=== PATIENT | female | born 1960 | race Caucasian/White ===

== ENCOUNTER 2021-02-26 12:38 | Inpatient (IN) ==
[2021-02-26] MEDS ORDERED: FUROSEMIDE 40 MG/4 ML VIAL IV STA (13:09)
--- NOTE | 2021-02-26 13:21 | Emergency Department Note ---
Impression & Plan CHF (congestive heart failure), Pedal edema, Fluid overload, Atrial fibrillation ED Provider Note NAME: NASH CARNEY AGE: 61 SEX: F : 1960 ARRIVES VIA: Ambulance INFORMANT: [Patient] ED PROVIDER(S): [Black Dumont MD] CHIEF COMPLAINT: Swelling HISTORY OF PRESENT ILLNESS: The patient is a 61-year-old female who presents to the ER from the cardiology office for fluid overload. She has gained 30 pounds in a very short timeframe. She requires admission for IV diuresis. The patient denies vomiting or fever. She has been intermittently short of breath. She has not had cough or vomiting or diarrhea. The patient is on diuretics and is taking the medication as prescribed. The patient was felt too fluid overloaded to be taken care of as an outpatient. The cardiology group did attempt to perform a direct admission to the hospital but they were referred to the ED as the hospital bed status was tenuous. Of note, the patient states that her left knee was twisted in transport, she has some mild pain. She is asking for an x-ray. REVIEW OF SYSTEMS: See HPI for pertinent positives and negatives. A total of ten systems were reviewed and were otherwise negative. PMHx/PSHx: See Below SOCIAL HISTORY: See Below. PHYSICAL EXAM: GENERAL: Patient is in no acute distress. HEENT: No acute trauma, normocephalic atraumatic, mucous membranes moist, no nasal congestion, no scleral icterus. NECK: No stridor, no adenopathy, no meningismus, trachea is midline. LUNGS: Crackles at both bases, no wheezing, no respiratory distress. HEART: Mildly tachycardic, irregular rhythm, no murmurs. ABDOMEN: Soft, nontender, bowel sounds positive, no hernias, no peritonitis. EXTREMITIES: No cyanosis, significant bilateral pedal edema, full range of m otion of all the joints without pain or difficulty, no signs for acute trauma. NEUROLOGIC: Oriented x 3, no acute motor or sensory deficits, no focal weakness. SKIN: No rash, no jaundice, no diaphoresis. DIFFERENTIAL DIAGNOSIS: Reactive airway disease, pneumonia, pneumothorax, COPD, CHF, infection, cardiac ischemia, pulmonary embolism, bronchitis, musculoskeletal, gastrointestinal, as well as other pathologies. EMERGENCY DEPARTMENT COURSE/PROCEDURES: ECG: Indication was shortness of breath. The ECG shows atrial fibrillation with a rate of 117. There is some T wave inversion in the lateral leads. There is a potential old inferior infarct. The QTc is 499. No PVCs. No ST elevation. Continuous Cardiac Monitoring: An order was placed for continuous cardiac monitoring. The monitor shows a rate of 103 with atrial fibrillation. MEDICAL DECISION MAKING: There is no leukocytosis. The patient does have a mild anemia. The platelet count was somewhat low at 117. No coagulopathy. No significant electrolyte abnormality or kidney failure. No concerning liver enzyme elevation. BNP was elevated consistent with fluid overload. Chest film shows some cardiomegaly and possibly some mild CHF. Covid testing returned negative. Left knee film showed old hardware, no fracture. The patient presents with a weight gain and fluid overload. She was sent from the cardiology office for admission given the amount of excess fluid. The patient was given IV Lasix, 80 mg. She is currently resting comfortably. I did speak with the on-call hospitalist. I discussed findings with the meenu ent. Case management has been involved. Patient requires an inpatient stay for her diuresis. Past Med/Surg History Medical History Charcot's joint of left foot Chronic diastolic (congestive) heart failure Diabetes mellitus, type II Diabetic retinopathy Fibromyalgia HTN (hypertension) Paroxysmal atrial fibrillation Surgical History History of foot surgery Hx of cholecystectomy Family History (Updated 02/26/21 @ 16:04 by Marilyn Peters PA-C) Other Arthritis Social History Smoking Status: Never smoker Hx Alcohol Use: No Hx Substance Use: No Current Living Situation: Alone Feels Safe at Home: Yes Gender Identity: Female Allergies Allergies Allergy/AdvReac Type Severity Reaction Status Date / Time aluminum Allergy Unknown Verified 02/26/21 15:53 diphenhydramine Allergy Unknown Verified 02/26/21 15:53 [From Benadryl] frovatriptan Allergy Unknown Verified 02/26/21 15:53 garlic Allergy Unknown Verified 02/26/21 15:53 glipizide Allergy Unknown Verified 02/26/21 15:53 latex Allergy Unknown Verified 02/26/21 15:55 nylon Allergy Unknown Verified 02/26/21 16:04 pioglitazone [From Actos] Allergy Unknown Verified 02/26/21 15:45 turkey Allergy Unknown Verified 02/26/21 15:53 walnut Allergy Unknown Verified 02/26/21 15:53 acetaminophen [From Vicodin] AdvReac Unknown Verified 02/26/21 16:04 benzoic acid AdvReac Unknown Verified 02/26/21 15:55 doxylamine AdvReac Unknown Verified 02/26/21 15:53 hydrocodone [From Vicodin] AdvReac Unknown Verified 02/26/21 16:04 morphine AdvReac Unknown Verified 02/26/21 15:55 Sulfa (Sulfonamide AdvReac Unknown Verified 02/26/21 16:04 Antibiotics) sumatriptan [From Imitrex] AdvReac Unknown Verified 02/26/21 15:53 tramadol AdvReac Unknown Verified 02/26/21 16:04 asorbic acid AdvReac Unknown Uncoded 02/26/21 15:53 NYLON AdvReac Unknown Uncoded 02/26/21 16:04 Home Meds Home Medications Medication Instructions Recorded Confirmed Lactobacillus acidophilus 0 mmu cells PO DAILY 02/26/21 02/26/21 [Acidophilus] amiodarone 200 mg PO DAILY 02/26/21 02/26/21 amlodipine 10 mg PO DAILY 02/26/21 02/26/21 aspirin [Aspir-Low] 81 mg PO DAILY 02/26/21 02/26/21 [id number]-etommuk-[id number] 1 cap PO Q4H PRN 02/26/21 02/26/21 calcium carbonate-vitamin D3 1 tab PO DAILY 02/26/21 02/26/21 [Calcium 600 + D(3)] cholecalciferol (vitamin D3) 25 mcg PO DAILY 02/26/21 02/26/21 [Vitamin D3] docusate sodium 100 mg PO BID 02/26/21 02/26/21 ferrous sulfate [FeroSul] 325 mg PO BID 02/26/21 02/26/21 fexofenadine [Elisha] 180 mg PO DAILY 02/26/21 02/26/21 folic acid 1 mg PO DAILY 02/26/21 02/26/21 gabapentin 200 mg PO BID 02/26/21 02/26/21 insulin glargine [Basaglar KwikPen 15 unit SUBCUT HS 02/26/21 02/26/21 U-100 Insulin] levothyroxine [Tirosint] 25 mcg PO DAILY 02/26/21 02/26/21 metoprolol succinate 50 mg PO DAILY 02/26/21 02/26/21 omeprazole 40 mg PO DAILY 02/26/21 02/26/21 potassium chloride 20 meq PO BID 02/26/21 02/26/21 torsemide [Demadex] 20 mg PO BID 02/26/21 02/26/21 Results & Data (ED) Vital Signs Vital Signs - 24 hr 02/26/21 12:49 02/26/21 12:55 02/26/21 13:43 Temperature 36.5 C Temperature Source Oral Pulse Rate 117 H 103 H Pulse Rate [Apical] 103 H Pulse Rate from SpO2 Sensor 121 H 118 H Respiratory Rate 18 20 21 Respiratory Effort / Characteristics Non-Labored Spontaneous Respiratory Depth Normal Respiratory Pattern Regular Blood Pressure 121/79 121/79 Blood Pressure [Left Arm] 121/79 Blood Pressure Mean 93 93 Blood Pressure Mean [Left Arm] 93 Pulse Oximetry 97 92 94 Oxygen Delivery Method Nasal Cannula Room Air Nasal Cannula Oxygen Flow Rate 2 2 Sepsis Recent Fever Within 48 Hours No Sepsis New/Unexplained Change in Mental Status No Sepsis Action Taken by Nursing No Action Required 02/26/21 14:00 02/26/21 14:30 02/26/21 14:49 Temperature Temperature Source Pulse Rate 110 H 104 H 109 H Pulse Rate [Apical] Pulse Rate from SpO2 Sensor Respiratory Rate 19 24 20 Respiratory Effort / Characteristics Respiratory Depth Respiratory Pattern Blood Pressure Blood Pressure [Left Arm] Blood Pressure Mean Blood Pressure Mean [Left Arm] Pulse Oximetry 97 97 Oxygen Delivery Method Nasal Cannula Nasal Cannula Oxygen Flow Rate 2 2 Sepsis Recent Fever Within 48 Hours Sepsis New/Unexplained Change in Mental Status Sepsis Action Taken by Nursing 02/26/21 14:51 02/26/21 15:00 02/26/21 15:30 Temperature Temperature Source Pulse Rate 121 H 102 H 100 H Pulse Rate [Apical] Pulse Rate from SpO2 Sensor 106 H 108 H 108 H Respiratory Rate 13 18 16 Respiratory Effort / Characteristics Respiratory Depth Respiratory Pattern Blood Pressure 136/92 111/77 114/91 Blood Pressure [Left Arm] Blood Pressure Mean 106 88 98 Blood Pressure Mean [Left Arm] Pulse Oximetry 97 97 95 Oxygen Delivery Method Nasal Cannula Nasal Cannula Nasal Cannula Oxygen Flow Rate 2 2 2 Sepsis Recent Fever Within 48 Hours Sepsis New/Unexplained Change in Mental Status Sepsis Action Taken by Nursing 02/26/21 16:00 02/26/21 16:30 Temperature Temperature Source Pulse Rate 109 H 120 H Pulse Rate [Apical] Pulse Rate from SpO2 Sensor 111 H 123 H Respiratory Rate 19 16 Respiratory Effort / Characteristics Respiratory Depth Respiratory Pattern Blood Pressure 130/94 109/87 Blood Pressure [Left Arm] Blood Pressure Mean 106 94 Blood Pressure Mean [Left Arm] Pulse Oximetry 96 97 Oxygen Delivery Method Nasal Cannula Nasal Cannula Oxygen Flow Rate 2 2 Sepsis Recent Fever Within 48 Hours Sepsis New/Unexplained Change in Mental Status Sepsis Action Taken by Prison Medications Current Medication List: was personally reviewed by me Laboratory Data Attestation: I reviewed the patient's lab results. Result diagrams: 02/26/21 14:34 02/26/21 14:34 Lab Results 02/26/21 02/26/21 02/26/21 Range/Units 13:49 13:49 14:34 WBC 4.19 L (4.8-10.8) K/uL RBC 3.70 L (4.2-5.4) M/uL Hgb 10.8 L (12.0-16.0) g/dL Hct 33.4 L (37-47) % MCV 90.3 (80-100) fL MCH 29.2 (25-34) pg MCHC 32.3 (32-36) g/dL RDW Std Deviation 48.6 H (36.4-46.3) fL RDW Coeff of Milo 14.7 H (11.5-14.5) % Plt Count 117 L (130-400) K/uL MPV 8.8 (7.4-10.4) fL Immature Gran % (Auto) 0.2 % Neut % (Auto) 65.2 % Lymph % (Auto) 23.9 % [place] % (Auto) 8.1 % Eos % (Auto) 2.1 % Baso % (Auto) 0.5 % Neut # (Auto) 2.73 (1.4-6.5) K/uL Lymph # (Auto) 1.00 L (1.2-3.4) K/uL [place] # (Auto) 0.34 (0.11-0.59) K/uL Eos # (Auto) 0.09 (0-0.5) K/uL Baso # (Auto) 0.02 (0-0.2) K/uL Immature Gran # (Auto) 0.01 (0.00-0.02) K/uL PT (9.0-12.0) Seconds INR (0.9-1.1) APTT (21.0-31.0) Seconds PTT Ratio Sodium (136-145) mmol/L Potassium (3.5-5.1) mmol/L Chloride (98-107) mmol/L Carbon Dioxide (21-32) mmol/L Anion Gap (3-11) BUN (7-18) mg/dl Creatinine (0.6-1.2) mg/dl Est Cr Clr Drug Dosing ml/min Est GFR ( Amer) ml/min Est GFR (Non-Af Amer) ml/min BUN/Creatinine Ratio (10-20) Glucose (70-99) mg/dl Calcium (8.5-10.1) mg/dl Magnesium (1.8-2.4) mg/dl Total Bilirubin (0.2-1) mg/dl AST (15-37) U/L ALT (12-78) U/L Alkaline Phosphatase (45-117) U/L Troponin I (0-0.045) ng/ml NT-Pro-B Natriuret Pep (0-900) pg/ml Total Protein (6.4-8.2) gm/dl Albumin (3.4-5.0) gm/dl Globulin (2.5-4.0) gm/dl Albumin/Globulin Ratio (0.9-2) COVID-19 Eval [facility] SARS-CoV-2, RNA, NAAT NEGATIVE (NEGATIVE) 02/26/21 02/26/21 Range/Units 14:34 14:34 WBC (4.8-10.8) K/uL RBC (4.2-5.4) M/uL Hgb (12.0-16.0) g/dL Hct (37-47) % MCV (80-100) fL MCH (25-34) pg MCHC (32-36) g/dL RDW Std Deviation (36.4-46.3) fL RDW Coeff of Milo (11.5-14.5) % Plt Count (130-400) K/uL MPV (7.4-10.4) fL Immature Gran % (Auto) % Neut % (Auto) % Lymph % (Auto) % [place] % (Auto) % Eos % (Auto) % Baso % (Auto) % Neut # (Auto) (1.4-6.5) K/uL Lymph # (Auto) (1.2-3.4) K/uL [place] # (Auto) (0.11-0.59) K/uL Eos # (Auto) (0-0.5) K/uL Baso # (Auto) (0-0.2) K/uL Immature Gran # (Auto) (0.00-0.02) K/uL PT 10.8 (9.0-12.0) Seconds INR 1.1 (0.9-1.1) APTT 25.9 (21.0-31.0) Seconds PTT Ratio 1.0 Sodium 145 (136-145) mmol/L Potassium 4.1 (3.5-5.1) mmol/L Chloride 112 H (98-107) mmol/L Carbon Dioxide 27 (21-32) mmol/L Anion Gap 6.0 (3-11) BUN 38 H (7-18) mg/dl Creatinine 1.33 H (0.6-1.2) mg/dl Est Cr Clr Drug Dosing 59.9 ml/min Est GFR ( Amer) 50.2 ml/min Est GFR (Non-Af Amer) 43.3 ml/min BUN/Creatinine Ratio 28.3 H (10-20) Glucose 166 H (70-99) mg/dl Calcium 9.1 (8.5-10.1) mg/dl Magnesium 2.2 (1.8-2.4) mg/dl Total Bilirubin 0.6 (0.2-1) mg/dl AST 20 (15-37) U/L ALT 35 (12-78) U/L Alkaline Phosphatase 244 H (45-117) U/L Troponin I < 0.015 (0-0.045) ng/ml NT-Pro-B Natriuret Pep 2471 H (0-900) pg/ml Total Protein 6.2 L (6.4-8.2) gm/dl Albumin 3.1 L (3.4-5.0) gm/dl Globulin 3.1 (2.5-4.0) gm/dl Albumin/Globulin Ratio 1.0 (0.9-2) COVID-19 Eval Order SARS-CoV-2, RNA, NAAT (NEGATIVE) Administered Medications Discontinued Medications Furosemide (Furosemide 40 Mg/4 Ml Vial) 80 mg IV NOW STA Stop: 02/26/21 13:10 Last Admin: 02/26/21 14:46 Dose: 80 mg Documented by: [id number] Imaging Data Radiologist's Impression: Chest X-Ray 02/26/21 13:09 XR chest 1V portable CLINICAL HISTORY: Shortness of breath COMPARISON STUDY: No previous studies for comparison. FINDINGS: The heart is enlarged. There is mild elevation of interstitium likely secondary to mild pulmonary vascular congestion. Chronic interstitial lung disease and interstitial inflammatory processes could appear similar. There is no lobar consolidation. There are no pleural effusions.[ IMPRESSION: Cardiomegaly and mild elevation of interstitium. Clinical correlation with regards to mild pulmonary vascular congestion recommended. ACT 112: Negative or not required by law. Electronically signed by: Fredrick Denise M.D. 02/26/2021 1:47 PM Knee X-Ray 02/26/21 13:09 XR knee LT 1 or 2V routine CLINICAL HISTORY: Left knee pain status post trauma COMPARISON: None. DISCUSSION: The bones are osteopenic. Degenerative changes are present most pronounced within the lateral joint compartment. There are postsurgical changes involving the distal femur. IMPRESSION: 1. Postsurgical changes involve the distal femur 2. Osteopenia 3. Degenerative change 4. No acute fractures identified ACT 112: Negative or not required by law. Electronically signed by: Fredrick Denise M.D. 02/26/2021 1:48 PM Discharge Plan Visit Data Chief Complaint: Swelling/Edema to Extremity Stated Complaint: increased edema referred by ED Provider: Black Dumont Discharge Problem: CHF (congestive heart failure), Pedal edema, Fluid overload, Atrial fibrillation Patient Disposition: Admitted As Inpatient Condition: Fair Forms Stand Alone Forms: My [facility] Prescriptions Prescriptions: No Action torsemide [Demadex] 20 mg Tablet 20 mg PO BID RF: 0 metoprolol succinate 50 mg Tablet Extended Release 24 Hr 50 mg PO DAILY RF: 0 fexofenadine [Elisha] 180 mg Tablet 180 mg PO DAILY RF: 0 omeprazole 40 mg Capsule,Delayed Release(Dr/Ec) 40 mg PO DAILY RF: 0 aspirin [Aspir-Low] 81 mg Tablet,Delayed Release (Dr/Ec) 81 mg PO DAILY RF: 0 potassium chloride 20 mEq Tablet,Er Particles/Crystals 20 meq PO BID RF: 0 amlodipine 10 mg Tablet 10 mg PO DAILY RF: 0 ferrous sulfate [FeroSul] 325 mg (65 mg iron) tablet 325 mg PO BID RF: 0 eqiqqnfiji-stkvawf-ftnzarkk 50-325-40 mg Capsule 1 cap PO Q4H PRN (Reason: Migraine Headache) RF: 0 folic acid 1 mg Tablet 1 mg PO DAILY RF: 0 docusate sodium 100 mg Tablet 100 mg PO BID RF: 0 amiodarone 100 mg Tablet 200 mg PO DAILY RF: 0 gabapentin 100 mg Tablet 200 mg PO BID RF: 0 cholecalciferol (vitamin D3) [Vitamin D3] 25 mcg (1,000 unit) Tablet 25 mcg PO DAILY RF: 0 calcium carbonate-vitamin D3 [Calcium 600 + D(3)] 600 mg(1,500mg) -400 unit Tablet 1 tab PO DAILY RF: 0 Basaglar KwikPen U-100 Insulin 100 unit/mL (3 mL) Insulin Pen 15 unit SUBCUT HS RF: 0 levothyroxine [Tirosint] 25 mcg Capsule 25 mcg PO DAILY RF: 0 Acidophilus Tablet 0 mmu cells PO DAILY RF: 0 Referrals Referrals: Marcial Blanc MD [Primary Care Provider] - Discharge Problem: CHF (congestive heart failure) Qualifiers: Heart failure type: unspecified Heart failure chronicity: acute on chronic Qualified Code(s): I50.9 - Heart failure, unspecified Fluid overload Qualifiers: Hypervolemia type: unspecified Qualified Code(s): E87.70 - Fluid overload, unspecified Atrial fibrillation Qualifiers: Atrial fibrillation type: longstanding persistent Qualified Code(s): I48.11 - Longstanding persistent atrial fibrillation
--- NOTE | 2021-02-26 13:48 | XRay Report ---
XR chest 1V portable CLINICAL HISTORY: Shortness of breath COMPARISON STUDY: No previous studies for comparison. FINDINGS: The heart is enlarged. There is mild elevation of interstitium likely secondary to mild pul monary vascular congestion. Chronic interstitial lung disease and interstitial inflammatory processes could appear similar. There is no lobar consolidation. There are no pleural effusions.[ IMPRESSION: Cardiomegaly and mild elevation of interstitium. Clinical correlation with regards to mil d pulmonary vascular congestion recommended. ACT 112: Negative or not required by law. Electronically signed by: Fredrick Denise M.D. 02/26/2021 1:47 PM
--- NOTE | 2021-02-26 13:50 | XRay Report ---
XR knee LT 1 or 2V routine CLINICAL HISTORY: Left knee pain status post trauma COMPARISON: None. DISCUSSION: The bones are osteopenic. Degenerative changes are present most pronounced within the lat eral joint compartment. There are postsurgical changes involving the distal femur. IMPRESSION: 1. Postsurgical changes involve the distal femur 2. Osteopenia 3. Degenerative change 4. No acute fractures identified ACT 112: Negative or not required by law. Electronically signed by: Fredrick Denise M.D. 02/26/2021 1:48 PM
[2021-02-26 14:50] LABS: Basophils # (auto) 0.02 K/uL (0-0.2); Basophils % (auto) 0.5 %; Eosinophils # (auto) 0.09 K/uL (0-0.5); Eosinophils % (auto) 2.1 %; Hematocrit (blood only) 33.4 % (37-47); Hemoglobin 10.8 g/dL (12.0-16.0); Immature Granulocytes # (auto) 0.01 K/uL (0.00-0.02); Immature Granulocytes % (auto) 0.2 %; Lymphocytes % (auto) 23.9 %; Mean Corpuscular Hemoglobin 29.2 pg (25-34); Mean Corpuscular Hgb Conc 32.3 g/dL (32-36); Mean Corpuscular Volume 90.3 fL (80-100); Mean Platelet Volume 8.8 fL (7.4-10.4); Monocytes # (auto) 0.34 K/uL (0.11-0.59); Monocytes % (auto) 8.1 %; Neutrophils # (auto) 2.73 K/uL (1.4-6.5); Neutrophils % (auto) 65.2 %; Platelet Count 117 K/uL (130-400); RDW Coefficient of Variation 14.7 % (11.5-14.5); RDW Standard Deviation 48.6 fL (36.4-46.3); White Blood Count 4.19 K/uL (4.8-10.8)
[2021-02-26 15:00] LABS: INR 1.1 (0.9-1.1); Partial Thromboplastin Time 25.9 Seconds (21.0-31.0); Prothrombin Time 10.8 Seconds (9.0-12.0)
[2021-02-26 15:06] LABS: Alanine Aminotransferase 35 U/L (12-78); Albumin Level 3.1 gm/dl (3.4-5.0); Aspartate Aminotransferase 20 U/L (15-37); BUN Creatinine Ratio 28.3 (10-20); Blood Urea Nitrogen 38 mg/dl (7-18); Calcium 9.1 mg/dl (8.5-10.1); Carbon Dioxide 27 mmol/L (21-32); Chloride 112 mmol/L (98-107); Creatinine Clr Calc Pharmacy 59.9 ml/min; Est GFR (African American) 50.2 ml/min; Est GFR (Non-African American) 43.3 ml/min; Glucose 166 mg/dl (70-99); Magnesium 2.2 mg/dl (1.8-2.4); Potassium 4.1 mmol/L (3.5-5.1); Sodium 145 mmol/L (136-145)
[2021-02-26 15:11] LABS: Alkaline Phosphatase 244 U/L (45-117); Bilirubin,Total 0.6 mg/dl (0.2-1); Globulin 3.1 gm/dl (2.5-4.0); NT Pro B Type Natriuretic Pept 2471 pg/ml (0-900); Total Protein 6.2 gm/dl (6.4-8.2); Troponin I < 0.015 ng/ml (0-0.045)
--- NOTE | 2021-02-26 15:48 | History & Physical Report ---
Date of Service February 26, 2021 Assessment & Plan (1) Acute decompensated heart failure: This is a 61yo F with a PMH of chronic diastolic HF, DM II, paroxysmal A Fib, diabetic retinopathy, HTN and other medical problems listed below who was sent over by Dr. Peña in cardiology office for decompensated heart failure. History of chronic diastolic heart failure with recent admissions for acute decompensation Most recently admitted at [facility] in early January for this Has gained 30 pounds since discharge from hospital, per chart review History of medication non-compliance Most recent TTE from OSH 06/2020 Echo - EF 40-45%, +RWMA Given 80 mg IV Lasix in ED Will continue diuresis with 60 mg IV Lasix twice daily Wick catheter in place, strict I&Os, daily weights Routine cardiology consult (2) Dysuria: UA with reflex culture pending (3) Ambulatory dysfunction: In setting of volume overload, Cindy Ross foot Recently discharged home from SNF with home health but does not feel she has en ough support for ADLs, ambulating to bathroom while on diuretics Fall precautions, PT/OT evaluation, case mgmt consult (4) Paroxysmal atrial fibrillation: Continue amiodarone Not anticoagulated due to ophthalmological issue which requires frequent injections Monitor on telemetry (5) HTN (hypertension): Normotensive Continue Toprol Per Dr. Peña, consider decreasing amlodipine dose while in hospital as it could be contributing to peripheral edema (6) Diabetes mellitus, type II: Hgb a1c in January 2021 Hold home agents Basal/bolus insulin while in-patient per protocol BSG AC HS (7) Fibromyalgia: Continue gabapentin DVT Ppx: SCDs only - Plan to reassess/ discuss with her in AM. Specified against blood thinners of any kind due to ophthalmological issue Code status: Conditional code - YES to CPR, defibrillation. NO to intubation or mech vent PCP: Dr. Blanc Dispo: Admitted to med tele. Discharge planning ordered Patient seen in collaboration with Dr. Doll. Please see addendum. History of Present Illness Chief Complaint: volume overload, leg weakness Primary Care Provider: Marcial Blanc MD This is a 61yo F with a PMH of chronic diastolic HF, DM II, paroxysmal A Fib, diabetic retinopathy, HTN and other medical problems listed below who was sent over by Dr. Peña in cardiology office for volume overload. Previously a patient in [facility] but relocated from [place] to [place] and is establishing with Jen. Endorses increased fluid in her legs and inability to lift them or walk as she usually does over the past week. Endorses shortness of breath, orthopnea and PND. Sleeps sitting up. Intermittent chest pains that resolves spontaneously. No chest pain currently. Endorses burning with urination over the past few days. Following with urology. Recently discharged from [facility] in [place] in early January due to acute exacerbation of diastolic heart failure and was discharged to [facility] from there. Returned home on February 20. Has a home health care services manager to help with ADLs. Per chart review, patient is not anticoagulated due to ophthalmological issue which requires frequent injections. Has gained approximately 30 lbs since discharge from [facility] in January. Denies fever, chills, lightheadedness, headache, nausea, vomiting, abdominal pain, diarrhea or constipation. Allergies Allergy/AdvReac Type Severity Reaction Status Date / Time aluminum Allergy Unknown Verified 02/26/21 15:53 diphenhydramine Allergy Unknown Verified 02/26/21 15:53 [From Benadryl] frovatriptan Allergy Unknown Verified 02/26/21 15:53 garlic Allergy Unknown Verified 02/26/21 15:53 glipizide Allergy Unknown Verified 02/26/21 15:53 latex Allergy Unknown Verified 02/26/21 15:55 nylon Allergy Unknown Verified 02/26/21 16:04 pioglitazone [From Actos] Allergy Unknown Verified 02/26/21 15:45 turkey Allergy Unknown Verified 02/26/21 15:53 walnut Allergy Unknown Verified 02/26/21 15:53 acetaminophen [From Vicodin] AdvReac Unknown Verified 02/26/21 16:04 benzoic acid AdvReac Unknown Verified 02/26/21 15:55 doxylamine AdvReac Unknown Verified 02/26/21 15:53 hydrocodone [From Vicodin] AdvReac Unknown Verified 02/26/21 16:04 morphine AdvReac Unknown Verified 02/26/21 15:55 Sulfa (Sulfonamide AdvReac Unknown Verified 02/26/21 16:04 Antibiotics) sumatriptan [From Imitrex] AdvReac Unknown Verified 02/26/21 15:53 tramadol AdvReac Unknown Verified 02/26/21 16:04 asorbic acid AdvReac Unknown Uncoded 02/26/21 15:53 NYLON AdvReac Unknown Uncoded 02/26/21 16:04 Home Medications Medication Instructions Recorded Confirmed Type Lactobacillus acidophilus 0 mmu cells PO DAILY 02/26/21 02/26/21 History [Acidophilus] amiodarone 200 mg PO DAILY 02/26/21 02/26/21 History amlodipine 10 mg PO DAILY 02/26/21 02/26/21 History aspirin [Aspir-Low] 81 mg PO DAILY 02/26/21 02/26/21 History [id number] 1 cap PO Q4H PRN 02/26/21 02/26/21 History calcium carbonate-vitamin D3 1 tab PO DAILY 02/26/21 02/26/21 History [Calcium 600 + D(3)] cholecalciferol (vitamin D3) 25 mcg PO DAILY 02/26/21 02/26/21 History [Vitamin D3] docusate sodium 100 mg PO BID 02/26/21 02/26/21 History ferrous sulfate [FeroSul] 325 mg PO BID 02/26/21 02/26/21 History fexofenadine [Elisha] 180 mg PO DAILY 02/26/21 02/26/21 History folic acid 1 mg PO DAILY 02/26/21 02/26/21 History gabapentin 200 mg PO BID 02/26/21 02/26/21 History insulin glargine [Basaglar KwikPen 15 unit SUBCUT HS 02/26/21 02/26/21 History U-100 Insulin] levothyroxine [Tirosint] 25 mcg PO DAILY 02/26/21 02/26/21 History metoprolol succinate 50 mg PO DAILY 02/26/21 02/26/21 History omeprazole 40 mg PO DAILY 02/26/21 02/26/21 History potassium chloride 20 meq PO BID 02/26/21 02/26/21 History torsemide [Demadex] 20 mg PO BID 02/26/21 02/26/21 History Past Med/Surg History Medical History Charcot's joint of left foot Chronic diastolic (congestive) heart failure Diabetes mellitus, type II Diabetic retinopathy Fibromyalgia HTN (hypertension) Paroxysmal atrial fibrillation Surgical History History of foot surgery Hx of cholecystectomy Family History (Updated 02/26/21 @ 16:04 by Marilyn Peters PA-C) Other Arthritis Social History Smoking Status: Never smoker Hx Alcohol Use: No Hx Substance Use: No Current Living Situation: Alone Feels Safe at Home: Yes Gender Identity: Female Review of Systems Review of Systems: At least ten systems reviewed and negative except as noted in the HPI. Physical Exam Physical Exam: Please see Dr. Doll's addendum for physical exam. Results & Data Results & Data ([facility]) Vital Signs (Past 12 Hours) Vital Signs Temp Pulse Pulse Resp BP BP Pulse Ox 02/26/21 15:30 100 H 16 114/91 95 02/26/21 15:00 102 H 18 111/77 97 02/26/21 14:51 121 H 13 136/92 97 02/26/21 14:49 109 H 20 97 02/26/21 14:30 104 H 24 97 02/26/21 14:00 110 H 19 02/26/21 13:43 21 94 02/26/21 12:55 36.5 C 103 H 103 H 20 121/79 121/79 92 02/26/21 12:49 117 H 18 121/79 97 Laboratory Results Short CBC 02/26/21 02/26/21 Range/Units 14:34 14:34 WBC 4.19 L (4.8-10.8) K/uL Hgb 10.8 L (12.0-16.0) g/dL Hct 33.4 L (37-47) % Plt Count 117 L (130-400) K/uL Creatinine 1.33 H (0.6-1.2) mg/dl BMP 02/26/21 14:34 Sodium 145 Potassium 4.1 Chloride 112 H Carbon Dioxide 27 BUN 38 H Creatinine 1.33 H Glucose 166 H Calcium 9.1 Cardiac Enzymes 02/26/21 Range/Units 14:34 Troponin I < 0.015 (0-0.045) ng/ml Liver Function 02/26/21 Range/Units 14:34 Total Bilirubin 0.6 (0.2-1) mg/dl AST 20 (15-37) U/L ALT 35 (12-78) U/L Alkaline Phosphatase 244 H (45-117) U/L Albumin 3.1 L (3.4-5.0) gm/dl Diagnostic Findings Chest X-Ray 02/26/21 13:09 XR chest 1V portable CLINICAL HISTORY: Shortness of breath COMPARISON STUDY: No previous studies for comparison. FINDINGS: The heart is enlarged. There is mild elevation of interstitium likely secondary to mild pulmonary vascular congestion. Chronic interstitial lung disease and interstitial inflammatory processes could appear similar. There is no lobar consolidation. There are no pleural effusions.[ IMPRESSION: Cardiomegaly and mild elevation of interstitium. Clinical correlation with regards to mild pulmonary vascular congestion recommended. ACT 112: Negative or not required by law. Electronically signed by: Fredrick Denise M.D. 02/26/2021 1:47 PM Knee X-Ray 02/26/21 13:09 XR knee LT 1 or 2V routine CLINICAL HISTORY: Left knee pain status post trauma COMPARISON: None. DISCUSSION: The bones are osteopenic. Degenerative changes are present most pronounced within the lateral joint compartment. There are postsurgical changes involving the distal femur. IMPRESSION: 1. Postsurgical changes involve the distal femur 2. Osteopenia 3. Degenerative change 4. No acute fractures identified ACT 112: Negative or not required by law. Electronically signed by: Fredrick Denise M.D. 02/26/2021 1:48 PM Supervising Physician Co-Signing Physician Notes History and physical exam performed by me as detailed by Marilyn Peters PA-C History notable for worsening bilateral lower extremity swelling, occasional shortness of breath, dry cough for the past week. Also reports chronic orthopnea. Ambulatory dysfunction using a walker at home and aids. Physical exam General: Obese woman, no obvious distress Eyes: PERRL, conjunctivae normal, not pale, anicteric sclerae, EOM intact bilaterally ENMT: External ear and nose normal, oropharynx normal Neck: Normal visual inspection, no tracheal deviation, no swelling noted Respiratory: Normal respiratory effort, no respiratory distress, lungs clear to auscultation, no crackles and no wheezes Cardiovascular: Tachycardic, pulse is regular, S1 S2, 2+bilateral lower extremity edema. Gastrointestinal (Abdomen): Abdomen is not distended, soft, non-tender to palpation, no guarding, no palpable hepatosplenomegaly, normal bowel sounds Musculoskeletal: Bilateral lower extremity edema Genitourinary: No CVA tenderness Neurologic: Alert and oriented x 3, No focal weakness, sensation grossly intact Psychiatric: Alert and oriented x 3, euthymic affect, no depressed affect Lab work notable for WBC of 4.19, hemoglobin of 10.8, platelet of 117, creatinine of 1.33, alkaline phosphatase of 244, BNP of 2471 Chest x-ray shows cardiomegaly with features of mild pulmonary vascular congestion Decompensated Congestive heart failure IV Lasix 60 mg twice daily Daily weights Monitor I's and O's Cardiology consult Get 2D echo Continue amiodarone Continue aspirin and metoprolol succinate for now Continue levothyroxine Monitor electrolytes and renal function with diuretics Manage blood glucose with insulin Lantus and sliding scale per protocol Other plans as detailed by Marilyn Peters PA-C
--- NOTE | 2021-02-26 16:40 | Communication Note ---
Date of Service: February 26, 2021 History and physical exam performed by me as detailed by Marilyn Peters PA-C History notable for worsening bilateral lower extremity swelling, occasional shortness of breath, dry cough for the past week. Also reports chronic orthopnea. Ambulatory dysfunction using a walker at home and aids. Physical exam General: Obese woman, no obvious distress Eyes: PERRL, conjunctivae normal, not pale, anicteric sclerae, EOM intact bilaterally ENMT: External ear and nose normal, oropharynx normal Neck: Normal visual inspection, no tracheal deviation, no swelling noted Respiratory: Normal respiratory effort, no respiratory distress, lungs clear to auscultation, no crackles and no wheezes Cardiovascular: Tachycardic, pulse is regular, S1 S2, 2+bilateral lower extremity edema. Gastrointestinal (Abdomen): Abdomen is not distended, soft, non-tender to palpation, no guarding, no palpable hepatosplenomegaly, normal bowel sounds Musculoskeletal: Bilateral lower extremity edema Genitourinary: No CVA tenderness Neurologic: Alert and oriented x 3, No focal weakness, sensation grossly intact Psychiatric: Alert and oriented x 3, euthymic affect, no depressed affect Lab work notable for WBC of 4.19, hemoglobin of 10.8, platelet of 117, creatinine of 1.33, alkaline phosphatase of 244, BNP of 2471 Chest x-ray shows cardiomegaly with features of mild pulmonary vascular congestion Congestive heart failure IV Lasix 60 mg twice daily Daily weights Monitor I's and O's Cardiology consult Get 2D echo Continue amiodarone Continue aspirin and metoprolol succinate for now Continue levothyroxine Monitor electrolytes and renal function with diuretics Manage blood glucose with insulin Lantus and sliding scale per protocol Other plans as detailed by Marilyn Peters PA-C
[2021-02-26] MEDS ORDERED: BUTALBITAL/ASPIRIN/CAFFEINE 1 TAB TAB PO PRN (17:02)
[2021-02-26 18:37] LABS: Appearance Urine Clear (Clear); Bacteria Urine Automated 1+ (Negative); Bilirubin Urine Negative (Negative); Blood Urine Negative (Negative); Color Urine Yellow; Glucose Urine UA Negative (Negative); Ketones Urine Negative (Negative); Leukocyte Esterase Urine Trace (Negative); Nitrite Urine Negative (Negative); Protein Urine Negative (Negative); RBC Urine Automated 0-4 /hpf (0-4); Specific Gravity Urine 1.011 (1.000-1.030); Urobilinogen Urine Negative (Negative)
[2021-02-26] MEDS ORDERED: GLUCOSE 40% GEL 15 GM TUBE PO PRN (19:12)
[2021-02-26] MEDS ORDERED: GLUCAGON FOR INJ 1 MG VIAL SQ PRN (19:12)
[2021-02-26] MEDS ORDERED: DEXTROSE 50% 50 ML SYRINGE IV PRN (19:12)
[2021-02-26] MEDS ORDERED: ONDANSETRON INJ 2 MG/ML 2 ML VIAL IV PRN (19:12)
[2021-02-26] MEDS ORDERED: GLUCOSE 10 TABS/TUBE PO PRN (19:12)
[2021-02-26] MEDS ORDERED: POLYETHYLENE (MIRALAX) 17 GM PACK PO PRN (19:12)
[2021-02-26] MEDS: DOCUSATE SODIUM 100 MG CAP PO SCH (21:00)
[2021-02-26] MEDS ORDERED: FUROSEMIDE 40 MG/4 ML VIAL IV SCH (21:00)
[2021-02-26] MEDS: GABAPENTIN 100 MG CAP PO SCH (21:00)
[2021-02-26] MEDS ORDERED: INSULIN GLARGINE SOLOSTAR 100 UNITS/ML 3 ML PEN SC SCH (21:00)
[2021-02-26] MEDS: FERROUS SULFATE 325 MG TAB PO SCH (21:00)
[2021-02-26] MEDS: FUROSEMIDE 60 MG in SYRINGE 0 ML IV SCH (21:01)
[2021-02-26] MEDS: DICLOFENAC SOD 1% GEL 100 GM TUBE EXT PRN (21:01)
[2021-02-26] MEDS: POTASSIUM CHLORIDE CRTAB 20 MEQ TABCR PO SCH (21:01)
[2021-02-26] MEDS: INSULIN ASPART 100 UNITS/ML 3 ML PEN SC SCH (21:02)
[2021-02-27] MEDS: DICLOFENAC SOD 1% GEL 100 GM TUBE EXT PRN (03:00)
[2021-02-27] MEDS: LEVOTHYROXINE SODIUM 25 MCG TABLET PO SCH (06:04)
[2021-02-27] MEDS: FEXOFENADINE HCL 180 MG TAB PO SCH (08:30)
[2021-02-27] MEDS: CHOLECALCIFEROL 1,000 UNITS 25 MCG TAB PO SCH (08:30)
[2021-02-27] MEDS: ADVANCED PROBIOTIC 1250 MG CAPSULE PO SCH (08:31)
[2021-02-27] MEDS: AMIODARONE 200 MG TAB PO SCH (08:31)
[2021-02-27] MEDS: METOPROLOL SUCC 50MG EXT REL TAB PO SCH (08:31)
[2021-02-27] MEDS: CALCIUM 600MG + VIT D 400 IU TAB PO SCH (08:31)
[2021-02-27] MEDS: ASPIRIN 81 MG ECTAB PO SCH (08:31)
[2021-02-27] MEDS: DOCUSATE SODIUM 100 MG CAP PO SCH ×2 (08:32→21:05)
[2021-02-27] MEDS: FERROUS SULFATE 325 MG TAB PO SCH ×2 (08:32→21:04)
[2021-02-27] MEDS: GABAPENTIN 100 MG CAP PO SCH ×2 (08:33→21:06)
[2021-02-27] MEDS: POTASSIUM CHLORIDE CRTAB 20 MEQ TABCR PO SCH ×2 (08:33→21:06)
[2021-02-27] MEDS: PANTOprazole 40 MG TAB PO SCH (08:33)
[2021-02-27] MEDS: FOLIC ACID 1 MG TAB PO SCH (08:34)
[2021-02-27] MEDS: INSULIN ASPART 100 UNITS/ML 3 ML PEN SC SCH ×4 (08:37→21:14)
[2021-02-27] MEDS: FUROSEMIDE 60 MG in SYRINGE 0 ML IV SCH ×2 (08:39→21:03)
--- NOTE | 2021-02-27 08:45 | Cardiology Consultation ---
Date of Consultation February 27, 2021 Assessment & Plan (1) Acute decompensated heart failure: Patient remains hypervolemic on exam, but improved since admission. Kidney function remains stable. Potassium WNL. Likely due to dietary indiscretions/noncompliance with medications. 1. Continue IV Lasix 60 mg twice daily 2. Plans to transition to appropriate dose of torsemide over the weekend. 3. Continue to monitor BMP and replace electrolytes as appropriate. (2) Paroxysmal atrial fibrillation: History of PAF, not currently anticoagulated due to history of ophthalmological issue which requires frequent injections. Maintains on Amio 200 mg daily and metoprolol succinate 50 mg daily. On ASA 81 mg daily. Patient initially presented in afib, but converted to SR on own yesterday at 2141. Asymptomatic with afib. 1. Continue to monitor on telemetry (3) HTN (hypertension): Well controlled. Ongoing issues with fluid retention and lower extremity edema. 1. would recommend DC of Norvasc and add Lisinopril Supervising Physician Co-Signing Physician Notes I have seen and evaluated the patient. I reviewed the medical record and discussed the case with Kena Torres. The patient is volume overloaded and will need several days of IV diuretics. She has a history of sleep apnea but has never been able to utilize CPAP at night. The last time she tried was approximately 15 years ago. I ordered a nocturnal pulse oximeter. She may benefit from a follow-up sleep medicine evaluation. History of Present Illness Reason for Consultation: Decompensated heart failure Requesting Physician: [facility] hospitalist Group Attending Physician: Rosemary Doll MD History of Present Illness 61 year old female presenting to ED after being seeing Dr. Peña in the office for decompensated heart failure. Patient presented hypervolemic on exam with progressive edema, weight gain, and orthopnea/PND. Was recently admitted to [facility] for decompensated HF in early January. +30 lb weight gain since hospital discharge. Given 80 mg IV lasix in ED- continued diuresis with 60 IV twice daily. Normally maintains of Torsemide 20mg twice daily at home, however, she states that she "fills up with fluid" on this dose and needs to be on 80 twice daily. Unknown reason why dosage was decreased (notes that it happened in the intermediate). Patient initially presented in Afib, but converted overnight. Patient was asymptomatic. Tele reviewed: Currently SR in the 60s. Converted from AFIB at 2141 yesterday. Currently maintains on Amio 200 mg daily and metoprolol. Not anticoagulated due to history of hemorrhagic diabetic neuropathy. in the past. Only on aspirin 81 mg daily. Today the patient appears comfortable laying supine in bed. Prior to admission she was having significant orthopnea. Shortness of breath improved. Notes that since receiving IV lasix her urine output has greatly increased and her legs feel less swollen. States she has arthritis in both knees which severely limits her activity level and she has been in bed since admission. Utilizing a purewick. Also notes that she has a UTI and is being treated with Antibiotics. No chest pain, palpitations, dizziness, syncope or near syncope. No orthopnea. No fever, chills, cough, hematochezia, melena, or hemoptysis. Denies any dietary indiscretions or missed torsemide pills. Kidney function stable, potassium WNL. PMH: Chronic diastolic failure with most recent TTE from OSH on 06/2020, EF 40-45%, normal LV function 06/2020 per cath Paroxysmal Afib, on chronic Amiodarone, reported contraindication to chronic anticoagulation secondary to hemorrhagic diabetic retinopathy uncontrolled HTN Nonobstructive CAD Diabetes Morbid obesity H/o Med noncompliance Cardiac catheterization report summary [facility] June 24, 2020: 1. Normal left ventricular contractile function 2. Unobstructed left main coronary artery 3. Unobstructed but luminally irregular left anterior descending coronary artery 4. 70% stenosis proximal circumflex with a good distal vessel FFR 0.98; IFR 1.0 5. Unobstructed right coronary artery 6. Normal left jugular end-diastolic pressure 7. Successful hemostasis TR band left wrist 8. At the terminal portion of the case following adenosine infusion for FFR patient developed relatively rate controlled atrial fibrillation which did not respond to beta-melita therapy. Discussion with EP service: Likely cardioversion spontaneous but notified primary service and if persistent consider LENKA guided cardioversion Copied from [facility] record: Echo 05/2014 - EF 50-55%, mod DD, PA normal 12/2016 Echo - EF 50% 01/2017 LexiMPI - normal 11/2017 DSE - EF 55%, no ischemia 02/2018 LexiMPI - normal 05/2020 LexiMPI -normal 06/2020 Echo - EF 40-45%, +RWMA 06/2020 Cath - LV normal, LVEDP normal, no significant CAD Allergies Allergy/AdvReac Type Severity Reaction Status Date / Time aluminum Allergy Unknown Verified 02/26/21 15:53 diphenhydramine Allergy Unknown Verified 02/26/21 15:53 [From Benadryl] frovatriptan Allergy Unknown Verified 02/26/21 15:53 garlic Allergy Unknown Verified 02/26/21 15:53 glipizide Allergy Unknown Verified 02/26/21 15:53 latex Allergy Unknown Verified 02/26/21 15:55 nylon Allergy Unknown Verified 02/26/21 16:04 pioglitazone [From Actos] Allergy Unknown Verified 02/26/21 15:45 turkey Allergy Unknown Verified 02/26/21 15:53 walnut Allergy Unknown Verified 02/26/21 15:53 ascorbic acid AdvReac Unknown Unknown Verified 02/27/21 09:58 acetaminophen [From Vicodin] AdvReac Unknown Verified 02/26/21 16:04 aspartame AdvReac Unknown Verified 02/27/21 14:27 benzoic acid AdvReac Unknown Verified 02/26/21 15:55 doxylamine AdvReac Unknown Verified 02/26/21 15:53 hydrocodone [From Vicodin] AdvReac Unknown Verified 02/26/21 16:04 morphine AdvReac Unknown Verified 02/26/21 15:55 Sulfa (Sulfonamide AdvReac Unknown Verified 02/26/21 16:04 Antibiotics) sumatriptan [From Imitrex] AdvReac Unknown Verified 02/26/21 15:53 tramadol AdvReac Unknown Verified 02/26/21 16:04 Home Medications Medication Instructions Recorded Confirmed Type Lactobacillus acidophilus 0 mmu cells PO DAILY 02/26/21 02/26/21 History [Acidophilus] amiodarone 200 mg PO DAILY 02/26/21 02/26/21 History amlodipine 10 mg PO DAILY 02/26/21 02/26/21 History aspirin [Aspir-Low] 81 mg PO DAILY 02/26/21 02/26/21 History [id number] 1 cap PO Q4H PRN 02/26/21 02/26/21 History calcium carbonate-vitamin D3 1 tab PO DAILY 02/26/21 02/26/21 History [Calcium 600 + D(3)] cholecalciferol (vitamin D3) 25 mcg PO DAILY 02/26/21 02/26/21 History [Vitamin D3] diclofenac sodium 4 g TOPICAL QID PRN 02/26/21 02/26/21 History docusate sodium 100 mg PO BID 02/26/21 02/26/21 History ferrous sulfate [FeroSul] 325 mg PO BID 02/26/21 02/26/21 History fexofenadine [Elisha] 180 mg PO DAILY 02/26/21 02/26/21 History folic acid 1 mg PO DAILY 02/26/21 02/26/21 History gabapentin 200 mg PO BID 02/26/21 02/26/21 History insulin glargine [Basaglar KwikPen 15 unit SUBCUT HS 02/26/21 02/26/21 History U-100 Insulin] levothyroxine [Tirosint] 25 mcg PO DAILY 02/26/21 02/26/21 History metoprolol succinate 50 mg PO DAILY 02/26/21 02/26/21 History omeprazole 40 mg PO DAILY 02/26/21 02/26/21 History potassium chloride 20 meq PO BID 02/26/21 02/26/21 History torsemide [Demadex] 20 mg PO BID 02/26/21 02/26/21 History Patient History Medical History Charcot's joint of left foot Chronic diastolic (congestive) heart failure Diabetes mellitus, type II Diabetic retinopathy Fibromyalgia HTN (hypertension) Paroxysmal atrial fibrillation Surgical History History of foot surgery Hx of cholecystectomy Family History Other Arthritis Social History Smoking Status: Never smoker Hx Alcohol Use: No Hx Substance Use: No Preferred Language: Occitan Communication Ability: Effective [employer] Supervisor Required: No Beliefs That Will Affect Care: None Current Living Situation: Alone Other Information That Helps Us Care for You: No Feels Safe at Home: Yes Safety Concerns: Feels Safe At This Time Gender Identity: Female Assistive Devices: Wheelchair Assistive Devices Comment: glasses, scooter present Review of Systems Review of Systems: All systems reviewed & are unremarkable except as noted in HPI & below Physical Exam Physical Exam: General: No acute distress. A+Ox3. HEENT: Normocephalic. Atraumatic. PERRL. EOMI. Conjunctiva and sclera clear. NECK: No carotid bruits. No JVD. Carotid upstrokes are brisk. Heart: RRR. S1 and S2 noted without murmur, rubs, gallops. PMI non displaced. Lungs: Clear to auscultation. No wheezes, rhonchi, rales. Abdomen: Normal bowel sounds. Soft, Obese. Nontender. No masses or organomegaly. No abdominal bruits. Extremities: +2 BL lower extremity pitting edema up to thighs. No clubbing or cyanosis. Pulses: radial=2/4, posterior tibial=2/4, dorsalis pedis = 2/4. NEURO: No focal deficits. PSYCH: Normal. Results & Data ([facility]) Vital Signs (Past 12 Hours) Vital Signs Temp Pulse Pulse Pulse Resp BP Pulse Ox 02/27/21 07:54 36.4 C L 66 15 149/81 H 96 02/27/21 07:38 68 02/27/21 03:51 36.8 C 66 20 132/79 96 02/27/21 00:00 60 02/26/21 23:20 36.6 C 64 20 132/75 98 (1) HTN (hypertension) Hypertension type: essential hypertension Qualified Code(s): I10 - Essential (primary) hypertension
[2021-02-27] MEDS ORDERED: amLODIPine BESYLATE 5 MG TAB PO SCH (09:00)
[2021-02-27 09:59] LABS: Hematocrit (blood only) 34.4 % (37-47); Hemoglobin 10.9 g/dL (12.0-16.0); Mean Corpuscular Hgb Conc 31.7 g/dL (32-36); Mean Corpuscular Volume 91.5 fL (80-100); Mean Platelet Volume 8.7 fL (7.4-10.4); Platelet Count 131 K/uL (130-400); RDW Coefficient of Variation 14.9 % (11.5-14.5); RDW Standard Deviation 48.7 fL (36.4-46.3); Red Blood Count 3.76 M/uL (4.2-5.4); White Blood Count 4.36 K/uL (4.8-10.8)
[2021-02-27] MEDS: cefTRIAXone SODIUM 2,000 MG in DEXTROSE 5% 50 ML IV SCH (10:24)
[2021-02-27 10:32] LABS: BUN Creatinine Ratio 25.8 (10-20); Calcium 8.4 mg/dl (8.5-10.1); Creatinine Clr Calc Pharmacy 55.6 ml/min; Est GFR (African American) 48.5 ml/min; Est GFR (Non-African American) 41.8 ml/min
--- NOTE | 2021-02-27 10:39 | Hospitalist Progress Note ---
Date of Service February 27, 2021 Assessment & Plan (1) Acute decompensated heart failure: 61yo F with a PMH of chronic diastolic HF, DM II, paroxysmal A Fib, diabetic retinopathy, HTN and other medical problems listed below who was sent over by Dr. Peña in cardiology office for decompensated heart failure. History of chronic diastolic heart failure with recent admissions for acute decompensation Most recently admitted at [facility] in early January for this Has gained 30 pounds since discharge from hospital, per chart review ?History of medication non-compliance Most recent TTE from OSH 06/2020 Echo - EF 40-45%, +RWMA Currently on Lasix 60 mg IV twice daily Monitor electrolytes with diuresis Monitor intake and output Daily weights We will appreciate cardiology evaluation and recommendations (2) Dysuria: Urinary tract infection Urine culture growing GNR Started on ceftriaxone (3) Ambulatory dysfunction: In setting of volume overload, Charjohanna L foot Recently discharged home from SNF with home health but does not feel she has enough support for ADLs, ambulating to bathroom while on diuretics Fall precautions, PT/OT evaluation Case mgmt consult (4) Paroxysmal atrial fibrillation: Continue amiodarone Not anticoagulated due to ophthalmological issue which requires frequent injections Monitor on telemetry (5) HTN (hypertension): Normotensive Continue Toprol May need reduction in amlodipine dose (6) Diabetes mellitus, type II: Hold home agents Basal/bolus insulin while in-patient per protocol BSG AC HS Optimize glycemic control Carb controlled diet (7) Fibromyalgia: Continue gabapentin DVT Ppx: SCDs only - Plan to reassess/ discuss with her in AM. Specified against blood thinners of any kind due to ophthalmological issue Code status: Conditional code - YES to CPR, defibrillation. NO to intubation or mech vent PCP: Dr. Blanc Dispo: Admitted to [facility]. Discharge planning ordered Patient seen in collaboration with Dr. Doll. Please see addendum. Admission and Anticipated Discharge Date Admission Date: February 26, 2021 Subjective 61yo F with a PMH of chronic diastolic HF, DM II, paroxysmal A Fib, diabetic retinopathy, HTN and other medical problems listed below who was sent over by Dr. Peña in cardiology office for volume overload Being managed for acute on chronic diastolic heart failure Patient seen and examined Has bilateral leg swelling, exertional dyspnea and orthopnea. Reports dysuria Reports chronic bilateral knee pain Review of Systems Constitutional: no fever and no chills Eyes: no problem reported Ear, Nose, Mouth, Throat: no problem reported Respiratory: + cough and + dyspnea on exertion Cardiovascular: + dyspnea on exertion, + orthopnea and + edema; no chest pain Gastrointestinal: no abdominal pain, no nausea and no vomiting Genitourinary: + dysuria; no urinary frequency Musculoskeletal: + joint pain Neurologic: no dizziness and no headache(s) Psychiatric: no depression and no anxiety Physical Exam Constitutional: + obese; no acute distress Eyes: PERRL, conjunctivae normal, anicteric sclerae ENMT: external ear and nose normal, oropharynx normal Respiratory: normal respiratory effort; no respiratory distress minimal basilar crackles Cardiovascular: Rate/Rhythm: regular rate and regular rhythm S1-S2,2+ bilateral pitting lower ext edema Gastrointestinal (Abdomen): normal bowel sounds, soft, nontender, no hepatosplenomegaly Musculoskeletal: Edema Neurologic: PERRL, EOMI, accommodation nl, no face palsy, no dysarthria Psychiatric: A+Ox3, euthymic affect Results & Data Results & Data ([facility]) Vital Signs (Past 12 Hours) Vital Signs Temp Pulse Pulse Pulse Resp BP Pulse Ox 02/27/21 07:54 36.4 C L 66 15 149/81 H 96 02/27/21 07:38 68 02/27/21 03:51 36.8 C 66 20 132/79 96 02/27/21 00:00 60 02/26/21 23:20 36.6 C 64 20 132/75 98 Laboratory Results Abnormal lab results 02/26/21 02/26/21 02/26/21 Range/Units 14:34 14:34 18:00 WBC 4.19 L (4.8-10.8) K/uL RBC 3.70 L (4.2-5.4) M/uL Hgb 10.8 L (12.0-16.0) g/dL Hct 33.4 L (37-47) % MCHC (32-36) g/dL RDW Std Deviation 48.6 H (36.4-46.3) fL RDW Coeff of Milo 14.7 H (11.5-14.5) % Plt Count 117 L (130-400) K/uL Lymph # (Auto) 1.00 L (1.2-3.4) K/uL Sodium (136-145) mmol/L Chloride 112 H (98-107) mmol/L BUN 38 H (7-18) mg/dl Creatinine 1.33 H (0.6-1.2) mg/dl BUN/Creatinine Ratio 28.3 H (10-20) Glucose 166 H (70-99) mg/dl POC Glucose (70-99) mg/dl Calcium (8.5-10.1) mg/dl Alkaline Phosphatase 244 H (45-117) U/L NT-Pro-B Natriuret Pep 2471 H (0-900) pg/ml Total Protein 6.2 L (6.4-8.2) gm/dl Albumin 3.1 L (3.4-5.0) gm/dl Ur Leukocyte Esterase Trace H (Negative) U Epithel Cells (Auto) 5-10 H (0-5) /lpf Urine Bacteria (Auto) 1+ H (Negative) 02/26/21 02/27/21 02/27/21 Range/Units 19:45 09:24 09:24 WBC 4.36 L (4.8-10.8) K/uL RBC 3.76 L (4.2-5.4) M/uL Hgb 10.9 L (12.0-16.0) g/dL Hct 34.4 L (37-47) % MCHC 31.7 L (32-36) g/dL RDW Std Deviation 48.7 H (36.4-46.3) fL RDW Coeff of Milo 14.9 H (11.5-14.5) % Plt Count (130-400) K/uL Lymph # (Auto) (1.2-3.4) K/uL Sodium 147 H (136-145) mmol/L Chloride 113 H (98-107) mmol/L BUN 35 H (7-18) mg/dl Creatinine 1.37 H (0.6-1.2) mg/dl BUN/Creatinine Ratio 25.8 H (10-20) Glucose 147 H (70-99) mg/dl POC Glucose 268 H (70-99) mg/dl Calcium 8.4 L (8.5-10.1) mg/dl Alkaline Phosphatase (45-117) U/L NT-Pro-B Natriuret Pep (0-900) pg/ml Total Protein (6.4-8.2) gm/dl Albumin (3.4-5.0) gm/dl Ur Leukocyte Esterase (Negative) U Epithel Cells (Auto) (0-5) /lpf Urine Bacteria (Auto) (Negative) 02/27/21 Range/Units 11:20 WBC (4.8-10.8) K/uL RBC (4.2-5.4) M/uL Hgb (12.0-16.0) g/dL Hct (37-47) % MCHC (32-36) g/dL RDW Std Deviation (36.4-46.3) fL RDW Coeff of Milo (11.5-14.5) % Plt Count (130-400) K/uL Lymph # (Auto) (1.2-3.4) K/uL Sodium (136-145) mmol/L Chloride (98-107) mmol/L BUN (7-18) mg/dl Creatinine (0.6-1.2) mg/dl BUN/Creatinine Ratio (10-20) Glucose (70-99) mg/dl POC Glucose 189 H (70-99) mg/dl Calcium (8.5-10.1) mg/dl Alkaline Phosphatase (45-117) U/L NT-Pro-B Natriuret Pep (0-900) pg/ml Total Protein (6.4-8.2) gm/dl Albumin (3.4-5.0) gm/dl Ur Leukocyte Esterase (Negative) U Epithel Cells (Auto) (0-5) /lpf Urine Bacteria (Auto) (Negative) (1) HTN (hypertension) Hypertension type: essential hypertension Qualified Code(s): I10 - Essential (primary) hypertension
[2021-02-27] MEDS: CARBOHYDRATES FOR HYPOGLYCEMIA PO PRN ×2 (16:14→16:30)
[2021-02-27] MEDS: INSULIN GLARGINE SOLOSTAR 100 UNITS/ML 3 ML PEN SC SCH (21:15)
[2021-02-28] MEDS: DICLOFENAC SOD 1% GEL 100 GM TUBE EXT PRN ×2 (02:54→03:20)
[2021-02-28] MEDS: LEVOTHYROXINE SODIUM 25 MCG TABLET PO SCH (06:10)
[2021-02-28 06:27] LABS: Hematocrit (blood only) 32.3 % (37-47); Hemoglobin 10.5 g/dL (12.0-16.0); Mean Corpuscular Hemoglobin 29.7 pg (25-34); Mean Corpuscular Hgb Conc 32.5 g/dL (32-36); Mean Corpuscular Volume 91.5 fL (80-100); Mean Platelet Volume 8.6 fL (7.4-10.4); Platelet Count 123 K/uL (130-400); RDW Coefficient of Variation 14.6 % (11.5-14.5); RDW Standard Deviation 48.4 fL (36.4-46.3); Red Blood Count 3.53 M/uL (4.2-5.4); White Blood Count 3.98 K/uL (4.8-10.8)
[2021-02-28 06:53] LABS: BUN Creatinine Ratio 24.2 (10-20); Calcium 8.3 mg/dl (8.5-10.1); Creatinine Clr Calc Pharmacy 54.4 ml/min; Est GFR (African American) 47.2 ml/min; Est GFR (Non-African American) 40.7 ml/min; Magnesium 2.1 mg/dl (1.8-2.4); Phosphorus 4.3 mg/dl (2.5-4.9)
--- NOTE | 2021-02-28 07:25 | Electrocardiogram Report ---
Test Reason : Blood Pressure : / mmHG Vent. Rate : 117 BPM Atrial Rate : 136 BPM P-R Int : 000 ms QRS Dur : 094 ms QT Int : 358 ms P-R-T Axes : 000 -30 136 degrees QTc Int : 499 ms Atrial fibrillation with rapid ventricular response Left axis deviation Prolonged QT Abnormal ECG No previous ECGs available Confirmed by Daryl Bernard ([id number]) on 02/28/2021 7:25:12 AM Referred By: Bruno Peña Confirmed By:Daryl Bernard
--- NOTE | 2021-02-28 08:09 | Electrocardiogram Report ---
Test Reason : Blood Pressure : / mmHG Vent. Rate : 066 BPM Atrial Rate : 066 BPM P-R Int : 180 ms QRS Dur : 096 ms QT Int : 460 ms P-R-T Axes : 044 -28 118 degrees QTc Int : 482 ms Normal sinus rhythm Possible Anterior infarct , age undetermined T wave abnormality, consider lateral ischemia Prolonged QT Abnormal ECG When compared with ECG of 26-FEB-2021 12:44, Sinus rhythm has replaced Atrial fibrillation Vent. rate has decreased BY 51 BPM Confirmed by Daryl Bernard ([id number]) on 02/28/2021 8:09:27 AM Referred By: Bruno Peña Confirmed By:Daryl Bernard
[2021-02-28] MEDS: METOPROLOL SUCC 50MG EXT REL TAB PO SCH (08:47)
[2021-02-28] MEDS: PANTOprazole 40 MG TAB PO SCH (08:49)
[2021-02-28] MEDS: POTASSIUM CHLORIDE CRTAB 20 MEQ TABCR PO SCH ×2 (08:50→20:43)
[2021-02-28] MEDS: DOCUSATE SODIUM 100 MG CAP PO SCH ×2 (08:50→20:44)
[2021-02-28] MEDS: FERROUS SULFATE 325 MG TAB PO SCH ×2 (08:51→20:42)
[2021-02-28] MEDS: GABAPENTIN 100 MG CAP PO SCH ×2 (08:52→20:44)
[2021-02-28] MEDS: AMIODARONE 200 MG TAB PO SCH (08:56)
[2021-02-28] MEDS: CALCIUM 600MG + VIT D 400 IU TAB PO SCH (08:57)
[2021-02-28] MEDS: FEXOFENADINE HCL 180 MG TAB PO SCH (08:58)
[2021-02-28] MEDS: ASPIRIN 81 MG ECTAB PO SCH (08:58)
[2021-02-28] MEDS: FOLIC ACID 1 MG TAB PO SCH (08:59)
[2021-02-28] MEDS: CHOLECALCIFEROL 1,000 UNITS 25 MCG TAB PO SCH (08:59)
[2021-02-28] MEDS: ADVANCED PROBIOTIC 1250 MG CAPSULE PO SCH (09:09)
--- NOTE | 2021-02-28 09:14 | Hospitalist Progress Note ---
Date of Service February 28, 2021 Assessment & Plan (1) Acute decompensated heart failure: 61yo F with a PMH of chronic diastolic HF, DM II, paroxysmal A Fib, diabetic retinopathy, HTN and other medical problems listed below who was sent over by Dr. Peña in cardiology office for decompensated heart failure. History of chronic diastolic heart failure with recent admissions for acute decompensation Most recently admitted at [facility] in early January for this Has gained 30 pounds since discharge from hospital, per chart review ?History of medication non-compliance Most recent TTE from OSH 06/2020 Echo - EF 40-45%, +RWMA Currently on Lasix 60 mg IV twice daily Monitor electrolytes with diuresis Monitor intake and output. Was -2L in past 24h Daily weights [employer] on board Overnight pulse ox show desaturation Patient reported she has JUANITA and had used CPAP/BIPAP briefly in the past but did not tolerate it She is open to try again Patient will need outpatient sleep study. Will need atleast nasal oxygen HS even on discharge (2) Dysuria: Urinary tract infection Urine culture growing E coli Continue ceftriaxone Review of outpatient records showed patient has history of recurrent UTI. Was seen by urology on 02/25/2021 and plan for further evaluation with cystoscopy. Patient will need to follow-up with urology. May need prophylactic antibiotics eventually (3) Ambulatory dysfunction: In setting of volume overload, Cindy Ross foot Recently discharged home from SNF with home health but does not feel she has enough support for ADLs, ambulating to bathroom while on diuretics Fall precautions PT recommending SNF vs 24h home care Case mgmt on board (4) Paroxysmal atrial fibrillation: Continue amiodarone Not anticoagulated due to ophthalmological issue which requires frequent injections Monitor on telemetry (5) HTN (hypertension): Normotensive Continue Toprol Cardiology recommended discontinuation of amlodipine (6) Diabetes mellitus, type II: Hold home agents Basal/bolus insulin while in-patient per protocol Had hypoglycemic episode yesterday. Insulin protocol adjusted Blood glucose currently controlled Carb controlled diet (7) Fibromyalgia: Continue gabapentin Hypothyroidism Patient reported NH discharged her without giving her thyroid meds. She thinks it makes her warm. Per PCP note, patient is on levothyroxine Thyroid function tests from 02/11/2021 showed TSH of 7.78 [elevated], T3 of 2.3 and T4 of 1.4. Continue levothyroxine for now DVT Ppx: SCDs only. Patient does not want any blood thinners to ophthalmological issue Code status: Conditional code - YES to CPR, defibrillation. NO to intubation or mech vent PCP: Dr. Blanc Dispo: Med telemetry Admission and Anticipated Discharge Date Admission Date: February 26, 2021 Subjective 61yo F with a PMH of chronic diastolic HF, DM II, paroxysmal A Fib, diabetic retinopathy, HTN and other medical problems listed below who was sent over by Dr. Peña in cardiology office for volume overload Being managed for acute on chronic diastolic heart failure and UTI Patient seen and examined. + Exertional dyspnea Reports chronic knee pain. Reports headache and states that she takes 2 tablets of Fiorinal at home as needed for this Still report dysuria Review of Systems Review of Systems: All systems reviewed & are unremarkable except as noted in Subjective Physical Exam Constitutional: + obese; no acute distress Eyes: PERRL, conjunctivae normal, anicteric sclerae ENMT: external ear and nose normal, oropharynx normal Respiratory: normal respiratory effort; no respiratory distress Cardiovascular: Rate/Rhythm: regular rate and regular rhythm s1 s2 Gastrointestinal (Abdomen): normal bowel sounds, soft, nontender, no hepatosplenomegaly Musculoskeletal: Bilateral LE edema Neurologic: PERRL, EOMI, accommodation nl, no face palsy, no dysarthria Psychiatric: A+Ox3, euthymic affect Results & Data Results & Data ([facility]) Vital Signs (Past 12 Hours) Vital Signs Temp Pulse Pulse Pulse Pulse Resp BP 02/28/21 07:52 36.5 C 75 15 132/60 02/28/21 07:30 74 02/28/21 03:35 36.5 C 70 20 160/80 H 02/28/21 02:23 72 02/28/21 02:20 78 02/27/21 23:00 36.8 C 71 20 161/85 H 02/27/21 22:19 02/27/21 21:46 72 Pulse Ox Pulse Ox 02/28/21 07:52 94 02/28/21 07:30 02/28/21 03:35 97 02/28/21 02:23 02/28/21 02:20 99 02/27/21 23:00 97 02/27/21 22:19 47 L 02/27/21 21:46 92 Laboratory Results Abnormal lab results 02/27/21 02/27/21 02/27/21 Range/Units 09:24 09:24 11:20 WBC 4.36 L (4.8-10.8) K/uL RBC 3.76 L (4.2-5.4) M/uL Hgb 10.9 L (12.0-16.0) g/dL Hct 34.4 L (37-47) % MCHC 31.7 L (32-36) g/dL RDW Std Deviation 48.7 H (36.4-46.3) fL RDW Coeff of Milo 14.9 H (11.5-14.5) % Plt Count (130-400) K/uL Sodium 147 H (136-145) mmol/L Chloride 113 H (98-107) mmol/L BUN 35 H (7-18) mg/dl Creatinine 1.37 H (0.6-1.2) mg/dl BUN/Creatinine Ratio 25.8 H (10-20) Glucose 147 H (70-99) mg/dl POC Glucose 189 H (70-99) mg/dl Calcium 8.4 L (8.5-10.1) mg/dl 02/27/21 02/27/21 02/27/21 Range/Units 16:06 16:07 16:28 WBC (4.8-10.8) K/uL RBC (4.2-5.4) M/uL Hgb (12.0-16.0) g/dL Hct (37-47) % MCHC (32-36) g/dL RDW Std Deviation (36.4-46.3) fL RDW Coeff of Milo (11.5-14.5) % Plt Count (130-400) K/uL Sodium (136-145) mmol/L Chloride (98-107) mmol/L BUN (7-18) mg/dl Creatinine (0.6-1.2) mg/dl BUN/Creatinine Ratio (10-20) Glucose (70-99) mg/dl POC Glucose 58 L* 58 L* 68 L* (70-99) mg/dl Calcium (8.5-10.1) mg/dl 02/27/21 02/27/21 02/28/21 Range/Units 19:59 21:12 05:56 WBC 3.98 L (4.8-10.8) K/uL RBC 3.53 L (4.2-5.4) M/uL Hgb 10.5 L (12.0-16.0) g/dL Hct 32.3 L (37-47) % MCHC (32-36) g/dL RDW Std Deviation 48.4 H (36.4-46.3) fL RDW Coeff of Milo 14.6 H (11.5-14.5) % Plt Count 123 L (130-400) K/uL Sodium (136-145) mmol/L Chloride (98-107) mmol/L BUN (7-18) mg/dl Creatinine (0.6-1.2) mg/dl BUN/Creatinine Ratio (10-20) Glucose (70-99) mg/dl POC Glucose 112 H 113 H (70-99) mg/dl Calcium (8.5-10.1) mg/dl 02/28/21 02/28/21 Range/Units 05:56 07:43 WBC (4.8-10.8) K/uL RBC (4.2-5.4) M/uL Hgb (12.0-16.0) g/dL Hct (37-47) % MCHC (32-36) g/dL RDW Std Deviation (36.4-46.3) fL RDW Coeff of Milo (11.5-14.5) % Plt Count (130-400) K/uL Sodium (136-145) mmol/L Chloride 109 H (98-107) mmol/L BUN 34 H (7-18) mg/dl Creatinine 1.40 H (0.6-1.2) mg/dl BUN/Creatinine Ratio 24.2 H (10-20) Glucose 143 H (70-99) mg/dl POC Glucose 131 H (70-99) mg/dl Calcium 8.3 L (8.5-10.1) mg/dl (1) HTN (hypertension) Hypertension type: essential hypertension Qualified Code(s): I10 - Essential (primary) hypertension
[2021-02-28] MEDS: BUTALBITAL/ASPIRIN/CAFFEINE 1 TAB TAB PO PRN (09:16)
[2021-02-28] MEDS: INSULIN ASPART 100 UNITS/ML 3 ML PEN SC SCH ×4 (09:25→20:41)
[2021-02-28] MEDS: cefTRIAXone SODIUM 2,000 MG in DEXTROSE 5% 50 ML IV SCH (09:41)
[2021-02-28] MEDS: FUROSEMIDE 60 MG in SYRINGE 0 ML IV SCH ×2 (12:04→20:42)
--- NOTE | 2021-02-28 13:10 | Cardiology Progress Note ---
Date of Service February 28, 2021 Assessment & Plan (1) Acute decompensated heart failure: Patient remains hypervolemic on exam, but improved since admission. Overwhelmingly right greater than left heart failure. Will need at least nocturnal oxygen supplementation if not CPAP. Patient reluctant to consider CPAP though should be trialed during hospitalization. Continue IV diuretics, add spironolactone. Hold potassium supplement after p.m. dose today and review in a.m. (2) Paroxysmal atrial fibrillation: History of PAF, not currently anticoagulated due to history of ophthalmological issue which requires frequent injections. Maintains on Amio 200 mg daily and metoprolol succinate 50 mg daily. On ASA 81 mg daily. Patient initially presented in afib, but converted to SR on own yesterday at 1. Asymptomatic with afib. 1. Continue to monitor on telemetry (3) HTN (hypertension): Well controlled. Ongoing issues with fluid retention and lower extremity edema would not reinstitute amlodipine Add ARB once diuresis manifested and renal stability observed Admission and Anticipated Discharge Date Admission Date: February 26, 2021 Subjective Patient was seen and examined, chart, medications, telemetry reviewed. Patient denies any acute complaints. Has manifested diuresis overnight of greater than 2 L. Leg edema improved slightly but still with significant volume overload. No arrhythmias. No syncope or near syncope. No fevers or chills. Nocturnal oximetry reviewed demonstrating significant hypoxia at night Review of Systems Review of Systems: All systems reviewed & are unremarkable except as noted in HPI & below Physical Exam Constitutional: WD/WN, vitals as above + morbidly obese; no acute distress Eyes: PERRL, conjunctivae normal, anicteric sclerae ENMT: external ear and nose normal, oropharynx normal Neck: trachea midline, no thyromegaly Respiratory: Auscultation: + diminished lung sounds Cardiovascular: Rate/Rhythm: regular rate and regular rhythm Heart Sounds: normal S1 and normal S2; no gallop and no murmur Palpation: normal PMI Vessels: normal carotid upstroke and radial pulses present; no JVD and no carotid bruit Extremities: no edema Gastrointestinal (Abdomen): normal bowel sounds, soft, nontender, no hepatosplenomegaly Musculoskeletal: no cyanosis or clubbing, extremities motor strength 5/5 Skin: no rashes, warm and dry Neurologic: PERRL, EOMI, accommodation nl, no face palsy, no dysarthria Psychiatric: A+Ox3, euthymic affect Results & Data ([facility]) Vital Signs (Past 12 Hours) Vital Signs Temp Pulse Pulse Pulse Pulse Resp BP 02/28/21 11:27 36.8 C 70 20 148/85 H 02/28/21 07:52 36.5 C 75 15 132/60 02/28/21 07:30 74 02/28/21 03:35 36.5 C 70 20 160/80 H 02/28/21 02:23 72 02/28/21 02:20 78 Pulse Ox Pulse Ox 02/28/21 11:27 93 02/28/21 07:52 94 02/28/21 07:30 02/28/21 03:35 97 02/28/21 02:23 02/28/21 02:20 99 Laboratory Results Laboratory Results - last 24 hr 02/27/21 02/27/21 02/27/21 16:06 16:07 16:28 WBC RBC Hgb Hct MCV MCH MCHC RDW Std Deviation RDW Coeff of Milo Plt Count MPV Sodium Potassium Chloride Carbon Dioxide Anion Gap BUN Creatinine Est Cr Clr Drug Dosing Est GFR ( Amer) Est GFR (Non-Af Amer) BUN/Creatinine Ratio Glucose POC Glucose 58 L* 58 L* 68 L* Calcium Phosphorus Magnesium 02/27/21 02/27/21 02/27/21 16:45 19:59 21:12 WBC RBC Hgb Hct MCV MCH MCHC RDW Std Deviation RDW Coeff of Milo Plt Count MPV Sodium Potassium Chloride Carbon Dioxide Anion Gap BUN Creatinine Est Cr Clr Drug Dosing Est GFR ( Amer) Est GFR (Non-Af Amer) BUN/Creatinine Ratio Glucose POC Glucose 93 112 H 113 H Calcium Phosphorus Magnesium 02/28/21 02/28/21 02/28/21 05:56 05:56 07:43 WBC 3.98 L RBC 3.53 L Hgb 10.5 L Hct 32.3 L MCV 91.5 MCH 29.7 MCHC 32.5 RDW Std Deviation 48.4 H RDW Coeff of Milo 14.6 H Plt Count 123 L MPV 8.6 Sodium 145 Potassium 4.0 Chloride 109 H Carbon Dioxide 31 Anion Gap 5.0 BUN 34 H Creatinine 1.40 H Est Cr Clr Drug Dosing 54.4 Est GFR ( Amer) 47.2 Est GFR (Non-Af Amer) 40.7 BUN/Creatinine Ratio 24.2 H Glucose 143 H POC Glucose 131 H Calcium 8.3 L Phosphorus 4.3 Magnesium 2.1 02/28/21 11:49 WBC RBC Hgb Hct MCV MCH MCHC RDW Std Deviation RDW Coeff of Milo Plt Count MPV Sodium Potassium Chloride Carbon Dioxide Anion Gap BUN Creatinine Est Cr Clr Drug Dosing Est GFR ( Amer) Est GFR (Non-Af Amer) BUN/Creatinine Ratio Glucose POC Glucose 76 Calcium Phosphorus Magnesium (1) HTN (hypertension) Hypertension type: essential hypertension Qualified Code(s): I10 - Essential (primary) hypertension
[2021-02-28] MEDS: SPIRONOLACTONE 25 MG TAB PO SCH (15:06)
[2021-02-28] MEDS: INSULIN GLARGINE SOLOSTAR 100 UNITS/ML 3 ML PEN SC SCH (20:41)
[2021-03-01] MEDS: LEVOTHYROXINE SODIUM 25 MCG TABLET PO SCH (05:58)
[2021-03-01 07:05] LABS: Hematocrit (blood only) 31.4 % (37-47); Hemoglobin 10.1 g/dL (12.0-16.0); Mean Corpuscular Hemoglobin 29.3 pg (25-34); Mean Corpuscular Hgb Conc 32.2 g/dL (32-36); Mean Platelet Volume 8.4 fL (7.4-10.4); Platelet Count 111 K/uL (130-400); RDW Coefficient of Variation 14.5 % (11.5-14.5); RDW Standard Deviation 47.7 fL (36.4-46.3); Red Blood Count 3.45 M/uL (4.2-5.4); White Blood Count 4.45 K/uL (4.8-10.8)
[2021-03-01 07:24] LABS: BUN Creatinine Ratio 32.2 (10-20); Calcium 8.4 mg/dl (8.5-10.1); Creatinine Clr Calc Pharmacy 62.4 ml/min; Est GFR (African American) 55.8 ml/min; Est GFR (Non-African American) 48.1 ml/min; Magnesium 2.1 mg/dl (1.8-2.4); Potassium 4.2 mmol/L (3.5-5.1)
[2021-03-01 07:27] LABS: Phosphorus 3.5 mg/dl (2.5-4.9)
[2021-03-01] MEDS: FOLIC ACID 1 MG TAB PO SCH (08:15)
[2021-03-01] MEDS: PANTOprazole 40 MG TAB PO SCH (08:15)
[2021-03-01] MEDS: FUROSEMIDE 60 MG in SYRINGE 0 ML IV SCH ×2 (08:15→20:58)
[2021-03-01] MEDS: GABAPENTIN 100 MG CAP PO SCH ×2 (08:15→20:59)
[2021-03-01] MEDS: CALCIUM 600MG + VIT D 400 IU TAB PO SCH (08:16)
[2021-03-01] MEDS: CHOLECALCIFEROL 1,000 UNITS 25 MCG TAB PO SCH (08:16)
[2021-03-01] MEDS: METOPROLOL SUCC 50MG EXT REL TAB PO SCH (08:16)
[2021-03-01] MEDS: DOCUSATE SODIUM 100 MG CAP PO SCH ×2 (08:16→20:58)
[2021-03-01] MEDS: SPIRONOLACTONE 25 MG TAB PO SCH (08:16)
[2021-03-01] MEDS: FERROUS SULFATE 325 MG TAB PO SCH ×2 (08:17→20:59)
[2021-03-01] MEDS: ADVANCED PROBIOTIC 1250 MG CAPSULE PO SCH (08:17)
[2021-03-01] MEDS: ASPIRIN 81 MG ECTAB PO SCH (08:17)
[2021-03-01] MEDS: FEXOFENADINE HCL 180 MG TAB PO SCH (08:17)
[2021-03-01] MEDS: AMIODARONE 200 MG TAB PO SCH (08:17)
[2021-03-01] MEDS: INSULIN ASPART 100 UNITS/ML 3 ML PEN SC SCH ×4 (08:18→21:00)
--- NOTE | 2021-03-01 09:50 | Hospitalist Progress Note ---
Date of Service March 01, 2021 Assessment & Plan (1) Acute decompensated heart failure: 61yo F with a PMH of chronic diastolic HF, DM II, paroxysmal A Fib, diabetic retinopathy, HTN and other medical problems listed below who was sent over by Dr. Peña in cardiology office for decompensated heart failure. History of chronic diastolic heart failure with recent admissions for acute decompensation Most recently admitted at [facility] in early January for this Has gained 30 pounds since discharge from hospital, per chart review ?History of medication non-compliance Most recent TTE from OSH 06/2020 Echo - EF 40-45%, +RWMA Currently on Lasix 60 mg IV twice daily Spironolactone was added yesterday and potassium held Monitor electrolytes with diuresis Monitor intake and output. Was -1.48L in past 24h Daily weights [employer] on board Overnight pulse ox show desaturation Patient reported she has JUANITA and had used CPAP/BIPAP briefly in the past but did not tolerate it Patient will need outpatient sleep study out patient. Will need atleast nasal oxygen HS even on discharge (2) Dysuria: Urinary tract infection Urine culture growing E coli Continue ceftriaxone Review of outpatient records showed patient has history of recurrent UTI. Was seen by urology on 02/25/2021 and plan for further evaluation with cystoscopy. Patient will need to follow-up with urology. May need prophylactic antibiotics eventually (3) Ambulatory dysfunction: In setting of volume overload, Cindy Ross foot Recently discharged home from SNF with home health but does not feel she has enough support for ADLs, ambulating to bathroom while on diuretics Fall precautions PT recommending SNF vs 24h home care Case mgmt on board (4) Paroxysmal atrial fibrillation: Continue amiodarone Not anticoagulated due to ophthalmological issue which requires frequent injections Monitor on telemetry (5) HTN (hypertension): Normotensive Continue Toprol Amlodipine discontinued per cardiology (6) Diabetes mellitus, type II: Hold home agents Basal/bolus insulin while in-patient per protocol Blood glucose currently controlled Carb controlled diet (7) Fibromyalgia: Continue gabapentin Hypothyroidism Patient reported NH discharged her without giving her thyroid meds. She thinks it makes her warm. Per PCP note, patient is on levothyroxine Thyroid function tests from 02/11/2021 showed TSH of 7.78 [elevated], T3 of 2.3 and T4 of 1.4. Continue levothyroxine for now DVT Ppx: SCDs only. Patient does not want any blood thinners to ophthalmological issue Code status: Conditional code - YES to CPR, defibrillation. NO to intubation or mech vent PCP: Dr. Blanc Dispo: Med telemetry Admission and Anticipated Discharge Date Admission Date: February 26, 2021 Subjective 61yo F with a PMH of chronic diastolic HF, DM II, paroxysmal A Fib, diabetic retinopathy, HTN and other medical problems listed below who was sent over by Dr. Peña in cardiology office for volume overload Being managed for acute on chronic diastolic heart failure and UTI Patient seen and examined. No new complaints today. Reports improvement in dysuria and swelling especially around the knee Reports that she did try to use CPAP overnight Review of Systems Review of Systems: All systems reviewed & are unremarkable except as noted in Subjective Physical Exam Constitutional: + obese; no acute distress Eyes: PERRL, conjunctivae normal, anicteric sclerae ENMT: external ear and nose normal, oropharynx normal Respiratory: normal respiratory effort; no respiratory distress Diminished breath sounds, minimal basilar crackles Cardiovascular: Rate/Rhythm: regular rate and regular rhythm S1-S2 Bilateral pedal edema Gastrointestinal (Abdomen): normal bowel sounds, soft, nontender, no hepatosplenomegaly Musculoskeletal: Edema Neurologic: PERRL, EOMI, accommodation nl, no face palsy, no dysarthria Psychiatric: A+Ox3, euthymic affect Results & Data Results & Data ([facility]) Vital Signs (Past 12 Hours) Vital Signs Temp Pulse Pulse Resp BP BP Pulse Ox 03/01/21 07:08 36.7 C 75 18 160/96 H 99 03/01/21 03:20 36.7 C 76 20 160/87 H 97 03/01/21 02:02 72 02/28/21 22:35 71 18 90 Laboratory Results Abnormal lab results 02/28/21 02/28/21 03/01/21 Range/Units 16:28 20:38 05:08 WBC (4.8-10.8) K/uL RBC (4.2-5.4) M/uL Hgb (12.0-16.0) g/dL Hct (37-47) % RDW Std Deviation (36.4-46.3) fL Plt Count (130-400) K/uL BUN (7-18) mg/dl Creatinine (0.6-1.2) mg/dl BUN/Creatinine Ratio (10-20) Glucose (70-99) mg/dl POC Glucose 134 H 101 H 166 H (70-99) mg/dl Calcium (8.5-10.1) mg/dl 03/01/21 03/01/21 03/01/21 Range/Units 06:52 06:52 07:38 WBC 4.45 L (4.8-10.8) K/uL RBC 3.45 L (4.2-5.4) M/uL Hgb 10.1 L (12.0-16.0) g/dL Hct 31.4 L (37-47) % RDW Std Deviation 47.7 H (36.4-46.3) fL Plt Count 111 L (130-400) K/uL BUN 39 H (7-18) mg/dl Creatinine 1.22 H (0.6-1.2) mg/dl BUN/Creatinine Ratio 32.2 H (10-20) Glucose 160 H (70-99) mg/dl POC Glucose 154 H (70-99) mg/dl Calcium 8.4 L (8.5-10.1) mg/dl (1) HTN (hypertension) Hypertension type: essential hypertension Qualified Code(s): I10 - Essential (primary) hypertension
[2021-03-01] MEDS: cefTRIAXone SODIUM 2,000 MG in DEXTROSE 5% 50 ML IV SCH (10:51)
[2021-03-01] MEDS ORDERED: FUROSEMIDE 40 MG in SYRINGE 0 ML IV ONE (12:00)
--- NOTE | 2021-03-01 12:49 | Cardiology Progress Note ---
Date of Service March 01, 2021 Assessment & Plan (1) Acute decompensated heart failure: Patient with chronic diastolic heart failure, right greater than left now improving with ongoing diuresis. Urged continued trial with CPAP Would continue IV diuretics (2) Paroxysmal atrial fibrillation: History of PAF, not currently anticoagulated due to history of ophthalmological issue which requires frequent injections. Maintains on Amio 200 mg daily and metoprolol succinate 50 mg daily. On ASA 81 mg daily. Patient initially presented in afib, but converted to SR on own yesterday at 2141. Asymptomatic with afib. 1. Continue to monitor on telemetry (3) HTN (hypertension): Well controlled. Ongoing issues with fluid retention and lower extremity edema would not reinstitute amlodipine Add ARB once diuresis manifested and renal stability observed Admission and Anticipated Discharge Date Admission Date: February 26, 2021 Subjective Patient was seen and examined, chart, medications, telemetry reviewed. Patient denies any acute complaints. Continues to manifest diuresis. With good tolerance, renally. Did trial CPAP last evening with partial use. No fevers chills unexplained infections. Very limited activity. Lower extremity edema improving Physical Exam Constitutional: WD/WN, vitals as above + morbidly obese; no acute distress Eyes: PERRL, conjunctivae normal, anicteric sclerae ENMT: external ear and nose normal, oropharynx normal Neck: trachea midline, no thyromegaly Respiratory: Auscultation: + diminished lung sounds Cardiovascular: Rate/Rhythm: regular rate and regular rhythm Heart Sounds: normal S1 and normal S2; no gallop and no murmur Palpation: normal PMI Vessels: normal carotid upstroke and radial pulses present; no JVD and no carotid bruit Extremities: + edema (3+) Gastrointestinal (Abdomen): normal bowel sounds, soft, nontender, no hepatosplenomegaly Musculoskeletal: no cyanosis or clubbing, extremities motor strength 5/5 Skin: no rashes, warm and dry Neurologic: PERRL, EOMI, accommodation nl, no face palsy, no dysarthria Psychiatric: A+Ox3, euthymic affect Results & Data ([facility]) Vital Signs (Past 12 Hours) Vital Signs Temp Pulse Pulse Resp BP BP Pulse Ox 03/01/21 11:37 36.7 C 70 19 115/74 91 03/01/21 11:15 75 03/01/21 07:08 36.7 C 75 18 160/96 H 99 03/01/21 03:20 36.7 C 76 20 160/87 H 97 03/01/21 02:02 72 Laboratory Results Laboratory Results - last 24 hr 02/28/21 02/28/21 03/01/21 16:28 20:38 05:08 WBC RBC Hgb Hct MCV MCH MCHC RDW Std Deviation RDW Coeff of Milo Plt Count MPV Sodium Potassium Chloride Carbon Dioxide Anion Gap BUN Creatinine Est Cr Clr Drug Dosing Est GFR ( Amer) Est GFR (Non-Af Amer) BUN/Creatinine Ratio Glucose POC Glucose 134 H 101 H 166 H Calcium Phosphorus Magnesium 03/01/21 03/01/21 03/01/21 06:52 06:52 07:38 WBC 4.45 L RBC 3.45 L Hgb 10.1 L Hct 31.4 L MCV 91.0 MCH 29.3 MCHC 32.2 RDW Std Deviation 47.7 H RDW Coeff of Milo 14.5 Plt Count 111 L MPV 8.4 Sodium 143 Potassium 4.2 Chloride 106 Carbon Dioxide 30 Anion Gap 6.0 BUN 39 H Creatinine 1.22 H Est Cr Clr Drug Dosing 62.4 Est GFR ( Amer) 55.8 Est GFR (Non-Af Amer) 48.1 BUN/Creatinine Ratio 32.2 H Glucose 160 H POC Glucose 154 H Calcium 8.4 L Phosphorus 3.5 Magnesium 2.1 03/01/21 11:56 WBC RBC Hgb Hct MCV MCH MCHC RDW Std Deviation RDW Coeff of Milo Plt Count MPV Sodium Potassium Chloride Carbon Dioxide Anion Gap BUN Creatinine Est Cr Clr Drug Dosing Est GFR ( Amer) Est GFR (Non-Af Amer) BUN/Creatinine Ratio Glucose POC Glucose 149 H Calcium Phosphorus Magnesium (1) HTN (hypertension) Hypertension type: essential hypertension Qualified Code(s): I10 - Essential (primary) hypertension
[2021-03-01] MEDS: INSULIN GLARGINE SOLOSTAR 100 UNITS/ML 3 ML PEN SC SCH (21:00)
[2021-03-02] MEDS: LEVOTHYROXINE SODIUM 25 MCG TABLET PO SCH (06:28)
[2021-03-02 07:01] LABS: BUN Creatinine Ratio 29.6 (10-20); Calcium 8.4 mg/dl (8.5-10.1); Creatinine Clr Calc Pharmacy 61.9 ml/min; Est GFR (African American) 55.2 ml/min; Est GFR (Non-African American) 47.6 ml/min; Magnesium 2.1 mg/dl (1.8-2.4); Potassium 3.8 mmol/L (3.5-5.1)
[2021-03-02 07:02] LABS: Phosphorus 3.9 mg/dl (2.5-4.9)
[2021-03-02] MEDS: FOLIC ACID 1 MG TAB PO SCH (07:43)
[2021-03-02] MEDS: FUROSEMIDE 60 MG in SYRINGE 0 ML IV SCH ×2 (07:43→20:01)
[2021-03-02] MEDS: METOPROLOL SUCC 50MG EXT REL TAB PO SCH (07:43)
[2021-03-02] MEDS: SPIRONOLACTONE 25 MG TAB PO SCH (07:43)
[2021-03-02] MEDS: PANTOprazole 40 MG TAB PO SCH (07:43)
[2021-03-02] MEDS: FERROUS SULFATE 325 MG TAB PO SCH ×2 (07:44→19:59)
[2021-03-02] MEDS: DOCUSATE SODIUM 100 MG CAP PO SCH ×2 (07:44→19:58)
[2021-03-02] MEDS: GABAPENTIN 100 MG CAP PO SCH ×2 (07:44→20:00)
[2021-03-02] MEDS: AMIODARONE 200 MG TAB PO SCH (07:44)
[2021-03-02] MEDS: FEXOFENADINE HCL 180 MG TAB PO SCH (07:44)
[2021-03-02] MEDS: ASPIRIN 81 MG ECTAB PO SCH (07:44)
[2021-03-02] MEDS: CALCIUM 600MG + VIT D 400 IU TAB PO SCH (07:44)
[2021-03-02] MEDS: ADVANCED PROBIOTIC 1250 MG CAPSULE PO SCH (07:44)
[2021-03-02] MEDS: CHOLECALCIFEROL 1,000 UNITS 25 MCG TAB PO SCH (07:44)
[2021-03-02] MEDS: INSULIN ASPART 100 UNITS/ML 3 ML PEN SC SCH ×4 (08:43→19:59)
--- NOTE | 2021-03-02 09:02 | Cardiology Progress Note ---
Date of Service March 02, 2021 Assessment & Plan (1) Acute decompensated heart failure: Patient with chronic diastolic heart failure, right greater than left, improving with ongoing IV diuresis. Monitor I+O's Daily weight ordered Continue furosemide 60 mg IV BID today Continue spironolactone (2) Paroxysmal atrial fibrillation: History of PAF, not currently anticoagulated due to history of ophthalmological issue which requires frequent injections. Maintains on Amio 200 mg daily and metoprolol succinate 50 mg daily. On ASA 81 mg daily. Patient initially presented in afib, but converted to SR spontaneously after admission No recurrent afib on telemetry overnight. continue current meds (3) HTN (hypertension): Borderline elevated. Amlodipine discontinued due to ongoing fluid issues. losartan 25 mg daily added Monitor renal function/electrolytes (4) Nocturnal hypoxia: Patient with significant hypoxia. She is refusing CPAP therapy now and at home. Previously tried several masks. Wishes to continue with supplemental O2 via nasal canula. Case discussed with Dr. Sheppard. Will follow. Admission and Anticipated Discharge Date Admission Date: February 26, 2021 Supervising Physician Co-Signing Physician Notes Supervising Physician Attestation: I have personally performed a history and physical examination on the patient. I agree with the physician academic support assistant's findings and plan as documented with the following additions. Subjective: No complaints. Diuresing well. Leg edema trending toward improvement. Exam: 1+ bilateral LE edema Data: EKG 02/27/21: SR at 66 bpm no significant repolarization changes. Assessment and Plan: Acute on chronic diastolic heart failure, right greater than left -continue furosemide. DVT prophylaxis: She is not on anticoagulation for her history of paroxysmal atrial fibrillation due to apparent past ophthalmologic issues require injection therapy. She is however considered to be at high risk for DVT and PE. Would consider starting Lovenox or subcu heparin for DVT prophylaxis. Richy Sheppard, DO Subjective Patient resting in bed comfortably. Believes her SOB and edema are improving, but not yet at baseline. Denies chest pain. No dizziness. No fever, cough, or chills. She reportedly tried CPAP last night and took it off. She reports she has tried CPAP in past with multiple masks without success. Wishes to be placed on supplemental O2 without CPAP to sleep. She reports she will not use CPAP at home, only O2 Review of Systems Review of Systems: All systems reviewed & are unremarkable except as noted in HPI & below Physical Exam Constitutional: WD/WN, vitals as above + morbidly obese; no acute distress Eyes: PERRL, conjunctivae normal, anicteric sclerae ENMT: external ear and nose normal, oropharynx normal Neck: trachea midline, no thyromegaly Respiratory: Auscultation: + diminished lung sounds; no crackles Cardiovascular: Rate/Rhythm: regular rate and regular rhythm Heart Sounds: normal S1 and normal S2; no gallop and no murmur Palpation: normal PMI Vessels: normal carotid upstroke and radial pulses present; no JVD and no carotid bruit Extremities: + edema (2+) Gastrointestinal (Abdomen): normal bowel sounds, soft, nontender, no hepatosplenomegaly Musculoskeletal: no cyanosis or clubbing, extremities motor strength 5/5 Skin: no rashes, warm and dry Neurologic: PERRL, EOMI, accommodation nl, no face palsy, no dysarthria Psychiatric: A+Ox3, euthymic affect Results & Data ([facility]) Vital Signs (Past 12 Hours) Vital Signs Temp Pulse Pulse Resp BP Pulse Ox 03/02/21 07:30 36.9 C 74 16 148/84 H 92 03/02/21 03:20 37.0 C 78 18 166/99 H 99 03/01/21 23:48 74 03/01/21 23:00 36.5 C 74 18 168/95 H 100 03/01/21 22:29 73 19 98 Laboratory Results 03/02/21 03/02/21 03/01/21 Range/Units 07:15 05:54 20:15 Sodium 144 (136-145) mmol/L Potassium 3.8 (3.5-5.1) mmol/L Chloride 105 (98-107) mmol/L Carbon Dioxide 35 H (21-32) mmol/L Anion Gap 4.0 (3-11) BUN 36 H (7-18) mg/dl Creatinine 1.23 H (0.6-1.2) mg/dl Est Cr Clr Drug Dosing 61.9 ml/min Est GFR ( Amer) 55.2 ml/min Est GFR (Non-Af Amer) 47.6 ml/min BUN/Creatinine Ratio 29.6 H (10-20) Glucose 173 H (70-99) mg/dl POC Glucose 180 H 91 (70-99) mg/dl Calcium 8.4 L (8.5-10.1) mg/dl Phosphorus 3.9 (2.5-4.9) mg/dl Magnesium 2.1 (1.8-2.4) mg/dl 03/01/21 03/01/21 Range/Units 16:56 11:56 Sodium (136-145) mmol/L Potassium (3.5-5.1) mmol/L Chloride (98-107) mmol/L Carbon Dioxide (21-32) mmol/L Anion Gap (3-11) BUN (7-18) mg/dl Creatinine (0.6-1.2) mg/dl Est Cr Clr Drug Dosing ml/min Est GFR ( Amer) ml/min Est GFR (Non-Af Amer) ml/min BUN/Creatinine Ratio (10-20) Glucose (70-99) mg/dl POC Glucose 162 H 149 H (70-99) mg/dl Calcium (8.5-10.1) mg/dl Phosphorus (2.5-4.9) mg/dl Magnesium (1.8-2.4) mg/dl Diagnostic Findings telem reviewed: NSR in the 60-70's, occ PVC's. No recurrent atrial fibrillation. Medications Administered Current Inpatient Medications Amiodarone HCl (Amiodarone 200 Mg Tab) 200 mg PO DAILY MILAGROS Stop: 03/29/21 08:59 Last Admin: 03/02/21 07:44 Dose: 200 mg Documented by: Aspirin (Aspirin 81 Mg Ectab) 81 mg PO DAILY MILAGROS Stop: 03/29/21 08:59 Last Admin: 03/02/21 07:44 Dose: 81 mg Documented by: Butalbital/Aspirin/Caffeine (Butalbital/Aspirin/Caffeine 1 Tab Tab) 2 tab PO Q4H PRN PRN Reason: Migraine Headache Stop: 03/28/21 17:01 Last Admin: 02/28/21 09:16 Dose: 2 tab Documented by: Dextrose (Dextrose 50% 50 Ml Syringe) 25 - 50 ml IV UD PRN; Protocol PRN Reason: Hypoglycemia Protocol Stop: 03/28/21 19:11 Diclofenac Sodium (Diclofenac Sod 1% Gel 100 Gm Tube) 4 gm EXT QID PRN PRN Reason: Pain Stop: 03/28/21 19:11 Last Admin: 02/28/21 03:20 Dose: 4 gm Documented by: Docusate Sodium (Docusate Sodium 100 Mg Cap) 100 mg PO BID MILAGROS Stop: 03/28/21 20:59 Last Admin: 03/02/21 07:44 Dose: 100 mg Documented by: Ferrous Sulfate (Ferrous Sulfate 325 Mg Tab) 325 mg PO BID MILAGROS Stop: 03/28/21 20:59 Last Admin: 03/02/21 07:44 Dose: 325 mg Documented by: Fexofenadine HCl (Fexofenadine Hcl 180 Mg Tab) 180 mg PO DAILY MILAGROS Stop: 03/29/21 08:59 Last Admin: 03/02/21 07:44 Dose: 180 mg Documented by: Folic Acid (Folic Acid 1 Mg Tab) 1 mg PO DAILY MILAGROS Stop: 03/29/21 08:59 Last Admin: 03/02/21 07:43 Dose: 1 mg Documented by: Gabapentin (Gabapentin 100 Mg Cap) 200 mg PO BID MILAGROS Stop: 03/28/21 20:59 Last Admin: 03/02/21 07:44 Dose: 200 mg Documented by: Glucagon (Glucagon For Inj 1 Mg Vial) 1 mg SQ UD PRN; Protocol PRN Reason: Hypoglycemia Protocol Stop: 03/28/21 19:11 Glucose (Glucose 10 Tabs/Tube) 4 - 8 tabs PO UD PRN; Protocol PRN Reason: Hypoglycemia Protocol Stop: 03/28/21 19:11 Glucose (Glucose 40% Gel 15 Gm Tube) 15 - 30 gm PO UD PRN; Protocol PRN Reason: Hypoglycemia Protocol Stop: 03/28/21 19:11 Furosemide 60 mg/ Syringe 6 mls @ 4 mls/min IV BID MILAGROS Stop: 03/28/21 20:59 Last Admin: 03/02/21 07:43 Dose: 4 mls/min Documented by: Ceftriaxone Sodium 2,000 mg/ (Dextrose) 70 mls @ 120 mls/hr IV Q24H [facility]; Protocol Stop: 03/04/21 09:59 Last Infusion: 03/01/21 11:50 Dose: Infused Documented by: Insulin Aspart (Insulin Aspart 100 Units/Ml 3 Ml Pen) 0 units SC ACHS [facility] Stop: 03/28/21 20:59 Last Admin: 03/02/21 08:43 Dose: 9 units Documented by: Insulin Glargine (Insulin Glargine Solostar 100 Units/Ml 3 Ml Pen) 0 units SC HS [facility]; Protocol Stop: 03/28/21 20:59 Last Admin: 03/01/21 21:00 Dose: Not Given Documented by: Lactobacillus Acidoph/Casei/Rhamnos (Advanced Probiotic 1250 Mg Capsule) 2 cap PO DAILY [facility] Stop: 03/29/21 08:59 Last Admin: 03/02/21 07:44 Dose: 2 cap Documented by: Levothyroxine Sodium (Levothyroxine Sodium 25 Mcg Tablet) 25 mcg PO DAILYBB [facility] Stop: 03/29/21 06:29 Last Admin: 03/02/21 06:28 Dose: 25 mcg Documented by: Losartan Potassium (Losartan Potassium 25 Mg Tab) 25 mg PO QAM [facility] Stop: 04/01/21 08:59 Metoprolol Succinate (Metoprolol Succ 50mg Ext Rel Tab) 50 mg PO DAILY [facility] Stop: 03/29/21 08:59 Last Admin: 03/02/21 07:43 Dose: 50 mg Documented by: Miscellaneous (Carbohydrates For Hypoglycemia ) 15 - 30 gm PO UD PRN PRN Reason: Hypoglycemia Protocol Stop: 03/28/21 19:11 Last Admin: 02/27/21 16:30 Dose: 30 gm Documented by: Multivitamins/Minerals (Calcium 600mg + Vit D 400 Iu Tab) 1 tab PO DAILY [facility] Stop: 03/29/21 08:59 Last Admin: 03/02/21 07:44 Dose: 1 tab Documented by: Ondansetron HCl (Ondansetron Inj 2 Mg/Ml 2 Ml Vial) 4 mg IV Q6H PRN PRN Reason: Nausea Stop: 03/28/21 19:11 Pantoprazole Sodium (Pantoprazole 40 Mg Tab) 40 mg PO DAILY [facility]; Protocol Stop: 03/29/21 08:59 Last Admin: 03/02/21 07:43 Dose: 40 mg Documented by: Polyethylene Glycol (Polyethylene (Miralax) 17 Gm Pack) 17 gm PO DAILY PRN PRN Reason: Constipation Stop: 03/28/21 19:11 Potassium Chloride (Potassium Chloride Crtab 20 Meq Tabcr) 20 meq PO BID [facility] Stop: 03/28/21 20:59 Last Admin: 02/28/21 20:43 Dose: 20 meq Documented by: Spironolactone (Spironolactone 25 Mg Tab) 25 mg PO QAM [facility] Stop: 03/30/21 13:29 Last Admin: 03/02/21 07:43 Dose: 25 mg Documented by: Vitamin D (Cholecalciferol 1,000 Units 25 Mcg Tab) 1,000 units PO DAILY [facility] Stop: 03/29/21 08:59 Last Admin: 03/02/21 07:44 Dose: 1,000 units Documented by: (1) HTN (hypertension) Hypertension type: essential hypertension Qualified Code(s): I10 - Essential (primary) hypertension
--- NOTE | 2021-03-02 10:05 | Hospitalist Progress Note ---
Date of Service March 02, 2021 Assessment & Plan (1) Acute decompensated heart failure: 61yo F with a PMH of chronic diastolic HF, DM II, paroxysmal A Fib, diabetic retinopathy, HTN and other medical problems listed below who was sent over by Dr. Peña in cardiology office for decompensated heart failure. History of chronic diastolic heart failure with recent admissions for acute decompensation Most recently admitted at [facility] in early January for this Has gained 30 pounds since discharge from hospital, per chart review ?History of medication non-compliance Most recent TTE from OSH 06/2020 Echo - EF 40-45%, +RWMA Currently on Lasix 60 mg IV twice daily Gave an extra 40mg of lasix yesterday Continue Spironolactone. Home potassium held Monitor electrolytes with diuresis Monitor intake and output. Was -1.78L in past 24h Get weights. RN informed Tool Specialist on board Overnight pulse ox show desaturation Patient reported she has JUANITA and had used CPAP/BIPAP briefly in the past but did not tolerate it Patient will need outpatient sleep study out patient. Will need atleast nasal oxygen HS even on discharge (2) Dysuria: Urinary tract infection Urine culture growing E coli Continue ceftriaxone Review of outpatient records showed patient has history of recurrent UTI. Was seen by urology on 02/25/2021 and plan for further evaluation with cystoscopy. Patient will need to follow-up with urology. May need prophylactic antibiotics eventually (3) Ambulatory dysfunction: In setting of volume overload, Charcot L foot Recently discharged home from SNF with home health but does not feel she has enough support for ADLs, ambulating to bathroom while on diuretics Fall precautions PT recommending SNF vs 24h home care Patient will prefer to go home with services. CM aware (4) Paroxysmal atrial fibrillation: Continue amiodarone Not anticoagulated due to ophthalmological issue which requires frequent injections Monitor on telemetry (5) HTN (hypertension): Losartan added for better BP control Continue Toprol Amlodipine discontinued per cardiology (6) Diabetes mellitus, type II: Hold home agents Basal/bolus insulin while in-patient per protocol Blood glucose currently controlled Carb controlled diet (7) Fibromyalgia: Continue gabapentin Hypothyroidism Patient reported NH discharged her without giving her thyroid meds. She thinks it makes her warm. Per PCP note, patient is on levothyroxine Thyroid function tests from 02/11/2021 showed TSH of 7.78 [elevated], T3 of 2.3 and T4 of 1.4. Continue levothyroxine for now DVT Ppx: SCDs only. Patient does not want any blood thinners to ophthalmological issue Code status: Conditional code - YES to CPR, defibrillation. NO to intubation or mech vent PCP: Dr. Blanc Dispo: Med telemetry Admission and Anticipated Discharge Date Admission Date: February 26, 2021 Subjective 61yo F with a PMH of chronic diastolic HF, DM II, paroxysmal A Fib, diabetic retinopathy, HTN and other medical problems listed below who was sent over by Dr. Peña in cardiology office for volume overload Being managed for acute on chronic diastolic heart failure and UTI Patient seen and examined. Reports dysuria has resolved. Reported some crampy abdominal pains earlier this morning. No nausea, vomiting, diarrhea constipation No chest pain or other acute symptoms Review of Systems Review of Systems: All systems reviewed & are unremarkable except as noted in Subjective Physical Exam Constitutional: + obese; no acute distress Eyes: PERRL, conjunctivae normal, anicteric sclerae ENMT: external ear and nose normal, oropharynx normal Respiratory: normal respiratory effort; no respiratory distress Diminished breath sounds. Minimal basilar fine crackles Cardiovascular: Rate/Rhythm: regular rate and regular rhythm S1-S2 Gastrointestinal (Abdomen): normal bowel sounds, soft, nontender, no hepatosplenomegaly Musculoskeletal: +edema Neurologic: PERRL, EOMI, accommodation nl, no face palsy, no dysarthria Psychiatric: A+Ox3, euthymic affect Results & Data Results & Data ([facility]) Vital Signs (Past 12 Hours) Vital Signs Temp Pulse Pulse Resp BP Pulse Ox 03/02/21 07:30 36.9 C 74 16 148/84 H 92 03/02/21 03:20 37.0 C 78 18 166/99 H 99 03/01/21 23:48 74 03/01/21 23:00 36.5 C 74 18 168/95 H 100 03/01/21 22:29 73 19 98 Laboratory Results Abnormal lab results 03/01/21 03/01/21 03/02/21 Range/Units 11:56 16:56 05:54 Carbon Dioxide 35 H (21-32) mmol/L BUN 36 H (7-18) mg/dl Creatinine 1.23 H (0.6-1.2) mg/dl BUN/Creatinine Ratio 29.6 H (10-20) Glucose 173 H (70-99) mg/dl POC Glucose 149 H 162 H (70-99) mg/dl Calcium 8.4 L (8.5-10.1) mg/dl 03/02/ Range/Units 07:15 Carbon Dioxide (21-32) mmol/L BUN (7-18) mg/dl Creatinine (0.6-1.2) mg/dl BUN/Creatinine Ratio (10-20) Glucose (70-99) mg/dl POC Glucose 180 H (70-99) mg/dl Calcium (8.5-10.1) mg/dl (1) HTN (hypertension) Hypertension type: essential hypertension Qualified Code(s): I10 - Essential (primary) hypertension
[2021-03-02] MEDS: cefTRIAXone SODIUM 2,000 MG in DEXTROSE 5% 50 ML IV SCH (10:14)
[2021-03-02] MEDS: LOSARTAN POTASSIUM 25 MG TAB PO SCH (10:15)
[2021-03-02] MEDS: BUTALBITAL/ASPIRIN/CAFFEINE 1 TAB TAB PO PRN (12:04)
[2021-03-02] MEDS: INSULIN GLARGINE SOLOSTAR 100 UNITS/ML 3 ML PEN SC SCH (20:01)
[2021-03-03] MEDS ORDERED: Nursing to Pharmacy Communication SCH (03:15)
[2021-03-03] MEDS ORDERED: MICONAZOLE NITRATE POWDER 43 GM EXT PRN (03:16)
[2021-03-03] MEDS: BUTALBITAL/ASPIRIN/CAFFEINE 1 TAB TAB PO PRN (03:26)
[2021-03-03] MEDS: LEVOTHYROXINE SODIUM 25 MCG TABLET PO SCH (04:56)
[2021-03-03 07:34] LABS: BUN Creatinine Ratio 28.9 (10-20); Calcium 8.6 mg/dl (8.5-10.1); Creatinine Clr Calc Pharmacy 51.2 ml/min; Est GFR (African American) 44.1 ml/min; Est GFR (Non-African American) 38.1 ml/min; Potassium 3.7 mmol/L (3.5-5.1)
[2021-03-03 07:35] LABS: Phosphorus 3.7 mg/dl (2.5-4.9)
[2021-03-03] MEDS: SPIRONOLACTONE 25 MG TAB PO SCH (08:27)
[2021-03-03] MEDS: CALCIUM 600MG + VIT D 400 IU TAB PO SCH (08:27)
[2021-03-03] MEDS: METOPROLOL SUCC 50MG EXT REL TAB PO SCH (08:27)
[2021-03-03] MEDS: PANTOprazole 40 MG TAB PO SCH (08:28)
[2021-03-03] MEDS: DOCUSATE SODIUM 100 MG CAP PO SCH ×2 (08:28→20:31)
[2021-03-03] MEDS: FEXOFENADINE HCL 180 MG TAB PO SCH (08:28)
[2021-03-03] MEDS: LOSARTAN POTASSIUM 25 MG TAB PO SCH (08:28)
[2021-03-03] MEDS: ASPIRIN 81 MG ECTAB PO SCH (08:28)
[2021-03-03] MEDS: FERROUS SULFATE 325 MG TAB PO SCH ×2 (08:28→20:32)
[2021-03-03] MEDS: FOLIC ACID 1 MG TAB PO SCH (08:28)
[2021-03-03] MEDS: GABAPENTIN 100 MG CAP PO SCH ×2 (08:28→20:31)
[2021-03-03] MEDS: AMIODARONE 200 MG TAB PO SCH (08:28)
[2021-03-03] MEDS: FUROSEMIDE 60 MG in SYRINGE 0 ML IV SCH ×2 (08:28→20:35)
[2021-03-03] MEDS: CHOLECALCIFEROL 1,000 UNITS 25 MCG TAB PO SCH (08:28)
[2021-03-03] MEDS: ADVANCED PROBIOTIC 1250 MG CAPSULE PO SCH (08:28)
[2021-03-03] MEDS: INSULIN ASPART 100 UNITS/ML 3 ML PEN SC SCH ×4 (08:30→20:31)
--- NOTE | 2021-03-03 09:28 | Hospitalist Progress Note ---
Date of Service March 03, 2021 Assessment & Plan (1) Acute decompensated heart failure: 61yo F with a PMH of chronic diastolic HF, DM II, paroxysmal A Fib, diabetic retinopathy, HTN and other medical problems listed below who was sent over by Dr. Peña in cardiology office for decompensated heart failure. History of chronic diastolic heart failure with recent admissions for acute decompensation Most recently admitted at [facility] in early January for this Has gained 30 pounds since discharge from hospital, per chart review ?History of medication non-compliance Most recent TTE from OSH 06/2020 Echo - EF 40-45%, +RWMA Currently on Lasix 60 mg IV twice daily Continue Spironolactone. Home potassium held Monitor electrolytes with diuresis Petroleum Geologist on board Overnight pulse ox show desaturation Patient reported she has JUANITA and had used CPAP/BIPAP briefly in the past but did not tolerate it Patient will need outpatient sleep study out patient. Will need atleast nasal oxygen HS even on discharge (2) Dysuria: Urinary tract infection Urine culture grew E coli On ceftriaxone to complete therapy Review of outpatient records showed patient has history of recurrent UTI. Was seen by urology on 02/25/2021 and plan for further evaluation with cystoscopy. Patient will need to follow-up with urology. May need prophylactic antibiotics eventually (3) Ambulatory dysfunction: In setting of volume overload, Cindy cochran Recently discharged home from SNF with home health but does not feel she has enough support for ADLs, ambulating to bathroom while on diuretics Fall precautions PT recommending SNF vs 24h home care Patient will prefer to go home with services. CM aware (4) Paroxysmal atrial fibrillation: Continue amiodarone Not anticoagulated due to ophthalmological issue which requires frequent injections Monitor on telemetry (5) HTN (hypertension): Losartan added for better BP control Continue Toprol Amlodipine discontinued per cardiology (6) Diabetes mellitus, type II: Hold home agents Basal/bolus insulin while in-patient per protocol Blood glucose currently controlled Carb controlled diet (7) CKD (chronic kidney disease) stage 3, GFR 30-59 ml/min: Cr is 1.43 today Has CKD 3 per EPIC records (Cr has been at 1.4 per outpatient results from last month) Monitor with diuretics Avoid nephrotoxins (8) Fibromyalgia: Continue gabapentin Hypothyroidism Patient reported NH discharged her without giving her thyroid meds. She thinks it makes her warm. Per PCP note, patient is on levothyroxine Thyroid function tests from 02/11/2021 showed TSH of 7.78 [elevated], T3 of 2.3 and T4 of 1.4. Continue levothyroxine for now DVT Ppx: SCDs only. Patient does not want any blood thinners to ophthal mological issue Code status: Conditional code - YES to CPR, defibrillation. NO to intubation or mech vent PCP: Dr. Blanc Dispo: Med telemetry Admission and Anticipated Discharge Date Admission Date: February 26, 2021 Subjective 61yo F with a PMH of chronic diastolic HF, DM II, paroxysmal A Fib, diabetic retinopathy, HTN and other medical problems listed below who was sent over by Dr. Peña in cardiology office for volume overload Being managed for acute on chronic diastolic heart failure and UTI Patient seen and examined. No more dysuria Denied shortness of breath but has not really been active since admission Reports cough No other acute symptoms Chronic knee pain Review of Systems Review of Systems: All systems reviewed & are unremarkable except as noted in Subjective Physical Exam Constitutional: + obese; no acute distress Eyes: PERRL, conjunctivae normal, anicteric sclerae ENMT: external ear and nose normal, oropharynx normal Respiratory: normal respiratory effort; no respiratory distress Diminished breath sounds Cardiovascular: Rate/Rhythm: regular rate and regular rhythm S1 S2 +pedal edema (improved compared to admission) Gastrointestinal (Abdomen): normal bowel sounds, soft, nontender, no hepatos plenomegaly Musculoskeletal: +LE edema Neurologic: PERRL, EOMI, accommodation nl, no face palsy, no dysarthria Psychiatric: A+Ox3, euthymic affect Results & Data Results & Data ([facility]) Vital Signs (Past 12 Hours) Vital Signs Temp Pulse Pulse Pulse Resp BP BP 03/03/21 07:46 36.5 C 78 18 161/91 H 03/03/21 07:00 77 03/03/21 05:06 77 164/87 H 03/03/21 04:53 175/99 H 03/03/21 03:00 36.4 C L 76 18 182/98 H 03/02/21 23:55 36.3 C L 73 16 135/67 03/02/21 23:52 70 Pulse Ox 03/03/21 07:46 90 03/03/21 07:00 03/03/21 05:06 03/03/21 04:53 03/03/21 03:00 100 03/02/21 23:55 90 03/02/21 23:52 Laboratory Results Abnormal lab results 03/02/21 03/02/21 03/02/21 Range/Units 12:01 16:26 19:46 Carbon Dioxide (21-32) mmol/L BUN (7-18) mg/dl Creatinine (0.6-1.2) mg/dl BUN/Creatinine Ratio (10-20) Glucose (70-99) mg/dl POC Glucose 163 H 217 H 153 H (70-99) mg/dl 03/03/21 03/03/21 Range/Units 06:07 07:36 Carbon Dioxide 33 H (21-32) mmol/L BUN 43 H (7-18) mg/dl Creatinine 1.48 H (0.6-1.2) mg/dl BUN/Creatinine Ratio 28.9 H (10-20) Glucose 172 H (70-99) mg/dl POC Glucose 186 H (70-99) mg/dl (1) HTN (hypertension) Hypertension type: essential hypertension Qualified Code(s): I10 - Essential (primary) hypertension
[2021-03-03] MEDS: cefTRIAXone SODIUM 2,000 MG in DEXTROSE 5% 50 ML IV SCH (10:48)
--- NOTE | 2021-03-03 19:11 | Cardiology Progress Note ---
Date of Service March 03, 2021 Assessment & Plan (1) Acute decompensated heart failure: Patient with chronic diastolic heart failure, right greater than left, improving with ongoing IV diuresis. Monitor I+O's Daily weight ordered Continue furosemide 60 mg IV BID today Continue spironolactone (2) Paroxysmal atrial fibrillation: History of PAF, not currently anticoagulated due to history of ophthalmological issue which requires frequent injections. Maintains on Amio 200 mg daily and metoprolol succinate 50 mg daily. On ASA 81 mg daily. Patient initially presented in afib, but converted to SR spontaneously after admission No recurrent afib on telemetry overnight. continue current meds (3) HTN (hypertension): Amlodipine discontinued due to ongoing fluid issues. losartan 25 mg and spironolactone daily added Monitor renal function/electrolytes (4) Nocturnal hypoxia: Patient with significant hypoxia. She is refusing CPAP therapy now and at home. Previously tried several masks. Wishes to continue with supplemental O2 via nasal canula. Admission and Anticipated Discharge Date Admission Date: February 26, 2021 Subjective Patient seen in follow-up of her complaint of lower extremity edema, pedal edema, dyspnea with exertion. She notes interval improvement in her swelling, but still has significant pedal edema. She had been walking several laps in the hallway on the unit today per her description. Sinus rhythm noted. Physical Exam Physical Exam: Temp Pulse Resp BP Pulse Ox 36.6 C 72 18 109/68 90 03/03/21 18:35 03/03/21 18:35 03/03/21 18:35 03/03/21 18:35 03/03/21 18:35 Constitutional: Chronically ill appearance, no acute distress Cardiovascular: Mildly decreased breath sounds the bases, 1+ lower extremity, 1+ bilateral pedal edema Gastrointestinal (Abdomen): normal bowel sounds, soft, nontender, no hepatosplenomegaly Neurologic: PERRL, EOMI, accommodation nl, no face palsy, no dysarthria Results & Data ([facility]) Vital Signs (Past 12 Hours) Vital Signs Temp Pulse Pulse Resp BP Pulse Ox 03/03/21 18:35 36.6 C 72 18 109/68 90 03/03/21 15:48 76 03/03/21 15:13 36.5 C 69 18 127/76 95 03/03/21 11:23 36.5 C 74 18 157/91 H 91 03/03/21 07:46 36.5 C 78 18 161/91 H 90 Laboratory Results Comprehensive Metabolic Panel 03/03/21 Range/Units 06:07 Sodium 145 (136-145) mmol/L Potassium 3.7 (3.5-5.1) mmol/L Chloride 105 (98-107) mmol/L Carbon Dioxide 33 H (21-32) mmol/L BUN 43 H (7-18) mg/dl Creatinine 1.48 H (0.6-1.2) mg/dl Glucose 172 H (70-99) mg/dl Calcium 8.6 (8.5-10.1) mg/dl Intake and Output 03/03/21 03/03/21 03/03/21 06:59 14:59 22:59 Intake Total 280 / 1410 410 / 410 Output Total 1600 / 2453 650 / 650 Balance -1320 / -1043 -240 / -240 Intake: IV 70 / 70 cefTRIAXone SODIUM 2,000 mg In 70 / 70 Dextrose 5% 50 ml @ 120 mls/hr IV Q24H [facility] Rx#:[id number] Oral 280 / 1340 340 / 340 Output: Urine 650 / 650 Urine Amount (Catheter) 1600 / 2150 External 1600 / 2150 Other: Weight 118.6 kg Weight Measurement Method Built in [facility] (1) HTN (hypertension) Hypertension type: essential hypertension Qualified Code(s): I10 - Essential (primary) hypertension
[2021-03-03] MEDS: INSULIN GLARGINE SOLOSTAR 100 UNITS/ML 3 ML PEN SC SCH (20:30)
[2021-03-04] MEDS: LEVOTHYROXINE SODIUM 25 MCG TABLET PO SCH (05:46)
[2021-03-04] MEDS: FERROUS SULFATE 325 MG TAB PO SCH ×2 (07:38→21:50)
[2021-03-04] MEDS: SPIRONOLACTONE 25 MG TAB PO SCH (07:38)
[2021-03-04] MEDS: ASPIRIN 81 MG ECTAB PO SCH (07:39)
[2021-03-04] MEDS: LOSARTAN POTASSIUM 25 MG TAB PO SCH (07:39)
[2021-03-04] MEDS: AMIODARONE 200 MG TAB PO SCH (07:39)
[2021-03-04] MEDS: CALCIUM 600MG + VIT D 400 IU TAB PO SCH (07:39)
[2021-03-04] MEDS: PANTOprazole 40 MG TAB PO SCH (07:39)
[2021-03-04] MEDS: FEXOFENADINE HCL 180 MG TAB PO SCH (07:39)
[2021-03-04] MEDS: ADVANCED PROBIOTIC 1250 MG CAPSULE PO SCH (07:39)
[2021-03-04] MEDS: METOPROLOL SUCC 50MG EXT REL TAB PO SCH (07:40)
[2021-03-04] MEDS: FUROSEMIDE 60 MG in SYRINGE 0 ML IV SCH ×2 (07:40→21:50)
[2021-03-04] MEDS: DOCUSATE SODIUM 100 MG CAP PO SCH ×2 (07:40→21:50)
[2021-03-04] MEDS: GABAPENTIN 100 MG CAP PO SCH ×2 (07:40→21:49)
[2021-03-04] MEDS: CHOLECALCIFEROL 1,000 UNITS 25 MCG TAB PO SCH (07:40)
[2021-03-04 07:47] LABS: BUN Creatinine Ratio 36.2 (10-20); Creatinine Clr Calc Pharmacy 57.4 ml/min; Est GFR (African American) 51.2 ml/min; Est GFR (Non-African American) 44.1 ml/min; Potassium 3.9 mmol/L (3.5-5.1)
[2021-03-04 07:48] LABS: Phosphorus 3.8 mg/dl (2.5-4.9)
[2021-03-04] MEDS: FOLIC ACID 1 MG TAB PO SCH (07:50)
[2021-03-04] MEDS: INSULIN ASPART 100 UNITS/ML 3 ML PEN SC SCH ×4 (08:27→20:21)
--- NOTE | 2021-03-04 10:59 | Cardiology Progress Note ---
Date of Service March 04, 2021 Assessment & Plan (1) Acute decompensated heart failure: Continue IV furosemide and Aldactone. Monitor daily weight, fluid balance, GFR, and electrolytes. Labile hypertension noted. Recommend titration of losartan to 50 mg daily. Hold potassium supplementation. Consider transition of Toprol-XL to carvedilol pending clinical response. (2) Paroxysmal atrial fibrillation: Maintained in sinus rhythm with amiodarone. Reported contraindication to anticoagulation secondary to retinal hemorrhage, diabetic retinopathy (3) CKD (chronic kidney disease) stage 3, GFR 30-59 ml/min: Stable renal function throughout hospitalization. Admission and Anticipated Discharge Date Admission Date: February 26, 2021 Subjective Patient seen and examined the bedside. Weight is down 12 pounds since admission. Labile hypertension noted throughout hospitalization. Able to walk in the gleason yesterday. Edema improved. No orthopnea or PND. Resting comfortably currently. No chest pain or unusual shortness of breath. Telemetry reveals sinus rhythm. Review of Systems Review of Systems: All systems reviewed & are unremarkable except as noted in Subjective Physical Exam Constitutional: well developed, well nourished and + morbidly obese; no acute distress Respiratory: Auscultation: + rales (Scant, bases bilateral); no crackles, no rhonchi and no wheezes Cardiovascular: Rate/Rhythm: regular rate and regular rhythm Heart Sounds: normal S1 and normal S2; no murmur Vessels: no JVD Extremities: + edema (1+ bilateral pretibial edema) Gastrointestinal (Abdomen): Inspection/Auscultation: abdomen normal to inspection and normal bowel sounds; abdomen not distended Percussion/Palpation: + abdomen rigid and abdomen soft; abdomen nontender and no guarding Neurologic: CN's II-XI intact bilaterally and moves all extremities Motor/Sensory: no tremor Psychiatric: A+Ox3, euthymic affect Results & Data ([facility]) Vital Signs (Past 12 Hours) Vital Signs Temp Pulse Pulse Resp BP BP Pulse Ox 03/04/21 10:09 79 03/04/21 08:31 165/95 H 03/04/21 08:20 182/100 H 03/04/21 07:12 36.5 C 81 18 90 03/04/21 04:42 72 03/04/21 03:00 36.9 C 77 20 156/89 H 97 03/03/21 23:36 36.7 C 72 20 152/89 H 97
--- NOTE | 2021-03-04 16:17 | Hospitalist Progress Note ---
Date of Service March 04, 2021 Assessment & Plan (1) Acute diastolic heart failure: Symptoms have overall improved with ongoing intravenous diuresis. Cardiology is following and tailoring therapies. Continue monitoring strict I's and O's, daily weights (down 12 kg since admission),Continue Aldactone, increase losartan to 50 mg daily, hold potassium supplementation, considering transition of Toprol-XL to carvedilol pending clinical response. (2) E. coli UTI: Received a 5-day course of ceftriaxone with complete resolution of symptoms aside from some per consistent suprapubic discomfort. Continue to monitor. (3) Abdominal pain: Nonspecific abdominal pain, 04/28, acute today. Possibly gas or constipation? Noncontrast CT abd/pelv did not reveal any clear etiology of her pain. Pain meds PRN, cont to monitor (4) Paroxysmal atrial fibrillation: Maintaining sinus rhythm with amiodarone. Diabetic retinopathy requires frequent injections and there is a relative contraindication anticoagulation secondary to retinal hemorrhage. (5) HTN (hypertension): Losartan added for better BP control, increased from 25 mg daily to 50 mg daily starting tomorrow. Continue Toprol Amlodipine discontinued per cardiology (6) Diabetes mellitus, type II: Hold home agents Basal/bolus insulin while in-patient per protocol Blood glucose currently controlled Carb controlled diet (7) CKD (chronic kidney disease) stage 3, GFR 30-59 ml/min: at her baseline. (8) Fibromyalgia: Continue gabapentin (9) Ambulatory dysfunction: In setting of volume overload, Charcot L foot Recently discharged home from SNF with home health but does not feel she has enough support for ADLs, ambulating to bathroom while on diuretics Fall precautions PT recommending SNF vs 24h home care Patient will prefer to go home with services. CM aware (10) Hypothyroidism: Recent noncompliance with levothyroxine. She currently is taking 25 mcg every morning as prescribed on her outpatient regimen. (11) DVT prophylaxis: SCDs, declines chemoprophylaxis conditional code Dispo-prefers to go home when medically stable for discharge. Milady Blackwell DO [facility] Hospitalist Admission and Anticipated Discharge Date Admission Date: February 26, 2021 Subjective 61 yo F who was admitted for acute on chronic diastolic heart failure. She continues on Lasix 60mg IV BID and feels that her breathing and swelling have improved. She reports having ambulated down the hallway with a walker today. She was treated for a UTI this admission with resolution of symptoms except for persistent suprapubic discomfort. She also reports a strong pain in her RUQ/right lateral abdominal wall area, stating "it feels like something is missing." The pain began around 3pm when sitting in the chair, and t is constant with some radiation into the lower back area. Review of Systems Review of Systems: All systems reviewed & are unremarkable except as noted in Subjective Physical Exam Physical Exam: CONSTITUTIONAL: obese, vitals as above, NAD EYES: normal conjunctivae, no scleral icterus ENT: external ear and nose normal, MMM RESPIRATORY: clear to auscultation bilaterally, no crackles, rales or wheezes, normal respiratory effort CARDIOVASCULAR: regular rate and rhythm, S1 and 2 heard without murmurs, gallops or rubs, no JVD, no peripheral edema GASTROINTESTINAL: soft, TTP in RUQ/right lateral skin fold and around to right mid/lower back area, nondistended. Abdomen is protuberant and there are multiple skin folds with patient sitting up but hunched over, all limiting exam. MUSCULOSKELETAL: generalized weakness, head is normocephalic and atraumatic SKIN: warm and dry NEUROLOGIC: CN 2-12 grossly intact, normal cognition, normal speech PSYCHIATRIC: alert cooperative and oriented to person, place and time. Results & Data Results & Data ([facility]) Vital Signs (Past 12 Hours) Vital Signs Temp Pulse Pulse Resp BP BP Pulse Ox 03/04/21 15:05 36.7 C 67 18 113/70 95 03/04/21 11:00 36.5 C 73 18 153/87 H 95 03/04/21 10:09 79 03/04/21 08:31 165/95 H 03/04/21 08:20 182/100 H 03/04/21 07:12 36.5 C 81 18 90 03/04/21 04:42 72 Laboratory Results [facility] 03/04/21 07:02 Sodium 143 Potassium 3.9 Chloride 106 Carbon Dioxide 31 BUN 47 H Creatinine 1.31 H Glucose 187 H Calcium 9.0 Medications Administered Current Inpatient Medications Amiodarone HCl (Amiodarone 200 Mg Tab) 200 mg PO DAILY [facility] Stop: 03/29/21 08:59 Last Admin: 03/04/21 07:39 Dose: 200 mg Documented by: Aspirin (Aspirin 81 Mg Ectab) 81 mg PO DAILY [facility] Stop: 03/29/21 08:59 Last Admin: 03/04/21 07:39 Dose: 81 mg Documented by: Butalbital/Aspirin/Caffeine (Butalbital/Aspirin/Caffeine 1 Tab Tab) 2 tab PO Q4H PRN PRN Reason: Migraine Headache Stop: 03/28/21 17:01 Last Admin: 03/03/21 03:26 Dose: 2 tab Documented by: Dextrose (Dextrose 50% 50 Ml Syringe) 25 - 50 ml IV UD PRN; Protocol PRN Reason: Hypoglycemia Protocol Stop: 03/28/21 19:11 Diclofenac Sodium (Diclofenac Sod 1% Gel 100 Gm Tube) 4 gm EXT QID PRN PRN Reason: Pain Stop: 03/28/21 19:11 Last Admin: 02/28/21 03:20 Dose: 4 gm Documented by: Docusate Sodium (Docusate Sodium 100 Mg Cap) 100 mg PO BID [facility] Stop: 03/28/21 20:59 Last Admin: 03/04/21 07:40 Dose: 100 mg Documented by: Ferrous Sulfate (Ferrous Sulfate 325 Mg Tab) 325 mg PO BID [facility] Stop: 03/28/21 20:59 Last Admin: 03/04/21 07:38 Dose: 325 mg Documented by: Fexofenadine HCl (Fexofenadine Hcl 180 Mg Tab) 180 mg PO DAILY [facility] Stop: 03/29/21 08:59 Last Admin: 03/04/21 07:39 Dose: 180 mg Documented by: Folic Acid (Folic Acid 1 Mg Tab) 1 mg PO DAILY [facility] Stop: 03/29/21 08:59 Last Admin: 03/04/21 07:50 Dose: 1 mg Documented by: Gabapentin (Gabapentin 100 Mg Cap) 200 mg PO BID [facility] Stop: 03/28/21 20:59 Last Admin: 03/04/21 07:40 Dose: 200 mg Documented by: Glucagon (Glucagon For Inj 1 Mg Vial) 1 mg SQ UD PRN; Protocol PRN Reason: Hypoglycemia Protocol Stop: 03/28/21 19:11 Glucose (Glucose 10 Tabs/Tube) 4 - 8 tabs PO UD PRN; Protocol PRN Reason: Hypoglycemia Protocol Stop: 03/28/21 19:11 Glucose (Glucose 40% Gel 15 Gm Tube) 15 - 30 gm PO UD PRN; Protocol PRN Reason: Hypoglycemia Protocol Stop: 03/28/21 19:11 Furosemide 60 mg/ Syringe 6 mls @ 4 mls/min IV BID [facility] Stop: 03/28/21 20:59 Last Admin: 03/04/21 07:40 Dose: 4 mls/min Documented by: Insulin Aspart (Insulin Aspart 100 Units/Ml 3 Ml Pen) 0 units SC ACHS [facility] Stop: 03/28/21 20:59 Last Admin: 03/04/21 12:20 Dose: 10 units Documented by: Insulin Glargine (Insulin Glargine Solostar 100 Units/Ml 3 Ml Pen) 0 units SC HS [facility]; Protocol Stop: 03/28/21 20:59 Last Admin: 03/03/21 20:30 Dose: Not Given Documented by: Lactobacillus Acidoph/Casei/Rhamnos (Advanced Probiotic 1250 Mg Capsule) 2 cap PO DAILY [facility] Stop: 03/29/21 08:59 Last Admin: 03/04/21 07:39 Dose: 2 cap Documented by: Levothyroxine Sodium (Levothyroxine Sodium 25 Mcg Tablet) 25 mcg PO DAILYBB [facility] Stop: 03/29/21 06:29 Last Admin: 03/04/21 05:46 Dose: 25 mcg Documented by: Losartan Potassium (Losartan Potassium 50 Mg Tab) 50 mg PO QAM [facility] Stop: 04/04/21 08:59 Metoprolol Succinate (Metoprolol Succ 50mg Ext Rel Tab) 50 mg PO DAILY [facility] Stop: 03/29/21 08:59 Last Admin: 03/04/21 07:40 Dose: 50 mg Documented by: Miconazole Nitrate (Miconazole Nitrate Powder 43 Gm) 1 appln EXT BID PRN PRN Reason: DIRECTED Stop: 04/02/21 03:15 Last Admin: 03/03/21 04:56 Dose: 1 appln Documented by: Miscellaneous (Carbohydrates For Hypoglycemia ) 15 - 30 gm PO UD PRN PRN Reason: Hypoglycemia Protocol Stop: 03/28/21 19:11 Last Admin: 02/27/21 16:30 Dose: 30 gm Documented by: Multivitamins/Minerals (Calcium 600mg + Vit D 400 Iu Tab) 1 tab PO DAILY [facility] Stop: 03/29/21 08:59 Last Admin: 03/04/21 07:39 Dose: 1 tab Documented by: Ondansetron HCl (Ondansetron Inj 2 Mg/Ml 2 Ml Vial) 4 mg IV Q6H PRN PRN Reason: Nausea Stop: 03/28/21 19:11 Pantoprazole Sodium (Pantoprazole 40 Mg Tab) 40 mg PO DAILY [facility]; Protocol Stop: 03/29/21 08:59 Last Admin: 03/04/21 07:39 Dose: 40 mg Documented by: Polyethylene Glycol (Polyethylene (Miralax) 17 Gm Pack) 17 gm PO DAILY PRN PRN Reason: Constipation Stop: 03/28/21 19:11 Potassium Chloride (Potassium Chloride Crtab 20 Meq Tabcr) 20 meq PO BID [facility] Stop: 03/28/21 20:59 Last Admin: 02/28/21 20:43 Dose: 20 meq Documented by: Spironolactone (Spironolactone 25 Mg Tab) 25 mg PO QAM [facility] Stop: 03/30/21 13:29 Last Admin: 03/04/21 07:38 Dose: 25 mg Documented by: Vitamin D (Cholecalciferol 1,000 Units 25 Mcg Tab) 1,000 units PO DAILY [facility] Stop: 03/29/21 08:59 Last Admin: 03/04/21 07:40 Dose: 1,000 units Documented by: (1) HTN (hypertension) Hypertension type: essential hypertension Qualified Code(s): I10 - Essential (primary) hypertension
--- NOTE | 2021-03-04 19:28 | CT Scan Report ---
CT SCAN OF THE ABDOMEN AND PELVIS WITHOUT IV CONTRAST CLINICAL HISTORY: Acute right-sided abdominal pain. COMPARISON STUDY: No priors. TECHNIQUE: CT scan of the abdomen and pelvis is performed from the lung bases to the proximal femora. Images are reviewed in the axial, sagittal, and coronal planes. IV contrast was not administered for this examination. A dose lowering technique was utilized adhering to the principles of ALARA. The ex amination is degraded by large body habitus, and by streak artifact from the body wall abutting the C T gantry. CT DOSE: 1692.61 mGy.cm FINDINGS: Lung bases: The heart is normal in size and without pericardial effusion. There are coronary artery c alcifications. A small hiatal hernia is noted. There is elevation of the left hemidiaphragm and bibas ilar atelectasis. No airspace consolidation or pleural effusion is identified. Liver: The unenhanced liver is normal in size, contour, and attenuation. There is no intrahepatic kylee iary ductal dilatation. Gallbladder: Surgically absent noting clips in the gallbladder fossa. Spleen: Normal in size and attenuation. Pancreas: The unenhanced pancreas is atrophic and grossly unremarkable. Adrenal glands: Unremarkable. Kidneys: The unenhanced kidneys demonstrate mild cortical atrophy and are without hydronephrosis. The re are no renal calculi identified. There is no evidence of contour deforming renal mass lesion. Abdominal vasculature: The abdominal aorta is normal in course and caliber noting moderate to advance d atherosclerotic calcification. Bowel: There is mild colonic fecal retention. No bowel obstruction is seen. The appendix is well-vis ualized and normal. Peritoneum: There is no intraperitoneal free air or abdominal ascites. Lymphadenopathy: None. Pelvic viscera: There is circumferential bladder wall thickening. The uterus and adnexa are normal as imaged. Skeletal structures: The skeletal structures are osteopenic. Mild to moderate lumbosacral spondylosis is observed. No lytic or blastic lesions are seen. There is a subacute appearing/healing left latera l 10th rib fracture seen on image #[id number]. IMPRESSION: 1. The bladder wall appears circumferentially thickened. Correlate with clinical findings and urinaly sis for evidence of cystitis. 2. There is a subacute appearing/healing left lateral 10th rib fracture. Correlate for point tenderne ss. 3. Additional findings as above. ACT 112: Negative or not required by law. Electronically signed by: Black Nash M.D. 03/04/2021 7:26 PM
[2021-03-04] MEDS: INSULIN GLARGINE SOLOSTAR 100 UNITS/ML 3 ML PEN SC SCH (21:46)
[2021-03-05] MEDS: LEVOTHYROXINE SODIUM 25 MCG TABLET PO SCH (05:46)
[2021-03-05 07:06] LABS: BUN Creatinine Ratio 39.7 (10-20); Calcium 9.1 mg/dl (8.5-10.1); Creatinine Clr Calc Pharmacy 52.2 ml/min; Est GFR (African American) 45.6 ml/min; Est GFR (Non-African American) 39.4 ml/min; Magnesium 2.1 mg/dl (1.8-2.4)
[2021-03-05] MEDS: FERROUS SULFATE 325 MG TAB PO SCH ×2 (08:51→21:42)
[2021-03-05] MEDS: ASPIRIN 81 MG ECTAB PO SCH (08:51)
[2021-03-05] MEDS: CHOLECALCIFEROL 1,000 UNITS 25 MCG TAB PO SCH (08:51)
[2021-03-05] MEDS: CALCIUM 600MG + VIT D 400 IU TAB PO SCH (08:51)
[2021-03-05] MEDS: FEXOFENADINE HCL 180 MG TAB PO SCH (08:51)
[2021-03-05] MEDS: FOLIC ACID 1 MG TAB PO SCH (08:51)
[2021-03-05] MEDS: AMIODARONE 200 MG TAB PO SCH (08:51)
[2021-03-05] MEDS: GABAPENTIN 100 MG CAP PO SCH ×2 (08:51→21:42)
[2021-03-05] MEDS: DOCUSATE SODIUM 100 MG CAP PO SCH ×2 (08:51→21:42)
[2021-03-05] MEDS: FUROSEMIDE 60 MG in SYRINGE 0 ML IV SCH (08:52)
[2021-03-05] MEDS: METOPROLOL SUCC 50MG EXT REL TAB PO SCH (08:52)
[2021-03-05] MEDS: SPIRONOLACTONE 25 MG TAB PO SCH (08:52)
[2021-03-05] MEDS: ADVANCED PROBIOTIC 1250 MG CAPSULE PO SCH (08:52)
[2021-03-05] MEDS: LOSARTAN POTASSIUM 50 MG TAB PO SCH (08:52)
[2021-03-05] MEDS: PANTOprazole 40 MG TAB PO SCH (08:52)
[2021-03-05] MEDS: DICLOFENAC SOD 1% GEL 100 GM TUBE EXT PRN (08:55)
[2021-03-05] MEDS: INSULIN ASPART 100 UNITS/ML 3 ML PEN SC SCH ×4 (08:55→21:41)
[2021-03-05] MEDS: BUTALBITAL/ASPIRIN/CAFFEINE 1 TAB TAB PO PRN (09:34)
[2021-03-05] MEDS ORDERED: PHENAZOPYRIDINE HCL 200 MG TAB PO STA (09:59)
--- NOTE | 2021-03-05 10:45 | Cardiology Progress Note ---
Date of Service March 05, 2021 Assessment & Plan (1) Acute decompensated heart failure: Discontinue IV furosemide. Transition to torsemide 40 mg twice daily (outpatient dose 20 mg twice daily). Monitor daily weight, fluid balance, GFR, and electrolytes. Labile hypertension noted. Losartan titrated to 50 mg daily 03/04/2021.potassium supplementation discontinued. Continue Toprol-XL. Consider transition to carvedilol pending clinical course. (2) Paroxysmal atrial fibrillation: Maintained in sinus rhythm with amiodarone. Reported contraindication to anticoagulation secondary to retinal hemorrhage, diabetic retinopathy (3) CKD (chronic kidney disease) stage 3, GFR 30-59 ml/min: Stable renal function. (4) Cystitis: Urine culture demonstrating E. coli on admission. CT with evidence of possible cystitis. Repeat urinalysis with culture and sensitivity ordered. Antibiotic therapy as per internal medicine. Admission and Anticipated Discharge Date Admission Date: February 26, 2021 Subjective Patient seen and examined at the bedside. Fluid balance -370 cc. Renal function remained stable. Complains of right-sided low back pain and dysuria. CT of the abdomen pelvis performed yesterday suggesting possible cystitis. There is also evidence of a left-sided healing rib fracture. Patient denies orthopnea or PND. Edema significantly improved since admission. Weight is down more than 20 pounds. Review of Systems Review of Systems: All systems reviewed & are unremarkable except as noted in Subjective Physical Exam Constitutional: well developed, well nourished and + morbidly obese; no acute distress Respiratory: Auscultation: + rales (Scant, bases bilateral); no crackles, no rhonchi and no wheezes Cardiovascular: Rate/Rhythm: regular rate and regular rhythm Heart Sounds: normal S1 and normal S2; no murmur Vessels: no JVD Extremities: + edema (1+ bilateral pretibial edema) Gastrointestinal (Abdomen): Inspection/Auscultation: abdomen normal to inspect ion and normal bowel sounds; abdomen not distended Percussion/Palpation: + abdomen rigid and abdomen soft; abdomen nontender and no guarding Neurologic: CN's II-XI intact bilaterally and moves all extremities Motor/Sensory: no tremor Psychiatric: A+Ox3, euthymic affect Results & Data ([facility]) Vital Signs (Past 12 Hours) Vital Signs Temp Pulse Pulse Resp BP Pulse Ox 03/05/21 07:47 79 03/05/21 07:00 36.7 C 77 20 159/79 H 93 03/05/21 04:00 36.6 C 72 20 159/85 H 98 03/04/21 23:00 36.7 C 75 20 108/67 97 03/04/21 22:53 66
[2021-03-05] MEDS ORDERED: BUTALBITAL/ASPIRIN/CAFFEINE 1 TAB TAB PO PRN (14:51)
--- NOTE | 2021-03-05 14:55 | Hospitalist Progress Note ---
Date of Service March 05, 2021 Assessment & Plan (1) Acute diastolic heart failure: Symptoms have overall improved with ongoing intravenous diuresis. Cardiology is following and tailoring therapies. Continue monitoring strict I's and O's, daily weights (down 12 kg since admission),Continue Aldactone, losartan to 50 mg daily, hold potassium supplementation, beta melita (2) E. coli UTI: Received a 5-day course of ceftriaxone with complete resolution of symptoms aside from some per consistent suprapubic discomfort. Some improvement with the pyridium. Repeat UA with +LE and nitrites but no bacteria. Appears to be an infection that has passed, cont to monitor symptoms. Pyridium PRN (3) Abdominal pain: Nonspecific abdominal pain, 8/10, acute today. Possibly gas or constipation? Poss MSK pain? Noncontrast CT abd/pelv did not reveal any clear etiology of her pain. Pain meds PRN, cont to monitor. GI consulted in am. (4) Paroxysmal atrial fibrillation: Maintaining sinus rhythm with amiodarone. Diabetic retinopathy requires frequent injections and there is a relative contraindication anticoagulation secondary to retinal hemorrhage. (5) HTN (hypertension): Losartan added for better BP control, increased from 25 mg daily to 50 mg daily starting tomorrow. Continue Toprol Amlodipine discontinued per cardiology (6) Diabetes mellitus, type II: Hold home agents Basal/bolus insulin while in-patient per protocol Blood glucose currently controlled Carb controlled diet (7) CKD (chronic kidney disease) stage 3, GFR 30-59 ml/min: at her baseline. (8) Fibromyalgia: Continue gabapentin (9) Ambulatory dysfunction: In setting of volume overload, Charjohanna L foot Recently discharged home from SNF with home health but does not feel she has enough support for ADLs, ambulating to bathroom while on diuretics Fall precautions PT recommending SNF vs 24h home care Patient will prefer to go home with services. CM aware (10) Hypothyroidism: Recent noncompliance with levothyroxine. She currently is taking 25 mcg every morning as prescribed on her outpatient regimen. (11) DVT prophylaxis: SCDs, declines chemoprophylaxis conditional code Dispo-prefers to go home when medically stable for discharge. Milady Blackwell DO [facility] Hospitalist Admission and Anticipated Discharge Date Admission Date: February 26, 2021 Subjective 61 yo F admitted with fluid overload. Persistent abdominal pain. Seen by surgery who was not concerned. Patient still ok to eat, no other GI symptoms, no fevers, chills, or other issues at this time. Review of Systems Review of Systems: All systems reviewed & are unremarkable except as noted in Subjective Physical Exam Physical Exam: CONSTITUTIONAL: obese, vitals as above, NAD EYES: normal conjunctivae, no scleral icterus ENT: external ear and nose normal, MMM RESPIRATORY: clear to auscultation bilaterally, no crackles, rales or wheezes, normal respiratory effort CARDIOVASCULAR: regular rate and rhythm, S1 and 2 heard without murmurs, gallops or rubs, no JVD, no peripheral edema GASTROINTESTINAL: soft, TTP in RUQ/right lateral skin fold and around to right mid/lower back area, nondistended. Abdomen is protuberant and there are multiple skin folds with patient sitting up but hunched over, all limiting exam. MUSCULOSKELETAL: generalized weakness, head is normocephalic and atraumatic SKIN: warm and dry NEUROLOGIC: CN 2-12 grossly intact, normal cognition, normal speech PSYCHIATRIC: alert cooperative and oriented to person, place and time. Results & Data Results & Data ([facility]) Vital Signs (Past 12 Hours) Vital Signs Temp Pulse Pulse Resp BP BP Pulse Ox 03/05/21 11:41 36.3 C L 70 18 146/86 H 93 03/05/21 07:47 79 03/05/21 07:00 36.7 C 77 20 159/79 H 93 03/05/21 04:00 36.6 C 72 20 159/85 H 98 Laboratory Results BMP 03/05/21 06:00 Sodium 143 Potassium 4.0 Chloride 106 Carbon Dioxide 30 BUN 57 H Creatinine 1.44 H Glucose 185 H Calcium 9.[address] SCAN OF THE ABDOMEN AND PELVIS WITHOUT IV CONTRAST CLINICAL HISTORY: Acute right-sided abdominal pain. COMPARISON STUDY: No priors. TECHNIQUE: CT scan of the abdomen and pelvis is performed from the lung bases to the proximal femora. Images are reviewed in the axial, sagittal, and coronal planes. IV contrast was not administered for this examination. A dose lowering technique was utilized adhering to the principles of ALARA. The examination is degraded by large body habitus, and by streak artifact from the body wall abutting the CT gantry. CT DOSE: 1692.61 mGy.cm FINDINGS: Lung bases: The heart is normal in size and without pericardial effusion. There are coronary artery calcifications. A small hiatal hernia is noted. There is elevation of the left hemidiaphragm and bibasilar atelectasis. No airspace consolidation or pleural effusion is identified. Liver: The unenhanced liver is normal in size, contour, and attenuation. There is no intrahepatic biliary ductal dilatation. Gallbladder: Surgically absent noting clips in the gallbladder fossa. Spleen: Normal in size and attenuation. Pancreas: The unenhanced pancreas is atrophic and grossly unremarkable. Adrenal glands: Unremarkable. Kidneys: The unenhanced kidneys demonstrate mild cortical atrophy and are without hydronephrosis. There are no renal calculi identified. There is no evidence of contour deforming renal mass lesion. Abdominal vasculature: The abdominal aorta is normal in course and caliber noting moderate to advanced atherosclerotic calcification. Bowel: There is mild colonic fecal retention. No bowel obstruction is seen. The appendix is well-visualized and normal. Peritoneum: There is no intraperitoneal free air or abdominal ascites. Lymphadenopathy: None. Pelvic viscera: There is circumferential bladder wall thickening. The uterus and adnexa are normal as imaged. Skeletal structures: The skeletal structures are osteopenic. Mild to moderate lumbosacral spondylosis is observed. No lytic or blastic lesions are seen. There is a subacute appearing/healing left lateral 10th rib fracture seen on image #[id number]. IMPRESSION: 1. The bladder wall appears circumferentially thickened. Correlate with clinical findings and urinalysis for evidence of cystitis. 2. There is a subacute appearing/healing left lateral 10th rib fracture. Correlate for point tenderness. 3. Additional findings as above. Medications Administered Current Inpatient Medications Amiodarone HCl (Amiodarone 200 Mg Tab) 200 mg PO DAILY [facility] Stop: 03/29/21 08:59 Last Admin: 03/05/21 08:51 Dose: 200 mg Documented by: Aspirin (Aspirin 81 Mg Ectab) 81 mg PO DAILY [facility] Stop: 03/29/21 08:59 Last Admin: 03/05/21 08:51 Dose: 81 mg Documented by: Butalbital/Aspirin/Caffeine (Butalbital/Aspirin/Caffeine 1 Tab Tab) 2 tab PO Q4H PRN PRN Reason: Migraine Headache/pain Stop: 03/28/21 17:01 Dextrose (Dextrose 50% 50 Ml Syringe) 25 - 50 ml IV UD PRN; Protocol PRN Reason: Hypoglycemia Protocol Stop: 03/28/21 19:11 Diclofenac Sodium (Diclofenac Sod 1% Gel 100 Gm Tube) 4 gm EXT QID PRN PRN Reason: Pain Stop: 03/28/21 19:11 Last Admin: 03/05/21 08:55 Dose: 4 gm Documented by: Docusate Sodium (Docusate Sodium 100 Mg Cap) 100 mg PO BID [facility] Stop: 03/28/21 20:59 Last Admin: 03/05/21 08:51 Dose: 100 mg Documented by: Ferrous Sulfate (Ferrous Sulfate 325 Mg Tab) 325 mg PO BID [facility] Stop: 03/28/21 20:59 Last Admin: 03/05/21 08:51 Dose: 325 mg Documented by: Fexofenadine HCl (Fexofenadine Hcl 180 Mg Tab) 180 mg PO DAILY [facility] Stop: 03/29/21 08:59 Last Admin: 03/05/21 08:51 Dose: 180 mg Documented by: Folic Acid (Folic Acid 1 Mg Tab) 1 mg PO DAILY [facility] Stop: 03/29/21 08:59 Last Admin: 03/05/21 08:51 Dose: 1 mg Documented by: Gabapentin (Gabapentin 100 Mg Cap) 200 mg PO BID [facility] Stop: 03/28/21 20:59 Last Admin: 03/05/21 08:51 Dose: 200 mg Documented by: Glucagon (Glucagon For Inj 1 Mg Vial) 1 mg SQ UD PRN; Protocol PRN Reason: Hypoglycemia Protocol Stop: 03/28/21 19:11 Glucose (Glucose 10 Tabs/Tube) 4 - 8 tabs PO UD PRN; Protocol PRN Reason: Hypoglycemia Protocol Stop: 03/28/21 19:11 Glucose (Glucose 40% Gel 15 Gm Tube) 15 - 30 gm PO UD PRN; Protocol PRN Reason: Hypoglycemia Protocol Stop: 03/28/21 19:11 Insulin Aspart (Insulin Aspart 100 Units/Ml 3 Ml Pen) 0 units SC ACHS [facility] Stop: 03/28/21 20:59 Last Admin: 03/05/21 12:06 Dose: 16 units Documented by: Insulin Glargine (Insulin Glargine Solostar 100 Units/Ml 3 Ml Pen) 20 units SC BID [facility] Stop: 04/04/21 20:59 Lactobacillus Acidoph/Casei/Rhamnos (Advanced Probiotic 1250 Mg Capsule) 2 cap PO DAILY [facility] Stop: 03/29/21 08:59 Last Admin: 03/05/21 08:52 Dose: 2 cap Documented by: Levothyroxine Sodium (Levothyroxine Sodium 25 Mcg Tablet) 25 mcg PO DAILYBB [facility] Stop: 03/29/21 06:29 Last Admin: 03/05/21 05:46 Dose: 25 mcg Documented by: Losartan Potassium (Losartan Potassium 50 Mg Tab) 50 mg PO QAM [facility] Stop: 04/04/21 08:59 Last Admin: 03/05/21 08:52 Dose: 50 mg Documented by: Metoprolol Succinate (Metoprolol Succ 50mg Ext Rel Tab) 50 mg PO DAILY [facility] Stop: 03/29/21 08:59 Last Admin: 03/05/21 08:52 Dose: 50 mg Documented by: Miconazole Nitrate (Miconazole Nitrate Powder 43 Gm) 1 appln EXT BID PRN PRN Reason: DIRECTED Stop: 04/02/21 03:15 Last Admin: 03/03/21 04:56 Dose: 1 appln Documented by: Miscellaneous (Carbohydrates For Hypoglycemia ) 15 - 30 gm PO UD PRN PRN Reason: Hypoglycemia Protocol Stop: 03/28/21 19:11 Last Admin: 02/27/21 16:30 Dose: 30 gm Documented by: Multivitamins/Minerals (Calcium 600mg + Vit D 400 Iu Tab) 1 tab PO DAILY [facility] Stop: 03/29/21 08:59 Last Admin: 03/05/21 08:51 Dose: 1 tab Documented by: Ondansetron HCl (Ondansetron Inj 2 Mg/Ml 2 Ml Vial) 4 mg IV Q6H PRN PRN Reason: Nausea Stop: 03/28/21 19:11 Pantoprazole Sodium (Pantoprazole 40 Mg Tab) 40 mg PO DAILY [facility]; Protocol Stop: 03/29/21 08:59 Last Admin: 03/05/21 08:52 Dose: 40 mg Documented by: Phenazopyridine HCl (Phenazopyridine Hcl 200 Mg Tab) 200 mg PO TID [facility] Stop: 04/04/21 20:59 Polyethylene Glycol (Polyethylene (Miralax) 17 Gm Pack) 17 gm PO DAILY PRN PRN Reason: Constipation Stop: 03/28/21 19:11 Potassium Chloride (Potassium Chloride Crtab 20 Meq Tabcr) 20 meq PO BID [facility] Stop: 03/28/21 20:59 Last Admin: 02/28/21 20:43 Dose: 20 meq Documented by: Spironolactone (Spironolactone 25 Mg Tab) 25 mg PO QAM [facility] Stop: 03/30/21 13:29 Last Admin: 03/05/21 08:52 Dose: 25 mg Documented by: Torsemide (Torsemide 20 Mg Tab) 40 mg PO BID17 [facility] Stop: 04/04/21 16:59 Vitamin D (Cholecalciferol 1,000 Units 25 Mcg Tab) 1,000 units PO DAILY [facility] Stop: 03/29/21 08:59 Last Admin: 03/05/21 08:51 Dose: 1,000 units Documented by: (1) HTN (hypertension) Hypertension type: essential hypertension Qualified Code(s): I10 - Essential (primary) hypertension
[2021-03-05 15:56] LABS: Albumin Level 3.1 gm/dl (3.4-5.0); Bilirubin Direct 0.2 mg/dl (0-0.2); Bilirubin,Total 0.4 mg/dl (0.2-1); Total Protein 6.7 gm/dl (6.4-8.2)
[2021-03-05 16:41] LABS: Appearance Urine Clear (Clear); Bacteria Urine Automated Negative (Negative); Bilirubin Urine Negative (Negative); Blood Urine Trace (Negative); Color Urine Orange; Glucose Urine UA Negative (Negative); Ketones Urine Negative (Negative); Leukocyte Esterase Urine Trace (Negative); Nitrite Urine Positive (Negative); Protein Urine Negative (Negative); RBC Urine Automated 0-4 /hpf (0-4); Specific Gravity Urine 1.015 (1.000-1.030); Urobilinogen Urine Negative (Negative)
[2021-03-05] MEDS: TORSEMIDE 20 MG TAB PO SCH (17:43)
--- NOTE | 2021-03-05 18:30 | Surgery Consultation ---
Date of Consultation March 05, 2021 Assessment & Plan (1) Abdominal pain: pt is a 61 year-old female who is consult right upper abdominal pain, IMP: right upper abdominal pain, Plan, possible relate right 10th rib fracture, no acute abdomen, no surgery indication, control pain, sign off today, please call with questions, Thanks, Present on Admission?: No Supervising Physician Co-Signing Physician Notes Supervising Physician Attestation: I have personally performed a history and physical examination on the patient. I agree with the physician senior agricultural assistant's findings and plan as documented with the following additions. Subjective: No complaints. Diuresing well. Leg edema trending toward improvement. Exam: 1+ bilateral LE edema Data: EKG 02/27/21: SR at 66 bpm no significant repolarization changes. Assessment and Plan: Acute on chronic diastolic heart failure, right greater than left -continue furosemide. DVT prophylaxis: She is not on anticoagulation for her history of paroxysmal atrial fibrillation due to apparent past ophthalmologic issues require injection therapy. She is however considered to be at high risk for DVT and PE. Would consider starting Lovenox or subcu heparin for DVT prophylaxis. Richy Sheppard DO History of Present Illness Attending Physician: Milady Blackwell DO History of Present Illness Chief Complaint: volume overload, leg weakness Primary Care Provider: Marcial Blanc MD This is a 61yo F with a PMH of chronic diastolic HF, DM II, paroxysmal A Fib, diabetic retinopathy, HTN and other medical problems listed below who was sent over by Dr. Peña in cardiology office for volume overload. Previously a patient in [facility] but relocated from [place] to [place] and is establishing with [employer]. Endorses increased fluid in her legs and inability to lift them or walk as she usually does over the past week. Endorses shortness of breath, orthopnea and PND. Sleeps sitting up. Intermittent chest pains that resolves spontaneously. No chest pain currently. Endorses burning with urination over the past few days. Following with urology. Recently discharged from [facility] in [place] in early January due to acute exacerbation of diastolic heart failure and was discharged to [facility] custodial from there. Returned home on February 20. Has a home health patient care technician instructor to help with ADLs. Per chart review, patient is not anticoagulated due to ophthalmological issue which requires frequent injections. Has gained approximately 30 lbs since discharge from [facility] in January. Denies fever, chills, lightheadedness, headache, nausea, vomiting, abdominal pain, diarrhea or constipation. I ( Nhan Rocha MD ) got a call for consult RUQ pain, I reviewed pt's H/P, labs CT scan with pt, the pain is located right back near chest wall, it start yesterday, pt denies nausea, no fever, no diarrhea, no trauma, pt had cholecystectomy, Allergies Allergy/AdvReac Type Severity Reaction Status Date / Time aluminum Allergy Unknown Verified 02/26/21 15:53 diphenhydramine Allergy Unknown Verified 02/26/21 15:53 [From Benadryl] frovatriptan Allergy Unknown Verified 02/26/21 15:53 garlic Allergy Unknown Verified 02/26/21 15:53 glipizide Allergy Unknown Verified 02/26/21 15:53 latex Allergy Unknown Verified 02/26/21 15:55 nylon Allergy Unknown Verified 02/26/21 16:04 pioglitazone [From Actos] Allergy Unknown Verified 02/26/21 15:45 turkey Allergy Unknown Verified 02/26/21 15:53 walnut Allergy Unknown Verified 02/26/21 15:53 acetaminophen [From Vicodin] AdvReac Unknown Verified 02/26/21 16:04 benzoic acid AdvReac Unknown Verified 02/26/21 15:55 doxylamine AdvReac Unknown Verified 02/26/21 15:53 hydrocodone [From Vicodin] AdvReac Unknown Verified 02/26/21 16:04 morphine AdvReac Unknown Verified 02/26/21 15:55 Sulfa (Sulfonamide AdvReac Unknown Verified 02/26/21 16:04 Antibiotics) sumatriptan [From Imitrex] AdvReac Unknown Verified 02/26/21 15:53 tramadol AdvReac Unknown Verified 02/26/21 16:04 asorbic acid AdvReac Unknown Uncoded 02/26/21 15:53 NYLON AdvReac Unknown Uncoded 02/26/21 16:04 Home Medications Medication Instructions Recorded Confirmed Type Lactobacillus acidophilus 0 mmu cells PO DAILY 02/26/21 02/26/21 History [Acidophilus] amiodarone 200 mg PO DAILY 02/26/21 02/26/21 History amlodipine 10 mg PO DAILY 02/26/21 02/26/21 History aspirin [Aspir-Low] 81 mg PO DAILY 02/26/21 02/26/21 History [id number]-[id number]-skmzdqcs 1 cap PO Q4H PRN 02/26/21 02/26/21 History calcium carbonate-vitamin D3 1 tab PO DAILY 02/26/21 02/26/21 History [Calcium 600 + D(3)] cholecalciferol (vitamin D3) 25 mcg PO DAILY 02/26/21 02/26/21 History [Vitamin D3] docusate sodium 100 mg PO BID 02/26/21 02/26/21 History ferrous sulfate [FeroSul] 325 mg PO BID 02/26/21 02/26/21 History fexofenadine [Elisha] 180 mg PO DAILY 02/26/21 02/26/21 History folic acid 1 mg PO DAILY 02/26/21 02/26/21 History gabapentin 200 mg PO BID 02/26/21 02/26/21 History insulin glargine [Basaglar KwikPen 15 unit SUBCUT HS 02/26/21 02/26/21 History U-100 Insulin] levothyroxine [Tirosint] 25 mcg PO DAILY 02/26/21 02/26/21 History metoprolol succinate 50 mg PO DAILY 02/26/21 02/26/21 History omeprazole 40 mg PO DAILY 02/26/21 02/26/21 History potassium chloride 20 meq PO BID 02/26/21 02/26/21 History torsemide [Demadex] 20 mg PO BID 02/26/21 02/26/21 History Past Med/Surg History Medical History Charcot's joint of left foot Chronic diastolic (congestive) heart failure Diabetes mellitus, type II Diabetic retinopathy Fibromyalgia HTN (hypertension) Paroxysmal atrial fibrillation Surgical History History of foot surgery Hx of cholecystectomy Family History (Updated 02/26/21 @ 16:04 by Marilyn Peters PA-C) Other Arthritis Social History Smoking Status: Never smoker Hx Alcohol Use: No Hx Substance Use: No Current Living Situation: Alone Feels Safe at Home: Yes Gender Identity: Female Review of Systems Review of Systems: At least ten systems reviewed and negative except as noted in the HPI. Physical Exam Physical Exam: Please see Dr. Doll's addendum for physical exam. Results & Data Results & Data ([facility]) Vital Signs (Past 12 Hours) Vital Signs Temp Pulse Pulse Resp BP BP Pulse Ox 02/26/21 15:30 100 H 16 114/91 95 02/26/21 15:00 102 H 18 111/77 97 02/26/21 14:51 121 H 13 136/92 97 02/26/21 14:49 109 H 20 97 02/26/21 14:30 104 H 24 97 02/26/21 14:00 110 H 19 02/26/21 13:43 21 94 02/26/21 12:55 36.5 C 103 H 103 H 20 121/79 121/79 92 02/26/21 12:49 117 H 18 121/79 97 Laboratory Results Short CBC 02/26/21 02/26/21 Range/Units 14:34 14:34 WBC 4.19 L (4.8-10.8) K/uL Hgb 10.8 L (12.0-16.0) g/dL Hct 33.4 L (37-47) % Plt Count 117 L (130-400) K/uL Creatinine 1.33 H (0.6-1.2) mg/dl BMP 02/26/21 14:34 Sodium 145 Potassium 4.1 Chloride 112 H Carbon Dioxide 27 BUN 38 H Creatinine 1.33 H Glucose 166 H Calcium 9.1 Cardiac Enzymes 02/26/21 Range/Units 14:34 Troponin I < 0.015 (0-0.045) ng/ml Liver Function 02/26/21 Range/Units 14:34 Total Bilirubin 0.6 (0.2-1) mg/dl AST 20 (15-37) U/L ALT 35 (12-78) U/L Alkaline Phosphatase 244 H (45-117) U/L Albumin 3.1 L (3.4-5.0) gm/dl Diagnostic Findings Chest X-Ray 02/26/21 13:09 XR chest 1V portable CLINICAL HISTORY: Shortness of breath COMPARISON STUDY: No previous studies for comparison. FINDINGS: The heart is enlarged. There is mild elevation of interstitium likely secondary to mild pulmonary vascular congestion. Chronic interstitial lung disease and interstitial inflammatory processes could appear similar. There is no lobar consolidation. There are no pleural effusions.[ IMPRESSION: Cardiomegaly and mild elevation of interstitium. Clinical correlation with regards to mild pulmonary vascular congestion recommended. ACT 112: Negative or not required by law. Electronically signed by: Fredrick Denise M.D. 02/26/2021 1:47 PM Knee X-Ray 02/26/21 13:09 XR knee LT 1 or 2V routine CLINICAL HISTORY: Left knee pain status post trauma COMPARISON: None. DISCUSSION: The bones are osteopenic. Degenerative changes are present most pronounced within the lateral joint compartment. There are postsurgical changes involving the distal femur. IMPRESSION: 1. Postsurgical changes involve the distal femur 2. Osteopenia 3. Degenerative change 4. No acute fractures identified ACT 112: Negative or not required by law. Electronically signed by: Fredrick Denise M.D. 02/26/2021 1:48 PM Allergies Allergy/AdvReac Type Severity Reaction Status Date / Time aluminum Allergy Unknown Verified 02/26/21 15:53 diphenhydramine Allergy Unknown Verified 02/26/21 15:53 [From Benadryl] frovatriptan Allergy Unknown Verified 02/26/21 15:53 garlic Allergy Unknown Verified 02/26/21 15:53 glipizide Allergy Unknown Verified 02/26/21 15:53 latex Allergy Unknown Verified 02/26/21 15:55 nylon Allergy Unknown Verified 02/26/21 16:04 pioglitazone [From Actos] Allergy Unknown Verified 02/26/21 15:45 turkey Allergy Unknown Verified 02/26/21 15:53 walnut Allergy Unknown Verified 02/26/21 15:53 ascorbic acid AdvReac Unknown Unknown Verified 02/27/21 09:58 acetaminophen [From Vicodin] AdvReac Unknown Verified 02/26/21 16:04 aspartame AdvReac Unknown Verified 02/27/21 14:27 benzoic acid AdvReac Unknown Verified 02/26/21 15:55 doxylamine AdvReac Unknown Verified 02/26/21 15:53 hydrocodone [From Vicodin] AdvReac Unknown Verified 02/26/21 16:04 morphine AdvReac Unknown Verified 02/26/21 15:55 Sulfa (Sulfonamide AdvReac Unknown Verified 02/26/21 16:04 Antibiotics) sumatriptan [From Imitrex] AdvReac Unknown Verified 02/26/21 15:53 tramadol AdvReac Unknown Verified 02/26/21 16:04 Home Medications Medication Instructions Recorded Confirmed Type Lactobacillus acidophilus 0 mmu cells PO DAILY 02/26/21 02/26/21 History [Acidophilus] amiodarone 200 mg PO DAILY 02/26/21 02/26/21 History amlodipine 10 mg PO DAILY 02/26/21 02/26/21 History aspirin [Aspir-Low] 81 mg PO DAILY 02/26/21 02/26/21 History ynsorsdxum-yfoaxox-clmlasfl 1 cap PO Q4H PRN 02/26/21 02/26/21 History calcium carbonate-vitamin D3 1 tab PO DAILY 02/26/21 02/26/21 History [Calcium 600 + D(3)] cholecalciferol (vitamin D3) 25 mcg PO DAILY 02/26/21 02/26/21 History [Vitamin D3] diclofenac sodium 4 g TOPICAL QID PRN 02/26/21 02/26/21 History docusate sodium 100 mg PO BID 02/26/21 02/26/21 History ferrous sulfate [FeroSul] 325 mg PO BID 02/26/21 02/26/21 History fexofenadine [Elisha] 180 mg PO DAILY 02/26/21 02/26/21 History folic acid 1 mg PO DAILY 02/26/21 02/26/21 History gabapentin 200 mg PO BID 02/26/21 02/26/21 History insulin glargine [Basaglar KwikPen 15 unit SUBCUT HS 02/26/21 02/26/21 History U-100 Insulin] levothyroxine [Tirosint] 25 mcg PO DAILY 02/26/21 02/26/21 History metoprolol succinate 50 mg PO DAILY 02/26/21 02/26/21 History omeprazole 40 mg PO DAILY 02/26/21 02/26/21 History potassium chloride 20 meq PO BID 02/26/21 02/26/21 History torsemide [Demadex] 20 mg PO BID 02/26/21 02/26/21 History Patient History Medical History Charcot's joint of left foot Chronic diastolic (congestive) heart failure Diabetes mellitus, type II Diabetic retinopathy Fibromyalgia HTN (hypertension) Paroxysmal atrial fibrillation Surgical History History of foot surgery Hx of cholecystectomy Family History Other Arthritis Social History Smoking Status: Never smoker Hx Alcohol Use: No Hx Substance Use: No Preferred Language: Malian Communication Ability: Effective Industrial Rehabilitation Consultant Required: No Beliefs That Will Affect Care: None Current Living Situation: Alone Other Information That Helps Us Care for You: No Feels Safe at Home: Yes Safety Concerns: Feels Safe At This Time Gender Identity: Female Assistive Devices: Walker Assistive Devices Comment: glasses, scooter present Physical Exam Constitutional: WD/WN, vitals as above well developed and well nourished Eyes: PERRL, conjunctivae normal, anicteric sclerae ENMT: external ear and nose normal, oropharynx normal Neck: trachea midline, no thyromegaly Respiratory: normal respiratory effort, lungs clear to auscultation normal respiratory effort right lateral abdominal wall tenderness, no rebound pain, no distend, BS + Cardiovascular: RRR, no murmur, no edema Gastrointestinal (Abdomen): normal bowel sounds, soft, nontender, no hepatosplenomegaly Percussion/Palpation: abdomen soft Musculoskeletal: no cyanosis or clubbing, extremities motor strength 5/5 Skin: no rashes, warm and dry Neurologic: awake Psychiatric: Orientation: alert and oriented x 3 Results & Data ([facility]) Vital Signs (Past 12 Hours) Vital Signs Temp Pulse Pulse Resp BP BP Pulse Ox 03/05/21 15:27 36.5 C 56 L 20 118/79 97 03/05/21 11:41 36.3 C L 70 18 146/86 H 93 03/05/21 07:47 79 03/05/21 07:00 36.7 C 77 20 159/[address] SCAN OF THE ABDOMEN AND PELVIS WITHOUT IV CONTRAST CLINICAL HISTORY: Acute right-sided abdominal pain. COMPARISON STUDY: No priors. TECHNIQUE: CT scan of the abdomen and pelvis is performed from the lung bases to the proximal femora. Images are reviewed in the axial, sagittal, and coronal planes. IV contrast was not administered for this examination. A dose lowering technique was utilized adhering to the principles of ALARA. The examination is degraded by large body habitus, and by streak artifact from the body wall abutting the CT gantry. CT DOSE: 1692.61 mGy.cm FINDINGS: Lung bases: The heart is normal in size and without pericardial effusion. There are coronary artery calcifications. A small hiatal hernia is noted. There is elevation of the left hemidiaphragm and bibasilar atelectasis. No airspace consolidation or pleural effusion is identified. Liver: The unenhanced liver is normal in size, contour, and attenuation. There is no intrahepatic biliary ductal dilatation. Gallbladder: Surgically absent noting clips in the gallbladder fossa. Spleen: Normal in size and attenuation. Pancreas: The unenhanced pancreas is atrophic and grossly unremarkable. Adrenal glands: Unremarkable. Kidneys: The unenhanced kidneys demonstrate mild cortical atrophy and are witho ut hydronephrosis. There are no renal calculi identified. There is no evidence of contour deforming renal mass lesion. Abdominal vasculature: The abdominal aorta is normal in course and caliber notin g moderate to advanced atherosclerotic calcification. Bowel: There is mild colonic fecal retention. No bowel obstruction is seen. The appendix is well-visualized and normal. Peritoneum: There is no intraperitoneal free air or abdominal ascites. Lymphadenopathy: None. Pelvic viscera: There is circumferential bladder wall thickening. The uterus and adnexa are normal as imaged. Skeletal structures: The skeletal structures are osteopenic. Mild to moderate lumbosacral spondylosis is observed. No lytic or blastic lesions are seen. There is a subacute appearing/healing left lateral 10th rib fracture seen on image #77. IMPRESSION: 1. The bladder wall appears circumferentially thickened. Correlate with clinical findings and urinalysis for evidence of cystitis. 2. There is a subacute appearing/healing left lateral 10th rib fracture. Correlate for point tenderness. 3. Additional findings as above. Laboratory Results Abnormal lab results 03/04/21 03/05/21 03/05/21 Range/Units 20:12 06:00 07:37 BUN 57 H (7-18) mg/dl Creatinine 1.44 H (0.6-1.2) mg/dl BUN/Creatinine Ratio 39.7 H (10-20) Glucose 185 H (70-99) mg/dl POC Glucose 102 H 207 H (70-99) mg/dl Alkaline Phosphatase (45-117) U/L Albumin (3.4-5.0) gm/dl Urine Blood (Negative) Urine Nitrite (Negative) Ur Leukocyte Esterase (Negative) U Hyaline Cast (Auto) (0-5) /lpf U Epithel Cells (Auto) (0-5) /lpf 03/05/21 03/05/21 03/05/21 Range/Units 11:17 11:18 15:16 BUN (7-18) mg/dl Creatinine (0.6-1.2) mg/dl BUN/Creatinine Ratio (10-20) Glucose (70-99) mg/dl POC Glucose 346 H* 357 H* (70-99) mg/dl Alkaline Phosphatase 259 H (45-117) U/L Albumin 3.1 L (3.4-5.0) gm/dl Urine Blood (Negative) Urine Nitrite (Negative) Ur Leukocyte Esterase (Negative) U Hyaline Cast (Auto) (0-5) /lpf U Epithel Cells (Auto) (0-5) /lpf 03/05/21 03/05/21 Range/Units 16:21 Unknown BUN (7-18) mg/dl Creatinine (0.6-1.2) mg/dl BUN/Creatinine Ratio (10-20) Glucose (70-99) mg/dl POC Glucose 118 H (70-99) mg/dl Alkaline Phosphatase (45-117) U/L Albumin (3.4-5.0) gm/dl Urine Blood Trace H (Negative) Urine Nitrite Positive A (Negative) Ur Leukocyte Esterase Trace H (Negative) U Hyaline Cast (Auto) 10-30 H (0-5) /lpf U Epithel Cells (Auto) 10-20 H (0-5) /lpf
[2021-03-05] MEDS: INSULIN GLARGINE SOLOSTAR 100 UNITS/ML 3 ML PEN SC SCH (21:41)
[2021-03-05] MEDS: PHENAZOPYRIDINE HCL 200 MG TAB PO SCH (21:42)
[2021-03-06] MEDS: LEVOTHYROXINE SODIUM 25 MCG TABLET PO SCH (05:46)
[2021-03-06] MEDS: ADVANCED PROBIOTIC 1250 MG CAPSULE PO SCH (08:26)
[2021-03-06] MEDS: DOCUSATE SODIUM 100 MG CAP PO SCH (08:26)
[2021-03-06] MEDS: CALCIUM 600MG + VIT D 400 IU TAB PO SCH (08:26)
[2021-03-06] MEDS: METOPROLOL SUCC 50MG EXT REL TAB PO SCH (08:26)
[2021-03-06] MEDS: AMIODARONE 200 MG TAB PO SCH (08:26)
[2021-03-06] MEDS: FEXOFENADINE HCL 180 MG TAB PO SCH (08:26)
[2021-03-06] MEDS: CHOLECALCIFEROL 1,000 UNITS 25 MCG TAB PO SCH (08:26)
[2021-03-06] MEDS: PHENAZOPYRIDINE HCL 200 MG TAB PO SCH ×2 (08:26→14:49)
[2021-03-06] MEDS: FERROUS SULFATE 325 MG TAB PO SCH (08:26)
[2021-03-06] MEDS: ASPIRIN 81 MG ECTAB PO SCH (08:26)
[2021-03-06] MEDS: GABAPENTIN 100 MG CAP PO SCH (08:26)
[2021-03-06] MEDS: LOSARTAN POTASSIUM 50 MG TAB PO SCH (08:26)
[2021-03-06] MEDS: FOLIC ACID 1 MG TAB PO SCH (08:26)
[2021-03-06] MEDS: PANTOprazole 40 MG TAB PO SCH (08:27)
[2021-03-06] MEDS: INSULIN ASPART 100 UNITS/ML 3 ML PEN SC SCH ×3 (08:27→17:19)
[2021-03-06] MEDS: SPIRONOLACTONE 25 MG TAB PO SCH (08:27)
[2021-03-06] MEDS: TORSEMIDE 20 MG TAB PO SCH ×2 (08:27→17:20)
[2021-03-06] MEDS: INSULIN GLARGINE SOLOSTAR 100 UNITS/ML 3 ML PEN SC SCH (08:27)
[2021-03-06 09:47] LABS: BUN Creatinine Ratio 43.6 (10-20); Calcium 8.7 mg/dl (8.5-10.1); Creatinine Clr Calc Pharmacy 50.4 ml/min; Est GFR (African American) 43.8 ml/min; Est GFR (Non-African American) 37.8 ml/min; Potassium 4.1 mmol/L (3.5-5.1)
--- NOTE | 2021-03-06 10:37 | Cardiology Progress Note ---
Date of Service March 06, 2021 Assessment & Plan (1) Acute decompensated heart failure: Continue torsemide 40 mg twice daily (previous outpatient dose 20 mg twice daily). Discussed importance of monitoring daily weight in the outpatient setting. Sodium restriction advised. Instructed to take 80 mg of torsemide in the a.m. and 40 in the if weight increases more than 2 pounds in a 48-hour period, or 5 pounds in 1 week. Cardiology follow-up in 1 week (2) Paroxysmal atrial fibrillation: Maintained in sinus rhythm with amiodarone. Reported contraindication to anticoagulation secondary to retinal hemorrhage, diabetic retinopathy (3) CKD (chronic kidney disease) stage 3, GFR 30-59 ml/min: Stable renal function. (4) Cystitis: Urine culture demonstrating E. coli on admission. CT with evidence of possible cystitis. Repeat urinalysis with +Nitrites and LE. Antibiotic therapy as per internal medicine. Admission and Anticipated Discharge Date Admission Date: February 26, 2021 Subjective Patient seen and examined the bedside. Denies chest pain or unusual shortness of breath. Edema improved since admission. Renal function remains relatively stable. IV diuretics discontinued 03/05/2021. Continue to note mild right-sided flank discomfort. Dysuria has improved. Review of Systems Review of Systems: All systems reviewed & are unremarkable except as noted in Subjective Physical Exam Constitutional: well developed, well nourished and + morbidly obese; no acute distress Respiratory: Auscultation: + rales (Scant, bases bilateral); no crackles, no rhonchi and no wheezes Cardiovascular: Rate/Rhythm: regular rate and regular rhythm Heart Sounds: normal S1 and normal S2; no murmur Vessels: no JVD Extremities: + edema (1+ bilateral pedal edema) Gastrointestinal (Abdomen): Inspection/Auscultation: abdomen normal to inspection and normal bowel sounds; abdomen not distended Percussion/Palpation: + abdomen rigid and abdomen soft; abdomen nontender and no guarding Neurologic: CN's II-XI intact bilaterally and moves all extremities Motor/Sensory: no tremor Psychiatric: A+Ox3, euthymic affect Results & Data ([facility]) Vital Signs (Past 12 Hours) Vital Signs Temp Pulse Pulse Resp BP BP Pulse Ox 03/06/21 07:57 36.6 C 79 20 126/74 91 03/06/21 07:09 75 03/06/21 03:22 36.6 C 75 18 140/77 93 03/05/21 23:17 73 03/05/21 22:38 36.6 C 73 18 115/69 98
--- NOTE | 2021-03-06 11:13 | Gastrointestinal Consultation ---
Date of Consultation March 06, 2021 Assessment & Plan (1) Right sided abdominal pain: Pain is reproducible with sitting in bedside chair and elevating head of bed. It is improved with lying flat and when applying pressure/massage to the area. Pain is not worsened with eating or improved with bowel movements. LFTs and CT abd/pelvis indicated an unremarkable post-cholecystectomy anatomy. At present, symptoms seem musculoskeletal. If there is a clinical change with the development of transaminitis, worsening reflux, n/v/d, or other GI symptoms can consider re-evaluation and intervention. Given radiation from the back, consider further skeletal imaging as this could be referred pain from her back as well. As for her GERD, she should continue her home dose of Omeprazole 40 mg daily as this has left her symptom-free from that standpoint. Supervising Physician Co-Signing Physician Notes Agree with TWIN Grady as above Abd: Soft, Tender Right flank, ND, +BS Patient being discharged Recommend followup in our office for persistent symptoms Continue current therapy History of Present Illness Reason for Consultation: RU abdominal pain Attending Physician: Milady Blackwell DO History of Present Illness Patient is a 61 yo female with multiple medical comorbidities currently hospitalized with acute exacerbation of CHF. GI and surgery have been asked to evaluate patient due to reports of right sided abdominal pain. The patient notes that the pain has been present throughout her hospital stay. She describes it as an aching pain that is triggered by sitting up in her bedside chair or sitting up in bed. Pain begins in the area of the right ribcage. Pain is resolved when lying flat. She notes pain is also improved with massaging the area. Pain is not triggered by eating and is not improved with a bowel movement. She notes that the pain radiates to her mid back. CT scan is unremarkable from a GI standpoint. She is s/p cholecystectomy with normal ductal imaging on CT. LFTs are unremarkable. She has a history of GERD but denies any active symptoms on her home dose of Omeprazole 40 mg daily. She has a broken rib on the opposite side as her pain. CT scan shows osteopenic skeletal structures. There is mild to moderate lumbosacral spondylosis observed. Allergies Allergy/AdvReac Type Severity Reaction Status Date / Time aluminum Allergy Unknown Verified 02/26/21 15:53 diphenhydramine Allergy Unknown Verified 02/26/21 15:53 [From Benadryl] frovatriptan Allergy Unknown Verified 02/26/21 15:53 garlic Allergy Unknown Verified 02/26/21 15:53 glipizide Allergy Unknown Verified 02/26/21 15:53 latex Allergy Unknown Verified 02/26/21 15:55 nylon Allergy Unknown Verified 02/26/21 16:04 pioglitazone [From Actos] Allergy Unknown Verified 02/26/21 15:45 turkey Allergy Unknown Verified 02/26/21 15:53 walnut Allergy Unknown Verified 02/26/21 15:53 ascorbic acid AdvReac Unknown Unknown Verified 02/27/21 09:58 acetaminophen [From Vicodin] AdvReac Unknown Verified 02/26/21 16:04 aspartame AdvReac Unknown Verified 02/27/21 14:27 benzoic acid AdvReac Unknown Verified 02/26/21 15:55 doxylamine AdvReac Unknown Verified 02/26/21 15:53 hydrocodone [From Vicodin] AdvReac Unknown Verified 02/26/21 16:04 morphine AdvReac Unknown Verified 02/26/21 15:55 Sulfa (Sulfonamide AdvReac Unknown Verified 02/26/21 16:04 Antibiotics) sumatriptan [From Imitrex] AdvReac Unknown Verified 02/26/21 15:53 tramadol AdvReac Unknown Verified 02/26/21 16:04 Home Medications Medication Instructions Recorded Confirmed Type Lactobacillus acidophilus 0 mmu cells PO DAILY 02/26/21 02/26/21 History [Acidophilus] amiodarone 200 mg PO DAILY 02/26/21 02/26/21 History amlodipine 10 mg PO DAILY 02/26/21 02/26/21 History aspirin [Aspir-Low] 81 mg PO DAILY 02/26/21 02/26/21 History newboehyfg-ahpjfun-satlnqgv 1 cap PO Q4H PRN 02/26/21 02/26/21 History calcium carbonate-vitamin D3 1 tab PO DAILY 02/26/21 02/26/21 History [Calcium 600 + D(3)] cholecalciferol (vitamin D3) 25 mcg PO DAILY 02/26/21 02/26/21 History [Vitamin D3] diclofenac sodium 4 g TOPICAL QID PRN 02/26/21 02/26/21 History docusate sodium 100 mg PO BID 02/26/21 02/26/21 History ferrous sulfate [FeroSul] 325 mg PO BID 02/26/21 02/26/21 History fexofenadine [Elisha] 180 mg PO DAILY 02/26/21 02/26/21 History folic acid 1 mg PO DAILY 02/26/21 02/26/21 History gabapentin 200 mg PO BID 02/26/21 02/26/21 History insulin glargine [Basaglar KwikPen 15 unit SUBCUT HS 02/26/21 02/26/21 History U-100 Insulin] levothyroxine [Tirosint] 25 mcg PO DAILY 02/26/21 02/26/21 History metoprolol succinate 50 mg PO DAILY 02/26/21 02/26/21 History omeprazole 40 mg PO DAILY 02/26/21 02/26/21 History potassium chloride 20 meq PO BID 02/26/21 02/26/21 History torsemide [Demadex] 20 mg PO BID 02/26/21 02/26/21 History Patient History Medical History Charcot's joint of left foot Chronic diastolic (congestive) heart failure Diabetes mellitus, type II Diabetic retinopathy Fibromyalgia HTN (hypertension) Paroxysmal atrial fibrillation Surgical History History of foot surgery Hx of cholecystectomy Family History Other Arthritis Social History Smoking Status: Never smoker Hx Alcohol Use: No Hx Substance Use: No Preferred Language: Com[place]an Communication Ability: Effective Records Management Associate Required: No Beliefs That Will Affect Care: None Current Living Situation: Alone Other Information That Helps Us Care for You: No Feels Safe at Home: Yes Safety Concerns: Feels Safe At This Time Gender Identity: Female Assistive Devices: Brace/Splint/Immobilizer and Walker Assistive Devices Comment: glasses, scooter present Review of Systems Constitutional: no fever and no chills Respiratory: no cough and no dyspnea Cardiovascular: no chest pain Gastrointestinal: + abdominal pain (right sided pain); no heartburn, no nausea, no vomiting, no constipation, no diarrhea/loose stools, no blood in stools and no melena Physical Exam Constitutional: well developed Respiratory: normal respiratory effort Cardiovascular: Rate/Rhythm: regular rate Gastrointestinal (Abdomen): normal bowel sounds, soft, nontender, no hepatosplenomegaly Inspection/Auscultation: abdomen not distended Percussion/Palpation: abdomen soft Improvement of discomfort when palpating area in RUQ Musculoskeletal: Head/Neck/Chest: normocephalic Psychiatric: A+Ox3, euthymic affect Results & Data ([facility]) Vital Signs (Past 12 Hours) Vital Signs Temp Pulse Pulse Resp BP BP Pulse Ox 03/06/21 07:57 36.6 C 79 20 126/74 91 03/06/21 07:09 75 03/06/21 03:22 36.6 C 75 18 140/77 93 03/05/21 23:17 73 PG Care Time/CCT Total # of Minutes Spent Total Time Spent with Patient: Total time spent is greater than 50% in coordination of care (as documented) at patient's floor/unit and/or counseling patient: Coding Level of Care Code 96377 Initial Inpt Care Lvl 3 Diagnoses Right sided abdominal pain R10.9
--- NOTE | 2021-03-06 14:18 | Discharge Summary ---
Date of Service March 06, 2021 Admission HPI Per Admitting Provider This is a 61yo F with a PMH of chronic diastolic HF, DM II, paroxysmal A Fib, diabetic retinopathy, HTN and other medical problems listed below who was sent over by Dr. Peña in cardiology office for volume overload. Previously a patient in [facility] but relocated from [place] to [place] and is establishing with [facility]. Endorses increased fluid in her legs and inability to lift them or walk as she usually does over the past week. Endorses shortness of breath, orthopnea and PND. Sleeps sitting up. Intermittent chest pains that resolves spontaneously. No chest pain currently. Endorses burning with urination over the past few days. Following with urology. Recently discharged from [facility] in [place] in early January due to acute exacerbation of diastolic heart failure and was discharged to [facility] longterm from there. Returned home on February 20. Has a home health primary care coordinator to help with ADLs. Per chart review, patient is not anticoagulated due to ophthalmological issue which requires fr equent injections. Has gained approximately 30 lbs since discharge from [facility] in January. Denies fever, chills, lightheadedness, headache, nausea, vomiting, abdominal pain, diarrhea or constipation. Admission Exam Per Admitting Provider Physical exam General: Obese woman, no obvious distress Eyes: PERRL, conjunctivae normal, not pale, anicteric sclerae, EOM intact bilaterally ENMT: External ear and nose normal, oropharynx normal Neck: Normal visual inspection, no tracheal deviation, no swelling noted Respiratory: Normal respiratory effort, no respiratory distress, lungs clear to auscultation, no crackles and no wheezes Cardiovascular: Tachycardic, pulse is regular, S1 S2, 2+bilateral lower extremity edema. Gastrointestinal (Abdomen): Abdomen is not distended, soft, non-tender to palpation, no guarding, no palpable hepatosplenomegaly, normal bowel sounds Musculoskeletal: Bilateral lower extremity edema Genitourinary: No CVA tenderness Neurologic: Alert and oriented x 3, No focal weakness, sensation grossly intact Psychiatric: Alert and oriented x 3, euthymic affect, no depressed affect Principal Diagnosis Acute diastolic heart failure E coli UTI Abdominal pain Paroxysmal atrial fibrillation Ambulatory Dysfunction Discharge Exam CONSTITUTIONAL: obese, vitals as above, NAD EYES: normal conjunctivae, no scleral icterus ENT: external ear and nose normal, MMM RESPIRATORY: clear to auscultation bilaterally, no crackles, rales or wheezes, normal respiratory effort CARDIOVASCULAR: regular rate and rhythm, S1 and 2 heard without murmurs, gallops or rubs, no JVD, no peripheral edema GASTROINTESTINAL: soft, TTP in RUQ/right lateral skin fold and around to right mid/lower back area-improved, nondistended. Abdomen is protuberant and there are multiple skin folds limiting exam to some extent. MUSCULOSKELETAL: generalized weakness, head is normocephalic and atraumatic SKIN: warm and dry NEUROLOGIC: CN 2-12 grossly intact, normal cognition, normal speech PSYCHIATRIC: alert cooperative and oriented to person, place and time Discharge Data Allergies Allergy/AdvReac Type Severity Reaction Status Date / Time aluminum Allergy Unknown Verified 02/26/21 15:53 diphenhydramine Allergy Unknown Verified 02/26/21 15:53 [From Benadryl] frovatriptan Allergy Unknown Verified 02/26/21 15:53 garlic Allergy Unknown Verified 02/26/21 15:53 glipizide Allergy Unknown Verified 02/26/21 15:53 latex Allergy Unknown Verified 02/26/21 15:55 nylon Allergy Unknown Verified 02/26/21 16:04 pioglitazone [From Actos] Allergy Unknown Verified 02/26/21 15:45 turkey Allergy Unknown Verified 02/26/21 15:53 walnut Allergy Unknown Verified 02/26/21 15:53 ascorbic acid AdvReac Unknown Unknown Verified 02/27/21 09:58 acetaminophen [From Vicodin] AdvReac Unknown Verified 02/26/21 16:04 aspartame AdvReac Unknown Verified 02/27/21 14:27 benzoic acid AdvReac Unknown Verified 02/26/21 15:55 doxylamine AdvReac Unknown Verified 02/26/21 15:53 hydrocodone [From Vicodin] AdvReac Unknown Verified 02/26/21 16:04 morphine AdvReac Unknown Verified 02/26/21 15:55 Sulfa (Sulfonamide AdvReac Unknown Verified 02/26/21 16:04 Antibiotics) sumatriptan [From Imitrex] AdvReac Unknown Verified 02/26/21 15:53 tramadol AdvReac Unknown Verified 02/26/21 16:04 Consultations 02/26/21 15:42 ED Decision to Admit Stat 02/26/21 19:12 Consult Cardiology Routine 03/05/21 14:50 Consult General Surgery Routine 03/05/21 20:53 Consult Gastroenterology Routine Ordered Studies Laboratory Results WBC 4.45 K/uL (4.8-10.8) L 03/01/21 06:52 RBC 3.45 M/uL (4.2-5.4) L 03/01/21 06:52 Hgb 10.1 g/dL (12.0-16.0) L 03/01/21 06:52 Hct 31.4 % (37-47) L 03/01/21 06:52 MCV 91.0 fL (80-100) 03/01/21 06:52 MCH 29.3 pg (25-34) 03/01/21 06:52 MCHC 32.2 g/dL (32-36) 03/01/21 06:52 RDW Std Deviation 47.7 fL (36.4-46.3) H 03/01/21 06:52 RDW Coeff of Milo 14.5 % (11.5-14.5) 03/01/21 06:52 Plt Count 111 K/uL (130-400) L 03/01/21 06:52 MPV 8.4 fL (7.4-10.4) 03/01/21 06:52 Immature Gran % (Auto) 0.2 % 02/26/21 14:34 Neut % (Auto) 65.2 % 02/26/21 14:34 Lymph % (Auto) 23.9 % 02/26/21 14:34 [place] % (Auto) 8.1 % 02/26/21 14:34 Eos % (Auto) 2.1 % 02/26/21 14:34 Baso % (Auto) 0.5 % 02/26/21 14:34 Neut # (Auto) 2.73 K/uL (1.4-6.5) 02/26/21 14:34 Lymph # (Auto) 1.00 K/uL (1.2-3.4) L 02/26/21 14:34 T[place] # (Auto) 0.34 K/uL (0.11-0.59) 02/26/21 14:34 Eos # (Auto) 0.09 K/uL (0-0.5) 02/26/21 14:34 Baso # (Auto) 0.02 K/uL (0-0.2) 02/26/21 14:34 Immature Gran # (Auto) 0.01 K/uL (0.00-0.02) 02/26/21 14:34 PT 10.8 Seconds (9.0-12.0) 02/26/21 14:34 INR 1.1 (0.9-1.1) 02/26/21 14:34 APTT 25.9 Seconds (21.0-31.0) 02/26/21 14:34 PTT Ratio 1.0 02/26/21 14:34 Sodium 143 mmol/L (136-145) 03/06/21 09:06 Potassium 4.1 mmol/L (3.5-5.1) 03/06/21 09:06 Chloride 107 mmol/L (98-107) 03/06/21 09:06 Carbon Dioxide 32 mmol/L (21-32) 03/06/21 09:06 Anion Gap 4.0 (3-11) 03/06/21 09:06 BUN 65 mg/dl (7-18) H 03/06/21 09:06 Creatinine 1.49 mg/dl (0.6-1.2) H 03/06/21 09:06 Est Cr Clr Drug Dosing 50.4 ml/min 03/06/21 09:06 Est GFR ( Amer) 43.8 ml/min 03/06/21 09:06 Est GFR (Non-Af Amer) 37.8 ml/min 03/06/21 09:06 BUN/Creatinine Ratio 43.6 (10-20) H 03/06/21 09:06 Glucose 201 mg/dl (70-99) H 03/06/21 09:06 POC Glucose 105 mg/dl (70-99) H 03/06/21 16:57 Lactate 1.5 mmol/L (0.4-2.0) 03/05/21 15:17 Calcium 8.7 mg/dl (8.5-10.1) 03/06/21 09:06 Phosphorus 3.8 mg/dl (2.5-4.9) 03/04/21 07:02 Magnesium 2.1 mg/dl (1.8-2.4) 03/05/21 06:00 Total Bilirubin 0.4 mg/dl (0.2-1) 03/05/21 15:16 Direct Bilirubin 0.2 mg/dl (0-0.2) 03/05/21 15:16 AST 29 U/L (15-37) 03/05/21 15:16 ALT 34 U/L (12-78) 03/05/21 15:16 Alkaline Phosphatase 259 U/L (45-117) H 03/05/21 15:16 Troponin I < 0.015 ng/ml (0-0.045) 02/26/21 14:34 NT-Pro-B Natriuret Pep 2471 pg/ml (0-900) H 02/26/21 14:34 Total Protein 6.7 gm/dl (6.4-8.2) 03/05/21 15:16 Albumin 3.1 gm/dl (3.4-5.0) L 03/05/21 15:16 Globulin 3.1 gm/dl (2.5-4.0) 02/26/21 14:34 Albumin/Globulin Ratio 1.0 (0.9-2) 02/26/21 14:34 Urine Color [place] 03/05/21 Unknown Urine Appearance Clear (Clear) 03/05/21 Unknown Urine pH 5.0 (4.5-7.5) 03/05/21 Unknown Ur Specific Orion 1.015 (1.000-1.030) 03/05/21 Unknown Urine Protein Negative (Negative) 03/05/21 Unknown Urine Glucose (UA) Negative (Negative) 03/05/21 Unknown Urine Ketones Negative (Negative) 03/05/21 Unknown Urine Blood Trace (Negative) H 03/05/21 Unknown Urine Nitrite Positive (Negative) A 03/05/21 Unknown Urine Bilirubin Negative (Negative) 03/05/21 Unknown Urine Urobilinogen Negative (Negative) 03/05/21 Unknown Ur Leukocyte Esterase Trace (Negative) H 03/05/21 Unknown Urine WBC (Auto) 1-5 /hpf (0-5) 03/05/21 Unknown Urine RBC (Auto) 0-4 /hpf (0-4) 03/05/21 Unknown U Hyaline Cast (Auto) 10-30 /lpf (0-5) H 03/05/21 Unknown U Epithel Cells (Auto) 10-20 /lpf (0-5) H 03/05/21 Unknown Urine Bacteria (Auto) Negative (Negative) 03/05/21 Unknown COVID-19 Eval Order Covid19 IDNow [facility] 02/26/21 13:49 Hepatitis C Ab Screen Neg (Neg) 02/27/21 09:24 SARS-CoV-2, RNA, NAAT NEGATIVE (NEGATIVE) 02/26/21 13:49 Impressions Chest X-Ray 02/26/21 13:09 XR chest 1V portable CLINICAL HISTORY: Shortness of breath COMPARISON STUDY: No previous studies for comparison. FINDINGS: The heart is enlarged. There is mild elevation of interstitium likely secondary to mild pulmonary vascular congestion. Chronic interstitial lung disease and interstitial inflammatory processes could appear similar. There is no lobar consolidation. There are no pleural effusions.[ IMPRESSION: Cardiomegaly and mild elevation of interstitium. Clinical correlation with regards to mild pulmonary vascular congestion recommended. ACT 112: Negative or not required by law. Electronically signed by: Fredrick Denise M.D. 02/26/2021 1:47 PM Knee X-Ray 02/26/21 13:09 XR knee LT 1 or 2V routine CLINICAL HISTORY: Left knee pain status post trauma COMPARISON: None. DISCUSSION: The bones are osteopenic. Degenerative changes are present most pronounced within the lateral joint compartment. There are postsurgical changes involving the distal femur. IMPRESSION: 1. Postsurgical changes involve the distal femur 2. Osteopenia 3. Degenerative change 4. No acute fractures identified ACT 112: Negative or not required by law. Electronically signed by: Fredrick Denise M.D. 02/26/2021 1:48 PM Abdomen/Pelvis CT 03/04/21 18:48 CT SCAN OF THE ABDOMEN AND PELVIS WITHOUT IV CONTRAST CLINICAL HISTORY: Acute right-sided abdominal pain. COMPARISON STUDY: No priors. TECHNIQUE: CT scan of the abdomen and pelvis is performed from the lung bases to the proximal femora. Images are reviewed in the axial, sagittal, and coronal planes. IV contrast was not administered for this examination. A dose lowering technique was utilized adhering to the principles of ALARA. The examination is degraded by large body habitus, and by streak artifact from the body wall abutting the CT gantry. CT DOSE: 1692.61 mGy.cm FINDINGS: Lung bases: The heart is normal in size and without pericardial effusion. There are coronary artery calcifications. A small hiatal hernia is noted. There is elevation of the left hemidiaphragm and bibasilar atelectasis. No airspace consolidation or pleural effusion is identified. Liver: The unenhanced liver is normal in size, contour, and attenuation. There is no intrahepatic biliary ductal dilatation. Gallbladder: Surgically absent noting clips in the gallbladder fossa. Spleen: Normal in size and attenuation. Pancreas: The unenhanced pancreas is atrophic and grossly unremarkable. Adrenal glands: Unremarkable. Kidneys: The unenhanced kidneys demonstrate mild cortical atrophy and are without hydronephrosis. There are no renal calculi identified. There is no evidence of contour deforming renal mass lesion. Abdominal vasculature: The abdominal aorta is normal in course and caliber noting moderate to advanced atherosclerotic calcification. Bowel: There is mild colonic fecal retention. No bowel obstruction is seen. The appendix is well-visualized and normal. Peritoneum: There is no intraperitoneal free air or abdominal ascites. Lymphadenopathy: None. Pelvic viscera: There is circumferential bladder wall thickening. The uterus and adnexa are normal as imaged. Skeletal structures: The skeletal structures are osteopenic. Mild to moderate lumbosacral spondylosis is observed. No lytic or blastic lesions are seen. There is a subacute appearing/healing left lateral 10th rib fracture seen on image #77. IMPRESSION: 1. The bladder wall appears circumferentially thickened. Correlate with clinical findings and urinalysis for evidence of cystitis. 2. There is a subacute appearing/healing left lateral 10th rib fracture. Correlate for point tenderness. 3. Additional findings as above. ACT 112: Negative or not required by law. Electronically signed by: Black Nash M.D. 03/04/2021 7:26 PM Hospital Course (1) Acute diastolic heart failure: Symptoms have overall improved with ongoing intravenous diuresis. [facility] Cardiology followed and tailored therapies during admission. Weight was down 12kg since admission. She was started on aldactone, losartan was started and titrated to 50mg PO daily, potassium supplementation was stopped, Toprol XL was transitioned to carvedilol, and torsemide dose was increased at time of discharge. (2) E. coli UTI: Received a 5-day course of ceftriaxone with complete resolution of symptoms aside from some per consistent suprapubic discomfort. Pyridium helped this and repeat UA was performed revealing no persistent bacteremia. Close follow-up was recommended by her primary care physician. (3) Abdominal pain: Nonspecific abdominal pain, 8/10, acute today. Possibly gas or constipation? Noncontrast CT abd/pelv did not reveal any clear etiology of her pain. Pain meds PRN, cont to monitor (4) Paroxysmal atrial fibrillation: Maintaining sinus rhythm with amiodarone. Diabetic retinopathy requires frequent injections and there is a relative contraindication anticoagulation secondary to retinal hemorrhage. (5) HTN (hypertension): Losartan added for better BP control, increased from 25 mg daily to 50 mg daily Continue Toprol Amlodipine discontinued per cardiology (6) Diabetes mellitus, type II: Hold home agents Basal/bolus insulin while in-patient per protocol Blood glucose currently controlled Carb controlled diet Follow-up with PCP for regular monitoring. (7) CKD (chronic kidney disease) stage 3, GFR 30-59 ml/min: at her baseline. (8) Fibromyalgia: Continue gabapentin (9) Ambulatory dysfunction: In setting of volume overload, Cindy Ross foot Recently discharged home from SNF with home health but does not feel she has enough support for ADLs, ambulating to bathroom while on diuretics Fall precautions PT recommending SNF vs 24h home care Patient will prefer to go home with services. CM aware (10) Hypothyroidism: Recent noncompliance with levothyroxine. She currently is taking 25 mcg every morning as prescribed on her outpatient regimen. (11) DVT prophylaxis: SCDs, declines chemoprophylaxis conditional code Dispo-prefers to go home with home health Milady Blackwell DO [facility] Hospitalist Total Time Total Time Spent Total Time Spent (In Minutes): 60 Total Time Includes: Examination of the Patient, Discharge Planning, Medication Reconciliation and Communication With Other Providers Discharge Plan Discharge Items Patient Disposition: Home - Home Health Services Reason For Visit: ACUTE EXACERBATION OF HEART FAILURE Discharge Diagnosis: Acute diastolic heart failure E coli UTI Abdominal pain Paroxysmal atrial fibrillation HTN Nocturnal Hypoxemia Ambulatory Dysfunction Condition on Discharge: Good Activity: Resume your previous activity Non-emergency contact: Primary Care Provider and Ski Lift Operator Call non-emergency contact if: you have any medication questions and your symptoms worsen Follow-up/Referrals: Marcial Blanc MD [Primary Care Provider] - (Date & Time 03/12/2021 11:00 AM Provider Marcial Blanc MD [facility] ) Diet: Carb Consistent or DM2 and Low Sodium (2gm) Fluids: 1800ml (7 cups) Addtl Attending Provider Instructions: Please take all medications as instructed on discharge list below. Please note multiple medication changes. As a result, you will need non-fasting blood work to check you kidney function and electrolytes. This may be ordered by your primary care physician (PCP) on follow-up. You have a follow-up appointment scheduled with your PCP at the date and time above. This appointment will be important to review your medication changes, check you blood pressure and vital signs, and monitor your kidney function and electrolytes. You may also need refills ordered on new medications at this time. Please follow-up with [facility] Cardiology in one week. As discussed, please take your weight every day. If your weight increase by more than 2 pounds in a 48- hour period or by 5 pounds in one week please add an additional 40mg of torsemide in the morning to your new regimen (40mg twice daily). Continue to use pyridium for any residual bladder discomfort. You were treated for a urinary tract infection with a complete antibiotic course. However, if you have persistent symptoms, a repeat urinalysis and culture may be ordered by your PCP. Your right sided abdominal pain was thought to be secondary to a muscle spasm/strain. As a result, this should continue to improve. Workup in the hospital was negative for another cause. Please discuss how this is going with your PCP in follow-up. If still present, further investigation may be warranted. It was a pleasure taking care of you! Please call if you have any questions or problems. You can reach a [facility] hospitalist on duty at [facility] 24 hours a day by calling [phone]. Take care of yourself. Milady Blackwell, [facility] Center[facility] Addtl Alteration Workroom Supervisor Provider Instructions: Call [phone] and go to the Emergency Room if: * You have tightness or pain in your chest that does not go away with rest or Nitroglycerin * You are very short of breath even with rest Call your doctor if any of the following symptoms or problems start or get worse: * Shortness of breath or difficulty breathing * Wake up at night short of breath * Chest pain * Cough * Swelling of your hands, fee, or legs * More fatigued or tired with your normal activity * Palpitations - sudden fast heart beats WEIGHT * Weigh yourself every morning after using the bathroom. * Use the same scale. * Wear the same amount of clothing. * Write your weight down on your chart. * Call your doctor if you gain more than 2-3 pounds in 1-2 days. MEDICATIONS * Use this discharge instruction sheet for instructions. * Take your medications at the time your doctor ordered. * Do not skip a dose of your medicines. * If you miss a dose of medicine, take as soon as possible, but DO NOT DOUBLE A DOSE. * Read your medicine information when you get home. * Know all of the side effects of your medicine. * Call your doctor's office if you have any side effects. * Be sure all of your doctors know what medicine and herbs you take (including cold, flu, and herbal medicine). * Pain Medicine: If you do not get relief from your pain, please call your doctor for help. Take the following with you to your follow-up doctor appointments: * Weight Chart * Medication List * List of questions Do not drink excessive alcohol, beer or wine. Pending Studies at Discharge: No Stand-Alone Forms: My [facility] Medications and DC Order Prescriptions: New losartan 50 mg Tablet 50 mg PO QAM Qty: 30 RF: 0 spironolactone 25 mg Tablet 25 mg PO QAM Qty: 30 RF: 0 phenazopyridine [Pyridium] 200 mg Tablet 200 mg PO TID PRN (Reason: bladder discomfort/dysuria) Qty: 30 RF: 0 torsemide 20 mg tablet 40 mg PO BID Qty: 60 RF: 0 Continued metoprolol succinate 50 mg Tablet Extended Release 24 Hr 50 mg PO DAILY RF: 0 fexofenadine 180 mg Tablet 180 mg PO DAILY RF: 0 omeprazole 40 mg Capsule,Delayed Release(Dr/Ec) 40 mg PO DAILY RF: 0 aspirin 81 mg Tablet,Delayed Release (Dr/Ec) 81 mg PO DAILY RF: 0 ferrous sulfate [FeroSul] 325 mg (65 mg iron) tablet 325 mg PO BID RF: 0 [id number]-[id number] 50-325-40 mg Capsule 1 cap PO Q4H PRN (Reason: Migraine Headache) RF: 0 folic acid 1 mg Tablet 1 mg PO DAILY RF: 0 docusate sodium 100 mg Tablet 100 mg PO BID RF: 0 amiodarone 100 mg Tablet 200 mg PO DAILY RF: 0 gabapentin 100 mg Tablet 200 mg PO BID RF: 0 cholecalciferol (vitamin D3) [Vitamin D3] 25 mcg (1,000 unit) Tablet 25 mcg PO DAILY RF: 0 calcium carbonate-vitamin D3 [Calcium 600 + D(3)] 600 mg(1,500mg) -400 unit Tablet 1 tab PO DAILY RF: 0 Basaglar KwikPen U-100 Insulin 100 unit/mL (3 mL) Insulin Pen 15 unit SUBCUT HS RF: 0 levothyroxine [Tirosint] 25 mcg Capsule 25 mcg PO DAILY RF: 0 Lactobacillus acidophilus Tablet 0 mmu cells PO DAILY RF: 0 diclofenac sodium 1 % gel 4 g TOPICAL QID PRN (Reason: Pain) RF: 0 Discontinued torsemide [Demadex] 20 mg Tablet 20 mg PO BID RF: 0 potassium chloride 20 mEq Tablet,Er Particles/Crystals 20 meq PO BID RF: 0 amlodipine 10 mg Tablet 10 mg PO DAILY RF: 0 Discharge Orders: Discharge Order (Routine); Ordered 03/06/21 Ordered By: Milady Blackwell Admission Data Admit Date/Time: 02/26/21 16:35 Attending Provider: Milady Blackwell Admit Provider: Rosemary Doll I. Primary Care Provider: Marcial Blanc Other Providers: Rosemary Doll I. ; Huseyin Belle ; Nhan Rocha ; Zane Aparicio Other Interventions: Discharge Summary Assessment (RN) Last Done: 03/06/21 14:33 Home Health Attestation I certify that this patient is under my care and that I, or a physicians chemical laboratory assistant working with me, had a face to-face encounter that meets the home health [id number] encounter requirements with this patient. The encounter with the patient was in whole, or in part, for the following medical condition, which is the primary reason for home health care (list medical condition): CHF I certify that, based on my findings, the following services are medically necessary home health services: My clinical findings support the need for the above services because: OT Assess ADL Status and Restore Function w ADLs PT Eval for Safety, Gait Training, Assistive Devices PT Gait and Balance Training, Strengthening and Safety Skilled Nsg Assessment Further, I certify that my clinical findings support that this patient is homebound (i.e. absences from home require considerable and taxing effort and are for medical reasons or gnosticism services or infrequently or of short duration when for other reasons) because: Assistance of 1 Person for Ambulation/Activities Certification for Home Health Services: Based on the above findings, I certify that this patient is confined to the home and needs intermittent group home care, physical therapy and/or speech therapy or continues to need occupational therapy. The patient is under my care, and I have initiated the establishment of the plan of care. This patient will be followed by a physician who will periodically review the plan of care.
== END 2021-03-06 18:19 | disposition home health service (06) | DRG 291 ==
LOC: ED 12:38 → 2N 16:35 → SUATTDRO 16:35 → 2N 17:48

== ENCOUNTER 2021-04-03 12:37 | Inpatient (IN) ==
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
--- NOTE | 2021-04-03 14:16 | Emergency Department Note ---
ED Visit Note This patient was seen in concert with Dr. Rangel and we discussed and agreed upon the history, physical, assessment and plan. See attending's note for details. Resident Activity Tracking Resident Involvement: Resident Care Provided Care Provided: Adult ED
--- NOTE | 2021-04-03 14:19 | XRay Report ---
XR chest 1V portable CLINICAL HISTORY: CHF exacerbation COMPARISON STUDY: 02/26/2021 FINDINGS: The heart is borderline enlarged. There is no overt failure. There is no focal pulmonary co nsolidation. There are no pleural effusions.[ IMPRESSION: Mild cardiomegaly. No evidence of focal pulmonary consolidation ACT 112: Negative or not required by law. Electronically signed by: Fredrick Denise M.D. 04/03/2021 2:18 PM
[2021-04-03 15:43] LABS: Basophils # (auto) 0.01 K/uL (0-0.2); Basophils % (auto) 0.3 %; Eosinophils # (auto) 0.12 K/uL (0-0.5); Eosinophils % (auto) 3.1 %; Hematocrit (blood only) 34.7 % (37-47); Hemoglobin 11.6 g/dL (12.0-16.0); Immature Granulocytes # (auto) 0.01 K/uL (0.00-0.02); Immature Granulocytes % (auto) 0.3 %; Lymphocytes # (auto) 0.94 K/uL (1.2-3.4); Mean Corpuscular Hemoglobin 29.1 pg (25-34); Mean Corpuscular Hgb Conc 33.4 g/dL (32-36); Mean Corpuscular Volume 87.2 fL (80-100); Mean Platelet Volume 9.2 fL (7.4-10.4); Monocytes # (auto) 0.27 K/uL (0.11-0.59); Monocytes % (auto) 6.9 %; Neutrophils # (auto) 2.56 K/uL (1.4-6.5); Neutrophils % (auto) 65.4 %; Platelet Count 102 K/uL (130-400); RDW Coefficient of Variation 13.7 % (11.5-14.5); RDW Standard Deviation 43.9 fL (36.4-46.3); Red Blood Count 3.98 M/uL (4.2-5.4); White Blood Count 3.91 K/uL (4.8-10.8)
[2021-04-03 16:13] LABS: Alanine Aminotransferase 24 U/L (12-78); Albumin Level 2.9 gm/dl (3.4-5.0); Aspartate Aminotransferase 18 U/L (15-37); BUN Creatinine Ratio 27.4 (10-20); Blood Urea Nitrogen 51 mg/dl (7-18); Calcium 9.3 mg/dl (8.5-10.1); Carbon Dioxide 32 mmol/L (21-32); Chloride 102 mmol/L (98-107); Est GFR (African American) 33.5 ml/min; Est GFR (Non-African American) 28.9 ml/min; Glucose 379 mg/dl (70-99); Magnesium 2.5 mg/dl (1.8-2.4); Potassium 4.2 mmol/L (3.5-5.1); Sodium 139 mmol/L (136-145)
[2021-04-03 16:17] LABS: Albumin Globulin Ratio 0.8 (0.9-2); Alkaline Phosphatase 241 U/L (45-117); Bilirubin,Total 0.4 mg/dl (0.2-1); Globulin 3.8 gm/dl (2.5-4.0); NT Pro B Type Natriuretic Pept 1182 pg/ml (0-900); Total Protein 6.7 gm/dl (6.4-8.2); Troponin I < 0.015 ng/ml (0-0.045)
[2021-04-03 16:23] LABS: Beta-Hydroxybutyrate 0.88 mg/dl (0.2-2.81)
[2021-04-03] MEDS ORDERED: FUROSEMIDE 40 MG/4 ML VIAL IV STA (16:34)
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
[2021-04-03] MEDS ORDERED: hydrALAZINE HCL 20 MG/ML VIAL IV ONE (18:05)
[2021-04-03] MEDS ORDERED: hydrALAZINE HCL 20 MG/ML VIAL ONE (18:32)
[2021-04-03] MEDS: FUROSEMIDE 40 MG/4 ML VIAL IV SCH (20:51)
[2021-04-03] MEDS ORDERED: GLUCAGON FOR INJ 1 MG VIAL SQ PRN (21:17)
[2021-04-03] MEDS ORDERED: GLUCOSE 10 TABS/TUBE PO PRN (21:17)
[2021-04-03] MEDS ORDERED: GLUCOSE 40% GEL 15 GM TUBE PO PRN (21:17)
[2021-04-03] MEDS ORDERED: PHARMACY GLYCEMIC MGMT CONSULT STA (21:54)
--- NOTE | 2021-04-03 21:57 | Communication Note ---
Date of Service: April 03, 2021 Made aware by RN of uncontrolled blood pressure. SBP 1 60-1 90s since noon time. AP Uncontrolled hypertension Initiate hydralazine Will relay to AM provider.
[2021-04-03] MEDS ORDERED: PHARMACY GLYCEMIC MGMT CONSULT PRN (21:59)
[2021-04-03] MEDS ORDERED: GABAPENTIN 300 MG CAP PO ONE (22:00)
[2021-04-03] MEDS ORDERED: INSULIN HUMAN REGULAR PER UNIT 8 UNITS in SYRINGE 7.92 ML IV ONE (22:15)
[2021-04-03] MEDS: hydrALAZINE 10 MG TAB PO SCH (22:18)
[2021-04-03] MEDS: ASPIRIN 81 MG ECTAB PO SCH (22:19)
[2021-04-03] MEDS: LIDOCAINE 5% 1 PATCH TD SCH (22:20)
[2021-04-03] MEDS: FERROUS SULFATE 325 MG TAB PO SCH (22:20)
[2021-04-03] MEDS: INSULIN GLARGINE SOLOSTAR 100 UNITS/ML 3 ML PEN SC SCH (22:22)
[2021-04-03] MEDS: INSULIN ASPART 100 UNITS/ML 3 ML PEN SC SCH (22:23)
[2021-04-03] MEDS: HEPARIN SOD 5,000 UNIT/0.5 ML VIAL SQ SCH ×2 (22:26→22:37)
[2021-04-03] MEDS: DOCUSATE SODIUM 100 MG CAP PO SCH (22:28)
[2021-04-04] MEDS ORDERED: oxyCODONE HCL IR 5 MG TAB (IMMEDIATE RELEASE) PO PRN (01:21)
[2021-04-04] MEDS ORDERED: POLYETHYLENE (MIRALAX) 17 GM PACK PO PRN (01:21)
[2021-04-04] MEDS ORDERED: ACETAMINOPHEN 325 MG TAB PO PRN (01:21)
[2021-04-04] MEDS ORDERED: HYDROmorphone INJ 0.5 MG/0.5 ML SYR IV PRN (01:21)
[2021-04-04] MEDS ORDERED: POLYETHYLENE (MIRALAX) 17 GM PACK ONE (01:39)
[2021-04-04] MEDS: BUTALBITAL/ASPIRIN/CAFFEINE 1 TAB TAB PO PRN (03:38)
[2021-04-04] MEDS: LEVOTHYROXINE SODIUM 25 MCG TABLET PO SCH (05:33)
[2021-04-04] MEDS: HEPARIN SOD 5,000 UNIT/0.5 ML VIAL SQ SCH ×3 (05:33→21:28)
[2021-04-04 07:19] LABS: Hematocrit (blood only) 34.4 % (37-47); Hemoglobin 11.4 g/dL (12.0-16.0); Mean Corpuscular Hgb Conc 33.1 g/dL (32-36); Mean Corpuscular Volume 87.5 fL (80-100); Mean Platelet Volume 8.9 fL (7.4-10.4); Platelet Count 112 K/uL (130-400); RDW Coefficient of Variation 13.7 % (11.5-14.5); RDW Standard Deviation 43.7 fL (36.4-46.3); Red Blood Count 3.93 M/uL (4.2-5.4)
[2021-04-04 07:46] LABS: Estimated Average Glucose 194 mg/dl; Hemoglobin A1C 8.4 % (4.5-5.6)
[2021-04-04 07:59] LABS: BUN Creatinine Ratio 28.7 (10-20); Calcium 9.3 mg/dl (8.5-10.1); Est GFR (African American) 39.6 ml/min; Est GFR (Non-African American) 34.1 ml/min
[2021-04-04] MEDS: DOCUSATE SODIUM 100 MG CAP PO SCH ×2 (08:21→21:19)
[2021-04-04] MEDS: hydrALAZINE 10 MG TAB PO SCH ×3 (08:21→21:18)
[2021-04-04] MEDS: AMIODARONE 200 MG TAB PO SCH (08:22)
[2021-04-04] MEDS: FEXOFENADINE HCL 180 MG TAB PO SCH (08:22)
[2021-04-04] MEDS: CHOLECALCIFEROL 1,000 UNITS 25 MCG TAB PO SCH (08:22)
[2021-04-04] MEDS: GABAPENTIN 100 MG CAP PO SCH (08:23)
[2021-04-04] MEDS: FOLIC ACID 1 MG TAB PO SCH (08:23)
[2021-04-04] MEDS: METOPROLOL SUCC 50MG EXT REL TAB PO SCH (08:23)
[2021-04-04] MEDS: LOSARTAN POTASSIUM 50 MG TAB PO SCH (08:23)
[2021-04-04] MEDS: PANTOprazole 40 MG TAB PO SCH (08:23)
[2021-04-04] MEDS: ADVANCED PROBIOTIC 1250 MG CAPSULE PO SCH (08:23)
[2021-04-04] MEDS: FERROUS SULFATE 325 MG TAB PO SCH ×2 (08:23→21:20)
[2021-04-04] MEDS: INSULIN GLARGINE SOLOSTAR 100 UNITS/ML 3 ML PEN SC SCH ×2 (08:24→21:21)
[2021-04-04] MEDS: INSULIN ASPART 100 UNITS/ML 3 ML PEN SC SCH ×4 (08:26→21:23)
[2021-04-04] MEDS: LIDOCAINE 5% 1 PATCH TD SCH (08:30)
[2021-04-04] MEDS: POLYETHYLENE (MIRALAX) 17 GM PACK PO SCH (08:30)
[2021-04-04] MEDS ORDERED: CYCLOBENZAPRINE HCL 5 MG TAB PO STA (09:26)
--- NOTE | 2021-04-04 10:14 | Electrocardiogram Report ---
Test Reason : Blood Pressure : / mmHG Vent. Rate : 064 BPM Atrial Rate : 064 BPM P-R Int : 182 ms QRS Dur : 106 ms QT Int : 468 ms P-R-T Axes : 129 211 116 degrees QTc Int : 482 ms Suspect arm lead reversal, interpretation assumes no reversal Unusual P axis, possible ectopic atrial rhythm Possible Anterolateral infarct (cited on or before 27-FEB-2021) Abnormal ECG When compared with ECG of 27-FEB-2021 11:22, Ectopic atrial rhythm has replaced Sinus rhythm (limb lead reversal) Anterolateral infarct repeat tracing with correct limb leads Confirmed by Carlos Clancy ([id number]) on 04/04/2021 10:14:35 AM Referred By: REFERRED SELF Confirmed By:Carlos Clancy
--- NOTE | 2021-04-04 10:30 | Electrocardiogram Report ---
Test Reason : Blood Pressure : / mmHG Vent. Rate : 066 BPM Atrial Rate : 066 BPM P-R Int : 186 ms QRS Dur : 104 ms QT Int : 458 ms P-R-T Axes : 048 -27 101 degrees QTc Int : 480 ms Normal sinus rhythm Left ventricular hypertrophy with repolarization abnormality Prolonged QT Abnormal ECG When compared with ECG of 03-APR-2021 14:58, (unconfirmed) No significant change was found Confirmed by Carlos Clancy ([id number]) on 04/04/2021 10:30:32 AM Referred By: REFERRED SELF Confirmed By:Carlos Clancy
[2021-04-04] MEDS: FUROSEMIDE 40 MG/4 ML VIAL IV SCH (10:51)
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
[2021-04-04] MEDS ORDERED: MICONAZOLE NITRATE POWDER 43 GM EXT PRN (14:14)
--- NOTE | 2021-04-04 14:47 | Pharmacy Report ---
Pharmacy Glycemic Short Note 2 - Date of Service April 04, 2021 - Glycemic Short BSG Results (Last 24 hours): 04/03/21 04/03/21 04/03/21 15:29 21:22 21:24 Glucose 379 H* POC Glucose 404 H* 394 H* 04/04/21 04/04/21 04/04/21 01:14 04:42 06:50 Glucose 117 H POC Glucose 215 H 121 H 04/04/21 04/04/21 07:41 11:53 Glucose POC Glucose 123 H 131 H OUTPATIENT ANTIDIABETIC REGIMEN: * Basaglar 15 units SQ HS (noncompliance?) ASSESSMENT: * 61 year old female, admitted with volume overload, type 2 diabetic, A1c 8.4% on only basal insulin at home, questionable compliance. * Basal bolus insulin for inpatient glycemic control and titrate to goal blood sugar. PLAN FOR INPATIENT GLYCEMIC CONTROL: * Basal insulin * Lantus 15 units SQ BID * Bolus insulin * NovoLog per scale ACHS or Q6hrs while NPO * Goal Range: Low 110 mg/dL - High 140 mg/dL * Correction Factor: 20 mg/dL/unit * Nutritional / Prandial insulin per carb ratio of 1 unit per 7 grams CHO consumed PLAN FOR DISCHARGE: * to be determined
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
[2021-04-04] MEDS: FUROSEMIDE 40 MG in SYRINGE 0 ML IV SCH (17:41)
[2021-04-04] MEDS: ASPIRIN 81 MG ECTAB PO SCH (21:19)
[2021-04-04] MEDS: GABAPENTIN 300 MG CAP PO SCH (21:20)
[2021-04-04] MEDS: CYCLOBENZAPRINE HCL 5 MG TAB PO PRN (21:24)
[2021-04-05] MEDS: FUROSEMIDE 40 MG in SYRINGE 0 ML IV SCH (06:02)
[2021-04-05] MEDS: HEPARIN SOD 5,000 UNIT/0.5 ML VIAL SQ SCH ×4 (06:03→20:17)
[2021-04-05] MEDS: LEVOTHYROXINE SODIUM 25 MCG TABLET PO SCH (06:03)
[2021-04-05] MEDS: CYCLOBENZAPRINE HCL 5 MG TAB PO PRN (06:07)
[2021-04-05] MEDS: FERROUS SULFATE 325 MG TAB PO SCH ×2 (09:33→21:14)
[2021-04-05] MEDS: AMIODARONE 200 MG TAB PO SCH (09:33)
[2021-04-05] MEDS: CHOLECALCIFEROL 1,000 UNITS 25 MCG TAB PO SCH (09:33)
[2021-04-05] MEDS: DOCUSATE SODIUM 100 MG CAP PO SCH ×2 (09:33→21:13)
[2021-04-05] MEDS: FOLIC ACID 1 MG TAB PO SCH (09:34)
[2021-04-05] MEDS: FEXOFENADINE HCL 180 MG TAB PO SCH (09:34)
[2021-04-05] MEDS: METOPROLOL SUCC 50MG EXT REL TAB PO SCH (09:34)
[2021-04-05] MEDS: LIDOCAINE 5% 1 PATCH TD SCH ×2 (09:34→12:40)
[2021-04-05] MEDS: hydrALAZINE 10 MG TAB PO SCH ×3 (09:34→21:13)
[2021-04-05] MEDS: GABAPENTIN 100 MG CAP PO SCH (09:34)
[2021-04-05] MEDS: ADVANCED PROBIOTIC 1250 MG CAPSULE PO SCH (09:34)
[2021-04-05] MEDS: PANTOprazole 40 MG TAB PO SCH (09:34)
[2021-04-05] MEDS: POLYETHYLENE (MIRALAX) 17 GM PACK PO SCH (09:34)
[2021-04-05] MEDS: LOSARTAN POTASSIUM 50 MG TAB PO SCH (09:34)
[2021-04-05] MEDS: INSULIN GLARGINE SOLOSTAR 100 UNITS/ML 3 ML PEN SC SCH ×2 (09:53→21:15)
[2021-04-05] MEDS: INSULIN ASPART 100 UNITS/ML 3 ML PEN SC SCH ×4 (09:54→21:16)
[2021-04-05] MEDS: DICLOFENAC SOD 1% GEL 100 GM TUBE EXT SCH ×2 (10:32→21:15)
[2021-04-05 11:23] LABS: BUN Creatinine Ratio 24.6 (10-20); Calcium 9.1 mg/dl (8.5-10.1); Creatinine Clr Calc Pharmacy 39.4 ml/min; Est GFR (African American) 32.4 ml/min; Potassium 3.9 mmol/L (3.5-5.1)
[2021-04-05] MEDS ORDERED: predniSONE 20 MG TAB PO STA (11:25)
[2021-04-05] MEDS: CYCLOBENZAPRINE HCL 10 MG TAB PO PRN (12:41)
[2021-04-05] MEDS: HYDROmorphone INJ 0.5 MG/0.5 ML SYR IV PRN (12:43)
[2021-04-05] MEDS ORDERED: NovoLIN-N (NPH) PER UNIT CHARGE SQ ONE (12:45)
--- NOTE | 2021-04-05 14:08 | Pharmacy Report ---
Pharmacy Glycemic Short Note 2 - Date of Service April 05, 2021 - Glycemic Short BSG Results (Last 24 hours): 04/04/21 04/04/21 04/05/21 17:11 20:02 07:27 Glucose POC Glucose 91 159 H 109 H 04/05/21 04/05/21 09:14 11:40 Glucose 145 H POC Glucose 152 H OUTPATIENT ANTIDIABETIC REGIMEN: * Basaglar 15 units SQ HS (noncompliance?) * A1c 8.4% 04/04/21 ASSESSMENT: 04/05/21 * Blood sugars well controlled, 91-159mg/dl * Patient had 1 dose of PO Prednisone 40mg today, will give NPH to cover * NPH given about 2 hours after prednisone, d/t patient out of room at MRI * No other insulin changes needed at this time 04/04/21 * 61 year old female, admitted with volume overload, type 2 diabetic, A1c 8.4% on only basal insulin at home, questionable compliance. * Basal bolus insulin for inpatient glycemic control and titrate to goal blood sugar. PLAN FOR INPATIENT GLYCEMIC CONTROL: * Basal insulin * Lantus 15 units SQ BID * NPH 20 units SQ x 1 dose to cover prednisone * Bolus insulin * NovoLog per scale ACHS or Q6hrs while NPO * Goal Range: Low 110 mg/dL - High 140 mg/dL * Correction Factor: 20 mg/dL/unit * Nutritional / Prandial insulin per carb ratio of 1 unit per 7 grams CHO consumed PLAN FOR DISCHARGE: * to be determined
--- NOTE | 2021-04-05 14:40 | Magnetic Resonance Report ---
MRI OF THE CERVICAL SPINE WITHOUT CONTRAST CLINICAL HISTORY: neck pain, s/p fall COMPARISON: None. TECHNIQUE: Utilizing a 1.5 Kaylee magnet and dedicated coil, multiplanar, multiecho imaging of the ce rvical spine was performed without IV contrast. FINDINGS: Alignment of the cervical spine is anatomic. Vertebral body heights are maintained. No fracture is id entified by MRI. There is no marrow edema. This exam is moderately optimized by motion artifact. Cerv ical cord signal suboptimally assessed on this examination. Paravertebral soft tissues are unremarkab le. Multinodular thyroid gland is noted. The largest nodule is likely within the isthmus measuring 3. 5 cm. Canal and neural foramen are suboptimally assessed on this examination. C2-C3: Central canal and neural foramen are patent. C3-C4: There is apparent posterior osteophyte complex which effaces the ventral thecal sac. There is suspected mild central canal stenosis. Neural foramen are patent. C4-C5: Central canal and neural foramen are grossly patent. C5-C6: Central canal and neural foramen are patent. C6-C7: Central canal and neural foramen are patent. C7-T1: Central canal and neural foramen are patent. IMPRESSION: 1. Exam moderately compromised by motion artifact. No acute traumatic findings within the cervical sp ine by MRI although sensitivity diminished. 2. Apparent posterior disc osteophyte complex at C3-C4 which is suboptimally assessed on this examina tion. ACT 112: Negative or not required by law. Electronically signed by: Clyde Brito M.D. 04/05/2021 2:38 PM
--- NOTE | 2021-04-05 14:58 | Magnetic Resonance Report ---
MRI OF THE THORACIC SPINE WITHOUT CONTRAST CLINICAL HISTORY: back pain, s/p fall COMPARISON: None. TECHNIQUE: Utilizing a 1.5 Kaylee magnet and dedicated coil, multiplanar, multiecho imaging of the th oracic spine was performed without IV contrast. FINDINGS: Alignment of the thoracic spine is anatomic. Note is made of moderate loss of height of the superior endplate of T6. There is no marrow edema. This represents a chronic fracture. Thoracic cord signal is suboptimally assessed on this examination but appears unremarkable. There is no intracanal icular mass or fluid collection. There is linear T1 and T2 hypointense signal along the superior endp late of T12 with minimal loss of vertebral body height. There is associated marrow edema. This repres ents an acute mild compression fracture. There is subtle marrow edema along the inferior endplate of T11. This is likely degenerative. The central canal and neural foramen within the thoracic spine are patent. Multinodular thyroid gland is incidentally noted. IMPRESSION: 1. Findings consistent with a mild acute T12 compression fracture. No retropulsion. 2. Moderate loss of height of the T6 vertebral body without marrow edema. This favors a chronic fract ure. 3. Exam mildly compromised by motion artifact. ACT 112: Negative or not required by law. Electronically signed by: Clyde Brito M.D. 04/05/2021 2:56 PM
--- NOTE | 2021-04-05 15:44 | Magnetic Resonance Report ---
MRI OF THE LUMBAR SPINE WITHOUT CONTRAST CLINICAL HISTORY: back pain, s/p fall COMPARISON STUDY: No previous studies for comparison. TECHNIQUE: Utilizing a 1.5 Kaylee magnet and dedicated coil, multiplanar, multiecho imaging of the [facility] spine was performed without IV contrast. FINDINGS: For purposes of numbering on this exam, the L4-L5 disc space is assigned to axial image 34 of 36. Num bering from above, there is a mild acute compression fracture of the superior endplate of T12. There is mild loss of vertebral body height without retropulsion. Marrow edema is present. No significant e sergio within the posterior elements is noted. There is also subtle marrow edema along the anterior asp ect of the inferior endplate of T11. There is mild prevertebral edema at the T11-T12 level. There is no intracanalicular mass or fluid collection. Paravertebral soft tissues are unremarkable. Conus term inates at the inferior T12 level. Exam is mildly compromised by motion artifact. L1-2: The central canal neural foramen are patent. L2-3: The central canal is patent. There is mild narrowing of the right neural foramen. There is mild facet arthrosis. L3-4: There is mild facet arthrosis. Central canal is patent. Neural foramen are patent. L4-5: Central canal is patent. There is mild narrowing of both neural foramen. L5-S1: Central canal and neural foramen are patent. IMPRESSION: 1. Mild acute compression fracture of the superior endplate of T12. Mild loss of vertebral body heigh t. No retropulsion. Mild prevertebral edema at T11-T12 level. 2. Mild edema along anterior aspect of the inferior endplate of T11. This is likely degenerative simpson mike an additional mild acute nondisplaced fracture cannot be excluded. ACT 112: Negative or not required by law. Electronically signed by: Clyde Brito M.D. 04/05/2021 3:42 PM
--- NOTE | 2021-04-05 15:56 | XRay Report ---
XR ribs LT min 2V CLINICAL HISTORY: LEFT RIB PAIN, R/O FRACTURE COMPARISON: Chest radiograph April 03, 2021. FINDINGS: Several old lower rib fractures are noted. No acute left rib fractures are identified. Sen sitivity is diminished on this exam but no evidence for left pneumothorax. There are cholecystectomy clips. IMPRESSION: No acute left rib fractures identified. Several old left lower rib fractures. ACT 112: Negative or not required by law. Electronically signed by: Clyde Brito M.D. 04/05/2021 3:55 PM
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
--- NOTE | 2021-04-05 17:15 | Cardiology Progress Note ---
Date of Service April 05, 2021 Assessment & Plan (1) Acute on chronic diastolic heart failure: Plan: Creatinine up to 1.9. Will p.m. dose of furosemide, reassess tomorrow. (2) Thoracic spine fracture: Plan: Continue back brace, cautious analgesics. (3) CKD (chronic kidney disease), stage III: Plan: As noted, holding furosemide Plan: DVT prophylaxis:Stool for subcutaneous heparin ordered, but the patient has declined. She claims problem with retinal hemorrhage in the past. This would typically not become a problem in the setting of DVT prophylaxis, and they do have concerns that she has had significant risk for venous thromboembolic disease, although I am not sure that she has any more risk now than what she would at home. She declined this on her previous admission as well. Admission and Anticipated Discharge Date Admission Date: April 03, 2021 Subjective Patient without cardiac complaint today. Ongoing back pain. Physical Exam Physical Exam: Temp Pulse Resp BP Pulse Ox 36.4 C L 65 20 125/84 97 04/05/21 12:00 04/05/21 12:00 04/05/21 12:00 04/05/21 12:00 04/05/21 12:00 Constitutional: Lethargic Respiratory: normal respiratory effort, lungs clear to auscultation Cardiovascular: Rate/Rhythm: regular rate and regular rhythm Heart Sounds: no murmur Extremities: + edema (Baseline trace edema) Results & Data ([facility]) Vital Signs (Past 12 Hours) Vital Signs Temp Pulse Pulse Resp BP Pulse Ox 04/05/21 12:00 36.4 C L 65 20 125/84 97 04/05/21 08:00 36.8 C 70 66 18 147/82 H 91 (1) CKD (chronic kidney disease), stage III Chronic kidney disease stage 3 subtype: unspecified whether 3a or 3b Qualified Code(s): N18.30 - Chronic kidney disease, stage 3 unspecified
[2021-04-05] MEDS: GABAPENTIN 300 MG CAP PO SCH (21:13)
[2021-04-05] MEDS: ASPIRIN 81 MG ECTAB PO SCH (21:17)
[2021-04-06] MEDS: HEPARIN SOD 5,000 UNIT/0.5 ML VIAL SQ SCH ×2 (05:20→14:32)
[2021-04-06] MEDS: LEVOTHYROXINE SODIUM 25 MCG TABLET PO SCH (06:11)
[2021-04-06] MEDS: PANTOprazole 40 MG TAB PO SCH (06:11)
[2021-04-06] MEDS: BUTALBITAL/ASPIRIN/CAFFEINE 1 TAB TAB PO PRN (06:15)
[2021-04-06] MEDS: LIDOCAINE 5% 1 PATCH TD SCH (08:21)
[2021-04-06] MEDS: CYCLOBENZAPRINE HCL 10 MG TAB PO PRN ×2 (08:21→14:31)
[2021-04-06] MEDS: HYDROmorphone INJ 0.5 MG/0.5 ML SYR IV PRN ×2 (08:21→14:49)
[2021-04-06] MEDS: POLYETHYLENE (MIRALAX) 17 GM PACK PO SCH (08:22)
[2021-04-06] MEDS: hydrALAZINE 10 MG TAB PO SCH ×3 (08:22→20:46)
[2021-04-06] MEDS: LOSARTAN POTASSIUM 50 MG TAB PO SCH (08:23)
[2021-04-06] MEDS: FERROUS SULFATE 325 MG TAB PO SCH ×2 (08:23→20:45)
[2021-04-06] MEDS: CHOLECALCIFEROL 1,000 UNITS 25 MCG TAB PO SCH (08:23)
[2021-04-06] MEDS: FOLIC ACID 1 MG TAB PO SCH (08:23)
[2021-04-06] MEDS: METOPROLOL SUCC 50MG EXT REL TAB PO SCH (08:23)
[2021-04-06] MEDS: DOCUSATE SODIUM 100 MG CAP PO SCH ×2 (08:23→20:44)
[2021-04-06] MEDS: AMIODARONE 200 MG TAB PO SCH (08:24)
[2021-04-06] MEDS: INSULIN GLARGINE SOLOSTAR 100 UNITS/ML 3 ML PEN SC SCH ×2 (08:24→20:47)
[2021-04-06] MEDS: DICLOFENAC SOD 1% GEL 100 GM TUBE EXT SCH ×2 (08:24→20:46)
[2021-04-06] MEDS: FEXOFENADINE HCL 180 MG TAB PO SCH (08:24)
[2021-04-06] MEDS: GABAPENTIN 100 MG CAP PO SCH (08:24)
[2021-04-06] MEDS: ADVANCED PROBIOTIC 1250 MG CAPSULE PO SCH (08:24)
[2021-04-06] MEDS: INSULIN ASPART 100 UNITS/ML 3 ML PEN SC SCH ×4 (08:25→20:48)
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
[2021-04-06 08:48] LABS: BUN Creatinine Ratio 28.6 (10-20); Calcium 9.1 mg/dl (8.5-10.1); Creatinine Clr Calc Pharmacy 45.9 ml/min; Est GFR (African American) 39.9 ml/min; Est GFR (Non-African American) 34.4 ml/min
--- NOTE | 2021-04-06 12:58 | Electrocardiogram Report ---
Test Reason : Blood Pressure : / mmHG Vent. Rate : 065 BPM Atrial Rate : 065 BPM P-R Int : 188 ms QRS Dur : 104 ms QT Int : 458 ms P-R-T Axes : 039 -30 100 degrees QTc Int : 476 ms Normal sinus rhythm Left axis deviation Left ventricular hypertrophy with repolarization abnormality Abnormal ECG When compared with ECG of 03-APR-2021 12:49, Sinus rhythm has replaced Ectopic atrial rhythm Criteria for Anterolateral infarct are no longer Present Confirmed by Justin Harris ([id number]) on 04/06/2021 12:58:19 PM Referred By: REFERRED SELF Confirmed By:Justin Harris
[2021-04-06] MEDS: TORSEMIDE 10 MG TAB PO SCH (14:50)
--- NOTE | 2021-04-06 15:11 | Orthopedic Consultation ---
Date of Consultation April 06, 2021 Assessment & Plan (1) Thoracic spine fracture: At this time believe she does have acute fracture T12. There appears to be an old fracture at T6. With her health history we would like to avoid any surgical intervention. If she fails to progress over the next several days or she may ultimately be a candidate for T12 kyphoplasty provide at least some stabilization of the fracture and hopefully some improvement of her pain. History of Present Illness Reason for Consultation: Back pain Attending Physician: Med Marion MD History of Present Illness That has multiple medical issues and also presents with significant back pain. Updated imaging lumbar spine does demonstrate T12 compression fracture. This is acute.. At this time she does note severe advanced bilateral peripheral neuropathy creating constant numbness but denies any radiculopathy. She states she was able to sit in the chair yesterday for period of time relatively comfortable. She had not been out of bed yet today. She denies any radicular complaints. The symptoms do radiate around her rib cage right greater than left. Allergies Allergy/AdvReac Type Severity Reaction Status Date / Time aluminum Allergy Unknown Verified 04/03/21 17:25 diphenhydramine Allergy Unknown Verified 04/03/21 17:25 [From Benadryl] frovatriptan Allergy Unknown Verified 04/03/21 17:25 glipizide Allergy Unknown Verified 04/03/21 17:25 latex Allergy Unknown Verified 04/03/21 17:25 nylon Allergy Unknown Verified 04/03/21 17:25 pioglitazone [From Actos] Allergy Unknown Verified 04/03/21 17:25 turkey Allergy Unknown Verified 04/03/21 17:25 walnut Allergy Unknown Verified 04/03/21 17:25 ascorbic acid AdvReac Unknown Unknown Verified 04/03/21 17:25 acetaminophen [From Vicodin] AdvReac Unknown Verified 04/03/21 17:25 aspartame AdvReac Unknown Verified 04/03/21 17:25 benzoic acid AdvReac Unknown Verified 04/03/21 17:25 doxylamine AdvReac Unknown Verified 04/03/21 17:25 hydrocodone [From Vicodin] AdvReac Unknown Verified 04/03/21 17:25 kiwi AdvReac Unknown Verified 04/03/21 17:25 morphine AdvReac Unknown Verified 04/03/21 17:25 Sulfa (Sulfonamide AdvReac Unknown Verified 04/03/21 17:25 Antibiotics) sumatriptan [From Imitrex] AdvReac Unknown Verified 04/03/21 17:25 tramadol AdvReac Unknown Verified 04/03/21 17:25 Home Medications Medication Instructions Recorded Confirmed Type Lactobacillus acidophilus 100 mmu cells PO QAM 02/26/21 04/03/21 History amiodarone 100 mg tablet 200 mg PO QAM 02/26/21 04/03/21 History aspirin 81 mg tablet,delayed 81 mg PO HS 02/26/21 04/03/21 History release ogiymnzkyg-euhdmai-yjkphiir 50 1 cap PO Q4H PRN 02/26/21 04/03/21 History mg-325 mg-40 mg capsule calcium carbonate 600 mg (1,500 1 tab PO QDL 02/26/21 04/03/21 History mg)-vitamin D3 400 unit tablet (Calcium 600 + D(3)) cholecalciferol (vitamin D3) 25 25 mcg PO QAM 02/26/21 04/03/21 History mcg (1,000 unit) tablet (Vitamin D3) diclofenac sodium 1 % topical gel 4 g TOPICAL QID PRN 02/26/21 04/03/21 History docusate sodium 100 mg tablet 100 mg PO BID 02/26/21 04/03/21 History ferrous sulfate 325 mg (65 mg 325 mg PO BID 02/26/21 04/03/21 History iron) tablet (FeroSul) fexofenadine 180 mg tablet 180 mg PO QAM 02/26/21 04/03/21 History folic acid 1 mg tablet 1 mg PO QAM 02/26/21 04/03/21 History gabapentin 100 mg tablet 200 mg PO QAM 02/26/21 04/03/21 History insulin glargine 100 unit/mL (3 15 unit SUBCUT HS 02/26/21 04/03/21 History mL) subcutaneous pen (Giovanyaglfrankie Buckley U-100 Insulin) levothyroxine 25 mcg capsule 25 mcg PO QAM 02/26/21 04/03/21 History (Tirosint) metoprolol succinate 50 mg 50 mg PO QAM 02/26/21 04/03/21 History tablet,extended release 24 hr omeprazole 40 mg capsule,delayed 40 mg PO QAM 02/26/21 04/03/21 History release losartan 50 mg tablet 50 mg PO QAM #30 tab 03/06/21 04/03/21 Rx phenazopyridine 200 mg tablet 200 mg PO TID PRN #30 tab 03/06/21 04/03/21 Rx (Pyridium) spironolactone 25 mg tablet 25 mg PO QAM #30 tab 03/06/21 04/03/21 Rx torsemide 20 mg tablet 40 mg PO BID #60 tab 03/14/21 04/03/21 Rx gabapentin 300 mg tablet 300 mg PO PM 04/03/21 04/03/21 History Patient History Medical History Atrial fibrillation Charcot's joint of left foot CHF (congestive heart failure) Chronic diastolic (congestive) heart failure CKD (chronic kidney disease), stage III Diabetes mellitus, type II Diabetic retinopathy Fluid overload Paroxysmal atrial fibrillation Pedal edema Surgical History History of foot surgery Hx of cholecystectomy Family History Other Arthritis Social History Smoking Status: Never smoker Second Hand Exposure: No; Do You Dip or Chew Tobacco: No; Tobacco Cessation Education Requested by Patient: No Hx Alcohol Use: No Hx Substance Use: No Preferred Language: Rwandan Communication Ability: Effective [employer] Required: No Beliefs That Will Affect Care: None Current Living Situation: Alone Other Information That Helps Us Care for You: No Feels Safe at Home: Yes Safety Concerns: Feels Safe At This Time Gender Identity: Female Assistive Devices: Brace/Splint/Immobilizer, Walker and Wheelchair Assistive Devices Comment: Pt. back brace, BL leg braces, and mechanized wheelchair outside pt. room Physical Exam Physical Exam: Patient is alert and oriented she is cooperative the exam. She exhibits reasonable strength testing lower extremities. She does have difficulty mobilizing secondary to body habitus and weight. Results & Data ([facility]) Vital Signs (Past 12 Hours) Vital Signs Temp Pulse Pulse Resp BP Pulse Ox 04/06/21 14:15 88 106/69 04/06/21 11:11 36.8 C 69 18 116/75 94 07/19/21 10:26 73 04/06/21 07:47 36.9 C 72 20 141/82 H 91
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
[2021-04-06] MEDS ORDERED: predniSONE 10 MG TABLET PO ONE (16:35)
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
[2021-04-06] MEDS: ASPIRIN 81 MG ECTAB PO SCH (20:44)
[2021-04-06] MEDS: GABAPENTIN 300 MG CAP PO SCH (20:45)
[2021-04-06] MEDS: MUPIROCIN 2% OINT 22 GM TUBE EXT SCH (20:55)
[2021-04-07] MEDS: CYCLOBENZAPRINE HCL 10 MG TAB PO PRN ×2 (02:44→12:20)
[2021-04-07] MEDS: LEVOTHYROXINE SODIUM 25 MCG TABLET PO SCH (06:03)
[2021-04-07] MEDS: TORSEMIDE 10 MG TAB PO SCH ×2 (06:03→15:19)
[2021-04-07] MEDS: ADVANCED PROBIOTIC 1250 MG CAPSULE PO SCH (06:05)
[2021-04-07 07:03] LABS: BUN Creatinine Ratio 32.7 (10-20); Creatinine Clr Calc Pharmacy 40.7 ml/min; Est GFR (African American) 34.4 ml/min; Est GFR (Non-African American) 29.7 ml/min; Potassium 4.6 mmol/L (3.5-5.1)
[2021-04-07] MEDS: HYDROmorphone INJ 0.5 MG/0.5 ML SYR IV PRN ×3 (09:01→21:37)
[2021-04-07] MEDS: LOSARTAN POTASSIUM 50 MG TAB PO SCH (09:01)
[2021-04-07] MEDS: hydrALAZINE 10 MG TAB PO SCH ×3 (09:02→21:25)
[2021-04-07] MEDS: FERROUS SULFATE 325 MG TAB PO SCH ×2 (09:02→21:21)
[2021-04-07] MEDS: CHOLECALCIFEROL 1,000 UNITS 25 MCG TAB PO SCH (09:02)
[2021-04-07] MEDS: AMIODARONE 200 MG TAB PO SCH (09:02)
[2021-04-07] MEDS: PANTOprazole 40 MG TAB PO SCH (09:02)
[2021-04-07] MEDS: FOLIC ACID 1 MG TAB PO SCH (09:02)
[2021-04-07] MEDS: GABAPENTIN 100 MG CAP PO SCH (09:03)
[2021-04-07] MEDS: METOPROLOL SUCC 50MG EXT REL TAB PO SCH (09:03)
[2021-04-07] MEDS: LIDOCAINE 5% 1 PATCH TD SCH (09:03)
[2021-04-07] MEDS: FEXOFENADINE HCL 180 MG TAB PO SCH (09:03)
[2021-04-07] MEDS: DOCUSATE SODIUM 100 MG CAP PO SCH ×2 (09:03→21:21)
[2021-04-07] MEDS: MUPIROCIN 2% OINT 22 GM TUBE EXT SCH ×2 (09:04→21:23)
[2021-04-07] MEDS: POLYETHYLENE (MIRALAX) 17 GM PACK PO SCH (09:05)
[2021-04-07] MEDS: DICLOFENAC SOD 1% GEL 100 GM TUBE EXT SCH ×2 (09:05→21:20)
[2021-04-07] MEDS: INSULIN GLARGINE SOLOSTAR 100 UNITS/ML 3 ML PEN SC SCH ×2 (09:05→21:16)
[2021-04-07] MEDS: INSULIN ASPART 100 UNITS/ML 3 ML PEN SC SCH ×4 (09:06→21:16)
--- NOTE | 2021-04-07 12:32 | Pharmacy Report ---
Pharmacy Glycemic Short Note 2 - Date of Service April 07, 2021 - Glycemic Short BSG Results (Last 24 hours): 04/06/21 04/06/21 04/07/21 17:04 20:02 05:35 Glucose 136 H POC Glucose 159 H 175 H 04/07/21 04/07/21 08:06 12:07 Glucose POC Glucose 132 H 247 H OUTPATIENT ANTIDIABETIC REGIMEN: * Basaglar 15 units SQ HS (noncompliance?) * A1c 8.4% 04/04/21 ASSESSMENT: 04/07/21 * Patient's BSGs yesterday were [phone] mg/dL. Patient received 68 units of insulin (30 units of basal and 38 units of bolus). Patient received a dose of prednisone 40 mg on 04/05 (covered by 20 units of NPH) and 30 mg on 04/06 (not covered, given at 1740) * Patient's fasting today was 132 mg/dL. Fasting is slightly skewed by prednisone. Continue current Lantus regimen. * Postprandial blood sugars are elevated. Tighten CR as prednisone typically affects postprandial blood sugars. 04/05/21 * Blood sugars well controlled, 91-159mg/dl * Patient had 1 dose of PO Prednisone 40mg today, will give NPH to cover * NPH given about 2 hours after prednisone, d/t patient out of room at MRI * No other insulin changes needed at this time 04/04/21 * 61 year old female, admitted with volume overload, type 2 diabetic, A1c 8.4% on only basal insulin at home, questionable compliance. * Basal bolus insulin for inpatient glycemic control and titrate to goal blood sugar. PLAN FOR INPATIENT GLYCEMIC CONTROL: * Basal insulin * Lantus 15 units SQ BID (10 units if BSG < 140 mg/dL) * Bolus insulin * NovoLog per scale ACHS or Q6hrs while NPO * Goal Range: Low 110 mg/dL - High 140 mg/dL * Correction Factor: 20 mg/dL/unit * Nutritional / Prandial insulin per carb ratio of 1 unit per 5 grams CHO consumed PLAN FOR DISCHARGE: * to be determined
[2021-04-07] MEDS ORDERED: predniSONE 20 MG TAB PO ONE (16:30)
--- NOTE | 2021-04-07 16:36 | XRay Report ---
XR wrist RT min 3V routine CLINICAL HISTORY: Right wrist pain. Possible fracture. COMPARISON: None. DISCUSSION: The bones are osteopenic. There are old posttraumatic deformities of the distal radius an d ulna. No acute fractures are visualized. IMPRESSION: 1. Old posttraumatic changes 2. No acute fractures. ACT 112: Negative or not required by law. Electronically signed by: Fredrick Denise M.D. 04/07/2021 4:35 PM
--- NOTE | 2021-04-07 16:57 | CT Scan Report ---
CT chest diagnostic wo con CLINICAL HISTORY: left sided rib pain, r/o fracture COMPARISON STUDY: No previous studies for comparison. CT DOSE: 646.65 mGy.cm TECHNIQUE: CT of the thorax was performed from the thoracic inlet to the lung bases. Images are revi ewed in the axial, sagittal, and coronal planes. IV contrast was not administered for this examinatio n. A dose lowering technique was utilized adhering to the principles of ALARA. FINDINGS: No abnormal lymphadenopathy seen. Thyroid: Thyroid gland is enlarged with multiple hypoattenuating and partially calcified nodules, lar gest is measuring 3.3 x 2.9 cm in seen within left lobe of thyroid gland. Thoracic aorta: The thoracic aorta is normal in course and caliber, noting standard 3 vessel arch dominik franki. Heart: The heart is normal in size and configuration, without pericardial effusion. Heavy coronary ca lcifications are seen. Possible stent within left anterior descending artery. Lungs and pleural spaces: Tracheobronchial tree is patent. Mild atelectasis is seen at dependent portions of bilateral lower lobes. No large infiltrates or cons olidative lesions are seen. No pleural effusion demonstrated. There are few punctate pulmonary micronodules measuring less than 4 mm in size are seen and marked in PACs on series 4. No large pulmonary nodules are seen. Upper abdomen: No evidence of acute abnormalities. Status post cholecystectomy. Skeletal structures: Mild diffuse osteopenia and degenerative changes of the spine. Large Schmorl nod e at superior aspect of the T6 and anterior wedging of T6 vertebra might represent compression fractu re deformity. Healing fracture deformity of the lateral aspect of the left ninth rib is seen. No other rib fracture s are demonstrated. IMPRESSION: 1. Nondisplaced healing fracture of the left ninth rib. 2. Compression fracture deformity of T6 which was better evaluated on recent MRI of thoracic spine p erformed on April 05, 2021. 3. Enlarged thyroid gland with multiple nodules. Please correlate above-mentioned findings was prior history of thyroid disease. Further evaluation with ultrasound of thyroid gland might be considered. 4. No large infiltrates or consolidative lesions. Minimal atelectasis at dependent portions of bilat eral lower lobes. 5. Few pulmonary micronodules are seen throughout bilateral lungs. Please note that follow-up evalua tion for pulmonary nodules measuring less than 6 mm in size in 12 months in presence of high risk fac tors of pulmonary malignancy is optional per Fleischner Society guidelines. 6. Atherosclerosis. Please refer to below summary of Fleischner criteria recommendations for follow-up of incidental CT n odules (Jasson Akins, Guidelines for management of small pulmonary nodules detected on CT scans: A dena braun from the Fleischner Society, Radiology 237: [phone].) SOLID NODULES Solitary nodule size: <6 mm * low risk patients: no follow-up needed * high risk patients: optional CT at 12 months Solitary nodule size: 6-8 mm * low risk patients: follow-up at 6-12 months, then consider further follow-up at 18-24 months * high risk patients: initial follow-up CT at 6-12 months and then at 18-24 months if no change Solitary nodule size: >8 mm * either low or high risk patients - consider follow-up CT at 3 months, and/or CT-PET, and/or biopsy Multiple nodules size: <6 mm * low risk patients: no routine follow-up * high risk patients: optional CT at 12 months Multiple nodules size: 6-8 mm * low risk patients: follow-up at 3-6 months, then consider further follow-up at 18-24 months * high risk patients: follow-up at 3-6 months, then at 18-24 months if no change Multiple nodules size: >8 mm * low risk patients: follow-up at 3-6 months, then consider further follow-up at 18-24 months * high risk patients: follow-up at 3-6 months, then at 18-24 months if no change Note: newly detected indeterminate nodule in persons 35 years of age or older. * low risk patients: minimal or absent history of smoking and/or other known risk factors * high risk patients: history of smoking or of other known risk factors (e.g. first degree relative with lung cancer, or exposure to asbestos, radon, uranium) * if a nodule up to 8 mm is partly solid or is ground glass further follow-up is required after 24 m onths to exclude possible slow growing adenocarcinoma (JESSI) SUBSOLID NODULES Solitary pure ground-glass nodule * nodule size <6 mm - no CT follow-up required * nodule size >=6 mm - follow-up CT at 6-12 months, then every 2 years until 5 years Solitary part-solid nodule * nodule size <6 mm - no CT follow-up required * nodule size >=6 mm - follow-up CT at 3-6 months. If unchanged, and solid component remains <6 mm, then annual follow-up for 5 years Multiple subsolid nodules * nodule size <6 mm - follow-up CT at 3-6 months, consider further follow-up at 2 and 4 years if sta ble * nodule size >=6 mm - follow-up CT at 3-6 months, subsequent management based on the most suspiciou s nodule(s) ACT 112: Positive. There are findings on this exam that require communication between the performing entity and the patient following Patient Test Result Information Act ([place] Act 112) guidelines. The above report was generated using voice recognition software. It may contain grammatical, syntax o r spelling errors. Electronically signed by: Pepper Curry DO 04/07/2021 4:56 PM
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
--- NOTE | 2021-04-07 17:56 | Cardiology Progress Note ---
Date of Service April 07, 2021 Assessment & Plan (1) Acute on chronic diastolic heart failure: Plan: Creatinine down to 1.61 yesterday, now 1.82, hold torsemide in am, pending repeat. (2) Thoracic spine fracture: Plan: Continue back brace, cautious analgesics. Pain management and spine surgery input noted and appreciated. -noted left night rib fracture. -likely explains pt's discomfort in that area. (3) CKD (chronic kidney disease), stage III: Plan: repeat bmp in am Plan: DVT prophylaxis: Declines pharmacologic DVT prophylaxis. Continue SCDs Admission and Anticipated Discharge Date Admission Date: April 03, 2021 Subjective No cardiac complaints . SR in the 60s noted on telemetry. Physical Exam Physical Exam: Temp Pulse Resp BP Pulse Ox 36.5 C 66 18 144/83 H 96 04/07/21 15:25 04/07/21 15:25 04/07/21 15:25 04/07/21 15:25 04/07/21 15:25 Respiratory: normal respiratory effort, lungs clear to auscultation Cardiovascular: RRR, no murmur, no edema Neurologic: PERRL, EOMI, accommodation nl, no face palsy, no dysarthria Results & Data ([facility]) Vital Signs (Past 12 Hours) Vital Signs Temp Pulse Pulse Resp BP Pulse Ox 04/07/21 15:25 36.5 C 66 18 144/83 H 96 04/07/21 14:54 66 04/07/21 12:22 36.5 C 68 16 139/78 92 04/07/21 08:34 36.6 C 82 18 145/70 H 93 04/07/21 07:10 70 (1) CKD (chronic kidney disease), stage III Chronic kidney disease stage 3 subtype: unspecified whether 3a or 3b Qualified Code(s): N18.30 - Chronic kidney disease, stage 3 unspecified
[2021-04-07] MEDS: ASPIRIN 81 MG ECTAB PO SCH (21:20)
[2021-04-07] MEDS: GABAPENTIN 300 MG CAP PO SCH (21:22)
[2021-04-08] MEDS: CYCLOBENZAPRINE HCL 10 MG TAB PO PRN ×2 (01:44→11:40)
[2021-04-08] MEDS ORDERED: hydrALAZINE HCL 20 MG/ML VIAL IV ONE (03:00)
[2021-04-08] MEDS: PANTOprazole 40 MG TAB PO SCH (06:19)
[2021-04-08] MEDS: LEVOTHYROXINE SODIUM 25 MCG TABLET PO SCH (06:19)
[2021-04-08 07:27] LABS: BUN Creatinine Ratio 39.2 (10-20); Creatinine Clr Calc Pharmacy 48.2 ml/min; Est GFR (African American) 42.1 ml/min; Est GFR (Non-African American) 36.3 ml/min
[2021-04-08] MEDS ORDERED: predniSONE 10 MG TABLET PO ONE (09:00)
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
[2021-04-08] MEDS: HYDROmorphone INJ 0.5 MG/0.5 ML SYR IV PRN ×2 (09:21→14:37)
[2021-04-08] MEDS: FEXOFENADINE HCL 180 MG TAB PO SCH (09:22)
[2021-04-08] MEDS: METOPROLOL SUCC 50MG EXT REL TAB PO SCH (09:22)
[2021-04-08] MEDS: FOLIC ACID 1 MG TAB PO SCH (09:22)
[2021-04-08] MEDS: LOSARTAN POTASSIUM 50 MG TAB PO SCH (09:22)
[2021-04-08] MEDS: AMIODARONE 200 MG TAB PO SCH (09:22)
[2021-04-08] MEDS: ADVANCED PROBIOTIC 1250 MG CAPSULE PO SCH (09:23)
[2021-04-08] MEDS: DOCUSATE SODIUM 100 MG CAP PO SCH ×2 (09:23→22:09)
[2021-04-08] MEDS: FERROUS SULFATE 325 MG TAB PO SCH ×2 (09:23→21:45)
[2021-04-08] MEDS: CHOLECALCIFEROL 1,000 UNITS 25 MCG TAB PO SCH (09:23)
[2021-04-08] MEDS: GABAPENTIN 100 MG CAP PO SCH (09:23)
[2021-04-08] MEDS: hydrALAZINE 10 MG TAB PO SCH ×3 (09:23→21:44)
[2021-04-08] MEDS: INSULIN GLARGINE SOLOSTAR 100 UNITS/ML 3 ML PEN SC ONE ×2 (09:24→09:52)
[2021-04-08] MEDS: INSULIN ASPART 100 UNITS/ML 3 ML PEN SC SCH ×4 (09:24→21:46)
[2021-04-08] MEDS: MUPIROCIN 2% OINT 22 GM TUBE EXT SCH ×2 (09:26→21:43)
[2021-04-08] MEDS: DICLOFENAC SOD 1% GEL 100 GM TUBE EXT SCH ×2 (09:26→21:43)
[2021-04-08] MEDS: LIDOCAINE 5% 1 PATCH TD SCH (09:26)
[2021-04-08] MEDS: POLYETHYLENE (MIRALAX) 17 GM PACK PO SCH (09:36)
[2021-04-08 12:05] LABS: Appearance Urine Clear (Clear); Bilirubin Urine Negative (Negative); Blood Urine Negative (Negative); Color Urine Yellow; Glucose Urine UA Negative (Negative); Ketones Urine Negative (Negative); Leukocyte Esterase Urine Negative (Negative); Nitrite Urine Negative (Negative); Protein Urine Negative (Negative); Specific Gravity Urine 1.011 (1.000-1.030); Urobilinogen Urine Negative (Negative)
[2021-04-08] MEDS ORDERED: PHENAZOPYRIDINE HCL 200 MG TAB PO PRN (12:35)
--- NOTE | 2021-04-08 15:17 | Pharmacy Report ---
Pharmacy Glycemic Short Note 2 - Date of Service April 08, 2021 - Glycemic Short BSG Results (Last 24 hours): 04/07/21 04/07/21 04/08/21 17:14 20:25 05:58 Glucose 127 H POC Glucose 196 H 169 H 04/08/21 04/08/21 07:44 11:36 Glucose POC Glucose 123 H 230 H OUTPATIENT ANTIDIABETIC REGIMEN: * Basaglar 15 units SQ HS (noncompliance?) * A1c 8.4% 04/04/21 ASSESSMENT: 04/08/21 * Patient's BSGs yesterday were [phone] mg/dL. Patient received 63 units of insulin (30 units of basal and 33 units of bolus). Patient received a dose of prednisone 40 mg on 04/05 (covered by 20 units of NPH) and 30 mg on 04/06 (not covered, given at 1740). Patient scheduled to receive prednisone 10 mg x 1 today. * Patient's fasting today was 123 mg/dL. Fasting is slightly skewed by prednisone HOWEVER is trending downwards. Reduce to 25 units of basal today (~20% reduction) * Postprandial blood sugars are elevated. Tighten CR as prednisone typically affects postprandial blood sugars. 04/07/21 * Patient's BSGs yesterday were [phone] mg/dL. Patient received 68 units of insulin (30 units of basal and 38 units of bolus). Patient received a dose of prednisone 40 mg on 04/05 (covered by 20 units of NPH) and 30 mg on 04/06 (not covered, given at 1740) * Patient's fasting today was 132 mg/dL. Fasting is slightly skewed by prednisone. Continue current Lantus regimen. * Postprandial blood sugars are elevated. Tighten CR as prednisone typically affects postprandial blood sugars. 04/05/21 * Blood sugars well controlled, 91-159mg/dl * Patient had 1 dose of PO Prednisone 40mg today, will give NPH to cover * NPH given about 2 hours after prednisone, d/t patient out of room at MRI * No other insulin changes needed at this time 04/04/21 * 61 year old female, admitted with volume overload, type 2 diabetic, A1c 8.4% on only basal insulin at home, questionable compliance. * Basal bolus insulin for inpatient glycemic control and titrate to goal blood sugar. PLAN FOR INPATIENT GLYCEMIC CONTROL: * Basal insulin * Lantus 15 units SQ this morning and 10 units SQ this evening. Reassess in AM. * Bolus insulin * NovoLog per scale ACHS or Q6hrs while NPO * Goal Range: Low 110 mg/dL - High 140 mg/dL * Correction Factor: 20 mg/dL/unit * Nutritional / Prandial insulin per carb ratio of 1 unit per 4 grams CHO consumed PLAN FOR DISCHARGE: * to be determined
--- NOTE | 2021-04-08 15:41 | Cardiology Progress Note ---
Date of Service April 08, 2021 Assessment & Plan (1) Acute on chronic diastolic heart failure: Plan: Creatinine down to 1.6 Resume torsemide 20 mg PO daily in am. [employer] torsemide dose was 40 mg BID. As previously noted, pt declines pharmacological DVT prophylaxis. SCDs previously ordered but is not wearing them. Admission and Anticipated Discharge Date Admission Date: April 03, 2021 Subjective Only complaint is left rib pain. Physical Exam Physical Exam: Temp Pulse Resp BP Pulse Ox 36.5 C 66 18 144/83 H 96 04/07/21 15:25 04/07/21 15:25 04/07/21 15:25 04/07/21 15:25 04/07/21 15:25 Constitutional: WD/WN, vitals as above + morbidly obese Respiratory: normal respiratory effort, lungs clear to auscultation Cardiovascular: RRR, no murmur, no edema Rate/Rhythm: regular rate and regular rhythm Heart Sounds: no murmur Extremities: no edema Gastrointestinal (Abdomen): normal bowel sounds, soft, nontender, no hepatosplenomegaly Neurologic: PERRL, EOMI, accommodation nl, no face palsy, no dysarthria Results & Data ([facility]) Vital Signs (Past 12 Hours) Vital Signs Temp Pulse Pulse Resp BP Pulse Ox Pulse Ox 04/08/21 15:07 36.3 C L 72 16 111/69 92 04/08/21 14:33 94 04/08/21 14:22 89/64 L 04/08/21 11:24 36.4 C L 68 18 164/87 H 93 04/08/21 09:20 72 137/80 04/08/21 07:34 36.4 C L 66 18 156/89 H 98 04/08/21 07:00 63 04/08/21 05:02 147/88 H
[2021-04-08] MEDS ORDERED: INSULIN GLARGINE SOLOSTAR 100 UNITS/ML 3 ML PEN SC ONE (21:00)
[2021-04-08] MEDS: GABAPENTIN 300 MG CAP PO SCH (21:44)
[2021-04-08] MEDS: ASPIRIN 81 MG ECTAB PO SCH (21:45)
[2021-04-09] MEDS: LEVOTHYROXINE SODIUM 25 MCG TABLET PO SCH (05:36)
[2021-04-09 08:07] LABS: BUN Creatinine Ratio 36.9 (10-20); Calcium 8.7 mg/dl (8.5-10.1); Creatinine Clr Calc Pharmacy 40.8 ml/min; Est GFR (African American) 34.2 ml/min; Est GFR (Non-African American) 29.5 ml/min; Magnesium 2.7 mg/dl (1.8-2.4)
[2021-04-09] MEDS: CYCLOBENZAPRINE HCL 10 MG TAB PO PRN (08:29)
[2021-04-09] MEDS: AMIODARONE 200 MG TAB PO SCH (08:30)
[2021-04-09] MEDS: FERROUS SULFATE 325 MG TAB PO SCH ×2 (08:31→21:38)
[2021-04-09] MEDS: DOCUSATE SODIUM 100 MG CAP PO SCH ×2 (08:31→21:37)
[2021-04-09] MEDS: CHOLECALCIFEROL 1,000 UNITS 25 MCG TAB PO SCH (08:31)
[2021-04-09] MEDS: GABAPENTIN 100 MG CAP PO SCH (08:32)
[2021-04-09] MEDS: FOLIC ACID 1 MG TAB PO SCH (08:32)
[2021-04-09] MEDS: FEXOFENADINE HCL 180 MG TAB PO SCH (08:32)
[2021-04-09] MEDS: LOSARTAN POTASSIUM 50 MG TAB PO SCH (08:33)
[2021-04-09] MEDS: ADVANCED PROBIOTIC 1250 MG CAPSULE PO SCH (08:33)
[2021-04-09] MEDS: hydrALAZINE 10 MG TAB PO SCH ×3 (08:33→21:35)
[2021-04-09] MEDS: PANTOprazole 40 MG TAB PO SCH (08:34)
[2021-04-09] MEDS: METOPROLOL SUCC 50MG EXT REL TAB PO SCH (08:34)
[2021-04-09] MEDS: POLYETHYLENE (MIRALAX) 17 GM PACK PO SCH (08:35)
[2021-04-09] MEDS: TORSEMIDE 10 MG TAB PO SCH (08:36)
[2021-04-09] MEDS: DICLOFENAC SOD 1% GEL 100 GM TUBE EXT SCH ×2 (08:37→21:31)
[2021-04-09] MEDS: LIDOCAINE 5% 1 PATCH TD SCH (08:37)
[2021-04-09] MEDS: MUPIROCIN 2% OINT 22 GM TUBE EXT SCH ×2 (08:38→21:33)
[2021-04-09] MEDS: INSULIN ASPART 100 UNITS/ML 3 ML PEN SC SCH ×4 (08:39→21:32)
[2021-04-09] MEDS: INSULIN GLARGINE SOLOSTAR 100 UNITS/ML 3 ML PEN SC SCH ×2 (08:41→21:32)
[2021-04-09] MEDS ORDERED: SODIUM POLYSTYRENE SULFONATE 15G/60ML SUSP PO STA (09:29)
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
[2021-04-09] MEDS: HYDROmorphone INJ 0.5 MG/0.5 ML SYR IV PRN (10:54)
[2021-04-09] MEDS: GABAPENTIN 300 MG CAP PO SCH (21:36)
[2021-04-09] MEDS: ASPIRIN 81 MG ECTAB PO SCH (21:37)
[2021-04-10] MEDS: LEVOTHYROXINE SODIUM 25 MCG TABLET PO SCH (05:50)
[2021-04-10] MEDS: DOCUSATE SODIUM 100 MG CAP PO SCH ×2 (08:51→20:40)
[2021-04-10] MEDS: POLYETHYLENE (MIRALAX) 17 GM PACK PO SCH (08:51)
[2021-04-10] MEDS: AMIODARONE 200 MG TAB PO SCH (08:51)
[2021-04-10] MEDS: DICLOFENAC SOD 1% GEL 100 GM TUBE EXT SCH ×2 (08:51→20:41)
[2021-04-10] MEDS: FEXOFENADINE HCL 180 MG TAB PO SCH (08:51)
[2021-04-10] MEDS: FERROUS SULFATE 325 MG TAB PO SCH ×2 (08:51→20:42)
[2021-04-10] MEDS: FOLIC ACID 1 MG TAB PO SCH (08:51)
[2021-04-10] MEDS: GABAPENTIN 100 MG CAP PO SCH (08:51)
[2021-04-10] MEDS: CHOLECALCIFEROL 1,000 UNITS 25 MCG TAB PO SCH (08:51)
[2021-04-10] MEDS: LIDOCAINE 5% 1 PATCH TD SCH (08:52)
[2021-04-10] MEDS: PANTOprazole 40 MG TAB PO SCH (08:52)
[2021-04-10] MEDS: INSULIN ASPART 100 UNITS/ML 3 ML PEN SC SCH ×4 (08:52→20:36)
[2021-04-10] MEDS: hydrALAZINE 10 MG TAB PO SCH ×3 (08:52→20:38)
[2021-04-10] MEDS: LOSARTAN POTASSIUM 50 MG TAB PO SCH (08:52)
[2021-04-10] MEDS: TORSEMIDE 10 MG TAB PO SCH (08:52)
[2021-04-10] MEDS: MUPIROCIN 2% OINT 22 GM TUBE EXT SCH ×2 (08:52→20:37)
[2021-04-10] MEDS: INSULIN GLARGINE SOLOSTAR 100 UNITS/ML 3 ML PEN SC SCH ×2 (08:52→17:36)
[2021-04-10] MEDS: METOPROLOL SUCC 50MG EXT REL TAB PO SCH (08:52)
[2021-04-10] MEDS: ADVANCED PROBIOTIC 1250 MG CAPSULE PO SCH (08:54)
[2021-04-10 10:20] LABS: BUN Creatinine Ratio 36.7 (10-20); Calcium 8.7 mg/dl (8.5-10.1); Creatinine Clr Calc Pharmacy 35.7 ml/min; Est GFR (African American) 29.1 ml/min; Est GFR (Non-African American) 25.1 ml/min; Magnesium 2.7 mg/dl (1.8-2.4); Phosphorus 4.3 mg/dl (2.5-4.9)
[2021-04-10] MEDS: CYCLOBENZAPRINE HCL 10 MG TAB PO PRN ×2 (12:09→20:46)
--- NOTE | 2021-04-10 15:17 | Pharmacy Report ---
Pharmacy Glycemic Short Note 2 - Date of Service April 10, 2021 - Glycemic Short BSG Results (Last 24 hours): 04/09/21 04/09/21 04/10/21 17:12 20:06 07:54 Glucose POC Glucose 299 H 169 H 112 H 04/10/21 04/10/21 09:01 12:02 Glucose 126 H POC Glucose 122 H OUTPATIENT ANTIDIABETIC REGIMEN: * Basaglar 15 units SQ HS (noncompliance?) * A1c 8.4% 04/04/21 ASSESSMENT: 04/10/21 * Patient's BSGs yesterday were [phone] mg/dL. Patient received 80 units of insulin yesterday (30 units of basal and 50 units of bolus). * Fasting today is 112 mg/dL. * Continue Lantus 15 BID. * Patient's kidney function fluctuates. Currently higher than previously but not significantly. * Continue slightly tightened CR. 04/08/21 * Patient's BSGs yesterday were [phone] mg/dL. Patient received 63 units of insulin (30 units of basal and 33 units of bolus). Patient received a dose of prednisone 40 mg on 04/05 (covered by 20 units of NPH) and 30 mg on 04/06 (not covered, given at 1740). Patient scheduled to receive prednisone 10 mg x 1 today. * Patient's fasting today was 123 mg/dL. Fasting is slightly skewed by prednisone HOWEVER is trending downwards. Reduce to 25 units of basal today (~20% reduction) * Postprandial blood sugars are elevated. Tighten CR as prednisone typically affects postprandial blood sugars. 04/07/21 * Patient's BSGs yesterday were [phone] mg/dL. Patient received 68 units of insulin (30 units of basal and 38 units of bolus). Patient received a dose of prednisone 40 mg on 04/05 (covered by 20 units of NPH) and 30 mg on 04/06 (not covered, given at 1740) * Patient's fasting today was 132 mg/dL. Fasting is slightly skewed by prednisone. Continue current Lantus regimen. * Postprandial blood sugars are elevated. Tighten CR as prednisone typically affects postprandial blood sugars. 04/05/21 * Blood sugars well controlled, 91-159mg/dl * Patient had 1 dose of PO Prednisone 40mg today, will give NPH to cover * NPH given about 2 hours after prednisone, d/t patient out of room at MRI * No other insulin changes needed at this time 04/04/21 * 61 year old female, admitted with volume overload, type 2 diabetic, A1c 8.4% on only basal insulin at home, questionable compliance. * Basal bolus insulin for inpatient glycemic control and titrate to goal blood sugar. PLAN FOR INPATIENT GLYCEMIC CONTROL: * Basal insulin * Lantus 15 units SQ BID * Bolus insulin * NovoLog per scale ACHS or Q6hrs while NPO * Goal Range: Low 110 mg/dL - High 140 mg/dL * Correction Factor: 20 mg/dL/unit * Nutritional / Prandial insulin per carb ratio of 1 unit per 5 grams CHO consumed PLAN FOR DISCHARGE: * Patient's HbA1C is elevated above goal range (goal would be ~8% for patient with her comorbidities). * Consider changing Lantus to 30 units SQ once daily to decrease number of injections per day. * If patient is willing, could consider Novolog 15 units with largest meal of the day.
--- NOTE | 2021-04-10 17:13 | Communication Note ---
Date of Service: April 10, 2021 Creatinine has trended up to 2.09. On limited exam, fluid status is stable. Hold torsemide. Continue PT / OT.
[2021-04-10] MEDS: GABAPENTIN 300 MG CAP PO SCH (20:40)
[2021-04-10] MEDS: ASPIRIN 81 MG ECTAB PO SCH (20:41)
[2021-04-10] MEDS: CARBOHYDRATES FOR HYPOGLYCEMIA PO PRN ×2 (21:24→21:44)
[2021-04-11] MEDS: HYDROmorphone INJ 0.5 MG/0.5 ML SYR IV PRN (03:17)
[2021-04-11] MEDS: LEVOTHYROXINE SODIUM 25 MCG TABLET PO SCH (06:12)
[2021-04-11] MEDS: LIDOCAINE 5% 1 PATCH TD SCH (08:31)
[2021-04-11] MEDS: LOSARTAN POTASSIUM 50 MG TAB PO SCH (08:32)
[2021-04-11] MEDS: PANTOprazole 40 MG TAB PO SCH (08:32)
[2021-04-11] MEDS: MUPIROCIN 2% OINT 22 GM TUBE EXT SCH ×2 (08:32→21:09)
[2021-04-11] MEDS: ADVANCED PROBIOTIC 1250 MG CAPSULE PO SCH (08:32)
[2021-04-11] MEDS: hydrALAZINE 10 MG TAB PO SCH ×3 (08:32→21:11)
[2021-04-11] MEDS: CHOLECALCIFEROL 1,000 UNITS 25 MCG TAB PO SCH (08:32)
[2021-04-11] MEDS: FERROUS SULFATE 325 MG TAB PO SCH ×2 (08:32→21:12)
[2021-04-11] MEDS: GABAPENTIN 100 MG CAP PO SCH (08:32)
[2021-04-11] MEDS: POLYETHYLENE (MIRALAX) 17 GM PACK PO SCH (08:32)
[2021-04-11] MEDS: DOCUSATE SODIUM 100 MG CAP PO SCH ×2 (08:32→21:10)
[2021-04-11] MEDS: AMIODARONE 200 MG TAB PO SCH (08:32)
[2021-04-11] MEDS: METOPROLOL SUCC 50MG EXT REL TAB PO SCH (08:32)
[2021-04-11] MEDS: FOLIC ACID 1 MG TAB PO SCH (08:33)
[2021-04-11] MEDS: DICLOFENAC SOD 1% GEL 100 GM TUBE EXT SCH ×2 (08:33→21:08)
[2021-04-11] MEDS: INSULIN ASPART 100 UNITS/ML 3 ML PEN SC SCH ×4 (08:33→21:09)
[2021-04-11] MEDS: FEXOFENADINE HCL 180 MG TAB PO SCH (08:33)
[2021-04-11] MEDS: CYCLOBENZAPRINE HCL 10 MG TAB PO PRN ×2 (08:41→21:08)
[2021-04-11 08:56] LABS: BUN Creatinine Ratio 39.2 (10-20); Calcium 8.9 mg/dl (8.5-10.1); Creatinine Clr Calc Pharmacy 38.2 ml/min; Est GFR (African American) 31.1 ml/min; Est GFR (Non-African American) 26.8 ml/min; Potassium 4.5 mmol/L (3.5-5.1)
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
[2021-04-11] MEDS: INSULIN GLARGINE SOLOSTAR 100 UNITS/ML 3 ML PEN SC SCH (12:32)
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
[2021-04-11] MEDS: GABAPENTIN 300 MG CAP PO SCH (21:10)
[2021-04-11] MEDS: ASPIRIN 81 MG ECTAB PO SCH (21:12)
[2021-04-12] MEDS: LEVOTHYROXINE SODIUM 25 MCG TABLET PO SCH (04:55)
[2021-04-12] MEDS: LIDOCAINE 5% 1 PATCH TD SCH (08:24)
[2021-04-12] MEDS: POLYETHYLENE (MIRALAX) 17 GM PACK PO SCH (08:24)
[2021-04-12] MEDS: hydrALAZINE 10 MG TAB PO SCH ×3 (08:27→20:29)
[2021-04-12] MEDS: AMIODARONE 200 MG TAB PO SCH (08:27)
[2021-04-12] MEDS: FOLIC ACID 1 MG TAB PO SCH (08:27)
[2021-04-12] MEDS: CHOLECALCIFEROL 1,000 UNITS 25 MCG TAB PO SCH (08:27)
[2021-04-12] MEDS: METOPROLOL SUCC 50MG EXT REL TAB PO SCH (08:27)
[2021-04-12] MEDS: GABAPENTIN 100 MG CAP PO SCH (08:27)
[2021-04-12] MEDS: FEXOFENADINE HCL 180 MG TAB PO SCH (08:27)
[2021-04-12] MEDS: DICLOFENAC SOD 1% GEL 100 GM TUBE EXT SCH ×2 (08:27→20:35)
[2021-04-12] MEDS: ADVANCED PROBIOTIC 1250 MG CAPSULE PO SCH (08:27)
[2021-04-12] MEDS: DOCUSATE SODIUM 100 MG CAP PO SCH ×2 (08:27→20:29)
[2021-04-12] MEDS: FERROUS SULFATE 325 MG TAB PO SCH ×2 (08:27→20:28)
[2021-04-12] MEDS: MUPIROCIN 2% OINT 22 GM TUBE EXT SCH ×2 (08:28→20:35)
[2021-04-12] MEDS: LOSARTAN POTASSIUM 50 MG TAB PO SCH (08:28)
[2021-04-12] MEDS: PANTOprazole 40 MG TAB PO SCH (08:28)
[2021-04-12] MEDS: CYCLOBENZAPRINE HCL 10 MG TAB PO PRN ×2 (08:28→20:42)
[2021-04-12] MEDS: INSULIN GLARGINE SOLOSTAR 100 UNITS/ML 3 ML PEN SC SCH (08:28)
[2021-04-12] MEDS: INSULIN ASPART 100 UNITS/ML 3 ML PEN SC SCH ×4 (08:28→20:33)
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
[2021-04-12 09:16] LABS: BUN Creatinine Ratio 48.5 (10-20); Calcium 9.1 mg/dl (8.5-10.1); Creatinine Clr Calc Pharmacy 40.2 ml/min; Est GFR (African American) 36.8 ml/min; Est GFR (Non-African American) 31.8 ml/min; Magnesium 2.8 mg/dl (1.8-2.4); Phosphorus 3.9 mg/dl (2.5-4.9); Potassium 4.3 mmol/L (3.5-5.1)
--- NOTE | 2021-04-12 11:27 | Nephrology Consultation ---
Date of Consultation April 12, 2021 Assessment & Plan (1) Acute kidney injury superimposed on CKD: Patient with acute kidney injury on CKD likely cardiorenal syndrome. Baseline creatinine of 1.5. Creatinine peaked at 2 but now downtrending to 1.7. She is making urine. Electrolytes are stable. Volume status now controlled with diuresis. -Continue diuresis -urinalysis due to dysuria -Daily BMP while in house. patient can be discharged to follow up with Dr. Farooq in [place] in 2-3 weeks, repeat BMP in a week (2) Acute on chronic diastolic heart failure: Patient admitted with acute on chronic CHF. Recent echo showing EF of 60% with grade 2 diastolic dysfunction. She is improving on diuresis. Agree with current rate of diuretics torsemide 40 mg twice daily. Continue 1.2 L fluid restriction. She will need 2 g salt diet given at home. History of Present Illness Reason for Consultation: Acute kidney injury on CKD Requesting Physician: Enzo Babcock MD Attending Physician: Enzo Babcock MD History of Present Illness This is 61-year-old female with history of diastolic CHF EF of 60%, paroxysmal A. fib, carotid artery disease, hypertension, chronic low oxygen at night who was admitted on 04/03/2021 with shortness of breath. She has been aggressively diuresed. She has CKD stage III with baseline creatinine around 1.5. Nephrology is being consulted for worsening renal function. Creatinine peaked to 2 2 days ago but now downtrending to 1.7 today. Her BUN is 84. She feels better. No shortness of breath. Her main complaint is back pain. Her leg swelling has subsided. She is also complaining of dysuria and frequency. She is currently on torsemide 40 mg twice daily. She also complains of dry mouth Allergies Allergy/AdvReac Type Severity Reaction Status Date / Time aluminum Allergy Unknown Verified 04/03/21 17:25 diphenhydramine Allergy Unknown Verified 04/03/21 17:25 [From Benadryl] frovatriptan Allergy Unknown Verified 04/03/21 17:25 glipizide Allergy Unknown Verified 04/03/21 17:25 latex Allergy Unknown Verified 04/03/21 17:25 nylon Allergy Unknown Verified 04/03/21 17:25 pioglitazone [From Actos] Allergy Unknown Verified 04/03/21 17:25 turkey Allergy Unknown Verified 04/03/21 17:25 walnut Allergy Unknown Verified 04/03/21 17:25 ascorbic acid AdvReac Unknown Unknown Verified 04/03/21 17:25 acetaminophen [From Vicodin] AdvReac Unknown Verified 04/03/21 17:25 aspartame AdvReac Unknown Verified 04/03/21 17:25 benzoic acid AdvReac Unknown Verified 04/03/21 17:25 doxylamine AdvReac Unknown Verified 04/03/21 17:25 hydrocodone [From Vicodin] AdvReac Unknown Verified 04/03/21 17:25 kiwi AdvReac Unknown Verified 04/03/21 17:25 morphine AdvReac Unknown Verified 04/03/21 17:25 Sulfa (Sulfonamide AdvReac Unknown Verified 04/03/21 17:25 Antibiotics) sumatriptan [From Imitrex] AdvReac Unknown Verified 04/03/21 17:25 tramadol AdvReac Unknown Verified 04/03/21 17:25 Home Medications Medication Instructions Recorded Confirmed Type Lactobacillus acidophilus 100 mmu cells PO QAM 02/26/21 04/03/21 History amiodarone 100 mg tablet 200 mg PO QAM 02/26/21 04/03/21 History aspirin 81 mg tablet,delayed 81 mg PO HS 02/26/21 04/03/21 History release [id number] 50 1 cap PO Q4H PRN 02/26/21 04/03/21 History mg-325 mg-40 mg capsule calcium carbonate 600 mg (1,500 1 tab PO QDL 02/26/21 04/03/21 History mg)-vitamin D3 400 unit tablet (Calcium 600 + D(3)) cholecalciferol (vitamin D3) 25 25 mcg PO QAM 02/26/21 04/03/21 History mcg (1,000 unit) tablet (Vitamin D3) diclofenac sodium 1 % topical gel 4 g TOPICAL QID PRN 02/26/21 04/03/21 History docusate sodium 100 mg tablet 100 mg PO BID 02/26/21 04/03/21 History ferrous sulfate 325 mg (65 mg 325 mg PO BID 02/26/21 04/03/21 History iron) tablet (FeroSul) fexofenadine 180 mg tablet 180 mg PO QAM 02/26/21 04/03/21 History folic acid 1 mg tablet 1 mg PO QAM 02/26/21 04/03/21 History gabapentin 100 mg tablet 200 mg PO QAM 02/26/21 04/03/21 History insulin glargine 100 unit/mL (3 15 unit SUBCUT HS 02/26/21 04/03/21 History mL) subcutaneous pen (Basaglar KwikPen U-100 Insulin) levothyroxine 25 mcg capsule 25 mcg PO QAM 02/26/21 04/03/21 History (Tirosint) metoprolol succinate 50 mg 50 mg PO QAM 02/26/21 04/03/21 History tablet,extended release 24 hr omeprazole 40 mg capsule,delayed 40 mg PO QAM 02/26/21 04/03/21 History release losartan 50 mg tablet 50 mg PO QAM #30 tab 03/06/21 04/03/21 Rx phenazopyridine 200 mg tablet 200 mg PO TID PRN #30 tab 03/06/21 04/03/21 Rx (Pyridium) spironolactone 25 mg tablet 25 mg PO QAM #30 tab 03/06/21 04/03/21 Rx torsemide 20 mg tablet 40 mg PO BID #60 tab 03/14/21 04/03/21 Rx gabapentin 300 mg tablet 300 mg PO PM 04/03/21 04/03/21 History Patient History Medical History Atrial fibrillation Charcot's joint of left foot CHF (congestive heart failure) Chronic diastolic (congestive) heart failure CKD (chronic kidney disease), stage III Diabetes mellitus, type II Diabetic retinopathy Fluid overload Paroxysmal atrial fibrillation Pedal edema Surgical History History of foot surgery Hx of cholecystectomy Family History Other Arthritis Social History Smoking Status: Never smoker Second Hand Exposure: No; Do You Dip or Chew Tobacco: No; Tobacco Cessation Education Requested by Patient: No Hx Alcohol Use: No Hx Substance Use: No Preferred Language: Senegalese Communication Ability: Effective Solo Truck Driver 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 back brace, BL leg braces, and mechanized wheelchair outside pt. room Review of Systems Review of Systems: All other systems were reviewed and negative except as noted in HPI Physical Exam Physical Exam: General exam: Appears comfortable, no acute distress HEENT: Pupils are equal and reactive to light Neck: No JVD, neck is supple trachea is midline Respiratory system: Clear breath sounds bilaterally. Gastrointestinal: Abdomen is soft, non distended, non tender, bowel sounds are present CVS: Regular rate and rhythm. No murmurs, rubs or gallops Musculoskeletal: No joint or muscle tenderness Extremities: Non tender, no edema, peripheral pulses are present Neuro: Oriented, no tremors, no focal neurological deficits Skin: No rashes Results & Data ([facility]) Vital Signs (Past 12 Hours) Vital Signs Temp Pulse Pulse Resp BP Pulse Ox 04/12/21 07:53 36.8 C 79 18 147/83 H 95 04/12/21 07:21 75 04/12/21 04:09 36.7 C 75 20 118/74 96 04/12/21 00:45 75 04/11/21 23:33 36.9 C 75 20 116/72 92 Laboratory Results 04/12/21 08:40 04/12/21 08:40 Phosphorus 3.9
--- NOTE | 2021-04-12 15:34 | Pharmacy Report ---
Pharmacy Glycemic Short Note 2 - Date of Service April 12, 2021 - Glycemic Short BSG Results (Last 24 hours): 04/11/21 04/11/21 04/12/21 16:33 21:05 00:45 Glucose POC Glucose 133 H 98 63 L* 04/12/21 04/12/21 04/12/21 00:47 07:42 08:40 Glucose 117 H POC Glucose 71 126 H 04/12/21 11:39 Glucose POC Glucose 178 H OUTPATIENT ANTIDIABETIC REGIMEN: * Basaglar 15 units SQ HS (noncompliance?) * A1c 8.4% 04/04/21 ASSESSMENT: 04/12/21: * Lunch BSG tends to be the highest of the day with values trending downward at dinner and HS. BSG of 63 mg/dL around midnight. * Will leave aggressive carb coverage at breakfast and lunch and further loosen carb coverage at dinner and HS to avoid overnight hypoglycemia. * Fasting BSG is at goal. 04/10/21 * Patient's BSGs yesterday were [phone] mg/dL. Patient received 80 units of insulin yesterday (30 units of basal and 50 units of bolus). * Fasting today is 112 mg/dL. * Continue Lantus 15 BID. * Patient's kidney function fluctuates. Currently higher than previously but not significantly. * Continue slightly tightened CR. 04/08/21 * Patient's BSGs yesterday were [phone] mg/dL. Patient received 63 units of insulin (30 units of basal and 33 units of bolus). Patient received a dose of prednisone 40 mg on 04/05 (covered by 20 units of NPH) and 30 mg on 04/06 (not covered, given at 1740). Patient scheduled to receive prednisone 10 mg x 1 today. * Patient's fasting today was 123 mg/dL. Fasting is slightly skewed by prednisone HOWEVER is trending downwards. Reduce to 25 units of basal today (~20% reduction) * Postprandial blood sugars are elevated. Tighten CR as prednisone typically affects postprandial blood sugars. 04/07/21 * Patient's BSGs yesterday were [phone] mg/dL. Patient received 68 units of insulin (30 units of basal and 38 units of bolus). Patient received a dose of prednisone 40 mg on 7/18 (covered by 20 units of NPH) and 30 mg on 04/06 (not covered, given at 1740) * Patient's fasting today was 132 mg/dL. Fasting is slightly skewed by prednisone. Continue current Lantus regimen. * Postprandial blood sugars are elevated. Tighten CR as prednisone typically affects postprandial blood sugars. PLAN FOR INPATIENT GLYCEMIC CONTROL: * Basal insulin * Continue Lantus 30 units SQ daily * Bolus insulin * NovoLog per scale ACHS or Q6hrs while NPO * Goal Range: Low 110 mg/dL - High 140 mg/dL Breakfast and lunch: * Correction Factor: 20 mg/dL/unit * Nutritional / Prandial insulin per carb ratio of 1 unit per 5 grams CHO consumed Dinner and HS: * Correction Factor: 30 mg/dL/unit * Nutritional / Prandial insulin per carb ratio of 1 unit per 10 grams CHO consumed PLAN FOR DISCHARGE: * Patient's HbA1C is elevated above goal range (goal would be ~8% for patient with her comorbidities). * Consider changing Lantus to 30 units SQ once daily to decrease number of injections per day. * If patient is willing, could consider Novolog 10 units with largest meal of the day.
[2021-04-12] MEDS: ASPIRIN 81 MG ECTAB PO SCH (20:27)
[2021-04-12] MEDS: GABAPENTIN 300 MG CAP PO SCH (20:30)
[2021-04-12] MEDS: HYDROmorphone INJ 0.5 MG/0.5 ML SYR IV PRN (22:39)
[2021-04-13] MEDS: LEVOTHYROXINE SODIUM 25 MCG TABLET PO SCH (06:16)
[2021-04-13 06:42] LABS: BUN Creatinine Ratio 53.8 (10-20); Calcium 8.6 mg/dl (8.5-10.1); Creatinine Clr Calc Pharmacy 46.2 ml/min; Est GFR (African American) 43.4 ml/min; Est GFR (Non-African American) 37.5 ml/min; Potassium 4.2 mmol/L (3.5-5.1)
[2021-04-13 08:16] LABS: Appearance Urine Cloudy (Clear); Bacteria Urine Automated 4+ (Negative); Bilirubin Urine Negative (Negative); Blood Urine 1+ (Negative); Cast Urine Automated 0 /lpf (0-5); Color Urine Yellow; Epithelial Cell Urine Auto 0-5 /lpf (0-5); Glucose Urine UA Negative (Negative); Ketones Urine Negative (Negative); Leukocyte Esterase Urine 3+ (Negative); Nitrite Urine Positive (Negative); Protein Urine Negative (Negative); Specific Gravity Urine 1.011 (1.000-1.030); Urobilinogen Urine Negative (Negative); WBC Urine Automated >30 /hpf (0-5); pH Urine 6.5 (4.5-7.5)
[2021-04-13] MEDS: hydrALAZINE 10 MG TAB PO SCH ×3 (08:22→20:27)
[2021-04-13] MEDS: FERROUS SULFATE 325 MG TAB PO SCH ×2 (08:22→20:26)
[2021-04-13] MEDS: PANTOprazole 40 MG TAB PO SCH (08:22)
[2021-04-13] MEDS: DOCUSATE SODIUM 100 MG CAP PO SCH ×2 (08:22→20:24)
[2021-04-13] MEDS: METOPROLOL SUCC 50MG EXT REL TAB PO SCH (08:23)
[2021-04-13] MEDS: AMIODARONE 200 MG TAB PO SCH (08:23)
[2021-04-13] MEDS: GABAPENTIN 100 MG CAP PO SCH (08:23)
[2021-04-13] MEDS: FEXOFENADINE HCL 180 MG TAB PO SCH (08:23)
[2021-04-13] MEDS: FOLIC ACID 1 MG TAB PO SCH (08:23)
[2021-04-13] MEDS: LOSARTAN POTASSIUM 50 MG TAB PO SCH (08:24)
[2021-04-13] MEDS: ADVANCED PROBIOTIC 1250 MG CAPSULE PO SCH (08:25)
[2021-04-13] MEDS: CHOLECALCIFEROL 1,000 UNITS 25 MCG TAB PO SCH (08:25)
[2021-04-13] MEDS: DICLOFENAC SOD 1% GEL 100 GM TUBE EXT SCH ×2 (08:26→20:29)
[2021-04-13] MEDS: INSULIN GLARGINE SOLOSTAR 100 UNITS/ML 3 ML PEN SC SCH (08:26)
[2021-04-13] MEDS: MUPIROCIN 2% OINT 22 GM TUBE EXT SCH ×2 (08:27→20:29)
[2021-04-13] MEDS: INSULIN ASPART 100 UNITS/ML 3 ML PEN SC SCH ×4 (08:30→20:54)
--- NOTE | 2021-04-13 09:20 | Nephrology Progress Note ---
Date of Service April 13, 2021 Assessment & Plan Admission and Anticipated Discharge Date Admission Date: April 03, 2021 Subjective No new issues. feels better. labs better. General exam: Appears comfortable, no acute distress HEENT: Pupils are equal and reactive to light Neck: No JVD, neck is supple trachea is midline Respiratory system: Clear breath sounds bilaterally. Gastrointestinal: Abdomen is soft, non distended, non tender, bowel sounds are present CVS: Regular rate and rhythm. No murmurs, rubs or gallops Musculoskeletal: No joint or muscle tenderness Extremities: Non tender, no edema, peripheral pulses are present Neuro: Oriented, no tremors, no focal neurological deficits Skin: No rashes Labs --creat 1.5 now. A/p ARF on CKD 3 CHF. --Stable for discharge now from renal standpoint Can be discharged on her home diuretics same dose. f/u Nephrology within 2--3 weeks. Results & Data ([facility]) Vital Signs (Past 12 Hours) Vital Signs Temp Pulse Pulse Resp BP Pulse Ox 04/13/21 07:21 74 04/13/21 07:00 36.8 C 76 20 130/77 92 04/13/21 04:16 75 04/13/21 04:00 36.6 C 75 18 139/72 94 04/13/21 00:00 36.7 C 75 18 130/71 93
[2021-04-13] MEDS: LIDOCAINE 5% 1 PATCH TD SCH (10:41)
[2021-04-13] MEDS: POLYETHYLENE (MIRALAX) 17 GM PACK PO SCH (10:41)
[2021-04-13] MEDS: cefTRIAXone SODIUM 2,000 MG in DEXTROSE 5% 50 ML IV SCH (11:05)
[2021-04-13] MEDS: CYCLOBENZAPRINE HCL 10 MG TAB PO PRN (14:43)
[2021-04-13] MEDS: ASPIRIN 81 MG ECTAB PO SCH (20:24)
[2021-04-13] MEDS: GABAPENTIN 300 MG CAP PO SCH (20:27)
[2021-04-14] MEDS: CYCLOBENZAPRINE HCL 10 MG TAB PO PRN ×3 (00:38→20:51)
[2021-04-14] MEDS: LEVOTHYROXINE SODIUM 25 MCG TABLET PO SCH (06:18)
[2021-04-14 07:48] LABS: Calcium 8.8 mg/dl (8.5-10.1); Creatinine Clr Calc Pharmacy 53.9 ml/min; Est GFR (African American) 51.6 ml/min; Est GFR (Non-African American) 44.6 ml/min; Potassium 4.1 mmol/L (3.5-5.1)
[2021-04-14] MEDS: DICLOFENAC SOD 1% GEL 100 GM TUBE EXT SCH ×2 (08:27→20:44)
[2021-04-14] MEDS: LOSARTAN POTASSIUM 50 MG TAB PO SCH (08:27)
[2021-04-14] MEDS: ADVANCED PROBIOTIC 1250 MG CAPSULE PO SCH (08:28)
[2021-04-14] MEDS: FEXOFENADINE HCL 180 MG TAB PO SCH (08:28)
[2021-04-14] MEDS: AMIODARONE 200 MG TAB PO SCH (08:28)
[2021-04-14] MEDS: FOLIC ACID 1 MG TAB PO SCH (08:29)
[2021-04-14] MEDS: FERROUS SULFATE 325 MG TAB PO SCH ×2 (08:29→20:47)
[2021-04-14] MEDS: METOPROLOL SUCC 50MG EXT REL TAB PO SCH (08:29)
[2021-04-14] MEDS: CHOLECALCIFEROL 1,000 UNITS 25 MCG TAB PO SCH (08:29)
[2021-04-14] MEDS: DOCUSATE SODIUM 100 MG CAP PO SCH ×2 (08:30→20:52)
[2021-04-14] MEDS: hydrALAZINE 10 MG TAB PO SCH ×3 (08:30→20:46)
[2021-04-14] MEDS: PANTOprazole 40 MG TAB PO SCH (08:30)
[2021-04-14] MEDS: GABAPENTIN 100 MG CAP PO SCH (08:30)
[2021-04-14] MEDS: MUPIROCIN 2% OINT 22 GM TUBE EXT SCH ×2 (08:36→20:43)
[2021-04-14] MEDS: POLYETHYLENE (MIRALAX) 17 GM PACK PO SCH (08:36)
[2021-04-14] MEDS: INSULIN ASPART 100 UNITS/ML 3 ML PEN SC SCH ×4 (08:39→20:44)
[2021-04-14] MEDS: INSULIN GLARGINE SOLOSTAR 100 UNITS/ML 3 ML PEN SC SCH (08:40)
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
[2021-04-14] MEDS ORDERED: TORSEMIDE 10 MG TAB PO SCH (09:00)
[2021-04-14] MEDS: LIDOCAINE 5% 1 PATCH TD SCH (09:33)
[2021-04-14] MEDS: cefTRIAXone SODIUM 2,000 MG in DEXTROSE 5% 50 ML IV SCH (10:54)
[2021-04-14] MEDS: TORSEMIDE 10 MG TAB PO SCH (17:44)
[2021-04-14] MEDS: ASPIRIN 81 MG ECTAB PO SCH (20:46)
[2021-04-14] MEDS: GABAPENTIN 300 MG CAP PO SCH (20:47)
[2021-04-15] MEDS: LEVOTHYROXINE SODIUM 25 MCG TABLET PO SCH (05:49)
[2021-04-15 06:59] LABS: BUN Creatinine Ratio 56.5 (10-20); Calcium 8.7 mg/dl (8.5-10.1); Creatinine Clr Calc Pharmacy 52.6 ml/min; Est GFR (African American) 50.2 ml/min; Est GFR (Non-African American) 43.3 ml/min; Magnesium 2.6 mg/dl (1.8-2.4); Potassium 4.2 mmol/L (3.5-5.1)
[2021-04-15] MEDS: FOLIC ACID 1 MG TAB PO SCH (08:25)
[2021-04-15] MEDS: DOCUSATE SODIUM 100 MG CAP PO SCH ×2 (08:25→20:38)
[2021-04-15] MEDS: hydrALAZINE 10 MG TAB PO SCH ×3 (08:26→20:40)
[2021-04-15] MEDS: TORSEMIDE 10 MG TAB PO SCH (08:26)
[2021-04-15] MEDS: FERROUS SULFATE 325 MG TAB PO SCH ×2 (08:26→20:38)
[2021-04-15] MEDS: FEXOFENADINE HCL 180 MG TAB PO SCH (08:27)
[2021-04-15] MEDS: AMIODARONE 200 MG TAB PO SCH (08:27)
[2021-04-15] MEDS: PANTOprazole 40 MG TAB PO SCH (08:27)
[2021-04-15] MEDS: ADVANCED PROBIOTIC 1250 MG CAPSULE PO SCH (08:27)
[2021-04-15] MEDS: CHOLECALCIFEROL 1,000 UNITS 25 MCG TAB PO SCH (08:28)
[2021-04-15] MEDS: METOPROLOL SUCC 50MG EXT REL TAB PO SCH (08:29)
[2021-04-15] MEDS: LIDOCAINE 5% 1 PATCH TD SCH (08:31)
[2021-04-15] MEDS: LOSARTAN POTASSIUM 50 MG TAB PO SCH (08:31)
[2021-04-15] MEDS: DICLOFENAC SOD 1% GEL 100 GM TUBE EXT SCH ×2 (08:31→20:36)
[2021-04-15] MEDS: GABAPENTIN 100 MG CAP PO SCH (08:31)
[2021-04-15] MEDS: MUPIROCIN 2% OINT 22 GM TUBE EXT SCH ×2 (08:32→20:35)
[2021-04-15] MEDS: POLYETHYLENE (MIRALAX) 17 GM PACK PO SCH (08:32)
[2021-04-15] MEDS: INSULIN ASPART 100 UNITS/ML 3 ML PEN SC SCH ×4 (08:34→20:37)
[2021-04-15] MEDS: INSULIN GLARGINE SOLOSTAR 100 UNITS/ML 3 ML PEN SC SCH (08:37)
[2021-04-15] MEDS: CYCLOBENZAPRINE HCL 10 MG TAB PO PRN ×2 (08:39→20:35)
[2021-04-15] MEDS ORDERED: TORSEMIDE 10 MG TAB PO SCH (09:00)
[2021-04-15] MEDS: CEFEPIME 1,000 MG in SYRINGE 0 ML IV SCH (09:38)
--- NOTE | 2021-04-15 15:52 | CT Scan Report ---
CT wrist RT wo con HISTORY: 61 years-old Female Wrist Pain, h/o fall acute right wrist pain status post fall COMPARISON: Right wrist radiographs 04/07/2021 TECHNIQUE: Multiple axial CT images of the right wrist were obtained without the use of IV contrast. Coronal and sagittal reformatted images were obtained from the data set and were submitted for review . A dose lowering technique was used consistent with the principals of ZULEMA. FINDINGS: The mineralized appearance the bones. Healed chronic fracture deformities of the distal radius and ul na are redemonstrated. Demineralized appearance of the bones. No acute fracture, dislocation, osseous erosion or avascular necrosis. Arterial calcifications. No opaque foreign body identified. The tendo ns and ligaments are better evaluated by MRI technique. Mild subcutaneous edema of the volar wrist. IMPRESSION: 1. No acute fracture or dislocation. 2. Healed chronic fracture deformities of the distal forearm. ACT 112: Negative or not required by law. The above report was generated using voice recognition software. It may contain grammatical, syntax o r spelling errors. Electronically signed by: John Cisneros M.D. 04/15/2021 3:51 PM
[2021-04-15] MEDS: DEXTROSE 50% 50 ML SYRINGE IV PRN (16:03)
--- NOTE | 2021-04-15 16:20 | CT Scan Report ---
ABDOMEN AND PELVIS CT WITHOUT CONTRAST CT DOSE: HISTORY: Generalized abdominal pain. TECHNIQUE: Multiaxial CT images of the abdomen and pelvis were performed without contrast. A dose lo wering technique was utilized adhering to the principles of ALARA. COMPARISON STUDY: Abdomen and pelvis CT 03/04/2021. FINDINGS: The lung bases are clear. No pneumoperitoneum. No pneumatosis. 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 Streak artifact from the patient's body abutting the cancer results in s uboptimal evaluation. Prior cholecystectomy. The unenhanced liver, spleen, adrenal glands, and pancre as unremarkable. No renal or ureteral stones. No hydronephrosis. Mild bladder wall thickening. The ut erus and bilateral adnexa are within normal limits. No pelvic free fluid. No retroperitoneal or pelvi c lymphadenopathy. Mild calcified plaque within the normal caliber abdominal aorta. Suboptimal evalua tion for bowel pathology due to the lack of intravenous and oral contrast. However, there is no defin ite bowel wall thickening or obstruction. The appendix is not identified with certainty. However, the re are no inflammatory changes at the cecal base. IMPRESSION: 1. Suboptimal evaluation of the abdomen and pelvis as described above. 2. No definite bowel wall thickening or obstruction. 3. Mild bladder wall thickening. This is improved compared to the prior study and may be chronic. Rec ommend correlation with urinalysis to exclude the possibility of a cystitis. 4. Cholecystectomy. ACT 112: Negative or not required by law. Electronically signed by: Vladislav Monet M.D. 04/15/2021 4:19 PM
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
[2021-04-15] MEDS: ASPIRIN 81 MG ECTAB PO SCH (20:39)
[2021-04-15] MEDS: GABAPENTIN 300 MG CAP PO SCH (20:42)
[2021-04-16] MEDS: LEVOTHYROXINE SODIUM 25 MCG TABLET PO SCH (05:53)
[2021-04-16 08:04] LABS: Hematocrit (blood only) 33.9 % (37-47); Hemoglobin 10.9 g/dL (12.0-16.0); Mean Corpuscular Hemoglobin 29.2 pg (25-34); Mean Corpuscular Hgb Conc 32.2 g/dL (32-36); Mean Corpuscular Volume 90.9 fL (80-100); Mean Platelet Volume 8.5 fL (7.4-10.4); Platelet Count 124 K/uL (130-400); RDW Coefficient of Variation 14.3 % (11.5-14.5); RDW Standard Deviation 46.9 fL (36.4-46.3); Red Blood Count 3.73 M/uL (4.2-5.4); White Blood Count 4.02 K/uL (4.8-10.8)
[2021-04-16 08:36] LABS: BUN Creatinine Ratio 51.1 (10-20); Calcium 8.8 mg/dl (8.5-10.1); Creatinine Clr Calc Pharmacy 52.2 ml/min; Est GFR (African American) 48.9 ml/min; Est GFR (Non-African American) 42.2 ml/min; Potassium 4.3 mmol/L (3.5-5.1)
[2021-04-16] MEDS: INSULIN ASPART 100 UNITS/ML 3 ML PEN SC SCH ×4 (09:17→20:28)
[2021-04-16] MEDS: INSULIN GLARGINE SOLOSTAR 100 UNITS/ML 3 ML PEN SC SCH (09:18)
[2021-04-16] MEDS: METOPROLOL SUCC 50MG EXT REL TAB PO SCH (09:19)
[2021-04-16] MEDS: DICLOFENAC SOD 1% GEL 100 GM TUBE EXT SCH ×2 (09:19→20:26)
[2021-04-16] MEDS: TORSEMIDE 10 MG TAB PO SCH (09:20)
[2021-04-16] MEDS: hydrALAZINE 10 MG TAB PO SCH ×3 (09:20→20:27)
[2021-04-16] MEDS: LOSARTAN POTASSIUM 50 MG TAB PO SCH (09:20)
[2021-04-16] MEDS: CHOLECALCIFEROL 1,000 UNITS 25 MCG TAB PO SCH (09:22)
[2021-04-16] MEDS: DOCUSATE SODIUM 100 MG CAP PO SCH (09:22)
[2021-04-16] MEDS: PANTOprazole 40 MG TAB PO SCH (09:22)
[2021-04-16] MEDS: FOLIC ACID 1 MG TAB PO SCH (09:22)
[2021-04-16] MEDS: GABAPENTIN 100 MG CAP PO SCH (09:23)
[2021-04-16] MEDS: FEXOFENADINE HCL 180 MG TAB PO SCH (09:23)
[2021-04-16] MEDS: FERROUS SULFATE 325 MG TAB PO SCH ×2 (09:23→20:29)
[2021-04-16] MEDS: ADVANCED PROBIOTIC 1250 MG CAPSULE PO SCH (09:24)
[2021-04-16] MEDS: CYCLOBENZAPRINE HCL 10 MG TAB PO PRN (09:32)
[2021-04-16] MEDS: LIDOCAINE 5% 1 PATCH TD SCH (09:35)
[2021-04-16] MEDS: POLYETHYLENE (MIRALAX) 17 GM PACK PO SCH (09:35)
[2021-04-16] MEDS: SPIRONOLACTONE 25 MG TAB PO SCH (11:24)
[2021-04-16] MEDS: AMIODARONE 200 MG TAB PO SCH (11:24)
[2021-04-16] MEDS: CEFEPIME 1,000 MG in SYRINGE 0 ML IV SCH (11:33)
[2021-04-16] MEDS: MUPIROCIN 2% OINT 22 GM TUBE EXT SCH ×2 (11:37→20:27)
--- NOTE | 2021-04-16 14:02 | Pharmacy Report ---
Pharmacy Glycemic Short Note 2 - Date of Service April 16, 2021 - Glycemic Short BSG Results (Last 24 hours): 04/15/21 04/15/21 04/15/21 15:54 15:55 16:28 Glucose POC Glucose 58 L* 44 L* 102 H 04/15/21 04/15/21 04/15/21 17:01 17:51 19:50 Glucose POC Glucose 81 88 127 H 04/16/21 04/16/21 04/16/21 07:33 07:34 11:25 Glucose 101 H POC Glucose 97 163 H OUTPATIENT ANTIDIABETIC REGIMEN: * Basaglar 15 units SQ HS (noncompliance?) * A1c 8.4% 04/04/21 ASSESSMENT: 04/16/21: * Patient unfortunately experienced hypoglycemic episode at dinnertime yesterday (58 mg/dL) * Subsequently refused Lantus this morning, as she thinks this is the reason for her low * Ordered reduced dose of Lantus with lunch once notified of refusal 04/12/21: * Lunch BSG tends to be the highest of the day with values trending downward at dinner and HS. BSG of 63 mg/dL around midnight. * Will leave aggressive carb coverage at breakfast and lunch and further loosen carb coverage at dinner and HS to avoid overnight hypoglycemia. * Fasting BSG is at goal. 04/10/21 * Patient's BSGs yesterday were [phone] mg/dL. Patient received 80 units of insulin yesterday (30 units of basal and 50 units of bolus). * Fasting today is 112 mg/dL. * Continue Lantus 15 BID. * Patient's kidney function fluctuates. Currently higher than previously but not significantly. * Continue slightly tightened CR. 04/08/21 * Patient's BSGs yesterday were [phone] mg/dL. Patient received 63 units of insulin (30 units of basal and 33 units of bolus). Patient received a dose of prednisone 40 mg on 04/05 (covered by 20 units of [facility]) and 30 mg on 04/06 (not covered, given at 1740). Patient scheduled to receive prednisone 10 mg x 1 today. * Patient's fasting today was 123 mg/dL. Fasting is slightly skewed by jackie webb HOWEVER is trending downwards. Reduce to 25 units of basal today (~20% reduction) * Postprandial blood sugars are elevated. Tighten CR as prednisone typically affects postprandial blood sugars. 04/07/21 * Patient's BSGs yesterday were [phone] mg/dL. Patient received 68 units of insulin (30 units of basal and 38 units of bolus). Patient received a dose of prednisone 40 mg on 04/05 (covered by 20 units of [facility]) and 30 mg on 04/06 (not covered, given at 1740) * Patient's fasting today was 132 mg/dL. Fasting is slightly skewed by prednisone. Continue current Lantus regimen. * Postprandial blood sugars are elevated. Tighten CR as prednisone typically affects postprandial blood sugars. PLAN FOR INPATIENT GLYCEMIC CONTROL: * Basal insulin * Continue Lantus 20 units SC x 1 today - due to patient refusal * Reassess in AM * Bolus insulin * NovoLog per scale ACHS or Q6hrs while NPO * Goal Range: Low 110 mg/dL - High 140 mg/dL Breakfast: * Correction Factor: 20 mg/dL/unit * Nutritional / Prandial insulin per carb ratio of 1 unit per 5 grams CHO consumed * Lunch: * Correction factor: 25 mg/dL/unit * Nutritional / Prandial insulin per carb ratio of 1 unit per 8 grams CHO consumed Dinner and HS: * Correction Factor: 35 mg/dL/unit * Nutritional / Prandial insulin per carb ratio of 1 unit per 15 grams CHO consumed PLAN FOR DISCHARGE: * Patient's HbA1C is elevated above goal range (goal would be ~8% for patient with her comorbidities). * Consider changing Lantus to 30 units SQ once daily to decrease number of injections per day * If patient is willing, could consider Novolog 10 units with breakfast
[2021-04-16] MEDS ORDERED: INSULIN GLARGINE SOLOSTAR 100 UNITS/ML 3 ML PEN SC ONE (14:30)
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
[2021-04-16] MEDS: DEXTROSE 50% 50 ML SYRINGE IV PRN (17:44)
[2021-04-16] MEDS: LACTOBACILLUS ACIDOPHILUS 1 GM PACK PO SCH (17:45)
[2021-04-16] MEDS: ASPIRIN 81 MG ECTAB PO SCH (20:27)
[2021-04-16] MEDS: GABAPENTIN 300 MG CAP PO SCH (20:29)
[2021-04-16 22:29] LABS: Cdiff Antigen Positive
[2021-04-16 22:32] LABS: Cdiff Toxin A+B Positive Cdiff Toxin (Negative)
[2021-04-17] MEDS: FIDAXOMICIN 200 MG TAB PO SCH ×3 (00:10→19:35)
[2021-04-17] MEDS: LEVOTHYROXINE SODIUM 25 MCG TABLET PO SCH (05:38)
[2021-04-17 08:58] LABS: BUN Creatinine Ratio 54.9 (10-20); Calcium 8.9 mg/dl (8.5-10.1); Creatinine Clr Calc Pharmacy 53.8 ml/min; Est GFR (African American) 50.7 ml/min; Est GFR (Non-African American) 43.7 ml/min; Potassium 4.4 mmol/L (3.5-5.1)
[2021-04-17] MEDS: INSULIN ASPART 100 UNITS/ML 3 ML PEN SC SCH ×4 (09:49→20:34)
[2021-04-17] MEDS: DICLOFENAC SOD 1% GEL 100 GM TUBE EXT SCH ×2 (09:52→19:28)
[2021-04-17] MEDS: hydrALAZINE 10 MG TAB PO SCH ×3 (09:53→19:32)
[2021-04-17] MEDS: PANTOprazole 40 MG TAB PO SCH (09:53)
[2021-04-17] MEDS: LACTOBACILLUS ACIDOPHILUS 1 GM PACK PO SCH ×3 (09:55→18:31)
[2021-04-17] MEDS: SPIRONOLACTONE 25 MG TAB PO SCH (09:56)
[2021-04-17] MEDS: METOPROLOL SUCC 50MG EXT REL TAB PO SCH (09:56)
[2021-04-17] MEDS: FOLIC ACID 1 MG TAB PO SCH (09:57)
[2021-04-17] MEDS: GABAPENTIN 100 MG CAP PO SCH (09:59)
[2021-04-17] MEDS: CHOLECALCIFEROL 1,000 UNITS 25 MCG TAB PO SCH (09:59)
[2021-04-17] MEDS: LOSARTAN POTASSIUM 50 MG TAB PO SCH (10:00)
[2021-04-17] MEDS: FERROUS SULFATE 325 MG TAB PO SCH ×2 (10:00→19:32)
[2021-04-17] MEDS: AMIODARONE 200 MG TAB PO SCH (10:01)
[2021-04-17] MEDS: FEXOFENADINE HCL 180 MG TAB PO SCH (10:01)
[2021-04-17] MEDS: LIDOCAINE 5% 1 PATCH TD SCH (10:02)
[2021-04-17] MEDS: CEFEPIME 1,000 MG in SYRINGE 0 ML IV SCH (10:05)
[2021-04-17] MEDS: TORSEMIDE 10 MG TAB PO SCH (10:05)
[2021-04-17] MEDS: CYCLOBENZAPRINE HCL 10 MG TAB PO PRN ×2 (10:05→19:35)
[2021-04-17] MEDS: MUPIROCIN 2% OINT 22 GM TUBE EXT SCH ×2 (10:12→19:29)
--- NOTE | 2021-04-17 14:09 | Pharmacy Report ---
Pharmacy Glycemic Short Note 2 - Date of Service April 17, 2021 - Glycemic Short BSG Results (Last 24 hours): 04/16/21 04/16/21 04/16/21 16:32 16:34 16:52 Glucose POC Glucose 65 L* 61 L* 54 L* 04/16/21 04/16/21 04/16/21 17:14 17:35 18:15 Glucose POC Glucose 60 L* 51 L* 200 H 04/16/21 04/17/21 04/17/21 19:57 07:27 07:27 Glucose 88 POC Glucose 200 H 91 04/17/21 04/17/21 10:11 12:17 Glucose POC Glucose 195 H 233 H OUTPATIENT ANTIDIABETIC REGIMEN: * Basaglar 15 units SQ HS (noncompliance?) * A1c 8.4% 04/04/21 ASSESSMENT: 04/17/21: * Despite significant changes yesterday, patient still had hypoglycemic episode at dinnertime * Will further decrease basal today and give at HS as per home regimen * Will loosen lunch Novolog parameters as well * Lunch BSG elevated -likely due to patient refusal of AM Novolog 04/16/21: * Patient unfortunately experienced hypoglycemic episode at dinnertime yesterday (58 mg/dL) * Subsequently refused Lantus this morning, as she thinks this is the reason for her low * Ordered reduced dose of Lantus with lunch once notified of refusal 04/12/21: * Lunch BSG tends to be the highest of the day with values trending downward at dinner and HS. BSG of 63 mg/dL around midnight. * Will leave aggressive carb coverage at breakfast and lunch and further loosen carb coverage at dinner and HS to avoid overnight hypoglycemia. * Fasting BSG is at goal. 04/10/21 * Patient's BSGs yesterday were [phone] mg/dL. Patient received 80 units of insulin yesterday (30 units of basal and 50 units of bolus). * Fasting today is 112 mg/dL. * Continue Lantus 15 BID. * Patient's kidney function fluctuates. Currently higher than previously but not significantly. * Continue slightly tightened CR. 04/08/21 * Patient's BSGs yesterday were [phone] mg/dL. Patient received 63 units of insulin (30 units of basal and 33 units of bolus). Patient received a dose of prednisone 40 mg on 04/05 (covered by 20 units of NPH) and 30 mg on 04/06 (not covered, given at 1740). Patient scheduled to receive prednisone 10 mg x 1 today. * Patient's fasting today was 123 mg/dL. Fasting is slightly skewed by prednisone HOWEVER is trending downwards. Reduce to 25 units of basal today (~20% reduction) * Postprandial blood sugars are elevated. Tighten CR as prednisone typically affects postprandial blood sugars. 04/07/21 * Patient's BSGs yesterday were [phone] mg/dL. Patient received 68 units of insulin (30 units of basal and 38 units of bolus). Patient received a dose of prednisone 40 mg on 04/05 (covered by 20 units of NPH) and 30 mg on 04/06 (not covered, given at 1740) * Patient's fasting today was 132 mg/dL. Fasting is slightly skewed by prednisone. Continue current Lantus regimen. * Postprandial blood sugars are elevated. Tighten CR as prednisone typically affects postprandial blood sugars. PLAN FOR INPATIENT GLYCEMIC CONTROL: * Basal insulin * Continue Lantus 10 units SC HS * Bolus insulin * NovoLog per scale ACHS or Q6hrs while NPO * Goal Range: Low 110 mg/dL - High 140 mg/dL Breakfast: * Correction Factor: 25 mg/dL/unit * Nutritional / Prandial insulin per carb ratio of 1 unit per 8 grams CHO consumed Lunch, dinner, and HS: * Correction Factor: 35 mg/dL/unit * Nutritional / Prandial insulin per carb ratio of 1 unit per 15 grams CHO consumed PLAN FOR DISCHARGE: * Patient's HbA1C is elevated above goal range (goal would be ~8% for patient with her comorbidities). * Consider changing Lantus to 30 units SQ once daily to decrease number of injections per day * If patient is willing, could consider Novolog 10 units with breakfast
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
[2021-04-17] MEDS: GABAPENTIN 300 MG CAP PO SCH (19:30)
[2021-04-17] MEDS: ASPIRIN 81 MG ECTAB PO SCH (19:31)
[2021-04-17] MEDS ORDERED: INSULIN GLARGINE SOLOSTAR 100 UNITS/ML 3 ML PEN SC SCH (21:00)
[2021-04-18 05:48] LABS: Hematocrit (blood only) 33.1 % (37-47); Hemoglobin 10.6 g/dL (12.0-16.0); Mean Corpuscular Volume 90.4 fL (80-100); Mean Platelet Volume 8.5 fL (7.4-10.4); Platelet Count 122 K/uL (130-400); RDW Coefficient of Variation 14.4 % (11.5-14.5); RDW Standard Deviation 47.4 fL (36.4-46.3); Red Blood Count 3.66 M/uL (4.2-5.4); White Blood Count 3.82 K/uL (4.8-10.8)
[2021-04-18 06:12] LABS: BUN Creatinine Ratio 51.5 (10-20); Calcium 8.7 mg/dl (8.5-10.1); Creatinine Clr Calc Pharmacy 45.8 ml/min; Est GFR (African American) 41.7 ml/min; Magnesium 2.2 mg/dl (1.8-2.4); Potassium 4.2 mmol/L (3.5-5.1)
[2021-04-18] MEDS: LEVOTHYROXINE SODIUM 25 MCG TABLET PO SCH (06:28)
[2021-04-18] MEDS ORDERED: hydrALAZINE 10 MG TAB PO PRN (07:54)
[2021-04-18] MEDS: SPIRONOLACTONE 25 MG TAB PO SCH (08:31)
[2021-04-18] MEDS: TORSEMIDE 10 MG TAB PO SCH (08:31)
[2021-04-18] MEDS: METOPROLOL SUCC 50MG EXT REL TAB PO SCH (08:32)
[2021-04-18] MEDS: LOSARTAN POTASSIUM 50 MG TAB PO SCH (08:32)
[2021-04-18] MEDS: PANTOprazole 40 MG TAB PO SCH (08:32)
[2021-04-18] MEDS: FOLIC ACID 1 MG TAB PO SCH (08:34)
[2021-04-18] MEDS: GABAPENTIN 100 MG CAP PO SCH (08:34)
[2021-04-18] MEDS: LIDOCAINE 5% 1 PATCH TD SCH (08:34)
[2021-04-18] MEDS: FEXOFENADINE HCL 180 MG TAB PO SCH (08:35)
[2021-04-18] MEDS: LACTOBACILLUS ACIDOPHILUS 1 GM PACK PO SCH ×3 (08:35→18:12)
[2021-04-18] MEDS: AMIODARONE 200 MG TAB PO SCH (08:35)
[2021-04-18] MEDS: CHOLECALCIFEROL 1,000 UNITS 25 MCG TAB PO SCH (08:35)
[2021-04-18] MEDS: DICLOFENAC SOD 1% GEL 100 GM TUBE EXT SCH ×2 (08:36→21:43)
[2021-04-18] MEDS: CEFEPIME 1,000 MG in SYRINGE 0 ML IV SCH (08:58)
[2021-04-18] MEDS: FIDAXOMICIN 200 MG TAB PO SCH ×2 (09:06→21:41)
[2021-04-18] MEDS: INSULIN ASPART 100 UNITS/ML 3 ML PEN SC SCH ×4 (09:09→21:48)
[2021-04-18] MEDS: FERROUS SULFATE 325 MG TAB PO SCH ×2 (11:08→21:41)
[2021-04-18] MEDS: MUPIROCIN 2% OINT 22 GM TUBE EXT SCH ×2 (11:08→21:42)
--- NOTE | 2021-04-18 14:09 | Pharmacy Report ---
Pharmacy Glycemic Short Note 2 - Date of Service April 18, 2021 - Glycemic Short BSG Results (Last 24 hours): 04/17/21 04/17/21 04/18/21 16:44 20:30 05:25 Glucose 110 H POC Glucose 216 H 160 H 04/18/21 04/18/21 08:01 12:01 Glucose POC Glucose 100 H 133 H OUTPATIENT ANTIDIABETIC REGIMEN: * Basaglar 15 units SQ HS (noncompliance?) * A1c 8.4% 04/04/21 ASSESSMENT: 04/18/21 * Patient's BSGs yesterday were [phone] and fasting today was 100 mg/dL. * Patient received 24 units of insulin (10 units of basal and 14 units of bolus). * Fasting is trending upwards. Believe that 10 units is not enough basal. Increase by 20% to 12 units HS. * Tighten CR as postprandial blood sugars are elevated. 04/17/21: * Despite significant changes yesterday, patient still had hypoglycemic episode at dinnertime * Will further decrease basal today and give at HS as per home regimen * Will loosen lunch Novolog parameters as well * Lunch BSG elevated -likely due to patient refusal of AM Novolog 04/16/21: * Patient unfortunately experienced hypoglycemic episode at dinnertime yesterday (58 mg/dL) * Subsequently refused Lantus this morning, as she thinks this is the reason for her low * Ordered reduced dose of Lantus with lunch once notified of refusal 04/12/21: * Lunch BSG tends to be the highest of the day with values trending downward at dinner and HS. BSG of 63 mg/dL around midnight. * Will leave aggressive carb coverage at breakfast and lunch and further loosen carb coverage at dinner and HS to avoid overnight hypoglycemia. * Fasting BSG is at goal. 04/10/21 * Patient's BSGs yesterday were [phone] mg/dL. Patient received 80 units of insulin yesterday (30 units of basal and 50 units of bolus). * Fasting today is 112 mg/dL. * Continue Lantus 15 BID. * Patient's kidney function fluctuates. Currently higher than previously but not significantly. * Continue slightly tightened CR. 04/08/21 * Patient's BSGs yesterday were [phone] mg/dL. Patient received 63 units of insulin (30 units of basal and 33 units of bolus). Patient received a dose of prednisone 40 mg on 04/05 (covered by 20 units of NPH) and 30 mg on 04/06 (not covered, given at 1740). Patient scheduled to receive prednisone 10 mg x 1 today. * Patient's fasting today was 123 mg/dL. Fasting is slightly skewed by prednisone HOWEVER is trending downwards. Reduce to 25 units of basal today (~20% reduction) * Postprandial blood sugars are elevated. Tighten CR as prednisone typically affects postprandial blood sugars. 04/07/21 * Patient's BSGs yesterday were [phone] mg/dL. Patient received 68 units of insulin (30 units of basal and 38 units of bolus). Patient received a dose of prednisone 40 mg on 04/05 (covered by 20 units of NPH) and 30 mg on 04/06 (not covered, given at 1740) * Patient's fasting today was 132 mg/dL. Fasting is slightly skewed by prednisone. Continue current Lantus regimen. * Postprandial blood sugars are elevated. Tighten CR as prednisone typically affects postprandial blood sugars. PLAN FOR INPATIENT GLYCEMIC CONTROL: * Basal insulin * Lantus 12 units SC HS * Bolus insulin * NovoLog per scale ACHS or Q6hrs while NPO * Goal Range: Low 110 mg/dL - High 140 mg/dL Breakfast: * Correction Factor: 25 mg/dL/unit * Nutritional / Prandial insulin per carb ratio of 1 unit per 8 grams CHO consumed Lunch, dinner, and HS: * Correction Factor: 35 mg/dL/unit * Nutritional / Prandial insulin per carb ratio of 1 unit per 10 grams CHO consumed PLAN FOR DISCHARGE: * Patient's HbA1C is elevated above goal range (goal would be ~8% for patient with her comorbidities). * Consider changing Lantus to 30 units SQ once daily to decrease number of injections per day * If patient is willing, could consider Novolog 10 units with breakfast
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
[2021-04-18] MEDS ORDERED: INSULIN GLARGINE SOLOSTAR 100 UNITS/ML 3 ML PEN SC SCH ×2 (21:00)
[2021-04-18] MEDS: CYCLOBENZAPRINE HCL 10 MG TAB PO PRN (21:41)
[2021-04-18] MEDS: ASPIRIN 81 MG ECTAB PO SCH (21:41)
[2021-04-18] MEDS: GABAPENTIN 300 MG CAP PO SCH (21:42)
[2021-04-19] MEDS: LEVOTHYROXINE SODIUM 25 MCG TABLET PO SCH (06:09)
[2021-04-19 07:35] LABS: BUN Creatinine Ratio 56.7 (10-20); Calcium 9.1 mg/dl (8.5-10.1); Est GFR (African American) 50.7 ml/min; Est GFR (Non-African American) 43.7 ml/min; Magnesium 2.3 mg/dl (1.8-2.4); Potassium 4.2 mmol/L (3.5-5.1)
[2021-04-19] MEDS: TORSEMIDE 10 MG TAB PO SCH (08:27)
[2021-04-19] MEDS: PANTOprazole 40 MG TAB PO SCH (08:27)
[2021-04-19] MEDS: SPIRONOLACTONE 25 MG TAB PO SCH (08:27)
[2021-04-19] MEDS: LIDOCAINE 5% 1 PATCH TD SCH (08:28)
[2021-04-19] MEDS: LOSARTAN POTASSIUM 50 MG TAB PO SCH (08:28)
[2021-04-19] MEDS: METOPROLOL SUCC 50MG EXT REL TAB PO SCH (08:28)
[2021-04-19] MEDS: GABAPENTIN 100 MG CAP PO SCH (08:28)
[2021-04-19] MEDS: FEXOFENADINE HCL 180 MG TAB PO SCH (08:29)
[2021-04-19] MEDS: FERROUS SULFATE 325 MG TAB PO SCH ×2 (08:29→19:52)
[2021-04-19] MEDS: FOLIC ACID 1 MG TAB PO SCH (08:29)
[2021-04-19] MEDS: FIDAXOMICIN 200 MG TAB PO SCH ×2 (08:29→19:51)
[2021-04-19] MEDS: AMIODARONE 200 MG TAB PO SCH (08:30)
[2021-04-19] MEDS: LACTOBACILLUS ACIDOPHILUS 1 GM PACK PO SCH ×3 (08:30→17:30)
[2021-04-19] MEDS: CEFEPIME 1,000 MG in SYRINGE 0 ML IV SCH (08:30)
[2021-04-19] MEDS: CHOLECALCIFEROL 1,000 UNITS 25 MCG TAB PO SCH (08:30)
[2021-04-19] MEDS: INSULIN ASPART 100 UNITS/ML 3 ML PEN SC SCH ×4 (08:33→20:43)
[2021-04-19] MEDS: DICLOFENAC SOD 1% GEL 100 GM TUBE EXT SCH ×2 (10:45→19:52)
[2021-04-19] MEDS: MUPIROCIN 2% OINT 22 GM TUBE EXT SCH ×2 (10:45→19:51)
[2021-04-19] MEDS: CYCLOBENZAPRINE HCL 10 MG TAB PO PRN ×2 (10:46→19:51)
[2021-04-19] MEDS ORDERED: MECLIZINE 12.5 MG TAB PO PRN (12:47)
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
[2021-04-19] MEDS: GABAPENTIN 300 MG CAP PO SCH (19:52)
[2021-04-19] MEDS: ASPIRIN 81 MG ECTAB PO SCH (19:52)
[2021-04-19] MEDS ORDERED: INSULIN GLARGINE SOLOSTAR 100 UNITS/ML 3 ML PEN SC SCH (21:00)
[2021-04-20] MEDS: LEVOTHYROXINE SODIUM 25 MCG TABLET PO SCH (06:18)
[2021-04-20] MEDS: SPIRONOLACTONE 25 MG TAB PO SCH (08:07)
[2021-04-20] MEDS: FIDAXOMICIN 200 MG TAB PO SCH (08:07)
[2021-04-20] MEDS: LACTOBACILLUS ACIDOPHILUS 1 GM PACK PO SCH ×2 (08:07→12:44)
[2021-04-20] MEDS: CHOLECALCIFEROL 1,000 UNITS 25 MCG TAB PO SCH (08:08)
[2021-04-20] MEDS: FEXOFENADINE HCL 180 MG TAB PO SCH (08:08)
[2021-04-20] MEDS: LOSARTAN POTASSIUM 50 MG TAB PO SCH (08:08)
[2021-04-20] MEDS: PANTOprazole 40 MG TAB PO SCH (08:08)
[2021-04-20] MEDS: FOLIC ACID 1 MG TAB PO SCH (08:09)
[2021-04-20] MEDS: METOPROLOL SUCC 50MG EXT REL TAB PO SCH (08:09)
[2021-04-20] MEDS: AMIODARONE 200 MG TAB PO SCH (08:09)
[2021-04-20] MEDS: TORSEMIDE 10 MG TAB PO SCH (08:09)
[2021-04-20] MEDS: GABAPENTIN 100 MG CAP PO SCH (08:09)
[2021-04-20] MEDS: LIDOCAINE 5% 1 PATCH TD SCH (08:10)
[2021-04-20] MEDS: INSULIN ASPART 100 UNITS/ML 3 ML PEN SC SCH ×2 (08:14→12:45)
[2021-04-20] MEDS: MUPIROCIN 2% OINT 22 GM TUBE EXT SCH (08:16)
[2021-04-20] MEDS: DICLOFENAC SOD 1% GEL 100 GM TUBE EXT SCH (08:16)
[2021-04-20] MEDS: CYCLOBENZAPRINE HCL 10 MG TAB PO PRN (08:21)
[2021-04-20 12:00] VITALS: BP 154/93; PULSE 78; TEMP 98.2; O2SAT 92
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
[2021-04-20] MEDS: FERROUS SULFATE 325 MG TAB PO SCH (12:40)
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
[2021-04-21] MEDS ORDERED: LACTOBACILLUS ACIDOPHILUS 1 GM PACK PO SCH (12:00)
== END 2021-04-20 13:15 | disposition home health service (06) | DRG 291 ==
LOC: ED 12:37 → SUATTDRO 17:20 → 2N 17:20

== ENCOUNTER 2021-09-15 14:49 | Inpatient (IN) ==
--- NOTE | 2021-09-15 16:57 | XRay Report ---
SINGLE VIEW CHEST CLINICAL HISTORY: Congestive heart failure. Dyspnea. Atypical chest pain. FINDINGS: An AP, portable, upright chest radiograph is compared to study dated 04/03/2021 and correlat ed with chest CT dated 04/07/2021. The heart is enlarged. The pulmonary vasculature is noncongested. C hronic interstitial thickening is similar to previous. No airspace consolidation or large pleural eff usion is identified. No pneumothorax is seen. The skeletal structures are osteopenic. There is chroni c posttraumatic deformity of the right proximal humerus. Cholecystectomy clips are noted in the right upper quadrant. IMPRESSION: Cardiomegaly with no acute cardiopulmonary abnormality. ACT 112: Negative or not required by law. Electronically signed by: Black Nash M.D. 09/15/2021 4:55 PM
[2021-09-15 17:50] LABS: Basophils # (auto) 0.04 K/uL (0-0.2); Basophils % (auto) 0.5 %; Eosinophils % (auto) 5.2 %; Immature Granulocytes # (auto) 0.03 K/uL (0.00-0.02); Immature Granulocytes % (auto) 0.4 %; Mean Corpuscular Hemoglobin 30.5 pg (25-34); Mean Corpuscular Hgb Conc 33.3 g/dL (32-36); Mean Corpuscular Volume 91.5 fL (80-100); Mean Platelet Volume 8.6 fL (7.4-10.4); Monocytes # (auto) 0.71 K/uL (0.11-0.59); Monocytes % (auto) 9.3 %; Neutrophils # (auto) 4.85 K/uL (1.4-6.5); Neutrophils % (auto) 63.6 %; Platelet Count 151 K/uL (130-400); RDW Coefficient of Variation 14.5 % (11.5-14.5); RDW Standard Deviation 48.8 fL (36.4-46.3); Red Blood Count 4.26 M/uL (4.2-5.4); White Blood Count 7.63 K/uL (4.8-10.8)
[2021-09-15 18:00] LABS: Partial Thromboplastin Time 25.8 Seconds (21.0-31.0); Prothrombin Time 9.9 Seconds (9.0-12.0)
[2021-09-15 18:08] LABS: Alanine Aminotransferase 22 (12-78); Albumin Level 3.2 gm/dl (3.4-5.0); Aspartate Aminotransferase 13 U/L (15-37); BUN Creatinine Ratio 30.7 (10-20); Blood Urea Nitrogen 59 mg/dl (7-18); Calcium 9.7 mg/dl (8.5-10.1); Carbon Dioxide 26 mmol/L (21-32); Chloride 107 mmol/L (98-107); Est GFR (Non-African American) 27.6 ml/min; Glucose 111 mg/dl (70-99); Potassium 3.5 mmol/L (3.5-5.1); Sodium 140 mmol/L (136-145)
[2021-09-15 18:11] LABS: Albumin Globulin Ratio 0.7 (0.9-2); Alkaline Phosphatase 246 U/L (45-117); Bilirubin,Total 0.3 mg/dl (0.2-1); Globulin 4.5 gm/dl (2.5-4.0); Total Protein 7.7 gm/dl (6.4-8.2)
[2021-09-15 19:54] LABS: Appearance Urine Turbid (Clear); Bacteria Urine Automated 4+ (Negative); Bilirubin Urine Negative (Negative); Blood Urine 1+ (Negative); Color Urine Dark Yellow; Epithelial Cell Urine Auto >30 /lpf (0-5); Glucose Urine UA Negative (Negative); Ketones Urine Trace (Negative); Leukocyte Esterase Urine 2+ (Negative); Nitrite Urine Negative (Negative); Protein Urine Trace (Negative); RBC Urine Automated 0-4 /hpf (0-4); Specific Gravity Urine 1.017 (1.000-1.030); Urobilinogen Urine Negative (Negative); WBC Urine Automated >30 /hpf (0-5)
[2021-09-15] MEDS ORDERED: PIPERACILLIN/TAZOBACTAM 4.5 GM/120 ML BAG IV ONE (21:32)
[2021-09-15] MEDS ORDERED: PIPERACILL/TAZOBAC CONSULT ACTIVE PRN (21:32)
--- NOTE | 2021-09-15 21:40 | Emergency Department Note ---
History of Present Illness General Chief complaint: Cardiac Assessment Stated complaint: REF BY - CONGESTIVE HEART FAILURE Time Seen by Provider: 09/15/21 21:28 History of Present Illness Maximum Pain Intensity: 7 This 61-year-old with CHF presents to the ER complaining of ua sx and chf Exacerbation Location: Generalized Quality: Weak Severity: Moderate Duration: Past week Timing: Started a week ago Context: Patient was concerned and sent in by the cushion builder Modifying factors: better with rest; worse with activity Patient states she had a 30 pound weight gain and her cushion builder sent her in for admission tonight. Last urine culture was reviewed. Patient has multiple drug allergies. She is also sent in for admission for UTI. Patient complains of chest pain, dyspnea, generalized illness. She is vaccinated for COVID-19 with booster. She is vaccinated for flu. Home Medications Medication Instructions Recorded Confirmed Type aspirin 81 mg tablet,delayed 81 mg PO HS 02/26/21 09/15/21 History release irpqdyflwk-mcsqqdf-ztzmuxde 50 1 cap PO Q4H PRN 02/26/21 09/15/21 History mg-325 mg-40 mg capsule calcium carbonate 600 mg-vitamin 1 tab PO QDL 02/26/21 09/15/21 History D3 10 mcg (400 unit) tablet (Calcium 600 + D(3)) cholecalciferol (vitamin D3) 25 25 mcg PO QAM 02/26/21 09/15/21 History mcg (1,000 unit) tablet (Vitamin D3) docusate sodium 100 mg tablet 100 mg PO BID 02/26/21 09/15/21 History ferrous sulfate 325 mg (65 mg 325 mg PO BID 02/26/21 09/15/21 History iron) tablet (FeroSul) fexofenadine 180 mg tablet 180 mg PO QAM 02/26/21 09/15/21 History folic acid 1 mg tablet 1 mg PO QAM 02/26/21 09/15/21 History insulin glargine 100 unit/mL (3 15 unit SUBCUT HS 02/26/21 09/15/21 History mL) subcutaneous pen (Basaglar KwikPen U-100 Insulin) levothyroxine 25 mcg capsule 25 mcg PO DAILYBB 02/26/21 09/15/21 History (Tirosint) metoprolol succinate 50 mg 50 mg PO QAM 02/26/21 09/15/21 History tablet,extended release 24 hr omeprazole 40 mg capsule,delayed 40 mg PO QAM 02/26/21 09/15/21 History release spironolactone 25 mg tablet 25 mg PO QAM #30 tab 03/06/21 09/15/21 Rx torsemide 20 mg tablet 40 mg PO BID #60 tab 03/14/21 09/15/21 Rx acidophilus 100 million 1 cap PO DAILY 09/15/21 09/15/21 History cell-pectin, citrus 10 mg capsule amiodarone 200 mg tablet 200 mg PO DAILY 09/15/21 09/15/21 History bevacizumab 25 mg/mL intravenous 1.25 mg IV DIRECTED 09/15/21 09/15/21 H istory solution (Avastin) diphenoxylate-atropine 2.5 1 tab PO DIRECTED PRN 09/15/21 09/15/21 History mg-0.025 mg tablet (Lomotil) fosfomycin tromethamine 3 gram 1 packet PO Q3D 09/15/21 09/15/21 History oral packet gabapentin 100 mg capsule 200 mg PO QAM 09/15/21 09/15/21 History gabapentin 300 mg capsule 300 mg PO HS 09/15/21 09/15/21 History okcozashoxwt-nbhoocgd-fqgmon 1 tab PO DAILY 09/15/21 09/15/21 History tablet (Multivitamin 50 Plus) vitamin B complex 1 cap PO DAILY 09/15/21 09/15/21 History Allergies Allergy/AdvReac Type Severity Reaction Status Date / Time acetaminophen Allergy Severe SHORT OF Verified 09/15/21 22:05 BREATH kiwi Allergy Intermediate Hives Verified 09/15/21 22:05 nylon Allergy Intermediate BLISTER Verified 09/15/21 22:05 SKIN walnut Allergy Intermediate MOUTH AND Verified 09/15/21 22:05 TONGUE SORE aluminum Allergy Mild Rash Verified 09/15/21 22:05 latex Allergy Mild Rash Verified 09/15/21 22:05 frovatriptan Allergy Unknown Unknown Verified 09/15/21 22:05 glipizide Allergy Unknown CAN'T Verified 09/15/21 22:05 REMEMBER turkey AdvReac Severe VOMITING--END Verified 09/15/21 22:05 UP IN HOSPITAL aspartame AdvReac Intermediate GI UPSET-- Verified 09/15/21 22:05 WITH ALL ARTIFICAL SWEETNERS hydrocodone [From Vicodin] AdvReac Intermediate Gastrointestinal Verified 09/15/21 22:05 Upset morphine AdvReac Intermediate Confusion Verified 09/15/21 22:05 pioglitazone [From Actos] AdvReac Intermediate Gastrointestinal Verified 09/15/21 22:05 Upset sumatriptan [From Imitrex] AdvReac Intermediate DOSEN'T Verified 09/15/21 22:05 WORK tramadol AdvReac Intermediate DOSEN'T Verified 09/15/21 22:05 WORK ascorbic acid AdvReac Unknown Unknown Verified 09/15/21 22:05 benzoic acid AdvReac Unknown Unknown Verified 09/15/21 22:05 doxylamine AdvReac Unknown Unknown Verified 09/15/21 22:05 Sulfa (Sulfonamide AdvReac Unknown CAN'T TAKE Verified 09/15/21 22:05 Antibiotics) IT Past Med/Surg History Medical History Atrial fibrillation Charcot's joint of left foot CHF (congestive heart failure) Chronic diastolic (congestive) heart failure CKD (chronic kidney disease), stage III Diabetes mellitus, type II Diabetic retinopathy Fluid overload Paroxysmal atrial fibrillation Pedal edema Surgical History History of foot surgery Hx of cholecystectomy Family History Other Arthritis Social History Smoking Status: Never smoker Second Hand Exposure: No; Hx Alcohol Use: No Hx Substance Use: No Preferred Language: Spanish Communication Ability: Effective [place] Roofer Required: No Beliefs That Will Affect Care: None Current Living Situation: Alone Feels Safe at Home: Yes Gender Identity: Female Assistive Devices: Walker Review of Systems A total of 10 systems reviewed and were otherwise negative Physical Exam Vital Signs Vital Signs - 24 hr 09/15/21 15:21 09/15/21 17:15 09/15/21 21:31 Temperature 36.7 C Temperature Source Temporal Artery Scan Pulse Rate 68 Pulse Rate [Left Finger] 67 67 Pulse Rhythm [Left Finger] Regular Respiratory Rate 20 14 22 Respiratory Effort / Characteristics Non-Labored Spontaneous Non-Labored Spontaneous Respiratory Depth Normal Normal Respiratory Pattern Regular Regular Blood Pressure 87/59 L Blood Pressure [Right Arm] 111/71 128/100 Blood Pressure Mean 68 Blood Pressure Mean [Right Arm] 84 109 Blood Pressure Position Sitting Blood Pressure Position [Right Arm] Sitting Pulse Oximetry 100 98 98 Oxygen Delivery Method Room Air Room Air Room Air Sepsis Recent Fever Within 48 Hours No Sepsis New/Unexplained Change in Mental Status No Sepsis Action Taken by Nursing No Action Required VITALS: Vitals are noted on the nurse's note and reviewed by myself. Vital signs stable GENERAL: Pleasant female, in no acute distress, nondiaphoretic, well-developed well-nourished. SKIN: The skin was without rashes, erythema, edema, or bruising. There is no tenting of the skin. Capillary reflex less than 2 seconds. HEAD: Normocephalic atraumatic. EARS: External auditory canals clear, EYES: Pupils equal round and reactive to light and accommodation. Conjunctivae without injection, sclerae without icterus. Extraocular movements intact. NOSE: Patent, turbinates without inflammation or discharge. MOUTH: Mucous membranes moist. Pharynx without erythema or exudate. Uvula midline. Airway patent. Tongue does not deviate. NECK: Supple without nuchal rigidity. No lymphadenopathy. No thyromegaly. Cervical spine is nontender. No JVD. HEART: Regular rate and rhythm LUNGS: Clear to auscultation bilaterally without wheezes, rales or rhonchi. No retractions or accessory muscle use. ABDOMEN: Positive bowel sounds x 4. Normal tympanic percussion. Soft, nontender, without masses or organomegaly. Orantes sign negative. No guarding or rebound tenderness. No CVA tenderness MUSCULOSKELETAL: No muscle atrophy, erythema, or edema noted. NEURO: Patient was alert and oriented to person place and time. Normal sensation to light and sharp touch. No focal neurological deficits. Course Administered Medications Discontinued Medications Piperacillin Sod/Tazobactam Sod (Zosyn) 4.5 gm in 120 mls @ 240 mls/hr IV NOW ONE Stop: 09/15/21 22:01 Last Infusion: 09/15/21 22:32 Dose: 0 mls/hr Documented by: [id number] Admin: 09/15/21 21:54 Dose: 240 mls/hr Documented by: [id number] Medical Decision Making Medical Records Attestation: I reviewed the patient's medical records. Home Medications Current Medication List: was personally reviewed by me Laboratory Data Attestation: I reviewed the patient's lab results. Result diagrams: 09/15/21 17:27 09/15/21 17:27 Lab Results 09/15/21 09/15/21 09/15/21 Range/Units 17:27 17:27 17:27 WBC 7.63 (4.8-10.8) K/uL RBC 4.26 (4.2-5.4) M/uL Hgb 13.0 (12.0-16.0) g/dL Hct 39.0 (37-47) % MCV 91.5 (80-100) fL MCH 30.5 (25-34) pg MCHC 33.3 (32-36) g/dL RDW Std Deviation 48.8 H (36.4-46.3) fL RDW Coeff of Milo 14.5 (11.5-14.5) % Plt Count 151 (130-400) K/uL MPV 8.6 (7.4-10.4) fL Immature Gran % (Auto) 0.4 % Neut % (Auto) 63.6 % Lymph % (Auto) 21.0 % Irion % (Auto) 9.3 % Eos % (Auto) 5.2 % Baso % (Auto) 0.5 % Neut # (Auto) 4.85 (1.4-6.5) K/uL Lymph # (Auto) 1.60 (1.2-3.4) K/uL Irion # (Auto) 0.71 H (0.11-0.59) K/uL Eos # (Auto) 0.40 (0-0.5) K/uL Baso # (Auto) 0.04 (0-0.2) K/uL Immature Gran # (Auto) 0.03 H (0.00-0.02) K/uL PT 9.9 (9.0-12.0) Seconds INR 1.0 (0.9-1.1) APTT 25.8 (21.0-31.0) Seconds PTT Ratio 1.0 Sodium 140 (136-145) mmol/L Potassium 3.5 (3.5-5.1) mmol/L Chloride 107 (98-107) mmol/L Carbon Dioxide 26 (21-32) mmol/L Anion Gap 7.0 (3-11) BUN 59 H (7-18) mg/dl Creatinine 1.93 H (0.6-1.2) mg/dl Est Cr Clr Drug Dosing Not Reportable Est GFR ( Amer) 32.0 ml/min Est GFR (Non-Af Amer) 27.6 ml/min BUN/Creatinine Ratio 30.7 H (10-20) Glucose 111 H (70-99) mg/dl Calcium 9.7 (8.5-10.1) mg/dl Total Bilirubin 0.3 (0.2-1) mg/dl AST 13 L (15-37) U/L ALT 22 (12-78) Alkaline Phosphatase 246 H (45-117) U/L Troponin I (0-0.045) ng/ml NT-Pro-B Natriuret Pep (0-900) pg/ml Total Protein 7.7 (6.4-8.2) gm/dl Albumin 3.2 L (3.4-5.0) gm/dl Globulin 4.5 H (2.5-4.0) gm/dl Albumin/Globulin Ratio 0.7 L (0.9-2) Urine Color Urine Appearance (Clear) Urine pH (4.5-7.5) Ur Specific [place] (1.000-1.030) Urine Protein (Negative) Urine Glucose (UA) (Negative) Urine Ketones (Negative) Urine Blood (Negative) Urine Nitrite (Negative) Urine Bilirubin (Negative) Urine Urobilinogen (Negative) Ur Leukocyte Esterase (Negative) Urine WBC (Auto) (0-5) /hpf Urine RBC (Auto) (0-4) /hpf U Hyaline Cast (Auto) (0-5) /lpf U Epithel Cells (Auto) (0-5) /lpf Urine Bacteria (Auto) (Negative) SARS-CoV-2, RNA, NAAT (NEGATIVE) 09/15/21 09/15/21 09/15/21 Range/Units 17:27 19:36 22:20 WBC (4.8-10.8) K/uL RBC (4.2-5.4) M/uL Hgb (12.0-16.0) g/dL Hct (37-47) % MCV (80-100) fL MCH (25-34) pg MCHC (32-36) g/dL RDW Std Deviation (36.4-46.3) fL RDW Coeff of Milo (11.5-14.5) % Plt Count (130-400) K/uL MPV (7.4-10.4) fL Immature Gran % (Auto) % Neut % (Auto) % Lymph % (Auto) % [place] % (Auto) % Eos % (Auto) % Baso % (Auto) % Neut # (Auto) (1.4-6.5) K/uL Lymph # (Auto) (1.2-3.4) K/uL Irion # (Auto) (0.11-0.59) K/uL Eos # (Auto) (0-0.5) K/uL Baso # (Auto) (0-0.2) K/uL Immature Gran # (Auto) (0.00-0.02) K/uL PT (9.0-12.0) Seconds INR (0.9-1.1) APTT (21.0-31.0) Seconds PTT Ratio Sodium (136-145) mmol/L Potassium (3.5-5.1) mmol/L Chloride (98-107) mmol/L Carbon Dioxide (21-32) mmol/L Anion Gap (3-11) BUN (7-18) mg/dl Creatinine (0.6-1.2) mg/dl Est Cr Clr Drug Dosing Est GFR ( Amer) ml/min Est GFR (Non-Af Amer) ml/min BUN/Creatinine Ratio (10-20) Glucose (70-99) mg/dl Calcium (8.5-10.1) mg/dl Total Bilirubin (0.2-1) mg/dl AST (15-37) U/L ALT (12-78) Alkaline Phosphatase (45-117) U/L Troponin I < 0.015 (0-0.045) ng/ml NT-Pro-B Natriuret Pep 370 (0-900) pg/ml Total Protein (6.4-8.2) gm/dl Albumin (3.4-5.0) gm/dl Globulin (2.5-4.0) gm/dl Albumin/Globulin Ratio (0.9-2) Urine Color Dark Yellow Urine Appearance Turbid A (Clear) Urine pH 5.0 (4.5-7.5) Ur Specific [place] 1.017 (1.000-1.030) Urine Protein Trace H (Negative) Urine Glucose (UA) Negative (Negative) Urine Ketones Trace H (Negative) Urine Blood 1+ H (Negative) Urine Nitrite Negative (Negative) Urine Bilirubin Negative (Negative) Urine Urobilinogen Negative (Negative) Ur Leukocyte Esterase 2+ H (Negative) Urine WBC (Auto) >30 H (0-5) /hpf Urine RBC (Auto) 0-4 (0-4) /hpf U Hyaline Cast (Auto) 5-10 H (0-5) /lpf U Epithel Cells (Auto) >30 H (0-5) /lpf Urine Bacteria (Auto) 4+ H (Negative) SARS-CoV-2, RNA, NAAT NEGATIVE (NEGATIVE) Imaging Data Attestation: I personally reviewed and interpreted this imaging study as follows: Radiologist's Impression: Chest X-Ray 09/15/21 15:28 SINGLE VIEW CHEST CLINICAL HISTORY: Congestive heart failure. Dyspnea. Atypical chest pain. FINDINGS: An AP, portable, upright chest radiograph is compared to study dated 04/03/2021 and correlated with chest CT dated 04/07/2021. The heart is enlarged. The pulmonary vasculature is noncongested. Chronic interstitial thickening is similar to previous. No airspace consolidation or large pleural effusion is identified. No pneumothorax is seen. The skeletal structures are osteopenic. There is chronic posttraumatic deformity of the right proximal humerus. Cholecystectomy clips are noted in the right upper quadrant. IMPRESSION: Cardiomegaly with no acute cardiopulmonary abnormality. ACT 112: Negative or not required by law. Electronically signed by: Black Nash M.D. 09/15/2021 4:55 PM [facility] Narrative Prior records/ancillary studies reviewed and summarized above. Nursing notes reviewed. Additional history obtained from [facility]. The patient's history was concerning for CHF exacerbation and UTI Differential diagnosis: Etiologies such as metabolic, infection, hypo/hyperglycemia, electrolyte abnormalities, cardiac sources, intracerebral event, toxicologic, neurologic, as well as others were entertained. Physical examination: As above. ER treatment provided: IV Lock An order was placed for continuous cardiac monitoring. The monitor shows a rate of 60-100 with a stable rhythm. Zosyn On reassessment the patient felt better. Diagnostics interpretation by me: ECG: Ordered for dyspnea EKG: Normal sinus, normal and was, no acute ST-T changes. Impression normal sinus interpreted by myself I think arrhythmia is unlikely. EKG shows normal sinus rhythm with no interval abnormalities such as QT prolongation or WPW. There are no findings to suggest Brugada syndrome. Cardiac monitoring in the emergency department reveals no tachycardic or bradycardic dysrhythmia. Hypertrophic cardiomyopathy was considered but there are no clear historical elements pointing toward this. EKG is not suggestive. The QRS voltage is not extremely large and there are no suggestive Q waves. The labs revealed urine concerning for infection sent for culture [address], [place] [address] / Director: Bin Greene M.D. Clinical Laboratory Report Name: NASH CARNEY Acct: [id number] Status: DIS IN : 1960 [facility] Date: 04/03/21 Age: 61 Sex: F Dis Date: 04/20/21 Loc: [address] Rm/Bed: [facility] Spec: [id number] Collected: 04/13/21-802 Received: 04/13/21-[address]: Enzo Babcock MD Copy To: Med Marion MD Source: Urine,Clean Catch OV Order: Ordered: Urine Culture Comments: Comment pls use collected urine 04/13 Procedure Result Verified Site Urine Culture Final 04/15/21-1000 Organism 1 Klebsiella pneumoniae [place] Count >100,000 CFU/ml Sens Sensitivities to Follow Kleb pneum RX M.I.C. --- --------- Amox/Clav R >16/8 Amp/Sul R >16/8 Cefazolin R >16 Cefepime S <=2 Ceftriaxone R >2 Ciprofloxacin S <=0.25 Ertapenem S <=0.5 Gentamicin S <=4 Levofloxacin S <=0.5 Meropenem S <=1 Nitrofurantoin R >64 Tobramycin S <=4 Trimeth/Sulfa S <=2/38 Pip/Tazo S <=16 S = SENSITIVE I = INTERMEDIATE R = RESISTANT Creatinine slightly elevated from baseline. Negative troponin. Imaging studies: As above Consultation: A consultation was placed with the hospitalist. The case was discussed and diagnostics were reviewed. The patient was evaluated in the ER for further treatment. Exam and history seem consistent with UTI with CHF exacerbation. Patient was sent in by the cushion builder for admission. Prior urine culture reviewed. She is given antibiotics. Medicine was consulted. She will be admitted. By the evaluation outlined above emergent etiologies such as electrolyte abnormalities, intracerebral event, toxologic, neurologic, abnormalities blood glucose, metabolic, as well as others were deemed relatively unlikely. The pt informed about the findings as listed above. All questions were answered and pleased with the treatment. The chart was completed utilizing [employer] voice recognition software. Grammatical errors, random word insertions, pronoun errors, and incomplete sentences are an occassional consequence of this system due to software limitations, ambient noise, and hardware issues. Any formal questions or concerns about the content, text, or information contained within the body of this dictation should be directly addressed to the physician assistant center manager for clarification. Impression & Plan Acute on chronic diastolic heart failure, UTI (urinary tract infection) Discharge Plan Visit Data Chief Complaint: Cardiac Assessment Stated Complaint: REF BY - CONGESTIVE HEART FAILURE ED Provider: Lul Infante ED Midlevel Provider: Nora Barros Discharge Problem: Acute on chronic diastolic heart failure, UTI (urinary tract infection) Patient Disposition: Admitted As Inpatient Condition: Fair Forms Stand Alone Forms: My [facility] [employer] Prescriptions Prescriptions: No Action metoprolol succinate 50 mg Tablet Extended Release 24 Hr 50 mg PO QAM RF: 0 fexofenadine 180 mg Tablet 180 mg PO QAM RF: 0 omeprazole 40 mg Capsule,Delayed Release(Dr/Ec) 40 mg PO QAM RF: 0 aspirin 81 mg Tablet,Delayed Release (Dr/Ec) 81 mg PO HS RF: 0 ferrous sulfate [FeroSul] 325 mg (65 mg iron) tablet 325 mg PO BID RF: 0 vyjopdpawe-rojmdac-vfhwzfem 50-325-40 mg Capsule 1 cap PO Q4H PRN (Reason: Migraine Headache) RF: 0 folic acid 1 mg Tablet 1 mg PO QAM RF: 0 docusate sodium 100 mg Tablet 100 mg PO BID RF: 0 cholecalciferol (vitamin D3) [Vitamin D3] 25 mcg (1,000 unit) Tablet 25 mcg PO QAM RF: 0 calcium carbonate-vitamin D3 [Calcium 600 + D(3)] 600 mg(1,500mg) -400 unit Tablet 1 tab PO QDL RF: 0 Basaglar KwikPen U-100 Insulin 100 unit/mL (3 mL) Insulin Pen 15 unit SUBCUT HS RF: 0 levothyroxine [Tirosint] 25 mcg Capsule 25 mcg PO DAILYBB RF: 0 spironolactone 25 mg Tablet 25 mg PO QAM Qty: 30 RF: 0 torsemide 20 mg tablet 40 mg PO BID Qty: 60 RF: 0 fosfomycin tromethamine 3 gram Packet 1 packet PO Q3D RF: 0 amiodarone 200 mg Tablet 200 mg PO DAILY RF: 0 diphenoxylate-atropine [Lomotil] 2.5-0.025 mg Tablet 1 tab PO DIRECTED PRN (Reason: Diarrhea) RF: 0 gabapentin 300 mg Capsule 300 mg PO HS RF: 0 gabapentin 100 mg Capsule 200 mg PO QAM RF: 0 vitamin B complex [B Complex] Capsule 1 cap PO DAILY RF: 0 Multivitamin 50 Plus Tablet 1 tab PO DAILY RF: 0 Avastin 25 mg/mL Solution 1.25 mg IV DIRECTED RF: 0 acidophilus-pectin, citrus [Acidophilus Probiotic] 100 million cell-10 mg Capsule 1 cap PO DAILY RF: 0 Referrals Referrals: Marcial Blanc MD [Primary Care Provider] -
[2021-09-15 22:03] LABS: NT Pro B Type Natriuretic Pept 370 pg/ml (0-900); Troponin I < 0.015 ng/ml (0-0.045)
--- NOTE | 2021-09-15 22:27 | Emergency Department Note ---
ED Visit Note Physician Evaluation Note: Patient was seen in conjunction with the physician psychology assistant. Please see the physician psychology assistant note for full details of the visit. I have personally evaluated and examined this patient. I performed a substantive portion of the patient visit including medical decision making and interpretation of diagnostic studies. On my examination the patient is in no acute distress, she does have significant edema of the bilateral lower extremities. She was sent in by her flight steward for admission for further care in regards to her fluid status that she has gained significant amount of weight over about the past month according the patient. She also has an elevation in her creatinine above baseline 1.9. Suspect there may be an element of cardiorenal syndrome. Patient is otherwise in agreement for admission and she was admitted in stable condition for further care. I agree with assessment and plan of TWIN Pfeiffer DO .
[2021-09-16] MEDS ORDERED: CONSULT PHARMACY STA (02:33)
[2021-09-16] MEDS ORDERED: BUTALBITAL/ASPIRIN/CAFFEINE 1 TAB TAB PO PRN (04:34)
[2021-09-16] MEDS ORDERED: DIPHENOXYLATE/ATROPINE 2.5/0.025MG TAB PO PRN (04:34)
[2021-09-16] MEDS ORDERED: ONDANSETRON INJ 2 MG/ML 2 ML VIAL IV PRN (04:34)
[2021-09-16] MEDS ORDERED: POLYETHYLENE (MIRALAX) 17 GM PACK PO PRN (04:34)
[2021-09-16] MEDS ORDERED: NITROGLYCERIN SL 0.4 MG/TAB TAB SL PRN (04:34)
--- NOTE | 2021-09-16 04:45 | History and Physical Report ---
DATE OF ADMISSION: 09/15/2021. CHIEF COMPLAINT: Weight gain and multidrug resistant urinary tract infection. HISTORY OF PRESENT ILLNESS: This is a 61-year-old female with past medical history significant for type 2 diabetes, hypothyroidism, atrial fibrillation, chronic diastolic CHF, hypertension, history of TIA, complicated UTI, chronic kidney disease stage III, fibromyalgia, osteoarthritis, impaired mobility, lymphedema, who lives alone at home, ambulates with a walker and went to Cardiology office complaining of weight gain of 30 pounds since last discharge in April. She also has dry cough, feeling dizzy, mild headaches and burning micturition. She is having multidrug resistant UTI diagnosed since about a month ago, was given Levaquin, but stopped because it was messing up with her cardiac medications. She was sent here to treat for UTI and also for CHF from the Cardiology office. Resting comfortably, hemodynamically stable. The patient does not want to do IV Lasix at this time because of her kidney function and want to wait until Cardiology comes in the morning. Denies any fever or chills. Vision is okay. No earache, no runny nose. No sore throat. Appetite is okay. Able to swallow okay. No nausea, no vomiting, alternating diarrhea and constipation. Denies any blood in stools or black stools, lower extremity edema. ALLERGIES: TO TYLENOL, KIWI, NYLON, WALNUT, ALUMINIUM, LATEX, FROVATRIPTAN, GLIPIZIDE, TURKEY, ASPARTAME, VICODIN, MORPHINE, ACTOS, IMITREX, TRAMADOL, ASCORBIC ACID, BENZOIC ACID, DOXYLAMINE, SULFA ANTIBIOTICS. PAST MEDICAL HISTORY: As mentioned above. PAST SURGICAL HISTORY: Tooth extraction, injection of eye drug, laparoscopic cholecystectomy, photocoagulation for retinopathy in right eye, cataracts bilateral, and photocoagulation for retinopathy in left eye. MEDICATIONS: The patient is on probiotic 1 capsule p.o. daily, amiodarone 200 mg p.o. daily, aspirin 81 mg p.o. at bedtime, Basaglar insulin 15 units subcutaneous at bedtime, emedastine as directed, furosemide 1 capsule p.o. q. 4 hours p.r.n., calcium carbonate plus vitamin D one tablet p.o. daily, vitamin D 25 mcg p.o. daily, Lomotil as directed, Colace 100 mg p.o. b.i.d., ferrous sulfate 325 mg p.o. b.i.d., fexofenadine 180 mg p.o. daily, folic acid 1 mg p.o. daily, fosfomycin tromethamine 1 packet p.o. q. 3 days, gabapentin 300 mg p.o. at bedtime, gabapentin 200 mg p.o. a.m., levothyroxine 25 mcg p.o. daily, metoprolol succinate 50 mg p.o. a.m., multivitamins 1 tablet p.o. daily, omeprazole 40 mg p.o. a.m., spironolactone 25 mg p.r.n., torsemide 40 mg p.o. b.i.d., vitamin B complex 1 capsule p.o. daily. FAMILY HISTORY: Significant for mother has eye problems. Sister has eye problems. SOCIAL HISTORY: Currently single. No smoking, no alcohol, no drug use. REVIEW OF SYSTEMS: As per HPI. Rest of review of systems is negative. PHYSICAL EXAMINATION: GENERAL: The patient is morbidly obese, not in acute distress. VITAL SIGNS: Temperature 36.7, pulse 62, respiratory rate 20, blood pressure 126/79, oxygen 94% on room air. HEENT: Pupils equal, round and reactive to light. Oral mucosa moist. NECK: No JVD. No neck masses. CARDIOVASCULAR: S1 and S2 heard. Regular rate and rhythm. No murmur, no gallop. RESPIRATORY SYSTEM: Normal AP diameter. No accessory muscle use. No wheezing, no crackles. ABDOMEN: Soft, bowel sounds present. Some tenderness in right upper quadrant region. No guarding, no rigidity, no distention. CENTRAL NERVOUS SYSTEM: Cranial nerves II-XII grossly intact, nonfocal. EXTREMITIES: No lower extremity edema. +2 edema present. No erythema seen. LABORATORY DATA: WBC 7.6, hemoglobin 13, hematocrit 39, platelets 151. PT 9.9, INR 1, APTT 25.8. Sodium 140, potassium 3.5, chloride 107, bicarbonate 26, BUN 59, creatinine 1.9, serum glucose 111, calcium 9.7, total bilirubin 0.3, AST 13, ALT 22, alkaline phosphatase 246. Troponin I less than 0.015. BNP 370. Urinalysis: Trace ketones, +2 leukocyte esterase, +4 bacteria. SARS-CoV-2 negative. IMAGING DATA: Chest x-ray: Cardiomegaly with no acute cardiopulmonary abnormalities. EKG: Normal sinus rhythm at a rate of 68, no significant change was found. ASSESSMENT AND PLAN: This 61-year-old female with history of diastolic congestive heart failure, who was sent from Cardiology office because complicated urinary tract infection and also ongoing diastolic congestive heart failure. 1. Acute on chronic diastolic congestive heart failure, patient is on spironolactone 25 mg daily and torsemide 40 mg p.o. b.i.d., metoprolol succinate 50 mg p.o. a.m. The patient does not want to do IV Lasix currently and want to wait until Cardiology comes in the morning, so we will continue spironolactone and hold torsemide for now. Further diuretics as per Cardiology. Is and Os, daily weights. 2. Multidrug resistant urinary tract infection . Klebsiella pneumonia, cultures done as outpatient. We will place on Invanz. ID consult. Follow the cultures. 4. Diabetes. Continue home long-acting insulin and sliding scale. Follow the blood sugars. 5. Atrial fibrillation on amiodarone, on aspirin and metoprolol, not on anticoagulation because of retinal l bleed in the past. 6. Acute kidney injury and chronic kidney disease stage III: Baseline creatinine 1.4, currently creatinine of 1.9. We will follow the repeat labs in the a.m. 7. History pulmonary nodules. Follow up. 8. Hypothyroidism, on Synthroid. 9. Nocturnal hypoxia, on 2 liters at bedtime. 10. Deep venous thrombosis prophylaxis: Placed on heparin subcutaneously. DISPOSITION: Closely monitor in the tele floor. PT/OT prior to discharge. Social service to help with discharge planning. Job ID: [id number] [facility]
[2021-09-16 05:20] LABS: Basophils # (auto) 0.02 K/uL (0-0.2); Basophils % (auto) 0.4 %; Eosinophils # (auto) 0.28 K/uL (0-0.5); Hematocrit (blood only) 35.8 % (37-47); Hemoglobin 11.9 g/dL (12.0-16.0); Immature Granulocytes # (auto) 0.01 K/uL (0.00-0.02); Immature Granulocytes % (auto) 0.2 %; Lymphocytes # (auto) 1.63 K/uL (1.2-3.4); Lymphocytes % (auto) 28.8 %; Mean Corpuscular Hemoglobin 30.1 pg (25-34); Mean Corpuscular Hgb Conc 33.2 g/dL (32-36); Mean Corpuscular Volume 90.6 fL (80-100); Mean Platelet Volume 8.8 fL (7.4-10.4); Monocytes # (auto) 0.44 K/uL (0.11-0.59); Monocytes % (auto) 7.8 %; Neutrophils # (auto) 3.27 K/uL (1.4-6.5); Neutrophils % (auto) 57.8 %; Platelet Count 114 K/uL (130-400); RDW Coefficient of Variation 14.4 % (11.5-14.5); RDW Standard Deviation 48.2 fL (36.4-46.3); Red Blood Count 3.95 M/uL (4.2-5.4); White Blood Count 5.65 K/uL (4.8-10.8)
[2021-09-16 05:48] LABS: BUN Creatinine Ratio 31.8 (10-20); Calcium 9.3 mg/dl (8.5-10.1); Creatinine Clr Calc Pharmacy 42.3 ml/min; Est GFR (African American) 32.4 ml/min; Magnesium 2.3 mg/dl (1.8-2.4); Potassium 3.6 mmol/L (3.5-5.1)
[2021-09-16] MEDS: LEVOTHYROXINE SODIUM 25 MCG TABLET PO SCH (06:17)
[2021-09-16] MEDS: HEPARIN SOD 5,000 UNIT/0.5 ML VIAL SQ SCH ×3 (06:17→21:22)
[2021-09-16] MEDS: ERTAPENEM SODIUM 1,000 MG in SODIUM CHLORIDE 0.9% 50 ML IV SCH (06:17)
[2021-09-16 07:31] LABS: Estimated Average Glucose 275 mg/dl; Hemoglobin A1C 11.2 % (4.5-5.6)
--- NOTE | 2021-09-16 08:52 | Cardiology Consultation ---
Date of Consultation September 16, 2021 Assessment & Plan (1) Acute on chronic diastolic heart failure: (2) UTI (urinary tract infection): (3) Paroxysmal atrial fibrillation: (4) Acute kidney injury superimposed on CKD: Patient presenting with worsening SOB, 30 lb weight gain, multifactorial volume overload with diastolic HF, obesity. Dietary indiscretion likely large component. Her creatinine was slightly elevated at 1.9. Discussed with patient as she initially refused IV lasix yesterday in ER. Last admission her creatinine was 1.8 on admission and improved to baseline with diuretics. She is agreeable to IV furosemide today and will re-evaluate renal function tomorrow. Start Furosemide 40 mg IV BID today. Hold AM dose until labs reviewed. Continue spironolactone. Continue other home meds including ASA, amiodarone, metoprolol. 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 UTI treatment per hospitalist. DVT proph - SQ hep Will follow. Case discussed with Dr. Bojorquez. Supervising Physician Co-Signing Physician Notes Patient seen and examined with Amparo Ward PA-C. Agree with findings and assessment as above. Recurrent decompensated diastolic heart failure with dietary indiscretion and possible medication nonadherence. Will diurese as above. History of Present Illness Reason for Consultation: SOB; CHF Requesting Physician: Dr. Nesbitt Attending Physician: Dr. 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 Chronic diastolic CHF, NYHA class 3 2. Paroxsymal atrial fibrillation, on amiodarone, [id number] score of 5 (female, CHF, hypertension, CAD, diabetes). No AC due to due to history of hemorrhagic diabetic retinopathy 3. Nonobstructive CAD, per catheterization at [facility] 06/2020 4. Morbid Obesity 5. HTN, goal below 140/90 6. DM with retinopathy 7. CKD stage III with proteinuria secondary to classic aggressive diabetic nephropathy Yesterday patient presented to cardiology clinic and was evaluated by CHARLA Burgos. Patient voiced concerns regarding 30 lb weight gain over the last several months. She notes worsening SOB and orthopnea along with abdominal distention. She also has been treated for multidrug resistant UTI with reduced urine output. Due to her symptoms, patient requested evaluation and admission to [facility] for treatment. Upon arrival to ER, she was found to have mildly elevated creatinine with prior baseline around 1.4 and on admission creatinine 1.9. Her chest xray was unremarkable and her BNP was actually normal for age. She declined initiation of IV lasix due to creatinine. She was started on antibiotics for UTI. Troponin was unremarkable. EKG demonstrated NSR without acute changes. At time of consult, patient feeling "poorly". Reports ongoing dyspnea and orthopnea. Ongoing abdominal bloating and having dysuria. No chest pain. No palpitations. +edema b/l. Allergies Allergy/AdvReac Type Severity Reaction Status Date / Time acetaminophen Allergy Severe SHORT OF Verified 09/16/21 04:55 BREATH kiwi Allergy Intermediate Hives Verified 09/15/21 22:05 nylon Allergy Intermediate BLISTER Verified 09/15/21 22:05 SKIN walnut Allergy Intermediate MOUTH AND Verified 09/15/21 22:05 TONGUE SORE aluminum Allergy Mild Rash Verified 09/15/21 22:05 latex Allergy Mild Rash Verified 09/15/21 22:05 frovatriptan Allergy Unknown Unknown Verified 09/15/21 22:05 glipizide Allergy Unknown CAN'T Verified 09/15/21 22:05 REMEMBER turkey AdvReac Severe VOMITING--END Verified 09/15/21 22:05 UP IN HOSPITAL aspartame AdvReac Intermediate GI UPSET-- Verified 09/15/21 22:05 WITH ALL ARTIFICAL SWEETNERS hydrocodone [From Vicodin] AdvReac Intermediate Gastrointestinal Verified 09/15/21 22:05 Upset morphine AdvReac Intermediate Confusion Verified 09/15/21 22:05 pioglitazone [From Actos] AdvReac Intermediate Gastrointestinal Verified 09/15/21 22:05 Upset sumatriptan [From Imitrex] AdvReac Intermediate DOSEN'T Verified 09/15/21 22:05 WORK tramadol AdvReac Intermediate DOSEN'T Verified 09/15/21 22:05 WORK ascorbic acid AdvReac Unknown Unknown Verified 09/15/21 22:05 benzoic acid AdvReac Unknown Unknown Verified 09/15/21 22:05 doxylamine AdvReac Unknown Unknown Verified 09/15/21 22:05 Sulfa (Sulfonamide AdvReac Unknown CAN'T TAKE Verified 09/15/21 22:05 Antibiotics) IT Home Medications Medication Instructions Recorded Confirmed Type aspirin 81 mg tablet,delayed 81 mg PO HS 02/26/21 09/15/21 History release hdexwcvrcc-yrhlfkt-akylpzfy 50 1 cap PO Q4H PRN 02/26/21 09/15/21 History mg-325 mg-40 mg capsule calcium carbonate 600 mg-vitamin 1 tab PO QDL 02/26/21 09/15/21 History D3 10 mcg (400 unit) tablet (Calcium 600 + D(3)) cholecalciferol (vitamin D3) 25 25 mcg PO QAM 02/26/21 09/15/21 History mcg (1,000 unit) tablet (Vitamin D3) docusate sodium 100 mg tablet 100 mg PO BID 02/26/21 09/15/21 History ferrous sulfate 325 mg (65 mg 325 mg PO BID 02/26/21 09/15/21 History iron) tablet (FeroSul) fexofenadine 180 mg tablet 180 mg PO QAM 02/26/21 09/15/21 History folic acid 1 mg tablet 1 mg PO QAM 02/26/21 09/15/21 History insulin glargine 100 unit/mL (3 15 unit SUBCUT HS 02/26/21 09/15/21 History mL) subcutaneous pen (Basaglar KwikPen U-100 Insulin) levothyroxine 25 mcg capsule 25 mcg PO DAILYBB 02/26/21 09/15/21 History (Tirosint) metoprolol succinate 50 mg 50 mg PO QAM 02/26/21 09/15/21 History tablet,extended release 24 hr omeprazole 40 mg capsule,delayed 40 mg PO QAM 02/26/21 09/15/21 History release spironolactone 25 mg tablet 25 mg PO QAM #30 tab 03/06/21 09/15/21 Rx torsemide 20 mg tablet 40 mg PO BID #60 tab 03/14/21 09/15/21 Rx acidophilus 100 million 1 cap PO DAILY 09/15/21 09/15/21 History cell-pectin, citrus 10 mg capsule amiodarone 200 mg tablet 200 mg PO DAILY 09/15/21 09/15/21 History bevacizumab 25 mg/mL intravenous 1.25 mg IV DIRECTED 09/15/21 09/15/21 History solution (Avastin) diphenoxylate-atropine 2.5 1 tab PO DIRECTED PRN 09/15/21 09/15/21 History mg-0.025 mg tablet (Lomotil) fosfomycin tromethamine 3 gram 1 packet PO Q3D 09/15/21 09/15/21 History oral packet gabapentin 100 mg capsule 200 mg PO QAM 09/15/21 09/15/21 History gabapentin 300 mg capsule 300 mg PO HS 09/15/21 09/15/21 History uzpupbncguos-hkfoofao-gokhly 1 tab PO DAILY 09/15/21 09/15/21 History tablet (Multivitamin 50 Plus) vitamin B complex 1 cap PO DAILY 09/15/21 09/15/21 History Patient History Medical History Atrial fibrillation Charcot's joint of left foot CHF (congestive heart failure) Chronic diastolic (congestive) heart failure CKD (chronic kidney disease), stage III Diabetes mellitus, type II Diabetic retinopathy Fluid overload Paroxysmal atrial fibrillation Pedal edema Surgical History History of foot surgery Hx of cholecystectomy Family History Other Arthritis Social History Smoking Status: Never smoker Second Hand Exposure: No; Hx Alcohol Use: No Hx Substance Use: No Preferred Language: Citizen Of [place] Communication Ability: Effective Bioinformatics Developer Required: No Beliefs That Will Affect Care: None Current Living Situation: Alone Other Information That Helps Us Care for You: No Feels Safe at Home: Yes Gender Identity: Female Assistive Devices: Walker Assistive Devices Comment: Scooter Review of Systems Review of Systems: All systems reviewed & are unremarkable except as noted in HPI & below Physical Exam Constitutional: WD/WN, vitals as above + morbidly obese; no acute distress Eyes: PERRL, conjunctivae normal, anicteric sclerae Neck: trachea midline, no thyromegaly Respiratory: normal respiratory effort Auscultation: + crackles (bases b/l) and + wheezes (expiratory, scattered) Cardiovascular: Rate/Rhythm: regular rate and regular rhythm Heart Sounds: no murmur Extremities: + edema (2+ pedal and pretibial edema) Gastrointestinal (Abdomen): normal bowel sounds, soft, nontender, no hepatospl enomegaly Skin: no rashes, warm and dry Neurologic: PERRL, EOMI, accommodation nl, no face palsy, no dysarthria Psychiatric: A+Ox3, euthymic affect Results & Data ([facility]) Vital Signs (Past 12 Hours) Vital Signs Temp Pulse Resp BP Pulse Ox 09/16/21 08:04 36.5 C 66 24 147/76 H 99 09/16/21 03:02 62 18 147/86 H 99 09/16/21 01:27 62 20 126/79 94 09/15/21 23:00 66 16 128/90 95 09/15/21 21:31 67 22 128/100 98 Laboratory Results 09/16/21 09/16/21 09/16/21 Range/Units 07:51 05:03 05:03 WBC (4.8-10.8) K/uL RBC (4.2-5.4) M/uL Hgb (12.0-16.0) g/dL Hct (37-47) % MCV (80-100) fL MCH (25-34) pg MCHC (32-36) g/dL RDW Std Deviation (36.4-46.3) fL RDW Coeff of Milo (11.5-14.5) % Plt Count (130-400) K/uL MPV (7.4-10.4) fL Immature Gran % (Auto) % Neut % (Auto) % Lymph % (Auto) % [place] % (Auto) % Eos % (Auto) % Baso % (Auto) % Neut # (Auto) (1.4-6.5) K/uL Lymph # (Auto) (1.2-3.4) K/uL [place] # (Auto) (0.11-0.59) K/uL Eos # (Auto) (0-0.5) K/uL Baso # (Auto) (0-0.2) K/uL Immature Gran # (Auto) (0.00-0.02) K/uL PT (9.0-12.0) Seconds INR (0.9-1.1) APTT (21.0-31.0) Seconds PTT Ratio Sodium 141 (136-145) mmol/L Potassium 3.6 (3.5-5.1) mmol/L Chloride 107 (98-107) mmol/L Carbon Dioxide 27 (21-32) mmol/L Anion Gap 7.0 (3-11) BUN 61 H (7-18) mg/dl Creatinine 1.91 H (0.6-1.2) mg/dl Est Cr Clr Drug Dosing 42.3 Est GFR ( Amer) 32.4 ml/min Est GFR (Non-Af Amer) 28.0 ml/min BUN/Creatinine Ratio 31.8 H (10-20) Glucose 187 H (70-99) mg/dl POC Glucose 169 H (70-99) mg/dl Estimat Average Glucose 275 mg/dl Hemoglobin A1c 11.2 H (4.5-5.6) % Calcium 9.3 (8.5-10.1) mg/dl Magnesium 2.3 (1.8-2.4) mg/dl Total Bilirubin (0.2-1) mg/dl AST (15-37) U/L ALT (12-78) Alkaline Phosphatase (45-117) U/L Troponin I (0-0.045) ng/ml NT-Pro-B Natriuret Pep (0-900) pg/ml Total Protein (6.4-8.2) gm/dl Albumin (3.4-5.0) gm/dl Globulin (2.5-4.0) gm/dl Albumin/Globulin Ratio (0.9-2) Urine Color Urine Appearance (Clear) Urine pH (4.5-7.5) Ur Specific [place] (1.000-1.030) Urine Protein (Negative) Urine Glucose (UA) (Negative) Urine Ketones (Negative) Urine Blood (Negative) Urine Nitrite (Negative) Urine Bilirubin (Negative) Urine Urobilinogen (Negative) Ur Leukocyte Esterase (Negative) Urine WBC (Auto) (0-5) /hpf Urine RBC (Auto) (0-4) /hpf U Hyaline Cast (Auto) (0-5) /lpf U Epithel Cells (Auto) (0-5) /lpf Urine Bacteria (Auto) (Negative) SARS-CoV-2, RNA, NAAT (NEGATIVE) 09/16/21 09/15/21 09/15/21 Range/Units 05:03 22:20 19:36 WBC 5.65 (4.8-10.8) K/uL RBC 3.95 L (4.2-5.4) M/uL Hgb 11.9 L (12.0-16.0) g/dL Hct 35.8 L (37-47) % MCV 90.6 (80-100) fL MCH 30.1 (25-34) pg MCHC 33.2 (32-36) g/dL RDW Std Deviation 48.2 H (36.4-46.3) fL RDW Coeff of Milo 14.4 (11.5-14.5) % Plt Count 114 L (130-400) K/uL MPV 8.8 (7.4-10.4) fL Immature Gran % (Auto) 0.2 % Neut % (Auto) 57.8 % Lymph % (Auto) 28.8 % [place] % (Auto) 7.8 % Eos % (Auto) 5.0 % Baso % (Auto) 0.4 % Neut # (Auto) 3.27 (1.4-6.5) K/uL Lymph # (Auto) 1.63 (1.2-3.4) K/uL [place] # (Auto) 0.44 (0.11-0.59) K/uL Eos # (Auto) 0.28 (0-0.5) K/uL Baso # (Auto) 0.02 (0-0.2) K/uL Immature Gran # (Auto) 0.01 (0.00-0.02) K/uL PT (9.0-12.0) Seconds INR (0.9-1.1) APTT (21.0-31.0) Seconds PTT Ratio Sodium (136-145) mmol/L Potassium (3.5-5.1) mmol/L Chloride (98-107) mmol/L Carbon Dioxide (21-32) mmol/L Anion Gap (3-11) BUN (7-18) mg/dl Creatinine (0.6-1.2) mg/dl Est Cr Clr Drug Dosing Est GFR ( Amer) ml/min Est GFR (Non-Af Amer) ml/min BUN/Creatinine Ratio (10-20) Glucose (70-99) mg/dl POC Glucose (70-99) mg/dl Estimat Average Glucose mg/dl Hemoglobin A1c (4.5-5.6) % Calcium (8.5-10.1) mg/dl Magnesium (1.8-2.4) mg/dl Total Bilirubin (0.2-1) mg/dl AST (15-37) U/L ALT (12-78) Alkaline Phosphatase (45-117) U/L Troponin I (0-0.045) ng/ml NT-Pro-B Natriuret Pep (0-900) pg/ml Total Protein (6.4-8.2) gm/dl Albumin (3.4-5.0) gm/dl Globulin (2.5-4.0) gm/dl Albumin/Globulin Ratio (0.9-2) Urine Color Dark Yellow Urine Appearance Turbid A (Clear) Urine pH 5.0 (4.5-7.5) Ur Specific [place] 1.017 (1.000-1.030) Urine Protein Trace H (Negative) Urine Glucose (UA) Negative (Negative) Urine Ketones Trace H (Negative) Urine Blood 1+ H (Negative) Urine Nitrite Negative (Negative) Urine Bilirubin Negative (Negative) Urine Urobilinogen Negative (Negative) Ur Leukocyte Esterase 2+ H (Negative) Urine WBC (Auto) >30 H (0-5) /hpf Urine RBC (Auto) 0-4 (0-4) /hpf U Hyaline Cast (Auto) 5-10 H (0-5) /lpf U Epithel Cells (Auto) >30 H (0-5) /lpf Urine Bacteria (Auto) 4+ H (Negative) SARS-CoV-2, RNA, NAAT NEGATIVE (NEGATIVE) 09/15/21 09/15/21 09/15/21 Range/Units 17:27 17:27 17:27 WBC (4.8-10.8) K/uL RBC (4.2-5.4) M/uL Hgb (12.0-16.0) g/dL Hct (37-47) % MCV (80-100) fL MCH (25-34) pg MCHC (32-36) g/dL RDW Std Deviation (36.4-46.3) fL RDW Coeff of Milo (11.5-14.5) % Plt Count (130-400) K/uL MPV (7.4-10.4) fL Immature Gran % (Auto) % Neut % (Auto) % Lymph % (Auto) % [place] % (Auto) % Eos % (Auto) % Baso % (Auto) % Neut # (Auto) (1.4-6.5) K/uL Lymph # (Auto) (1.2-3.4) K/uL [place] # (Auto) (0.11-0.59) K/uL Eos # (Auto) (0-0.5) K/uL Baso # (Auto) (0-0.2) K/uL Immature Gran # (Auto) (0.00-0.02) K/uL PT 9.9 (9.0-12.0) Seconds INR 1.0 (0.9-1.1) APTT 25.8 (21.0-31.0) Seconds PTT Ratio 1.0 Sodium 140 (136-145) mmol/L Potassium 3.5 (3.5-5.1) mmol/L Chloride 107 (98-107) mmol/L Carbon Dioxide 26 (21-32) mmol/L Anion Gap 7.0 (3-11) BUN 59 H (7-18) mg/dl Creatinine 1.93 H (0.6-1.2) mg/dl Est Cr Clr Drug Dosing Not Reportable Est GFR ( Amer) 32.0 ml/min Est GFR (Non-Af Amer) 27.6 ml/min BUN/Creatinine Ratio 30.7 H (10-20) Glucose 111 H (70-99) mg/dl POC Glucose (70-99) mg/dl Estimat Average Glucose mg/dl Hemoglobin A1c (4.5-5.6) % Calcium 9.7 (8.5-10.1) mg/dl Magnesium (1.8-2.4) mg/dl Total Bilirubin 0.3 (0.2-1) mg/dl AST 13 L (15-37) U/L ALT 22 (12-78) Alkaline Phosphatase 246 H (45-117) U/L Troponin I < 0.015 (0-0.045) ng/ml NT-Pro-B Natriuret Pep 370 (0-900) pg/ml Total Protein 7.7 (6.4-8.2) gm/dl Albumin 3.2 L (3.4-5.0) gm/dl Globulin 4.5 H (2.5-4.0) gm/dl Albumin/Globulin Ratio 0.7 L (0.9-2) Urine Color Urine Appearance (Clear) Urine pH (4.5-7.5) Ur Specific [place] (1.000-1.030) Urine Protein (Negative) Urine Glucose (UA) (Negative) Urine Ketones (Negative) Urine Blood (Negative) Urine Nitrite (Negative) Urine Bilirubin (Negative) Urine Urobilinogen (Negative) Ur Leukocyte Esterase (Negative) Urine WBC (Auto) (0-5) /hpf Urine RBC (Auto) (0-4) /hpf U Hyaline Cast (Auto) (0-5) /lpf U Epithel Cells (Auto) (0-5) /lpf Urine Bacteria (Auto) (Negative) SARS-CoV-2, RNA, NAAT (NEGATIVE) 09/15/21 Range/Units 17:27 WBC 7.63 (4.8-10.8) K/uL RBC 4.26 (4.2-5.4) M/uL Hgb 13.0 (12.0-16.0) g/dL Hct 39.0 (37-47) % MCV 91.5 (80-100) fL MCH 30.5 (25-34) pg MCHC 33.3 (32-36) g/dL RDW Std Deviation 48.8 H (36.4-46.3) fL RDW Coeff of Milo 14.5 (11.5-14.5) % Plt Count 151 (130-400) K/uL MPV 8.6 (7.4-10.4) fL Immature Gran % (Auto) 0.4 % Neut % (Auto) 63.6 % Lymph % (Auto) 21.0 % [place] % (Auto) 9.3 % Eos % (Auto) 5.2 % Baso % (Auto) 0.5 % Neut # (Auto) 4.85 (1.4-6.5) K/uL Lymph # (Auto) 1.60 (1.2-3.4) K/uL [place] # (Auto) 0.71 H (0.11-0.59) K/uL Eos # (Auto) 0.40 (0-0.5) K/uL Baso # (Auto) 0.04 (0-0.2) K/uL Immature Gran # (Auto) 0.03 H (0.00-0.02) K/uL PT (9.0-12.0) Seconds INR (0.9-1.1) APTT (21.0-31.0) Seconds PTT Ratio Sodium (136-145) mmol/L Potassium (3.5-5.1) mmol/L Chloride (98-107) mmol/L Carbon Dioxide (21-32) mmol/L Anion Gap (3-11) BUN (7-18) mg/dl Creatinine (0.6-1.2) mg/dl Est Cr Clr Drug Dosing Est GFR ( Amer) ml/min Est GFR (Non-Af Amer) ml/min BUN/Creatinine Ratio (10-20) Glucose (70-99) mg/dl POC Glucose (70-99) mg/dl Estimat Average Glucose mg/dl Hemoglobin A1c (4.5-5.6) % Calcium (8.5-10.1) mg/dl Magnesium (1.8-2.4) mg/dl Total Bilirubin (0.2-1) mg/dl AST (15-37) U/L ALT (12-78) Alkaline Phosphatase (45-117) U/L Troponin I (0-0.045) ng/ml NT-Pro-B Natriuret Pep (0-900) pg/ml Total Protein (6.4-8.2) gm/dl Albumin (3.4-5.0) gm/dl Globulin (2.5-4.0) gm/dl Albumin/Globulin Ratio (0.9-2) Urine Color Urine Appearance (Clear) Urine pH (4.5-7.5) Ur Specific [place] (1.000-1.030) Urine Protein (Negative) Urine Glucose (UA) (Negative) Urine Ketones (Negative) Urine Blood (Negative) Urine Nitrite (Negative) Urine Bilirubin (Negative) Urine Urobilinogen (Negative) Ur Leukocyte Esterase (Negative) Urine WBC (Auto) (0-5) /hpf Urine RBC (Auto) (0-4) /hpf U Hyaline Cast (Auto) (0-5) /lpf U Epithel Cells (Auto) (0-5) /lpf Urine Bacteria (Auto) (Negative) SARS-CoV-2, RNA, NAAT (NEGATIVE) Diagnostic Findings Telemetry reviewed: NSR, no arrhythmias EKG on admission: Normal sinus rhythm Normal ECG When compared with ECG of 03-APR-2021 18:32, No significant change was found Chest xray report reviewed on admission: IMPRESSION: Cardiomegaly with no acute cardiopulmonary abnormality. Prior cardiac testing: Echo at [facility] 04/04/2021 LVEF 60-65% with normal LV wall motion Mild aortic sclerosis without stenosis Right ventricle normal in size and function Mild TR Grade 2 diastolic dysfunction Medications Administered Current Inpatient Medications Amiodarone HCl (Amiodarone 200 Mg Tab) 200 mg PO DAILY [facility]AGROS Stop: 10/16/21 08:59 Aspirin (Aspirin 81 Mg Ectab) 81 mg PO HS [facility]AG[facility] Stop: 10/16/21 20:59 Butalbital/Aspirin/Caffeine (Butalbital/Aspirin/Caffeine 1 Tab Tab) 1 tab PO Q4H PRN PRN Reason: Migraine Headache Stop: 10/16/21 04:33 Diphenoxylate HCl/Atropine (Diphenoxylate/Atropine 2.5/0.025mg Tab) 1 tab PO DAILY PRN PRN Reason: Diarrhea Stop: 10/16/21 04:33 Docusate Sodium (Docusate Sodium 100 Mg Cap) 100 mg PO BID MILAGROS Stop: 10/16/21 08:59 Ferrous Sulfate (Ferrous Sulfate 325 Mg Tab) 325 mg PO BIDM [facility] Stop: 10/16/21 07:59 Fexofenadine HCl (Fexofenadine Hcl 180 Mg Tab) 180 mg PO QAM [facility] Stop: 10/16/21 08:59 Folic Acid (Folic Acid 1 Mg Tab) 1 mg PO QAM [facility] Stop: 10/16/21 08:59 Gabapentin (Gabapentin 300 Mg Cap) 300 mg PO HS [facility] Stop: 10/16/21 20:59 Gabapentin (Gabapentin 100 Mg Cap) 200 mg PO QAM [facility] Stop: 10/16/21 08:59 Heparin Sodium (Porcine) (Heparin Sod 5,000 Unit/0.5 Ml Vial) 7,500 units SQ Q8 [facility] Stop: 10/16/21 05:59 Last Admin: 09/16/21 06:17 Dose: Not Given Documented by: Ertapenem 1,000 mg/ Sodium (Chloride) 60 mls @ 100 mls/hr IV Q24H [facility] Stop: 09/26/21 05:59 Last Infusion: 09/16/21 08:28 Dose: Infused Documented by: Insulin Aspart (Insulin Aspart Per Unit) 0 units SC ACHS [facility] Stop: 10/16/21 07:29 Insulin Glargine (Insulin Glargine Solostar 100 Units/Ml 3 Ml Pen) 15 units SQ HS [facility] Stop: 10/16/21 20:59 Levothyroxine Sodium (Levothyroxine Sodium 25 Mcg Tablet) 25 mcg PO DAILYBB [facility] Stop: 10/16/21 06:29 Last Admin: 09/16/21 06:17 Dose: 25 mcg Documented by: Metoprolol Succinate (Metoprolol Succ 50mg Ext Rel Tab) 50 mg PO QAM [facility] Stop: 10/16/21 08:59 Multivitamins/Minerals (Cerovite Adv Formula Tab) 1 tab PO DAILY [facility] Stop: 10/16/21 08:59 Multivitamins/Minerals (Calcium 600mg + Vit D 400 Iu Tab) 1 tab PO QDL [facility] Stop: 10/16/21 11:29 Nitroglycerin (Nitroglycerin Sl 0.4 Mg/Tab Tab) 0.4 mg SL UD PRN PRN Reason: Chest Pain Stop: 10/16/21 04:33 Ondansetron HCl (Ondansetron Inj 2 Mg/Ml 2 Ml Vial) 4 mg IV Q6H PRN PRN Reason: Nausea Stop: 10/16/21 04:33 Pantoprazole Sodium (Pantoprazole 40 Mg Tab) 40 mg PO QAM [facility] Stop: 10/16/21 08:59 Polyethylene Glycol (Polyethylene (Miralax) 17 Gm Pack) 17 gm PO DAILY PRN PRN Reason: Constipation Stop: 10/16/21 04:33 Spironolactone (Spironolactone 25 Mg Tab) 25 mg PO QAM [facility] Stop: 10/16/21 08:59 Vitamin B Complex (Vitamin B Complex Tab) 1 tab PO DAILY [facility] Stop: 10/16/21 08:59 Vitamin D (Cholecalciferol 1,000 Units 25 Mcg Tab) 1,000 units PO QAM [facility] Stop: 10/16/21 08:59
[2021-09-16] MEDS ORDERED: NON-FORMULARY MEDICATION (Acidophilus-Pectin, Citrus 100 million cell-10 mg Capsule) PO SCH (09:00)
[2021-09-16] MEDS: FERROUS SULFATE 325 MG TAB PO SCH ×2 (09:20→17:02)
[2021-09-16] MEDS: AMIODARONE 200 MG TAB PO SCH (09:21)
[2021-09-16] MEDS: FEXOFENADINE HCL 180 MG TAB PO SCH (09:21)
[2021-09-16] MEDS: CHOLECALCIFEROL 1,000 UNITS 25 MCG TAB PO SCH (09:21)
[2021-09-16] MEDS: DOCUSATE SODIUM 100 MG CAP PO SCH ×2 (09:21→21:22)
[2021-09-16] MEDS: METOPROLOL SUCC 50MG EXT REL TAB PO SCH (09:22)
[2021-09-16] MEDS: GABAPENTIN 100 MG CAP PO SCH (09:22)
[2021-09-16] MEDS: FOLIC ACID 1 MG TAB PO SCH (09:22)
[2021-09-16] MEDS: PANTOprazole 40 MG TAB PO SCH (09:23)
[2021-09-16] MEDS: CEROVITE ADV FORMULA TAB PO SCH (09:23)
[2021-09-16] MEDS: SPIRONOLACTONE 25 MG TAB PO SCH (09:24)
[2021-09-16] MEDS: VITAMIN B COMPLEX TAB PO SCH (09:24)
[2021-09-16] MEDS: FUROSEMIDE 40 MG/4 ML VIAL IV SCH ×2 (10:24→21:21)
[2021-09-16] MEDS: INSULIN ASPART PER UNIT SC SCH ×4 (11:13→21:19)
--- NOTE | 2021-09-16 11:15 | Electrocardiogram Report ---
Test Reason : Blood Pressure : / mmHG Vent. Rate : 068 BPM Atrial Rate : 068 BPM P-R Int : 182 ms QRS Dur : 096 ms QT Int : 448 ms P-R-T Axes : 064 -29 075 degrees QTc Int : 476 ms Normal sinus rhythm Normal ECG When compared with ECG of 03-APR-2021 18:32, No significant change was found Confirmed by Ricky Barrientos ([id number]) on 09/16/2021 11:15:34 AM Referred By: Marcial Blanc Confirmed By:Steve Barrientos
--- NOTE | 2021-09-16 12:49 | Consultation Report ---
NEPHROLOGY CONSULTATION NOTE DATE OF SERVICE: 09/16/2021 REASON FOR CONSULT: Acute renal failure on background CKD with significant worsening of her congesti ve heart failure. HISTORY OF PRESENT ILLNESS: The patient is a 61-year-old female with history significant for longsta nding type 2 diabetes, morbid obesity, hypothyroidism, atrial fibrillation, chronic diastolic heart f ailure and chronic kidney disease stage III with baseline creatinine around 1.5, who presented to the hospital after she was noted to have a 30-pound weight gain and shortness of breath. She was admitt ed through cardiology office yesterday. She recently had a complicated drug-resistant UTI. She was also complaining of decreased urinary output. She is complaining a lot about aches and pains all ove r her body and she does have fibromyalgia. Denies any nausea, vomiting, diarrhea, constipation, or o ther symptoms. Creatinine at this time is 1.9, which is slightly higher than her baseline. PAST MEDICAL HISTORY: Includes type 2 diabetes, hypothyroidism, atrial fibrillation, chronic diastol ic heart failure, hypertension, history of TIA, complicated UTI, chronic kidney disease stage III, fi bromyalgia. PAST SURGICAL HISTORY: Tooth extraction, injection of eye drug, laparoscopic cholecystectomy, photoc oagulation for retinopathy, bilateral cataracts. MEDICATIONS: Medication at home was reviewed in detail and as per the reconciliation list. Both inp atient and outpatient medicine was reviewed in detail. She takes torsemide 40 twice daily and spiron olactone 25 daily as an outpatient. FAMILY HISTORY: Negative for renal disease, but is positive for diabetes. SOCIAL HISTORY: Currently single. No smoking, alcohol, or drug use. REVIEW OF SYSTEMS: As detailed in the HPI; unless stated otherwise, 10 systems reviewed and negative . PHYSICAL EXAMINATION: GENERAL: Morbidly obese white female who is not in overt respiratory distress. She is able to give a detailed account of her medical problem and her medication list. VITAL SIGNS: Blood pressure is 147/76, pulse rate 66, temperature 36.5, 99% on room air. CHEST: Bilateral decreased breath sound. Poor inspiratory effort. CARDIOVASCULAR: S1 and S2, distant heart sound. ABDOMEN: Soft, nontender, obese. EXTREMITIES: Show 2+ edema bilaterally. LABORATORY TEST: Hemoglobin 11.9, platelet count 114. Creatinine is 1.9, BUN is 61, albumin is 3.2. BNP was actually normal at 370. Chest x-ray shows cardiomegaly with no acute cardiopulmonary abnor mality. ASSESSMENT AND PLAN: A 61-year-old female with long-term diabetes with associated chronic kidney dis ease stage III with a baseline creatinine around 1.4. Now admitted with significant fluid retention and a 30-pound weight gain associated with acute renal failure and also has complicated urinary tract infection. Acute renal failure: Current creatinine is slightly higher than baseline, but she does have signific ant fluid retention and a 30-pound weight gain. It is quite possible this is a progression of her un derlying chronic kidney disease with diabetic nephropathy, but her fluid status is hard to assess. I would defer diuretics dosing to cardiology, but I do believe she needs some IV Lasix. She has been written to get 40 IV twice daily, which is reasonable and can be increased if needed. I also agree w ith using spironolactone. She is also getting ertapenem for a complicated urinary tract infection, w hich is drug resistant. From renal standpoint, I will check protein to creatinine ratio to assess the degree of proteinuria. The patient is complaining a lot about needing pain medication, which I will defer to primary team. Continue daily laboratories, input/output charting. Avoid nephrotoxic agent s as much as possible. We will continue to follow. Job ID: [id number]
[2021-09-16] MEDS: CALCIUM 600MG + VIT D 400 IU TAB PO SCH (13:31)
--- NOTE | 2021-09-16 15:15 | CT Scan Report ---
ABDOMEN AND PELVIS CT WITHOUT CONTRAST CT DOSE: 970.64 mGycm HISTORY: Generalized abdominal pain. TECHNIQUE: Multiaxial CT images of the abdomen and pelvis were performed without contrast. A dose lo wering technique was utilized adhering to the principles of ALARA. COMPARISON STUDY: Abdomen and pelvis CT 04/15/2021. FINDINGS: The lung bases are clear. No pneumoperitoneum. No pneumatosis. Old, healed left lateral rib fractures. Interval development of a moderate superior endplate compression fracture at L1. This dem onstrates up to 50% loss of height anteriorly. No associated retropulsion. The fracture lines are scl erotic consistent with a subacute process. Cholecystectomy. The unenhanced liver, spleen, adrenal gla nds, and kidneys are unremarkable. No renal or ureteral stones. No hydronephrosis. Fatty replacement of the pancreatic head, unchanged. No retroperitoneal lymphadenopathy. Mild calcified plaque within t he normal caliber abdominal aorta. Moderate bladder wall thickening. This could be due to underdisten tion. The uterus and bilateral adnexa are within normal limits. No pelvic free fluid. Suboptimal eval uation for bowel pathology due to the lack of intravenous and oral contrast. However, there is no def inite bowel wall thickening or obstruction. Normal appendix. IMPRESSION: 1. Interval development of a moderate superior endplate compression fracture at L1. This demonstrates sclerotic fracture lines consistent with a subacute process. No associated retropulsion. 2. No definite bowel wall thickening or obstruction. 3. Moderate bladder wall thickening. This has progressed but could be due to underdistention. Recomme nd correlation with urinalysis. 4. Cholecystectomy. ACT 112: Negative or not required by law. Electronically signed by: Vladislav Monet M.D. 09/16/2021 3:14 PM
[2021-09-16] MEDS: LACTOBACILLUS ACIDOPHILUS 1 GM PACK PO SCH ×2 (15:16→17:02)
--- NOTE | 2021-09-16 18:02 | Hospitalist Progress Note ---
Date of Service September 16, 2021 Assessment & Plan (1) UTI (urinary tract infection): Plan: Patient is a 61 yr female with H/O diastolic congestive heart failure, who was sent from Cardiology office because complicated urinary tract infection and also ongoing diastolic congestive heart failure. Acute on chronic diastolic congestive heart failure -CXR:Cardiomegaly with no acute cardiopulmonary abnormality. -ECHO: Normal LV chamber size, mild concentric LVH, EF 55 to 60%, no segmental left ventricular wall motion abnormality, grade 2 diastolic dysfunction -Continue IV lasix -Also on spironolactone Monitor I's and O's, daily weight, volume status Appreciate cardiology input Multidrug resistant UTI Outpatient Urine Cx growing Klebsiella pneumonia Urine Cx: gram Negative bacilli Started on Invanz ID consulted L1 compression fracture Likely subacute, sclerotic Consulted orthopedics for input DM II HbA1C: 11.2 Continue insulin therapy Monitor BGs Paroxysmal atrial fibrillation Continue Amiodarone, metoprolol Not on anticoagulation due to H/O hemorrhagic retinopathy Acute kidney injury on CKD III Baseline creatinine 1.4 Cr: 1.9 Monitor renal function Avoid nephrotoxic agents as able Hypothyroidism on Levothyroxine Nocturnal hypoxia on 2 liters at bedtime DVT Px: Heparin SQ Admission and Anticipated Discharge Date Admission Date: September 16, 2021 Subjective Patient is seen and examined bedside States having ongoing abdominal discomfort since 3 weeks Also reports nausea, dry cough and dyspnea Denies any chest pain Discussed with nephrology. Review of Systems Review of Systems: All systems reviewed & are unremarkable except as noted in Subjective Physical Exam Physical Exam: Physical Exam: Vitals signs as noted above General Appearance:Morbidly Obese, no apparent distress Head: normocephalic, Atraumatic Eyes: normal inspection, EOMI Neck: supple, Trachea midline Respiratory/Chest: Normal breath sounds, CTA Cardiovascular: S1, S2, No murmur Abdomen/GI:Soft, non tender, Bowel sounds present Extremities/Musculoskeletal:normal inspection, 2+ B/L LE edema Neurologic/Psych:AAOX3, grossly no focal neurological deficits Skin: normal color, warm Results & Data Results & Data ([facility]) Vital Signs (Past 12 Hours) Vital Signs Temp Pulse Pulse Resp BP Pulse Ox 09/16/21 16:39 36.6 C 72 18 118/77 97 09/16/21 15:29 66 09/16/21 11:47 36.7 C 67 18 142/76 H 96 09/16/21 08:04 36.5 C 66 24 147/76 H 99 09/16/21 08:00 36.9 C 70 18 124/78 98 Laboratory Results Short CBC 09/16/21 Range/Units 05:03 WBC 5.65 (4.8-10.8) K/uL Hgb 11.9 L (12.0-16.0) g/dL Hct 35.8 L (37-47) % Plt Count 114 L (130-400) K/uL BMP 09/15/21 09/16/21 17:27 05:03 Sodium 140 141 Potassium 3.5 3.6 Chloride 107 107 Carbon Dioxide 26 27 BUN 59 H 61 H Creatinine 1.93 H 1.91 H Glucose 111 H 187 H Calcium 9.7 9.3 Cardiac Enzymes 09/15/21 Range/Units 17:27 Troponin I < 0.015 (0-0.045) ng/ml Liver Function 09/15/21 Range/Units 17:27 Total Bilirubin 0.3 (0.2-1) mg/dl AST 13 L (15-37) U/L ALT 22 (12-78) Alkaline Phosphatase 246 H (45-117) U/L Albumin 3.2 L (3.4-5.0) gm/dl Urine 09/15/21 Range/Units 19:36 Urine Color Dark Yellow Urine Appearance Turbid A (Clear) Urine pH 5.0 (4.5-7.5) Ur Specific [place] 1.017 (1.000-1.030) Urine Protein Trace H (Negative) Urine Glucose (UA) Negative (Negative)
[2021-09-16] MEDS ORDERED: PHARMACY GLYCEMIC MGMT CONSULT PRN (18:12)
[2021-09-16] MEDS ORDERED: INSULIN GLARGINE SOLOSTAR 100 UNITS/ML 3 ML PEN SQ ONE (18:45)
[2021-09-16] MEDS ORDERED: INSULIN GLARGINE SOLOSTAR 100 UNITS/ML 3 ML PEN SQ SCH ×2 (21:00)
[2021-09-16] MEDS: GABAPENTIN 300 MG CAP PO SCH (21:22)
[2021-09-16] MEDS: ASPIRIN 81 MG ECTAB PO SCH (21:22)
[2021-09-17] MEDS: INSULIN ASPART PER UNIT SC SCH ×6 (01:10→20:52)
[2021-09-17] MEDS: HEPARIN SOD 5,000 UNIT/0.5 ML VIAL SQ SCH ×3 (07:11→20:53)
[2021-09-17 07:46] LABS: BUN Creatinine Ratio 36.2 (10-20); Calcium 9.2 mg/dl (8.5-10.1); Creatinine Clr Calc Pharmacy 45.5 ml/min; Est GFR (Non-African American) 33.6 ml/min; Potassium 3.6 mmol/L (3.5-5.1)
[2021-09-17] MEDS: LEVOTHYROXINE SODIUM 25 MCG TABLET PO SCH (08:02)
[2021-09-17] MEDS: ERTAPENEM SODIUM 1,000 MG in SODIUM CHLORIDE 0.9% 50 ML IV SCH (08:02)
[2021-09-17] MEDS: METOPROLOL SUCC 50MG EXT REL TAB PO SCH (08:09)
[2021-09-17] MEDS: CHOLECALCIFEROL 1,000 UNITS 25 MCG TAB PO SCH (08:09)
[2021-09-17] MEDS: GABAPENTIN 100 MG CAP PO SCH (08:10)
[2021-09-17] MEDS: VITAMIN B COMPLEX TAB PO SCH (08:10)
[2021-09-17] MEDS: CEROVITE ADV FORMULA TAB PO SCH (08:10)
[2021-09-17] MEDS: PANTOprazole 40 MG TAB PO SCH (08:10)
[2021-09-17] MEDS: FOLIC ACID 1 MG TAB PO SCH (08:11)
[2021-09-17] MEDS: SPIRONOLACTONE 25 MG TAB PO SCH (08:11)
[2021-09-17] MEDS: FEXOFENADINE HCL 180 MG TAB PO SCH (08:11)
[2021-09-17] MEDS: FERROUS SULFATE 325 MG TAB PO SCH ×2 (08:11→17:40)
[2021-09-17] MEDS: AMIODARONE 200 MG TAB PO SCH (08:11)
[2021-09-17] MEDS: FUROSEMIDE 40 MG/4 ML VIAL IV SCH ×2 (08:12→20:51)
[2021-09-17] MEDS: DOCUSATE SODIUM 100 MG CAP PO SCH ×2 (08:12→20:52)
[2021-09-17] MEDS ORDERED: POTASSIUM CHLORIDE CRTAB 20 MEQ TABCR PO ONE (08:17)
--- NOTE | 2021-09-17 10:30 | Cardiology Progress Note ---
Date of Service September 17, 2021 Assessment & Plan (1) Acute on chronic diastolic heart failure: (2) UTI (urinary tract infection): (3) Paroxysmal atrial fibrillation: (4) Acute kidney injury superimposed on CKD: Plan: Patient presenting with worsening SOB, 30 lb weight gain, multifactorial volume overload with diastolic HF, obesity. Dietary indiscretion likely large component. Symptoms improving with IV furosemide 40 mg. Creatinine improving to 1.6 this morning, previously 1.9. Appreciate nephrology's input. Can increase furosemide dose if needed. Supplement potassium. Continue spironolactone. Continue other home meds including ASA, amiodarone, metoprolol. 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 UTI treatment per hospitalist. DVT proph - SQ hep Will follow. Case discussed with Dr. Bojorquez. Admission and Anticipated Discharge Date Admission Date: September 16, 2021 Supervising Physician Co-Signing Physician Notes Patient seen and examined with Amparo Ward PA-C. Agree with findings and assessment as above. Recurrent decompensated diastolic heart failure with dietary indiscretion and possible medication nonadherence. Has been diuresing well, will continue. Subjective Patient resting in bed comfortably. Good urine output overnight. Weight trending down (? accuracy though). She reports improving dyspnea and orthopnea. Edema remains present. She reported several epigastric "sharp/jabs" this morning like an "electrical shock". lasted several seconds. No associated symptoms. Currently resolved. Physical Exam Constitutional: WD/WN, vitals as above + morbidly obese; no acute distress Eyes: PERRL, conjunctivae normal, anicteric sclerae Neck: trachea midline, no thyromegaly Respiratory: normal respiratory effort Auscultation: + crackles (bases b/l) Cardiovascular: Rate/Rhythm: regular rate and regular rhythm Heart Sounds: no murmur Extremities: + edema (2+ pedal and pretibial edema) Gastrointestinal (Abdomen): normal bowel sounds, soft, nontender, no hepatosplenomegaly Skin: no rashes, warm and dry Neurologic: PERRL, EOMI, accommodation nl, no face palsy, no dysarthria Psychiatric: A+Ox3, euthymic affect Results & Data ([facility]) Vital Signs (Past 12 Hours) Vital Signs Temp Pulse Pulse Resp BP BP Pulse Ox 12/30/21 08:08 73 138/84 12/30/21 06:46 37.0 C 74 16 116/75 96 09/17/21 04:41 36.6 C 70 16 123/79 97 09/17/21 00:00 36.7 C 73 20 122/81 97 09/16/21 23:30 74 Laboratory Results 09/17/21 09/17/21 09/17/21 Range/Units 07:10 06:13 04:38 Sodium 145 (136-145) mmol/L Potassium 3.6 (3.5-5.1) mmol/L Chloride 110 H (98-107) mmol/L Carbon Dioxide 30 (21-32) mmol/L Anion Gap 5.0 (3-11) BUN 59 H (7-18) mg/dl Creatinine 1.64 H (0.6-1.2) mg/dl Est Cr Clr Drug Dosing 45.5 ml/min Est GFR ( Amer) 39.0 ml/min Est GFR (Non-Af Amer) 33.6 ml/min BUN/Creatinine Ratio 36.2 H (10-20) Glucose 107 H (70-99) mg/dl POC Glucose 138 H 106 H (70-99) mg/dl Calcium 9.2 (8.5-10.1) mg/dl 09/17/21 09/16/21 09/16/21 Range/Units 00:02 20:13 16:34 Sodium (136-145) mmol/L Potassium (3.5-5.1) mmol/L Chloride (98-107) mmol/L Carbon Dioxide (21-32) mmol/L Anion Gap (3-11) BUN (7-18) mg/dl Creatinine (0.6-1.2) mg/dl Est Cr Clr Drug Dosing ml/min Est GFR ( Amer) ml/min Est GFR (Non-Af Amer) ml/min BUN/Creatinine Ratio (10-20) Glucose (70-99) mg/dl POC Glucose 203 H 215 H 255 H (70-99) mg/dl Calcium (8.5-10.1) mg/dl 09/16/21 Range/Units 11:39 Sodium (136-145) mmol/L Potassium (3.5-5.1) mmol/L Chloride (98-107) mmol/L Carbon Dioxide (21-32) mmol/L Anion Gap (3-11) BUN (7-18) mg/dl Creatinine (0.6-1.2) mg/dl Est Cr Clr Drug Dosing ml/min Est GFR ( Amer) ml/min Est GFR (Non-Af Amer) ml/min BUN/Creatinine Ratio (10-20) Glucose (70-99) mg/dl POC Glucose 203 H (70-99) mg/dl Calcium (8.5-10.1) mg/dl Diagnostic Findings Telemetry reviewed: NSR, no arrhythmias. Rare ectopy Echo report reviewed dated 09/16/21: No significant change from prior echo in March 2021 Normal LV chamber size wiht mild concentric LVH Normal EF, 50-60% No wall motion abnormalities. Grade II diastolic dysfunction. Aortic valve scerlosis mild, without significant aortic valvular stenosis. Abd/pelvis CT report reviewed: IMPRESSION: 1. Interval development of a moderate superior endplate compression fracture at L1. This demonstrates sclerotic fracture lines consistent with a subacute process. No associated retropulsion. 2. No definite bowel wall thickening or obstruction. 3. Moderate bladder wall thickening. This has progressed but could be due to underdistention. Recommend correlation with urinalysis. 4. Cholecystectomy Medications Administered Current Inpatient Medications Amiodarone HCl (Amiodarone 200 Mg Tab) 200 mg PO DAILY [facility] Stop: 10/16/21 08:59 Last Admin: 09/17/21 08:11 Dose: 200 mg Documented by: Aspirin (Aspirin 81 Mg Ectab) 81 mg PO HS [facility] Stop: 10/16/21 20:59 Last Admin: 09/16/21 21:22 Dose: 81 mg Documented by: Butalbital/Aspirin/Caffeine (Butalbital/Aspirin/Caffeine 1 Tab Tab) 1 tab PO Q4H PRN PRN Reason: Migraine Headache Stop: 10/16/21 04:33 Diphenoxylate HCl/Atropine (Diphenoxylate/Atropine 2.5/0.025mg Tab) 1 tab PO DAILY PRN PRN Reason: Diarrhea Stop: 10/16/21 04:33 Docusate Sodium (Docusate Sodium 100 Mg Cap) 100 mg PO BID [facility] Stop: 10/16/21 08:59 Last Admin: 09/17/21 08:12 Dose: Not Given Documented by: Ferrous Sulfate (Ferrous Sulfate 325 Mg Tab) 325 mg PO BIDM [facility] Stop: 10/16/21 07:59 Last Admin: 09/17/21 08:11 Dose: 325 mg Documented by: Fexofenadine HCl (Fexofenadine Hcl 180 Mg Tab) 180 mg PO QAM [facility] Stop: 10/16/21 08:59 Last Admin: 09/17/21 08:11 Dose: 180 mg Documented by: Folic Acid (Folic Acid 1 Mg Tab) 1 mg PO QAM [facility] Stop: 10/16/21 08:59 Last Admin: 09/17/21 08:11 Dose: 1 mg Documented by: Furosemide (Furosemide 40 Mg/4 Ml Vial) 40 mg IV BID [facility] Stop: 10/16/21 09:59 Last Admin: 09/17/21 08:12 Dose: 40 mg Documented by: Gabapentin (Gabapentin 300 Mg Cap) 300 mg PO HS [facility] Stop: 10/16/21 20:59 Last Admin: 09/16/21 21:22 Dose: 300 mg Documented by: Gabapentin (Gabapentin 100 Mg Cap) 200 mg PO QAM [facility] Stop: 10/16/21 08:59 Last Admin: 09/17/21 08:10 Dose: 200 mg Documented by: Heparin Sodium (Porcine) (Heparin Sod 5,000 Unit/0.5 Ml Vial) 7,500 units SQ Q8 [facility] Stop: 10/16/21 05:59 Last Admin: 09/17/21 07:11 Dose: Not Given Documented by: Ertapenem 1,000 mg/ Sodium (Chloride) 60 mls @ 100 mls/hr IV Q24H [facility] Stop: 09/26/21 05:59 Last Infusion: 09/17/21 08:40 Dose: Infused Documented by: Insulin Aspart (Insulin Aspart Per Unit) 0 units SC [facility]; Protocol Stop: 10/16/21 07:29 Last Admin: 09/17/21 09:00 Dose: 11 units Documented by: Lactobacillus Acidophilus (Lactobacillus Acidophilus 1 Gm Pack) 1 gm PO TIDM [facility] Stop: 10/16/21 11:59 Last Admin: 09/16/21 17:02 Dose: Not Given Documented by: Levothyroxine Sodium (Levothyroxine Sodium 25 Mcg Tablet) 25 mcg PO DAILYBB [facility] Stop: 10/16/21 06:29 Last Admin: 09/17/21 08:02 Dose: 25 mcg Documented by: Metoprolol Succinate (Metoprolol Succ 50mg Ext Rel Tab) 50 mg PO QAM [facility] Stop: 10/16/21 08:59 Last Admin: 09/17/21 08:09 Dose: 50 mg Documented by: Miscellaneous Information (Pharmacy Glycemic Mgmt Consult) 1 ea N/A UD PRN PRN Reason: Consult Stop: 10/16/21 18:11 Multivitamins/Minerals (Cerovite Adv Formula Tab) 1 tab PO DAILY [facility] Stop: 10/16/21 08:59 Last Admin: 09/17/21 08:10 Dose: 1 tab Documented by: Multivitamins/Minerals (Calcium 600mg + Vit D 400 Iu Tab) 1 tab PO QDL [facility] Stop: 10/16/21 11:29 Last Admin: 09/16/21 13:31 Dose: 1 tab Documented by: Nitroglycerin (Nitroglycerin Sl 0.4 Mg/Tab Tab) 0.4 mg SL UD PRN PRN Reason: Chest Pain Stop: 10/16/21 04:33 Ondansetron HCl (Ondansetron Inj 2 Mg/Ml 2 Ml Vial) 4 mg IV Q6H PRN PRN Reason: Nausea Stop: 10/16/21 04:33 Pantoprazole Sodium (Pantoprazole 40 Mg Tab) 40 mg PO QAM [facility] Stop: 10/16/21 08:59 Last Admin: 09/17/21 08:10 Dose: 40 mg Documented by: Polyethylene Glycol (Polyethylene (Miralax) 17 Gm Pack) 17 gm PO DAILY PRN PRN Reason: Constipation Stop: 10/16/21 04:33 Potassium Chloride (Potassium Chloride 10 Meq Tabcr) 10 meq PO BID [facility] Stop: 10/17/21 09:59 Spironolactone (Spironolactone 25 Mg Tab) 25 mg PO QAM [facility] Stop: 10/16/21 08:59 Last Admin: 09/17/21 08:11 Dose: 25 mg Documented by: Vitamin B Complex (Vitamin B Complex Tab) 1 tab PO DAILY [facility] Stop: 10/16/21 08:59 Last Admin: 09/17/21 08:10 Dose: 1 tab Documented by: Vitamin D (Cholecalciferol 1,000 Units 25 Mcg Tab) 1,000 units PO QAM [facility] Stop: 10/16/21 08:59 Last Admin: 09/17/21 08:09 Dose: 1,000 units Documented by:
--- NOTE | 2021-09-17 10:46 | Nephrology Progress Note ---
Date of Service September 17, 2021 Assessment & Plan (1) Acute kidney injury superimposed on CKD: Plan: A 61-year-old female with long-term diabetes with associated chronic kidney disease stage III with a baseline creatinine around 1.4. Now admitted with significant fluid retention and a 30-pound weight gain associated with acute renal failure and also has complicated urinary tract infection. Admission creatinine is slightly higher than baseline, but she had significant fluid retention and a 30-pound weight gain. It is quite possible this is a progression of her underlying chronic kidney disease with diabetic nephropathy, but her fluid status is hard to assess. I would defer diuretics dosing to cardiology, but I do believe she needs some IV Lasix. She has been written to get 40 IV twice daily, which is reasonable and can be increased if needed. I also agree with using spironolactone Renal function have improved and she is more comfortable Can transition to Torsemide from tomorrw 40 mg bid , if her renal function continue to improve and continue on Spirolactone. (2) UTI (urinary tract infection): Plan: Continue with Ertapenam-Managed by primary Admission and Anticipated Discharge Date Admission Date: September 16, 2021 Subjective Patient resting in bed comfortably. Good urine output overnight. Weight trending down Dysnea improved. Review of Systems Review of Systems: dyspnea and pedal edema improved. Physical Exam Physical Exam: GENERAL: Morbidly obese white female who is not in overt respiratory distress. She is able to give a detailed account of her medical problem and her medication list. CHEST: Bilateral decreased breath sound. Poor inspiratory effort. CARDIOVASCULAR: S1 and S2, distant heart sound. ABDOMEN: Soft, nontender, obese. EXTREMITIES: Show 2+ edema bilateral Results & Data ([facility]) Vital Signs (Past 12 Hours) Vital Signs Temp Pulse Pulse Resp BP BP Pulse Ox 09/17/21 08:08 73 138/84 09/17/21 06:46 37.0 C 74 16 116/75 96 09/17/21 04:41 36.6 C 70 16 123/79 97 09/17/21 00:00 36.7 C 73 20 122/81 97 09/16/21 23:30 74 Laboratory Results 09/16/21 05:03 09/17/21 06:13
[2021-09-17] MEDS: CALCIUM 600MG + VIT D 400 IU TAB PO SCH (10:56)
[2021-09-17] MEDS: LACTOBACILLUS ACIDOPHILUS 1 GM PACK PO SCH ×3 (10:56→17:40)
[2021-09-17] MEDS: POTASSIUM CHLORIDE 10 MEQ TABCR PO SCH ×2 (10:56→20:47)
[2021-09-17] MEDS ORDERED: INSULIN GLARGINE SOLOSTAR 100 UNITS/ML 3 ML PEN SQ ONE (11:45)
--- NOTE | 2021-09-17 14:10 | Pharmacy Report ---
Pharmacy Glycemic Short Note 2 - Date of Service September 17, 2021 - Glycemic Short BSG Results (Last 24 hours): 09/16/21 09/16/21 09/17/21 16:34 20:13 00:02 Glucose POC Glucose 255 H 215 H 203 H 09/17/21 09/17/21 09/17/21 04:38 06:13 07:10 Glucose 107 H POC Glucose 106 H 138 H 09/17/21 11:10 Glucose POC Glucose 147 H OUTPATIENT ANTIDIABETIC REGIMEN: * Basaglar 15 units SQ qHS * A1c 11.2% (09/16/21) ASSESSMENT: * Jannet received 37 units of SQ insulin yesterday with poor glycemic control * BSGs 169, 203, 255, 215 mg/dL * Her Lantus dose was increased yesterday. Fasting BSG of 138 mg/dL this morning is much improved. I anticipate this will continue to trend down. * Post prandial BSGs also improved. Continue current novolog parameters. PLAN FOR INPATIENT GLYCEMIC CONTROL: * Hold outpatient oral diabetes medications * Basal insulin * Lantus 20 units SQ qHS * Bolus insulin * NovoLog per scale ACHS or Q6hrs while NPO * Goal Range: Low 110 mg/dL - High 140 mg/dL * Correction Factor: 15 mg/dL/unit * Nutritional / Prandial insulin per carb ratio of 1 unit per 6 grams CHO consumed PLAN FOR DISCHARGE: * A1c 11.2%
--- NOTE | 2021-09-17 15:02 | CT Scan Report ---
CT lumbar spine wo con CLINICAL HISTORY: L1 fracture . Back pain COMPARISON STUDY: CT of the abdomen and pelvis from 09/16/2021 and previous MRI of the lumbar spine from 04/05/2021 CT DOSE: 993.49 mGy.cm TECHNIQUE: Standard CT of the Lumbar Spine was performed without IV contrast. A dose lowering techni que was utilized adhering to the principles of ALARA. FINDINGS: Bones: Bones are osteopenic. Compared to the CT examination of the abdomen and pelvis, there is an ac nisqually to subacute compression fracture present involving the superior endplate of L1 with loss of appro ximately 50% of the height of the vertebral body. There is again no retropulsion of fracture fragment present. This is new when compared to the previous MRI. Minimal old anterior wedging is also seen involving the superior endplate of T12. The heights of the remaining lumbar vertebral bodies are maintained. The vertebral bodies are in anatomic alignment. Disc spaces: There is associated moderate disc space narrowing at L1/2. The remaining disc space heig hts are maintained. Facet joints: Mild hypertrophic facet joint disease is present involving the lower disc space levels. The sacroiliac joints are intact bilaterally. Soft tissues: The prevertebral soft tissues are within normal limits. IMPRESSION: 1. Acute to subacute compression fracture involving the L1 vertebral body with loss of 50% of the hei ght of the vertebral body. No retropulsion of fracture fragment is seen. 2. Moderate disc space narrowing at L1-2. ACT 112: Negative or not required by law. Electronically signed by: Robles Javed M.D. 09/17/2021 3:01 PM
--- NOTE | 2021-09-17 20:12 | Hospitalist Progress Note ---
Date of Service September 17, 2021 Assessment & Plan (1) UTI (urinary tract infection): Plan: Patient is a 61 yr female with H/O diastolic congestive heart failure, who was sent from Cardiology office because complicated urinary tract infection and also ongoing diastolic congestive heart failure. Acute on chronic diastolic congestive heart failure -CXR:Cardiomegaly with no acute cardiopulmonary abnormality. -ECHO: Normal LV chamber size, mild concentric LVH, EF 55 to 60%, no segmental left ventricular wall motion abnormality, grade 2 diastolic dysfunction -Continue IV lasix -Also on spironolactone Monitor I's and O's, daily weight, volume status Appreciate cardiology input Can transition to p.o. torsemide tomorrow as per nephrology Multidrug resistant UTI Outpatient Urine Cx growing Klebsiella pneumonia Urine Cx: Klebsiella pneumonia, group B beta strep Continue Invanz Appreciate ID Input: May continue ertapenem 1 gm iv qd to complete total 7 days from 09/16/21. L1 compression fracture --Lumbar CT:Acute to subacute compression fracture involving the L1 vertebral body with loss of 50% of the height of the vertebral body. No retropulsion of fracture fragment is seen. Moderate disc space narrowing at L1-2. Likely subacute Consulted orthopedics for input DM II HbA1C: 11.2 Continue insulin therapy Monitor BGs Paroxysmal atrial fibrillation Continue Amiodarone, metoprolol Not on anticoagulation due to H/O hemorrhagic retinopathy Acute kidney injury on CKD III Baseline creatinine 1.4 Cr: 1.9>>1.6 Monitor renal function Avoid nephrotoxic agents as able Hypothyroidism on Levothyroxine Nocturnal hypoxia on 2 liters at bedtime DVT Px: Heparin SQ Admission and Anticipated Discharge Date Admission Date: September 16, 2021 Subjective Patient is seen and examined bedside States having nausea, lower back pain earlier today Dyspnea much better today Review of Systems Review of Systems: All systems reviewed & are unremarkable except as noted in Subjective Physical Exam Physical Exam: Physical Exam: Vitals signs as noted above General Appearance:Morbidly Obese, no apparent distress Head: normocephalic, Atraumatic Eyes: normal inspection, EOMI Neck: supple, Trachea midline Respiratory/Chest: Normal breath sounds, CTA Cardiovascular: S1, S2, No murmur Abdomen/GI:Soft, non tender, Bowel sounds present Extremities/Musculoskeletal:normal inspection, 2+ B/L LE edema Neurologic/Psych:AAOX3, grossly no focal neurological deficits Skin: normal color, warm Results & Data Results & Data ([facility]) Vital Signs (Past 12 Hours) Vital Signs Temp Pulse Pulse Resp BP Pulse Ox 09/17/21 19:21 37.1 C 74 20 121/78 97 09/17/21 16:55 72 09/17/21 16:08 36.8 C 71 18 112/72 97 09/17/21 11:31 36.5 C 73 18 129/77 96 Laboratory Results [facility] 09/17/21 06:13 Sodium 145 Potassium 3.6 Chloride 110 H Carbon Dioxide 30 BUN 59 H Creatinine 1.64 H Glucose 107 H Calcium 9.2
[2021-09-17] MEDS: ASPIRIN 81 MG ECTAB PO SCH (20:47)
[2021-09-17] MEDS: GABAPENTIN 300 MG CAP PO SCH (20:47)
[2021-09-17] MEDS ORDERED: INSULIN GLARGINE SOLOSTAR 100 UNITS/ML 3 ML PEN SQ SCH (21:00)
[2021-09-18] MEDS: LEVOTHYROXINE SODIUM 25 MCG TABLET PO SCH (05:58)
[2021-09-18] MEDS: HEPARIN SOD 5,000 UNIT/0.5 ML VIAL SQ SCH ×3 (05:58→21:36)
[2021-09-18] MEDS: ERTAPENEM SODIUM 1,000 MG in SODIUM CHLORIDE 0.9% 50 ML IV SCH (05:58)
[2021-09-18 06:02] LABS: Hematocrit (blood only) 34.1 % (37-47); Hemoglobin 11.1 g/dL (12.0-16.0); Mean Corpuscular Hgb Conc 32.6 g/dL (32-36); Mean Corpuscular Volume 92.2 fL (80-100); Mean Platelet Volume 8.4 fL (7.4-10.4); Platelet Count 112 K/uL (130-400); RDW Coefficient of Variation 14.4 % (11.5-14.5); RDW Standard Deviation 48.9 fL (36.4-46.3); White Blood Count 4.38 K/uL (4.8-10.8)
[2021-09-18 06:34] LABS: BUN Creatinine Ratio 37.5 (10-20); Calcium 9.3 mg/dl (8.5-10.1); Est GFR (African American) 46.8 ml/min; Est GFR (Non-African American) 40.4 ml/min; Potassium 4.1 mmol/L (3.5-5.1)
[2021-09-18] MEDS ORDERED: GLUCOSE 10 TABS/TUBE PO PRN (07:30)
[2021-09-18] MEDS ORDERED: CARBOHYDRATES FOR HYPOGLYCEMIA PO PRN (07:30)
[2021-09-18] MEDS ORDERED: GLUCAGON FOR INJ 1 MG VIAL IM PRN (07:30)
[2021-09-18] MEDS ORDERED: GLUCOSE 40% GEL 15 GM TUBE PO PRN (07:30)
[2021-09-18] MEDS ORDERED: DEXTROSE 50% 50 ML SYRINGE IV PRN (07:30)
[2021-09-18] MEDS: INSULIN ASPART PER UNIT SC SCH ×4 (08:54→21:22)
[2021-09-18] MEDS: AMIODARONE 200 MG TAB PO SCH (08:56)
[2021-09-18] MEDS: VITAMIN B COMPLEX TAB PO SCH (08:56)
[2021-09-18] MEDS: PANTOprazole 40 MG TAB PO SCH (08:56)
[2021-09-18] MEDS: LACTOBACILLUS ACIDOPHILUS 1 GM PACK PO SCH ×3 (08:56→17:15)
[2021-09-18] MEDS: CHOLECALCIFEROL 1,000 UNITS 25 MCG TAB PO SCH (08:57)
[2021-09-18] MEDS: FEXOFENADINE HCL 180 MG TAB PO SCH (08:57)
[2021-09-18] MEDS: FERROUS SULFATE 325 MG TAB PO SCH ×2 (08:57→17:15)
[2021-09-18] MEDS: GABAPENTIN 100 MG CAP PO SCH (08:57)
[2021-09-18] MEDS: FOLIC ACID 1 MG TAB PO SCH (08:57)
[2021-09-18] MEDS: CEROVITE ADV FORMULA TAB PO SCH (08:57)
[2021-09-18] MEDS: SPIRONOLACTONE 25 MG TAB PO SCH (08:57)
[2021-09-18] MEDS: POTASSIUM CHLORIDE 10 MEQ TABCR PO SCH ×2 (08:58→21:35)
[2021-09-18] MEDS: DOCUSATE SODIUM 100 MG CAP PO SCH ×2 (08:58→21:35)
[2021-09-18] MEDS: METOPROLOL SUCC 50MG EXT REL TAB PO SCH (08:59)
[2021-09-18] MEDS: FUROSEMIDE 40 MG/4 ML VIAL IV SCH ×2 (09:12→21:35)
--- NOTE | 2021-09-18 10:30 | Orthopedic Consultation ---
Date of Consultation September 18, 2021 Assessment & Plan (1) Compression fracture of L1 lumbar vertebra: Patient has a stable L1 compression fracture. She is experiencing discomfort secondary to the fracture itself. I do not believe that she would tolerate brace. I recommended physical therapy and occupational therapy to keep her activities within comfort range. She should not left anything heavier than 5 to 7 pounds. The pain persists and becomes more debilitating consideration of kyphoplasty may be considered but at this point would not recommend surgical intervention. I have reviewed the films and plans with Dr. Castillo and he agrees. Please contact us if there are any further questions or concerns. History of Present Illness Attending Physician: Mookie Lay MD History of Present Illness Patient is a pleasant 61-year-old female who was admitted through the emergency room on 09/15/2021. She presented with increasing back pain with a multidrug resistant urinary tract infection. He has a significant cardiac history as well as chronic kidney disease. A CT scan of the abdomen pelvis was performed and had noted new fracture are consulted for further recommendations on the fracture itself. Patient states she has had increased pain over the past month. She denies any recent falls or injuries. She was diagnosed with an L2 compression fracture over the summer. She is not having any radiating pain going down her legs but has baseline neuropathy from the mid tibia down to her feet. She can only stand and walk for a few moments before having to stop and sit down secondary to pain. She denies any other numbness, tingling, paresthesias. Allergies Allergy/AdvReac Type Severity Reaction Status Date / Time acetaminophen Allergy Severe SHORT OF Verified 09/16/21 04:55 BREATH kiwi Allergy Intermediate Hives Verified 09/15/21 22:05 nylon Allergy Intermediate BLISTER Verified 09/15/21 22:05 SKIN walnut Allergy Intermediate MOUTH AND Verified 09/15/21 22:05 TONGUE SORE aluminum Allergy Mild Rash Verified 09/15/21 22:05 latex Allergy Mild Rash Verified 09/15/21 22:05 frovatriptan Allergy Unknown Unknown Verified 09/15/21 22:05 glipizide Allergy Unknown CAN'T Verified 09/15/21 22:05 REMEMBER turkey AdvReac Severe VOMITING--END Verified 09/15/21 22:05 UP IN HOSPITAL aspartame AdvReac Intermediate GI UPSET-- Verified 09/15/21 22:05 WITH ALL ARTIFICAL SWEETNERS hydrocodone [From Vicodin] AdvReac Intermediate Gastrointestinal Verified 09/15/21 22:05 Upset morphine AdvReac Intermediate Confusion Verified 09/15/21 22:05 pioglitazone [From Actos] AdvReac Intermediate Gastrointestinal Verified 09/15/21 22:05 Upset sumatriptan [From Imitrex] AdvReac Intermediate DOSEN'T Verified 09/15/21 22:05 WORK tramadol AdvReac Intermediate DOSEN'T Verified 09/15/21 22:05 WORK ascorbic acid AdvReac Unknown Unknown Verified 09/15/21 22:05 benzoic acid AdvReac Unknown Unknown Verified 09/15/21 22:05 doxylamine AdvReac Unknown Unknown Verified 09/15/21 22:05 Sulfa (Sulfonamide AdvReac Unknown CAN'T TAKE Verified 09/15/21 22:05 Antibiotics) IT Home Medications Medication Instructions Recorded Confirmed Type aspirin 81 mg tablet,delayed 81 mg PO HS 02/26/21 09/15/21 History release yaixsttggg-nkwkusj-tqajqlim 50 1 cap PO Q4H PRN 02/26/21 09/15/21 History mg-325 mg-40 mg capsule calcium carbonate 600 mg-vitamin 1 tab PO QDL 02/26/21 09/15/21 History D3 10 mcg (400 unit) tablet (Calcium 600 + D(3)) cholecalciferol (vitamin D3) 25 25 mcg PO QAM 02/26/21 09/15/21 History mcg (1,000 unit) tablet (Vitamin D3) docusate sodium 100 mg tablet 100 mg PO BID 02/26/21 09/15/21 History ferrous sulfate 325 mg (65 mg 325 mg PO BID 02/26/21 09/15/21 History iron) tablet (FeroSul) fexofenadine 180 mg tablet 180 mg PO QAM 02/26/21 09/15/21 History folic acid 1 mg tablet 1 mg PO QAM 02/26/21 09/15/21 History insulin glargine 100 unit/mL (3 15 unit SUBCUT HS 02/26/21 09/15/21 History mL) subcutaneous pen (Basaglar KwikPen U-100 Insulin) levothyroxine 25 mcg capsule 25 mcg PO DAILYBB 02/26/21 09/15/21 History (Tirosint) metoprolol succinate 50 mg 50 mg PO QAM 02/26/21 09/15/21 History tablet,extended release 24 hr omeprazole 40 mg capsule,delayed 40 mg PO QAM 02/26/21 09/15/21 History release spironolactone 25 mg tablet 25 mg PO QAM #30 tab 03/06/21 09/15/21 Rx torsemide 20 mg tablet 40 mg PO BID #60 tab 03/14/21 09/15/21 Rx acidophilus 100 million 1 cap PO DAILY 09/15/21 09/15/21 History cell-pectin, citrus 10 mg capsule amiodarone 200 mg tablet 200 mg PO DAILY 09/15/21 09/15/21 History bevacizumab 25 mg/mL intravenous 1.25 mg IV DIRECTED 09/15/21 09/15/21 History solution (Avastin) diphenoxylate-atropine 2.5 1 tab PO DIRECTED PRN 09/15/21 09/15/21 History mg-0.025 mg tablet (Lomotil) fosfomycin tromethamine 3 gram 1 packet PO Q3D 09/15/21 09/15/21 History oral packet gabapentin 100 mg capsule 200 mg PO QAM 09/15/21 09/15/21 History gabapentin 300 mg capsule 300 mg PO HS 09/15/21 09/15/21 History fylscmommjpn-giuqbplf-fwwaml 1 tab PO DAILY 09/15/21 09/15/21 History tablet (Multivitamin 50 Plus) vitamin B complex 1 cap PO DAILY 09/15/21 09/15/21 History Patient History Medical History Atrial fibrillation Charcot's joint of left foot CHF (congestive heart failure) Chronic diastolic (congestive) heart failure CKD (chronic kidney disease), stage III Diabetes mellitus, type II Diabetic retinopathy Fluid overload Paroxysmal atrial fibrillation Pedal edema Surgical History History of foot surgery Hx of cholecystectomy Family History Other Arthritis Social History Smoking Status: Never smoker Second Hand Exposure: No; Hx Alcohol Use: No Hx Substance Use: No Preferred Language: Chinese Communication Ability: Effective Administrative Officer Required: No Beliefs That Will Affect Care: None Current Living Situation: Alone Other Information That Helps Us Care for You: No Feels Safe at Home: Yes Gender Identity: Female Assistive Devices: Walker Assistive Devices Comment: Scooter Physical Exam Physical Exam: On exam the patient is resting in bed. She has blunting to sharp and dull from mid tibia down to the toes. She is loss of sense of proprioception. She is able to lift her legs off the bed. She has weakness in the anterior tibialis and with plantar flexion bilaterally with a strength of 4 out of 5. She is able to logroll with moderate difficulty. She is nontender palpation but has tenderness to percussion around the thoracolumbar junction. Her skin is intact. Results & Data ([facility]) Vital Signs (Past 12 Hours) Vital Signs Temp Pulse Pulse Resp BP BP Pulse Ox 09/18/21 08:50 68 132/82 09/18/21 08:01 67 09/18/21 07:35 69 116/72 09/18/21 07:25 190/94 H 09/18/21 07:21 36.8 C 69 96 09/18/21 03:47 36.6 C 67 20 152/87 H 91 09/17/21 23:19 37.1 C 69 20 118/77 98 09/17/21 23:[address] scan of the lumbar spine performed recently is available for review. This reveals 50% anterior height loss of L1 which is new compared to an MRI that was available from March. The L2 compression fracture is about the same as the MRI had revealed from March and appears sclerotic. There are no retropulsed fragments or middle column involvement in the L1 compression fracture.
--- NOTE | 2021-09-18 11:24 | Pharmacy Report ---
Pharmacy Glycemic Short Note 2 - Date of Service September 18, 2021 - Glycemic Short BSG Results (Last 24 hours): 09/17/21 09/17/21 09/17/21 11:10 16:14 20:08 Glucose POC Glucose 147 H 132 H 190 H 09/18/21 09/18/21 09/18/21 05:44 07:31 10:58 Glucose 105 H POC Glucose 107 H 162 H OUTPATIENT ANTIDIABETIC REGIMEN: * Basaglar 15 units SQ qHS * A1c 11.2% (09/16/21) ASSESSMENT: 09/18: * Patient received 59 units of insulin yesterday (20 units Lantus + 49 units Novolog) * BSGs were well controlled: [id number] mg/dL * Fasting BSG well controlled at 107 mg/dL this AM * Will decrease Lantus just slightly this evening given trend down in fasting * Continue current Novolog parameters. 09/17: * Jannet received 37 units of SQ insulin yesterday with poor glycemic control * BSGs 169, 203, 255, 215 mg/dL * Her Lantus dose was increased yesterday. Fasting BSG of 138 mg/dL this morning is much improved. I anticipate this will continue to trend down. * Post prandial BSGs also improved. Continue current novolog parameters. PLAN FOR INPATIENT GLYCEMIC CONTROL: * Basal insulin - decreased * Lantus 18 units SC HS * Bolus insulin * NovoLog per scale ACHS or Q6hrs while NPO * Goal Range: Low 110 mg/dL - High 140 mg/dL * Correction Factor: 15 mg/dL/unit * Nutritional / Prandial insulin per carb ratio of 1 unit per 6 grams CHO consumed PLAN FOR DISCHARGE: * A1c 11.2% is well above the goal of less than 7.5% for this patient. * Will likely require an increase in home Basaglar dose upon discharge. * Recommend initiation of Novolog with meals and at bedtime upon discharge as well. Dosing tbd.
[2021-09-18] MEDS: CALCIUM 600MG + VIT D 400 IU TAB PO SCH (12:14)
--- NOTE | 2021-09-18 13:59 | Cardiology Progress Note ---
Date of Service September 18, 2021 Assessment & Plan (1) Acute on chronic diastolic heart failure: (2) UTI (urinary tract infection): (3) Paroxysmal atrial fibrillation: (4) Acute kidney injury superimposed on CKD: Plan: Patient presenting with worsening SOB, 30 lb weight gain, multifactorial volume overload with diastolic HF, obesity. Dietary indiscretion likely large component. Symptoms improving with IV furosemide 40 mg. Creatinine improving to 1.4 this morning, previously 1.9. Appreciate nephrology's input. Can increase furosemide dose if needed. Supplement potassium. Continue spironolactone. Has now diuresed over 2500 mL Continue other home meds including ASA, amiodarone, metoprolol. 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 UTI treatment per hospitalist. DVT proph - SQ hep Continue to monitor on telemetry Admission and Anticipated Discharge Date Admission Date: September 16, 2021 Subjective Patient seen and examined, chart reviewed. States her breathing continues to improve but still dyspneic with exertion. Denies chest pain or palpitations. Review of Systems Review of Systems: All systems reviewed & are unremarkable except as noted in HPI & below Physical Exam Physical Exam: General: Awake, alert and oriented x 3. No acute distress. HEENT: Normocephalic, atraumatic. Pupils equal, round and reactive to light and accommodation. Extraocular muscles are intact. Anicteric sclera. Moist mucous membranes. Neck: No JVD. No bruit. Cardiovascular: Regular. Positive S-4. Normal S-1 and S-2. No S-3. No murmurs or rubs. Pulmonary: Clear to auscultation B/L. No rales, rhonchi or wheezing Abdomen: Bowel sounds x 4, soft. No rebound, guarding or tenderness. No organomegaly. Extremities: No clubbing, cyanosis or edema. +2 pedal pulses bilaterally. Skin: Warm and dry. Results & Data ([facility]) Vital Signs (Past 12 Hours) Vital Signs Temp Pulse Pulse Resp BP BP Pulse Ox 09/18/21 10:54 36.6 C 66 152/84 H 94 09/18/21 08:50 68 132/82 09/18/21 08:01 67 09/18/21 07:35 69 116/72 09/18/21 07:25 190/94 H 09/18/21 07:21 36.8 C 69 96 09/18/21 03:47 36.6 C 67 20 152/87 H 91
--- NOTE | 2021-09-18 18:16 | Hospitalist Progress Note ---
Date of Service September 18, 2021 Assessment & Plan (1) UTI (urinary tract infection): Plan: Patient is a 61 yr female with H/O diastolic congestive heart failure, who was sent from Cardiology office because complicated urinary tract infection and also ongoing diastolic congestive heart failure. Acute on chronic diastolic congestive heart failure -CXR:Cardiomegaly with no acute cardiopulmonary abnormality. -ECHO: Normal LV chamber size, mild concentric LVH, EF 55 to 60%, no segmental left ventricular wall motion abnormality, grade 2 diastolic dysfunction -Continue IV lasix -Also on spironolactone Monitor I's and O's, daily weight, volume status Appreciate cardiology input Renal function stable Volume status improving Multidrug resistant UTI Outpatient Urine Cx growing Klebsiella pneumonia Urine Cx: Klebsiella pneumonia, group B beta strep Continue Invanz Appreciate ID Input: May continue ertapenem 1 gm iv qd to complete total 7 days from 09/16/21. Acute to Subacute L1 compression fracture --Lumbar CT:Acute to subacute compression fracture involving the L1 vertebral body with loss of 50% of the height of the vertebral body. No retropulsion of fracture fragment is seen. Moderate disc space narrowing at L1-2. Appreciate orthopedics input Conservative management for now as per Ortho Avoid lifting any heavier objects greater than 5 to 7 pounds Likely would not tolerate brace May need kyphoplasty if no improvement with conservative management DM II HbA1C: 11.2 Continue insulin therapy Monitor BGs Paroxysmal atrial fibrillation Continue Amiodarone, metoprolol Not on anticoagulation due to H/O hemorrhagic retinopathy Acute kidney injury on CKD III Baseline creatinine 1.4 Cr: 1.9>>1.6>1.4 Monitor renal function Avoid nephrotoxic agents as able Hypothyroidism on Levothyroxine Nocturnal hypoxia on 2 liters at bedtime DVT Px: Heparin SQ Admission and Anticipated Discharge Date Admission Date: September 16, 2021 Subjective Patient is seen and examined bedside Reports back pain. Abdominal pain much improved States having chronic arthritic pain Leg swelling slowly improving Offers no other complaints Review of Systems Review of Systems: All systems reviewed & are unremarkable except as noted in Subjective Physical Exam Physical Exam: Physical Exam: Vitals signs as noted above General Appearance:Morbidly Obese, no apparent distress Head: normocephalic, Atraumatic Eyes: normal inspection, EOMI Neck: supple, Trachea midline Respiratory/Chest: Normal breath sounds, CTA Cardiovascular: S1, S2, No murmur Abdomen/GI:Soft, non tender, Bowel sounds present Extremities/Musculoskeletal:normal inspection, 2+ B/L LE edema Neurologic/Psych:AAOX3, grossly no focal neurological deficits Skin: normal color, warm Results & Data Results & Data ([facility]) Vital Signs (Past 12 Hours) Vital Signs Temp Pulse Pulse Resp BP BP Pulse Ox 09/18/21 16:08 66 09/18/21 15:16 36.8 C 68 15 107/68 96 09/18/21 10:54 36.6 C 66 152/84 H 94 09/18/21 08:50 68 132/82 09/18/21 08:01 67 09/18/21 07:35 69 116/72 09/18/21 07:25 190/94 H 09/18/21 07:21 36.8 C 69 96 Laboratory Results Short CBC 09/18/21 Range/Units 05:44 WBC 4.38 L (4.8-10.8) K/uL Hgb 11.1 L (12.0-16.0) g/dL Hct 34.1 L (37-47) % Plt Count 112 L (130-400) K/uL BMP 09/18/21 05:44 Sodium 142 Potassium 4.1 Chloride 108 H Carbon Dioxide 30 BUN 53 H Creatinine 1.41 H Glucose 105 H Calcium 9.3
[2021-09-18] MEDS ORDERED: INSULIN GLARGINE SOLOSTAR 100 UNITS/ML 3 ML PEN SQ SCH (21:00)
[2021-09-18] MEDS: GABAPENTIN 300 MG CAP PO SCH (21:35)
[2021-09-18] MEDS: ASPIRIN 81 MG ECTAB PO SCH (21:35)
[2021-09-18] MEDS: INSULIN GLARGINE SOLOSTAR 100 UNITS/ML 3 ML PEN SQ SCH (21:36)
[2021-09-19] MEDS: ERTAPENEM SODIUM 1,000 MG in SODIUM CHLORIDE 0.9% 50 ML IV SCH (06:04)
[2021-09-19] MEDS: HEPARIN SOD 5,000 UNIT/0.5 ML VIAL SQ SCH ×4 (06:05→20:58)
[2021-09-19] MEDS: LEVOTHYROXINE SODIUM 25 MCG TABLET PO SCH (06:05)
[2021-09-19 07:43] LABS: Calcium 9.6 mg/dl (8.5-10.1); Creatinine Clr Calc Pharmacy 50.6 ml/min; Est GFR (African American) 44.1 ml/min; Est GFR (Non-African American) 38.1 ml/min; Potassium 4.2 mmol/L (3.5-5.1)
[2021-09-19] MEDS ORDERED: FUROSEMIDE 40 MG/4 ML VIAL IV SCH (09:00)
[2021-09-19] MEDS: VITAMIN B COMPLEX TAB PO SCH (09:03)
[2021-09-19] MEDS: POTASSIUM CHLORIDE 10 MEQ TABCR PO SCH ×2 (09:03→21:04)
[2021-09-19] MEDS: GABAPENTIN 100 MG CAP PO SCH (09:03)
[2021-09-19] MEDS: METOPROLOL SUCC 50MG EXT REL TAB PO SCH (09:04)
[2021-09-19] MEDS: AMIODARONE 200 MG TAB PO SCH (09:04)
[2021-09-19] MEDS: FOLIC ACID 1 MG TAB PO SCH (09:04)
[2021-09-19] MEDS: CHOLECALCIFEROL 1,000 UNITS 25 MCG TAB PO SCH (09:04)
[2021-09-19] MEDS: FEXOFENADINE HCL 180 MG TAB PO SCH (09:04)
[2021-09-19] MEDS: SPIRONOLACTONE 25 MG TAB PO SCH (09:04)
[2021-09-19] MEDS: PANTOprazole 40 MG TAB PO SCH (09:04)
[2021-09-19] MEDS: FERROUS SULFATE 325 MG TAB PO SCH ×2 (09:05→17:05)
[2021-09-19] MEDS: CEROVITE ADV FORMULA TAB PO SCH (09:05)
[2021-09-19] MEDS: LACTOBACILLUS ACIDOPHILUS 1 GM PACK PO SCH ×3 (09:06→17:07)
[2021-09-19] MEDS: INSULIN ASPART PER UNIT SC SCH ×4 (09:11→20:57)
[2021-09-19] MEDS: DOCUSATE SODIUM 100 MG CAP PO SCH ×2 (09:42→21:04)
--- NOTE | 2021-09-19 10:08 | Cardiology Progress Note ---
Date of Service September 19, 2021 Assessment & Plan (1) Acute on chronic diastolic heart failure: (2) UTI (urinary tract infection): (3) Paroxysmal atrial fibrillation: (4) Acute kidney injury superimposed on CKD: Plan: The patient will start physical therapy to keep her mobile. She has lost approximately 20 pounds of fluid weight and I am going to switch her over to p.o. diuretics. She was on 40 mg of torsemide twice daily but I will start her on 20 mg twice daily. She is also a diabetic and with a history of heart failure I think she should be on either an DALTON inhibitor or ARB. Her renal function is stable. I will start her on lisinopril 5 mg daily. Her other medications will remain the same. Admission and Anticipated Discharge Date Admission Date: September 16, 2021 Subjective The patient has no new complaints today. Except that she is concerned because she is not mobile and about being in bed. Review of Systems Review of Systems: Review of Systems: See HPI for pertinent positives. All other 10 point review of systems are negative. Physical Exam Physical Exam: General: no acute distress and stated age Head: normocephalic, no masses, lesions, tenderness or abnormalities Eyes: conjunctiva are pink and non-injected, sclera clear Neck: supple, no adenopathy, no bruits, normal jugular venous pulse, no hepatojugular reflux Chest: normal shape and normal respiratory effort Lungs: clear to auscultation and percussion Cardiac Exam: - regular rate & rhythm, no murmurs gallops or rubs - normal S1, normal S2 Pulses: 2(+) throughout Abdomen: abdomen soft, non-tender, no abnormal masses and no hepatosplenomegaly Musculoskeletal: no gait disturbance, no joint inflammation, no deforming arthritis Extremities: no edema and no cyanosis Neuro: grossly normal exam Results & Data ([facility]) Vital Signs (Past 12 Hours) Vital Signs Temp Pulse Pulse Resp BP Pulse Ox 09/19/21 08:00 70 09/19/21 06:52 36.9 C 69 18 124/82 94 09/19/21 04:22 37 C 73 18 131/84 93 09/18/21 23:47 36.8 C 73 18 121/80 94 Laboratory Results Laboratory Results - last 24 hr 09/18/21 09/18/21 09/18/21 10:58 16:22 20:13 Sodium Potassium Chloride Carbon Dioxide Anion Gap BUN Creatinine Est Cr Clr Drug Dosing Est GFR ( Amer) Est GFR (Non-Af Amer) BUN/Creatinine Ratio Glucose POC Glucose 162 H 92 140 H Calcium 09/19/21 09/19/21 06:24 07:20 Sodium 139 Potassium 4.2 Chloride 105 Carbon Dioxide 30 Anion Gap 4.0 BUN 58 H Creatinine 1.48 H Est Cr Clr Drug Dosing 50.6 Est GFR ( Amer) 44.1 Est GFR (Non-Af Amer) 38.1 BUN/Creatinine Ratio 39.0 H Glucose 131 H POC Glucose 132 H Calcium 9.6 Medications Administered Current Inpatient Medications Amiodarone HCl (Amiodarone 200 Mg Tab) 200 mg PO DAILY [facility] Stop: 10/16/21 08:59 Last Admin: 09/19/21 09:04 Dose: 200 mg Documented by: Aspirin (Aspirin 81 Mg Ectab) 81 mg PO [facility] Stop: 10/16/21 20:59 Last Admin: 09/18/21 21:35 Dose: 81 mg Documented by: Butalbital/Aspirin/Caffeine (Butalbital/Aspirin/Caffeine 1 Tab Tab) 1 tab PO Q4H PRN PRN Reason: Migraine Headache Stop: 10/16/21 04:33 Dextrose (Dextrose 50% 50 Ml Syringe) 25 - 50 ml IV UD PRN; Protocol PRN Reason: Hypoglycemia Protocol Stop: 10/18/21 07:29 Diphenoxylate HCl/Atropine (Diphenoxylate/Atropine 2.5/0.025mg Tab) 1 tab PO DAILY PRN PRN Reason: Diarrhea Stop: 10/16/21 04:33 Docusate Sodium (Docusate Sodium 100 Mg Cap) 100 mg PO BID [facility] Stop: 10/16/21 08:59 Last Admin: 09/19/21 09:42 Dose: Not Given Documented by: Ferrous Sulfate (Ferrous Sulfate 325 Mg Tab) 325 mg PO BIDM [facility] Stop: 10/16/21 07:59 Last Admin: 09/19/21 09:05 Dose: 325 mg Documented by: Fexofenadine HCl (Fexofenadine Hcl 180 Mg Tab) 180 mg PO [facility] Stop: 10/16/21 08:59 Last Admin: 09/19/21 09:04 Dose: 180 mg Documented by: Folic Acid (Folic Acid 1 Mg Tab) 1 mg PO [facility] Stop: 10/16/21 08:59 Last Admin: 09/19/21 09:04 Dose: 1 mg Documented by: Gabapentin (Gabapentin 300 Mg Cap) 300 mg PO [facility] Stop: 10/16/21 20:59 Last Admin: 09/18/21 21:35 Dose: 300 mg Documented by: Gabapentin (Gabapentin 100 Mg Cap) 200 mg PO QAM [facility] Stop: 10/16/21 08:59 Last Admin: 09/19/21 09:03 Dose: 200 mg Documented by: Glucagon (Glucagon For Inj 1 Mg Vial) 1 mg IM UD PRN; Protocol PRN Reason: Hypoglycemia Protocol Stop: 10/18/21 07:29 Glucose (Glucose 40% Gel 15 Gm Tube) 15 - 30 gm PO UD PRN; Protocol PRN Reason: Hypoglycemia Protocol Stop: 10/18/21 07:29 Glucose (Glucose 10 Tabs/Tube) 4 - 8 tabs PO UD PRN; Protocol PRN Reason: Hypoglycemia Protocol Stop: 10/18/21 07:29 Heparin Sodium (Porcine) (Heparin Sod 5,000 Unit/0.5 Ml Vial) 7,500 units SQ Q8 [facility] Stop: 10/16/21 05:59 Last Admin: 09/19/21 06:05 Dose: Not Given Documented by: Ertapenem 1,000 mg/ Sodium (Chloride) 60 mls @ 100 mls/hr IV Q24H [facility] Stop: 09/23/21 05:59 Last Infusion: 09/19/21 06:41 Dose: Infused Documented by: Insulin Aspart (Insulin Aspart Per Unit) 0 units SC [facility]; Protocol Stop: 10/16/21 07:29 Last Admin: 09/19/21 09:11 Dose: 10 units Documented by: Insulin Glargine (Insulin Glargine Solostar 100 Units/Ml 3 Ml Pen) 18 units SQ [facility] Stop: 10/17/21 20:59 Last Admin: 09/18/21 21:36 Dose: 18 units Documented by: Lactobacillus Acidophilus (Lactobacillus Acidophilus 1 Gm Pack) 1 gm PO TIDM [facility] Stop: 10/16/21 11:59 Last Admin: 09/19/21 09:06 Dose: 1 gm Documented by: Levothyroxine Sodium (Levothyroxine Sodium 25 Mcg Tablet) 25 mcg PO DAILYBB [facility] Stop: 10/16/21 06:29 Last Admin: 09/19/21 06:05 Dose: 25 mcg Documented by: Lisinopril (Lisinopril 5 Mg Tab) 5 mg PO QAM [facility] Stop: 10/19/21 10:14 Metoprolol Succinate (Metoprolol Succ 50mg Ext Rel Tab) 50 mg PO QAM [facility] Stop: 10/16/21 08:59 Last Admin: 09/19/21 09:04 Dose: 50 mg Documented by: Miscellaneous (Carbohydrates For Hypoglycemia ) 15 - 30 gm PO UD PRN PRN Reason: Hypoglycemia Treatment Stop: 10/18/21 07:29 Miscellaneous Information (Pharmacy Glycemic Mgmt Consult) 1 ea N/A UD PRN PRN Reason: Consult Stop: 10/16/21 18:11 Multivitamins/Minerals (Cerovite Adv Formula Tab) 1 tab PO DAILY [facility] Stop: 10/16/21 08:59 Last Admin: 09/19/21 09:05 Dose: 1 tab Documented by: Multivitamins/Minerals (Calcium 600mg + Vit D 400 Iu Tab) 1 tab PO QDL [facility] Stop: 10/16/21 11:29 Last Admin: 09/18/21 12:14 Dose: 1 tab Documented by: Nitroglycerin (Nitroglycerin Sl 0.4 Mg/Tab Tab) 0.4 mg SL UD PRN PRN Reason: Chest Pain Stop: 10/16/21 04:33 Ondansetron HCl (Ondansetron Inj 2 Mg/Ml 2 Ml Vial) 4 mg IV Q6H PRN PRN Reason: Nausea Stop: 10/16/21 04:33 Pantoprazole Sodium (Pantop[facility]ole 40 Mg Tab) [facility]: 10/16/21 08:59 Last Admin: 09/19/21 09:04 Dose: 40 mg Documented by: Polyethylene Glycol (Polyethylene (Miralax) 17 Gm Pack) 17 gm PO DAILY PRN PRN Reason: Constipation Stop: 10/16/21 04:33 Potassium Chloride (Potassium Chloride 10 Meq Tabcr) 10 meq PO BID [facility] Stop: 10/17/21 09:59 Last Admin: 09/19/21 09:03 Dose: 10 meq Documented by: Spironolactone (Spironolactone 25 Mg Tab) 25 mg PO QAM [facility] Stop: 10/16/21 08:59 Last Admin: 09/19/21 09:04 Dose: 25 mg Documented by: Torsemide (Torsemide 10 Mg Tab) 20 mg PO BID [facility] Stop: 10/19/21 20:59 Vitamin B Complex (Vitamin B Complex Tab) 1 tab PO DAILY [facility] Stop: 10/16/21 08:59 Last Admin: 09/19/21 09:03 Dose: 1 tab Documented by: Vitamin D (Cholecalciferol 1,000 Units 25 Mcg Tab) 1,000 units PO QAM [facility] Stop: 10/16/21 08:59 Last Admin: 09/19/21 09:04 Dose: 1,000 units Documented by:
[2021-09-19] MEDS: lisinopril 5 MG TAB PO SCH (11:01)
[2021-09-19] MEDS ORDERED: LACTOBACILLUS ACIDOPHILUS 1 GM PACK PO SCH (12:00)
[2021-09-19] MEDS: CALCIUM 600MG + VIT D 400 IU TAB PO SCH (12:33)
--- NOTE | 2021-09-19 18:33 | Hospitalist Progress Note ---
Date of Service September 19, 2021 Assessment & Plan (1) UTI (urinary tract infection): Plan: Patient is a 61 yr female with H/O diastolic congestive heart failure, who was sent from Cardiology office because complicated urinary tract infection and also ongoing diastolic congestive heart failure. Acute on chronic diastolic congestive heart failure -CXR:Cardiomegaly with no acute cardiopulmonary abnormality. -ECHO: Normal LV chamber size, mild concentric LVH, EF 55 to 60%, no segmental left ventricular wall motion abnormality, grade 2 diastolic dysfunction -Received IV lasix -Continue spironolactone Monitor I's and O's, daily weight, volume status Appreciate cardiology input Renal function stable Volume status improved IV diuretics transition to p.o. torsemide 20 mg twice daily Also started on lisinopril 5 mg daily Multidrug resistant UTI Outpatient Urine Cx growing Klebsiella pneumonia Urine Cx: Klebsiella pneumonia, group B beta strep Continue Invanz Appreciate ID Input: May continue ertapenem 1 gm iv qd to complete total 7 days from 09/16/21. Acute to Subacute L1 compression fracture --Lumbar CT:Acute to subacute compression fracture involving the L1 vertebral body with loss of 50% of the height of the vertebral body. No retropulsion of fracture fragment is seen. Moderate disc space narrowing at L1-2. Appreciate orthopedics input Conservative management for now as per Ortho Avoid lifting any heavier objects greater than 5 to 7 pounds Likely would not tolerate brace May need kyphoplasty if no improvement with conservative management DM II HbA1C: 11.2 Continue insulin therapy Monitor BGs Paroxysmal atrial fibrillation Continue Amiodarone, metoprolol Not on anticoagulation due to H/O hemorrhagic retinopathy Acute kidney injury on CKD III Baseline creatinine 1.4 Cr: 1.9>>1.6>1.4 Monitor renal function Avoid nephrotoxic agents as able Hypothyroidism on Levothyroxine Nocturnal hypoxia on 2 liters at bedtime DVT Px: Heparin SQ Admission and Anticipated Discharge Date Admission Date: September 16, 2021 Subjective Patient is seen and examined bedside No new complaints States feeling better Abdominal pain much improved Back pain improved as well Denies any chest pain, shortness of breath, dizziness Review of Systems Review of Systems: All systems reviewed & are unremarkable except as noted in Subjective Physical Exam Physical Exam: Physical Exam: Vitals signs as noted above General Appearance:Morbidly Obese, no apparent distress Head: normocephalic, Atraumatic Eyes: normal inspection, EOMI Neck: supple, Trachea midline Respiratory/Chest: Normal breath sounds, CTA Cardiovascular: S1, S2, No murmur Abdomen/GI:Soft, non tender, Bowel sounds present Extremities/Musculoskeletal:normal inspection, 2+ B/L LE edema Neurologic/Psych:AAOX3, grossly no focal neurological deficits Skin: normal color, warm Results & Data Results & Data ([facility]) Vital Signs (Past 12 Hours) Vital Signs Temp Pulse Pulse Resp BP Pulse Ox 09/19/21 16:37 36.6 C 56 L 18 106/69 96 09/19/21 12:39 37.1 C 68 18 114/74 94 09/19/21 08:00 70 09/19/21 06:52 36.9 C 69 18 124/82 94 Laboratory Results BMP 09/19/21 06:24 Sodium 139 Potassium 4.2 Chloride 105 Carbon Dioxide 30 BUN 58 H Creatinine 1.48 H Glucose 131 H Calcium 9.6
[2021-09-19] MEDS: INSULIN GLARGINE SOLOSTAR 100 UNITS/ML 3 ML PEN SQ SCH (20:57)
[2021-09-19] MEDS: TORSEMIDE 10 MG TAB PO SCH (21:04)
[2021-09-19] MEDS: GABAPENTIN 300 MG CAP PO SCH (21:04)
[2021-09-19] MEDS: ASPIRIN 81 MG ECTAB PO SCH (21:04)
[2021-09-20] MEDS: ERTAPENEM SODIUM 1,000 MG in SODIUM CHLORIDE 0.9% 50 ML IV SCH (06:20)
[2021-09-20] MEDS: HEPARIN SOD 5,000 UNIT/0.5 ML VIAL SQ SCH ×4 (06:21→20:22)
[2021-09-20] MEDS: LEVOTHYROXINE SODIUM 25 MCG TABLET PO SCH (06:21)
[2021-09-20 06:57] LABS: Hematocrit (blood only) 35.2 % (37-47); Hemoglobin 11.2 g/dL (12.0-16.0); Mean Corpuscular Hemoglobin 29.9 pg (25-34); Mean Corpuscular Hgb Conc 31.8 g/dL (32-36); Mean Corpuscular Volume 93.9 fL (80-100); Mean Platelet Volume 8.9 fL (7.4-10.4); Platelet Count 125 K/uL (130-400); RDW Coefficient of Variation 14.4 % (11.5-14.5); RDW Standard Deviation 49.2 fL (36.4-46.3); Red Blood Count 3.75 M/uL (4.2-5.4)
[2021-09-20 07:32] LABS: BUN Creatinine Ratio 32.4 (10-20); Calcium 9.3 mg/dl (8.5-10.1); Creatinine Clr Calc Pharmacy 40.9 ml/min; Est GFR (African American) 33.9 ml/min; Est GFR (Non-African American) 29.3 ml/min; Potassium 4.8 mmol/L (3.5-5.1)
[2021-09-20] MEDS: TORSEMIDE 10 MG TAB PO SCH (08:31)
[2021-09-20] MEDS: GABAPENTIN 100 MG CAP PO SCH (08:32)
[2021-09-20] MEDS: VITAMIN B COMPLEX TAB PO SCH (08:32)
[2021-09-20] MEDS: PANTOprazole 40 MG TAB PO SCH (08:32)
[2021-09-20] MEDS: AMIODARONE 200 MG TAB PO SCH (08:32)
[2021-09-20] MEDS: CEROVITE ADV FORMULA TAB PO SCH (08:32)
[2021-09-20] MEDS: POTASSIUM CHLORIDE 10 MEQ TABCR PO SCH ×2 (08:32→20:25)
[2021-09-20] MEDS: FOLIC ACID 1 MG TAB PO SCH (08:32)
[2021-09-20] MEDS: FEXOFENADINE HCL 180 MG TAB PO SCH (08:32)
[2021-09-20] MEDS: LACTOBACILLUS ACIDOPHILUS 1 GM PACK PO SCH ×3 (08:33→17:09)
[2021-09-20] MEDS: CHOLECALCIFEROL 1,000 UNITS 25 MCG TAB PO SCH (08:33)
[2021-09-20] MEDS: FERROUS SULFATE 325 MG TAB PO SCH ×2 (08:33→17:09)
[2021-09-20] MEDS: lisinopril 5 MG TAB PO SCH (08:33)
[2021-09-20] MEDS: SPIRONOLACTONE 25 MG TAB PO SCH (08:33)
[2021-09-20] MEDS: METOPROLOL SUCC 50MG EXT REL TAB PO SCH (08:33)
[2021-09-20] MEDS: DOCUSATE SODIUM 100 MG CAP PO SCH ×2 (08:34→20:22)
[2021-09-20] MEDS: INSULIN ASPART PER UNIT SC SCH ×4 (08:39→20:23)
--- NOTE | 2021-09-20 10:37 | Cardiology Progress Note ---
Date of Service September 20, 2021 Assessment & Plan (1) Acute on chronic diastolic heart failure: (2) UTI (urinary tract infection): (3) Paroxysmal atrial fibrillation: (4) Acute kidney injury superimposed on CKD: Plan: The patient is tolerating her medications including the lisinopril. I do see that her creatinine increased slightly from yesterday which could be a combination of diuretics as well as addition of lisinopril however, the lisinopril dosage is very small and we do expect a slight increase in creatinine will restart this medication as long as the creatinine does not continue to elevate. I think she should be on an DALTON inhibitor because of her history of diabetes. She has a couple more days of antibiotics and after that from a cardiac standpoint I think she can be discharged to outpatient follow-up. Admission and Anticipated Discharge Date Admission Date: September 16, 2021 Subjective The patient is sitting in a chair today. No new complaints. Review of Systems Review of Systems: Review of Systems: See HPI for pertinent positives. All other 10 point review of systems are negative. Physical Exam Physical Exam: General: no acute distress and stated age Head: normocephalic, no masses, lesions, tenderness or abnormalities Eyes: conjunctiva are pink and non-injected, sclera clear Neck: supple, no adenopathy, no bruits, normal jugular venous pulse, no hepatojugular reflux Chest: normal shape and normal respiratory effort Lungs: clear to auscultation and percussion Cardiac Exam: - regular rate & rhythm, no murmurs gallops or rubs - normal S1, normal S2 Pulses: 2(+) throughout Abdomen: abdomen soft, non-tender, no abnormal masses and no hepatosplenomegaly Musculoskeletal: no gait disturbance, no joint inflammation, no deforming arthritis Extremities: no edema and no cyanosis Neuro: grossly normal exam Results & Data ([facility]) Vital Signs (Past 12 Hours) Vital Signs Temp Pulse Pulse Resp BP Pulse Ox 09/20/21 07:42 65 09/20/21 06:44 36.6 C 65 18 119/80 92 09/20/21 03:57 36.5 C 65 18 113/75 97 09/20/21 00:18 36.5 C 65 18 104/69 95 Laboratory Results Laboratory Results - last 24 hr 09/19/21 09/19/21 09/19/21 11:30 16:28 20:15 WBC RBC Hgb Hct MCV MCH MCHC RDW Std Deviation RDW Coeff of Milo Plt Count MPV Sodium Potassium Chloride Carbon Dioxide Anion Gap BUN Creatinine Est Cr Clr Drug Dosing Est GFR ( Amer) Est GFR (Non-Af Amer) BUN/Creatinine Ratio Glucose POC Glucose 129 H 84 62 L* Calcium 09/19/21 09/19/21 09/20/21 20:15 20:45 05:30 WBC 4.80 RBC 3.75 L Hgb 11.2 L Hct 35.2 L MCV 93.9 MCH 29.9 MCHC 31.8 L RDW Std Deviation 49.2 H RDW Coeff of Milo 14.4 Plt Count 125 L MPV 8.9 Sodium Potassium Chloride Carbon Dioxide Anion Gap BUN Creatinine Est Cr Clr Drug Dosing Est GFR ( Amer) Est GFR (Non-Af Amer) BUN/Creatinine Ratio Glucose POC Glucose 63 L* 68 L* Calcium 09/20/21 09/20/21 05:30 07:30 WBC RBC Hgb Hct MCV MCH MCHC RDW Std Deviation RDW Coeff of Milo Plt Count MPV Sodium 138 Potassium 4.8 Chloride 103 Carbon Dioxide 29 Anion Gap 6.0 BUN 60 H Creatinine 1.84 H D Est Cr Clr Drug Dosing 40.9 Est GFR ( Amer) 33.9 Est GFR (Non-Af Amer) 29.3 BUN/Creatinine Ratio 32.4 H Glucose 197 H POC Glucose 190 H Calcium 9.3 Medications Administered Current Inpatient Medications Amiodarone HCl (Amiodarone 200 Mg Tab) 200 mg PO DAILY [facility] Stop: 10/16/21 08:59 Last Admin: 09/20/21 08:32 Dose: 200 mg Documented by: Aspirin (Aspirin 81 Mg Ectab) 81 mg PO HS [facility] Stop: 10/16/21 20:59 Last Admin: 09/19/21 21:04 Dose: 81 mg Documented by: Butalbital/Aspirin/Caffeine (Butalbital/Aspirin/Caffeine 1 Tab Tab) 1 tab PO Q4H PRN PRN Reason: Migraine Headache Stop: 10/16/21 04:33 Dextrose (Dextrose 50% 50 Ml Syringe) 25 - 50 ml IV UD PRN; Protocol PRN Reason: Hypoglycemia Protocol Stop: 10/18/21 07:29 Diphenoxylate HCl/Atropine (Diphenoxylate/Atropine 2.5/0.025mg Tab) 1 tab PO DAILY PRN PRN Reason: Diarrhea Stop: 10/16/21 04:33 Docusate Sodium (Docusate Sodium 100 Mg Cap) 100 mg PO BID [facility] Stop: 10/16/21 08:59 Last Admin: 09/20/21 08:34 Dose: Not Given Documented by: Ferrous Sulfate (Ferrous Sulfate 325 Mg Tab) 325 mg PO BIDM [facility] Stop: 10/16/21 07:59 Last Admin: 09/20/21 08:33 Dose: 325 mg Documented by: Fexofenadine HCl (Fexofenadine Hcl 180 Mg Tab) 180 mg PO QAM [facility] Stop: 10/16/21 08:59 Last Admin: 09/20/21 08:32 Dose: 180 mg Documented by: Folic Acid (Folic Acid 1 Mg Tab) 1 mg PO QAM [facility] Stop: 10/16/21 08:59 Last Admin: 09/20/21 08:32 Dose: 1 mg Documented by: Gabapentin (Gabapentin 300 Mg Cap) 300 mg PO HS [facility] Stop: 10/16/21 20:59 Last Admin: 09/19/21 21:04 Dose: 300 mg Documented by: Gabapentin (Gabapentin 100 Mg Cap) 200 mg PO QAM [facility] Stop: 10/16/21 08:59 Last Admin: 09/20/21 08:32 Dose: 200 mg Documented by: Glucagon (Glucagon For Inj 1 Mg Vial) 1 mg IM UD PRN; Protocol PRN Reason: Hypoglycemia Protocol Stop: 10/18/21 07:29 Glucose (Glucose 40% Gel 15 Gm Tube) 15 - 30 gm PO UD PRN; Protocol PRN Reason: Hypoglycemia Protocol Stop: 10/18/21 07:29 Glucose (Glucose 10 Tabs/Tube) 4 - 8 tabs PO UD PRN; Protocol PRN Reason: Hypoglycemia Protocol Stop: 10/18/21 07:29 Heparin Sodium (Porcine) (Heparin Sod 5,000 Unit/0.5 Ml Vial) 7,500 units SQ Q8 [facility] Stop: 10/16/21 05:59 Last Admin: 09/20/21 06:21 Dose: Not Given Documented by: Ertapenem 1,000 mg/ Sodium (Chloride) 60 mls @ 100 mls/hr IV Q24H [facility] Stop: 09/22/21 06:35 Last Infusion: 09/20/21 09:03 Dose: Infused Documented by: Insulin Aspart (Insulin Aspart Per Unit) 0 units SC [facility]; Protocol Stop: 10/16/21 07:29 Last Admin: 09/20/21 08:39 Dose: 12 units Documented by: Insulin Glargine (Insulin Glargine Solostar 100 Units/Ml 3 Ml Pen) 18 units SQ HS [facility] Stop: 10/17/21 20:59 Last Admin: 09/19/21 20:57 Dose: Not Given Documented by: Lactobacillus Acidophilus (Lactobacillus Acidophilus 1 Gm Pack) 1 gm PO TIDM [facility] Stop: 10/16/21 11:59 Last Admin: 09/20/21 08:33 Dose: 1 gm Documented by: Levothyroxine Sodium (Levothyroxine Sodium 25 Mcg Tablet) 25 mcg PO DAILYBB [facility] Stop: 10/16/21 06:29 Last Admin: 09/20/21 06:21 Dose: 25 mcg Documented by: Lisinopril (Lisinopril 5 Mg Tab) 5 mg PO QAM [facility] Stop: 10/19/21 10:14 Last Admin: 09/20/21 08:33 Dose: 5 mg Documented by: Metoprolol Succinate (Metoprolol Succ 50mg Ext Rel Tab) 50 mg PO QAM [facility] Stop: 10/16/21 08:59 Last Admin: 09/20/21 08:33 Dose: 50 mg Documented by: Miscellaneous (Carbohydrates For Hypoglycemia ) 15 - 30 gm PO UD PRN PRN Reason: Hypoglycemia Treatment Stop: 10/18/21 07:29 Miscellaneous Information (Pharmacy Glycemic Mgmt Consult) 1 ea N/A UD PRN PRN Reason: Consult Stop: 10/16/21 18:11 Multivitamins/Minerals (Cerovite Adv Formula Tab) 1 tab PO DAILY [facility] Stop: 10/16/21 08:59 Last Admin: 09/20/21 08:32 Dose: 1 tab Documented by: Multivitamins/Minerals (Calcium 600mg + Vit D 400 Iu Tab) 1 tab PO QDL [facility] Stop: 10/16/21 11:29 Last Admin: 09/19/21 12:33 Dose: 1 tab Documented by: Nitroglycerin (Nitroglycerin Sl 0.4 Mg/Tab Tab) 0.4 mg SL UD PRN PRN Reason: Chest Pain Stop: 10/16/21 04:33 Ondansetron HCl (Ondansetron Inj 2 Mg/Ml 2 Ml Vial) 4 mg IV Q6H PRN PRN Reason: Nausea Stop: 10/16/21 04:33 Pantoprazole Sodium (Pantoprazole 40 Mg Tab) 40 mg PO QAM [facility] Stop: 10/16/21 08:59 Last Admin: 09/20/21 08:32 Dose: 40 mg Documented by: Polyethylene Glycol (Polyethylene (Miralax) 17 Gm Pack) 17 gm PO DAILY PRN PRN Reason: Constipation Stop: 10/16/21 04:33 Potassium Chloride (Potassium Chloride 10 Meq Tabcr) 10 meq PO BID [facility] Stop: 10/17/21 09:59 Last Admin: 09/20/21 08:32 Dose: 10 meq Documented by: Spironolactone (Spironolactone 25 Mg Tab) 25 mg PO QAM [facility] Stop: 10/16/21 08:59 Last Admin: 09/20/21 08:33 Dose: 25 mg Documented by: Torsemide (Torsemide 10 Mg Tab) 20 mg PO BID [facility] Stop: 10/19/21 20:59 Last Admin: 09/20/21 08:31 Dose: 20 mg Documented by: Vitamin B Complex (Vitamin B Complex Tab) 1 tab PO DAILY [facility] Stop: 10/16/21 08:59 Last Admin: 09/20/21 08:32 Dose: 1 tab Documented by: Vitamin D (Cholecalciferol 1,000 Units 25 Mcg Tab) 1,000 units PO QAM [facility] Stop: 10/16/21 08:59 Last Admin: 09/20/21 08:33 Dose: 1,000 units Documented by:
--- NOTE | 2021-09-20 11:39 | Nephrology Progress Note ---
Date of Service September 20, 2021 Assessment & Plan (1) Acute kidney injury superimposed on CKD: Plan: A 61-year-old female with long-term diabetes with associated chronic kidney disease stage III with a baseline creatinine around 1.4. Now admitted with significant fluid retention and a 30-pound weight gain associated with acute renal failure and also has complicated urinary tract infection. Admission creatinine is slightly higher than baseline, but she had significant fluid retention and a 30-pound weight gain.Quite possible this is a progression of her underlying chronic kidney disease with diabetic nephropathy, but her fluid status is hard to assess. Defer diuretics dosing to cardiology, I also agree with using spironolactone Slight increase in serum creatinine after start of lisinopril which is acceptable , she should continue on this. She will need follow-up with nephrology, in 2 weeks time with a repeat BMP post discharge. (2) UTI (urinary tract infection): Plan: Continue with Ertapenam-Managed by primary Admission and Anticipated Discharge Date Admission Date: September 16, 2021 Subjective Comfortabel, No new complaints. Review of Systems Review of Systems: Dyspnea and pedal edema improved. Physical Exam Physical Exam: GENERAL: Morbidly obese white female who is not in overt respiratory distress. She is able to give a detailed account of her medical problem and her medication list. CHEST: Bilateral decreased breath sound. Poor inspiratory effort. CARDIOVASCULAR: S1 and S2, distant heart sound. ABDOMEN: Soft, nontender, obese. EXTREMITIES: Show 2+ edema bilateral Results & Data ([facility]) Vital Signs (Past 12 Hours) Vital Signs Temp Pulse Pulse Resp BP Pulse Ox 09/20/21 07:42 65 09/20/21 06:44 36.6 C 65 18 119/80 92 09/20/21 03:57 36.5 C 65 18 113/75 97 09/20/21 00:18 36.5 C 65 18 104/69 95 Laboratory Results 09/20/21 05:30 09/20/21 05:30
[2021-09-20] MEDS: CALCIUM 600MG + VIT D 400 IU TAB PO SCH (12:00)
[2021-09-20] MEDS: MENTHOL-ZINC OXIDE 360 APPLN/120 GM TUBE EXT SCH ×2 (13:56→20:26)
[2021-09-20] MEDS ORDERED: SODIUM CHLORIDE 0.9% 500 ML IV ONE (16:18)
--- NOTE | 2021-09-20 19:41 | Hospitalist Progress Note ---
Date of Service September 20, 2021 Assessment & Plan (1) UTI (urinary tract infection): Plan: Patient is a 61 yr female with H/O diastolic congestive heart failure, who was sent from Cardiology office because complicated urinary tract infection and also ongoing diastolic congestive heart failure. Acute on chronic diastolic congestive heart failure -CXR:Cardiomegaly with no acute cardiopulmonary abnormality. -ECHO: Normal LV chamber size, mild concentric LVH, EF 55 to 60%, no segmental left ventricular wall motion abnormality, grade 2 diastolic dysfunction -Received IV lasix -Continue spironolactone Monitor I's and O's, daily weight, volume status Appreciate cardiology input Renal function stable Volume status improved IV diuretics transition to p.o. torsemide 20 mg twice daily Also started on lisinopril 5 mg daily Blood pressure dropped this afternoon We will hold p.m. dose of torsemide We will recheck blood pressure tomorrow prior to administering medications Gentle IV fluids Multidrug resistant UTI Outpatient Urine Cx growing Klebsiella pneumonia Urine Cx: Klebsiella pneumonia, group B beta strep Continue Invanz Appreciate ID Input: May continue ertapenem 1 gm iv qd to complete total 7 days from 09/16/21. Acute to Subacute L1 compression fracture --Lumbar CT:Acute to subacute compression fracture involving the L1 vertebral body with loss of 50% of the height of the vertebral body. No retropulsion of fracture fragment is seen. Moderate disc space narrowing at L1-2. Appreciate orthopedics input Conservative management for now as per Ortho Avoid lifting any heavier objects greater than 5 to 7 pounds Likely would not tolerate brace May need kyphoplasty if no improvement with conservative management DM II HbA1C: 11.2 Continue insulin therapy Monitor BGs Paroxysmal atrial fibrillation Continue Amiodarone, metoprolol Not on anticoagulation due to H/O hemorrhagic retinopathy Acute kidney injury on CKD III Baseline creatinine 1.4 Cr: 1.9>>1.6>1.4>1.8 Monitor renal function Avoid nephrotoxic agents as able Appreciate nephrology input Needs follow-up with nephrology in 2 weeks with repeat BMP Hypothyroidism on Levothyroxine Nocturnal hypoxia on 2 liters at bedtime DVT Px: Heparin SQ Admission and Anticipated Discharge Date Admission Date: September 16, 2021 Subjective Patient is seen and examined bedside Sitting in chair during my encounter Reports having minimal headache and dizziness Leg swelling improving Denies any chest pain, shortness of breath, dizziness Discussed with cardiology today Review of Systems Review of Systems: All systems reviewed & are unremarkable except as noted in Subjective Physical Exam Physical Exam: Physical Exam: Vitals signs as noted above General Appearance:Morbidly Obese, no apparent distress Head: normocephalic, Atraumatic Eyes: normal inspection, EOMI Neck: supple, Trachea midline Respiratory/Chest: Normal breath sounds, CTA Cardiovascular: S1, S2, No murmur Abdomen/GI:Soft, non tender, Bowel sounds present Extremities/Musculoskeletal:normal inspection, 2+ B/L LE edema Neurologic/Psych:AAOX3, grossly no focal neurological deficits Skin: normal color, warm Results & Data Results & Data ([facility]) Vital Signs (Past 12 Hours) Vital Signs Temp Pulse Pulse Resp BP BP Pulse Ox 09/20/21 18:38 87/52 L 09/20/21 15:23 36.6 C 66 18 73/41 L 94 09/20/21 15:05 62 09/20/21 07:42 65 Laboratory Results Short CBC 09/20/21 Range/Units 05:30 WBC 4.80 (4.8-10.8) K/uL Hgb 11.2 L (12.0-16.0) g/dL Hct 35.2 L (37-47) % Plt Count 125 L (130-400) K/uL BMP 09/20/21 05:30 Sodium 138 Potassium 4.8 Chloride 103 Carbon Dioxide 29 BUN 60 H Creatinine 1.84 H D Glucose 197 H Calcium 9.3
[2021-09-20] MEDS: GABAPENTIN 300 MG CAP PO SCH (20:22)
[2021-09-20] MEDS: INSULIN GLARGINE SOLOSTAR 100 UNITS/ML 3 ML PEN SQ SCH (20:24)
[2021-09-20] MEDS: ASPIRIN 81 MG ECTAB PO SCH (20:24)
[2021-09-21] MEDS: ERTAPENEM SODIUM 1,000 MG in SODIUM CHLORIDE 0.9% 50 ML IV SCH (05:44)
[2021-09-21] MEDS: HEPARIN SOD 5,000 UNIT/0.5 ML VIAL SQ SCH ×3 (05:45→20:41)
[2021-09-21] MEDS: LEVOTHYROXINE SODIUM 25 MCG TABLET PO SCH (05:46)
[2021-09-21 06:15] LABS: BUN Creatinine Ratio 27.7 (10-20); Calcium 9.1 mg/dl (8.5-10.1); Creatinine Clr Calc Pharmacy 31.8 ml/min; Est GFR (Non-African American) 21.6 ml/min; Potassium 5.5 mmol/L (3.5-5.1)
--- NOTE | 2021-09-21 07:38 | Nephrology Progress Note ---
Date of Service September 21, 2021 Assessment & Plan Admission and Anticipated Discharge Date Admission Date: September 16, 2021 Subjective Assessment & Plan (1) Acute kidney injury superimposed on CKD: Plan: A 61-year-old female with long-term diabetes with associated chronic kidney disease stage III with a baseline creatinine around 1.4. Now admitted with significant fluid retention and a 30-pound weight gain associated with acute renal failure and also has complicated urinary tract infection. Admission creatinine is slightly higher than baseline, but she had significant fluid retention and a 30-pound weight gain.Quite possible this is a progression of her underlying chronic kidney disease with diabetic nephropathy, but her fluid status is hard to assess. Creat and K has both gone higher up with combined use of aldactone and DALTON. I dont think she can handle both. I would argue being On ARB maybe preferable-- slightly less likely to cause hig her k. Stop Aldactone and Lisinopril. use losartan 50 daily. Slight increase in serum creatinine after start of lisinopril which is acceptable , she should continue on this. She will need follow-up with nephrology, in 2 weeks time with a repeat BMP post discharge. (2) UTI (urinary tract infection): Plan: Continue with Ertapenam-Managed by primary Subjective Diffuse aches and pain, No new complaints. Review of Systems Review of Systems: Dyspnea and pedal edema improved. Physical Exam Physical Exam: GENERAL: Morbidly obese white female who is not in overt respiratory distress. She is able to give a detailed account of her medical problem and her medication list. CHEST: Bilateral decreased breath sound. Poor inspiratory effort. CARDIOVASCULAR: S1 and S2, distant heart sound. ABDOMEN: Soft, nontender, obese. EXTREMITIES: Show 2+ edema bilateral Results & Data ([facility]) Vital Signs (Past 12 Hours) Vital Signs Temp Pulse Pulse Resp BP Pulse Ox 09/21/21 07:01 36.8 C 70 19 104/55 L 94 09/21/21 04:57 67 09/21/21 03:39 36.5 C 68 18 118/77 96 09/20/21 23:07 36.5 C 66 18 104/69 96 09/20/21 19:38 36.5 C 72 18 103/58 L 94
[2021-09-21] MEDS: INSULIN ASPART PER UNIT SC SCH ×4 (08:32→20:46)
[2021-09-21] MEDS: LACTOBACILLUS ACIDOPHILUS 1 GM PACK PO SCH ×3 (08:33→17:36)
[2021-09-21] MEDS: CEROVITE ADV FORMULA TAB PO SCH (08:34)
[2021-09-21] MEDS: AMIODARONE 200 MG TAB PO SCH (08:34)
[2021-09-21] MEDS: FEXOFENADINE HCL 180 MG TAB PO SCH (08:34)
[2021-09-21] MEDS: METOPROLOL SUCC 50MG EXT REL TAB PO SCH (08:35)
[2021-09-21] MEDS: FERROUS SULFATE 325 MG TAB PO SCH ×2 (08:36→17:35)
[2021-09-21] MEDS: GABAPENTIN 100 MG CAP PO SCH (08:36)
[2021-09-21] MEDS: DOCUSATE SODIUM 100 MG CAP PO SCH ×2 (08:36→20:43)
[2021-09-21] MEDS: FOLIC ACID 1 MG TAB PO SCH (08:36)
[2021-09-21] MEDS: PANTOprazole 40 MG TAB PO SCH (08:36)
[2021-09-21] MEDS: CHOLECALCIFEROL 1,000 UNITS 25 MCG TAB PO SCH (08:36)
[2021-09-21] MEDS: VITAMIN B COMPLEX TAB PO SCH (08:36)
[2021-09-21] MEDS: MENTHOL-ZINC OXIDE 360 APPLN/120 GM TUBE EXT SCH ×2 (08:40→20:45)
[2021-09-21] MEDS ORDERED: LOSARTAN POTASSIUM 50 MG TAB PO SCH (09:00)
[2021-09-21] MEDS: LOSARTAN POTASSIUM 25 MG TAB PO SCH (09:32)
[2021-09-21] MEDS: CALCIUM 600MG + VIT D 400 IU TAB PO SCH (12:38)
--- NOTE | 2021-09-21 13:46 | Cardiology Progress Note ---
Date of Service September 21, 2021 Assessment & Plan (1) UTI (urinary tract infection): (2) Acute kidney injury superimposed on CKD: (3) Paroxysmal atrial fibrillation: (4) Diabetes mellitus, type II: (5) Acute on chronic diastolic heart failure: Plan: Neurology note appreciated. Patient is clinically stable. I think once her antibiotics are completed and if everybody is in agreement she can be discharged to outpatient follow-up. Admission and Anticipated Discharge Date Admission Date: September 16, 2021 Subjective The patient is sitting in a chair with no complaints today. Review of Systems Review of Systems: Review of Systems: See HPI for pertinent positives. All other 10 point review of systems are negative. Physical Exam Physical Exam: General: no acute distress and stated age Head: normocephalic, no masses, lesions, tenderness or abnormalities Eyes: conjunctiva are pink and non-injected, sclera clear Neck: supple, no adenopathy, no bruits, normal jugular venous pulse, no hepatojugular reflux Chest: normal shape and normal respiratory effort Lungs: clear to auscultation and percussion Cardiac Exam: - regular rate & rhythm, no murmurs gallops or rubs - normal S1, normal S2 Pulses: 2(+) throughout Abdomen: abdomen soft, non-tender, no abnormal masses and no hepatosplenomegaly Musculoskeletal: no gait disturbance, no joint inflammation, no deforming arthritis Extremities: no edema and no cyanosis Neuro: grossly normal exam Results & Data ([facility]) Vital Signs (Past 12 Hours) Vital Signs Temp Pulse Pulse Resp BP BP Pulse Ox 09/21/21 11:23 36.6 C 70 18 95/59 L 96 09/21/21 08:30 74 102/67 09/21/21 08:00 68 09/21/21 07:01 36.8 C 70 19 104/55 L 94 09/21/21 04:57 67 09/21/21 03:39 36.5 C 68 18 118/77 96 Laboratory Results Laboratory Results - last 24 hr 09/20/21 09/20/21 09/20/21 13:59 16:06 20:21 Sodium Potassium Chloride Carbon Dioxide Anion Gap BUN Creatinine Est Cr Clr Drug Dosing Est GFR ( Amer) Est GFR (Non-Af Amer) BUN/Creatinine Ratio Glucose POC Glucose 208 H 148 H 126 H Calcium 09/21/21 09/21/21 09/21/21 05:28 07:03 11:22 Sodium 138 Potassium 5.5 H Chloride 105 Carbon Dioxide 27 Anion Gap 6.0 BUN 66 H Creatinine 2.37 H D Est Cr Clr Drug Dosing 31.8 Est GFR ( Amer) 25.0 Est GFR (Non-Af Amer) 21.6 BUN/Creatinine Ratio 27.7 H Glucose 174 H POC Glucose 161 H 111 H Calcium 9.1 Medications Administered Current Inpatient Medications Amiodarone HCl (Amiodarone 200 Mg Tab) 200 mg PO DAILY [facility] Stop: 10/16/21 08:59 Last Admin: 09/21/21 08:34 Dose: 200 mg Documented by: Aspirin (Aspirin 81 Mg Ectab) 81 mg PO HS [facility] Stop: 10/16/21 20:59 Last Admin: 09/20/21 20:24 Dose: 81 mg Documented by: Butalbital/Aspirin/Caffeine (Butalbital/Aspirin/Caffeine 1 Tab Tab) 1 tab PO Q4H PRN PRN Reason: Migraine Headache Stop: 10/16/21 04:33 Calamine/Phenol (Menthol-Zinc Oxide 360 Appln/120 Gm Tube) 1 appln EXT BID [facility] Stop: 10/20/21 12:44 Last Admin: 09/21/21 08:40 Dose: 1 appln Documented by: Dextrose (Dextrose 50% 50 Ml Syringe) 25 - 50 ml IV UD PRN; Protocol PRN Reason: Hypoglycemia Protocol Stop: 10/18/21 07:29 Diphenoxylate HCl/Atropine (Diphenoxylate/Atropine 2.5/0.025mg Tab) 1 tab PO DAILY PRN PRN Reason: Diarrhea Stop: 10/16/21 04:33 Docusate Sodium (Docusate Sodium 100 Mg Cap) 100 mg PO BID [facility] Stop: 10/16/21 08:59 Last Admin: 09/21/21 08:36 Dose: Not Given Documented by: Ferrous Sulfate (Ferrous Sulfate 325 Mg Tab) 325 mg PO BIDM [facility] Stop: 10/16/21 07:59 Last Admin: 09/21/21 08:36 Dose: 325 mg Documented by: Fexofenadine HCl (Fexofenadine Hcl 180 Mg Tab) 180 mg PO QAM [facility] Stop: 10/16/21 08:59 Last Admin: 09/21/21 08:34 Dose: 180 mg Documented by: Folic Acid (Folic Acid 1 Mg Tab) 1 mg PO QAM [facility] Stop: 10/16/21 08:59 Last Admin: 09/21/21 08:36 Dose: 1 mg Documented by: Gabapentin (Gabapentin 300 Mg Cap) 300 mg PO [facility] Stop: 10/16/21 20:59 Last Admin: 09/20/21 20:22 Dose: 300 mg Documented by: Gabapentin (Gabapentin 100 Mg Cap) 200 mg PO QAM [facility] Stop: 10/16/21 08:59 Last Admin: 09/21/21 08:36 Dose: 200 mg Documented by: Glucagon (Glucagon For Inj 1 Mg Vial) 1 mg IM UD PRN; Protocol PRN Reason: Hypoglycemia Protocol Stop: 10/18/21 07:29 Glucose (Glucose 40% Gel 15 Gm Tube) 15 - 30 gm PO UD PRN; Protocol PRN Reason: Hypoglycemia Protocol Stop: 10/18/21 07:29 Glucose (Glucose 10 Tabs/Tube) 4 - 8 tabs PO UD PRN; Protocol PRN Reason: Hypoglycemia Protocol Stop: 10/18/21 07:29 Heparin Sodium (Porcine) (Heparin Sod 5,000 Unit/0.5 Ml Vial) 7,500 units SQ Q8 [facility] Stop: 10/16/21 05:59 Last Admin: 09/21/21 05:45 Dose: Not Given Documented by: Ertapenem 1,000 mg/ Sodium (Chloride) 60 mls @ 100 mls/hr IV Q24H [facility] Stop: 09/22/21 06:35 Last Infusion: 09/21/21 06:32 Dose: Infused Documented by: Insulin Aspart (Insulin Aspart Per Unit) 0 units [facility]; Protocol Stop: 10/16/21 07:29 Last Admin: 09/21/21 12:38 Dose: 5 units Documented by: Insulin Glargine (Insulin Glargine Solostar 100 Units/Ml 3 Ml Pen) 18 units SQ [facility] Stop: 10/17/21 20:59 Last Admin: 09/20/21 20:24 Dose: 18 units Documented by: Lactobacillus Acidophilus (Lactobacillus Acidophilus 1 Gm Pack) 1 gm PO TIDM [facility] Stop: 10/16/21 11:59 Last Admin: 09/21/21 12:38 Dose: 1 gm Documented by: Levothyroxine Sodium (Levothyroxine Sodium 25 Mcg Tablet) 25 mcg PO DAILYBB [facility] Stop: 10/16/21 06:29 Last Admin: 09/21/21 05:46 Dose: 25 mcg Documented by: Losartan Potassium (Losartan Potassium 25 Mg Tab) 25 mg PO QAM [facility] Stop: 10/21/21 08:59 Last Admin: 09/21/21 09:32 Dose: 25 mg Documented by: Metoprolol Succinate (Metoprolol Succ 50mg Ext Rel Tab) 50 mg PO QAM [facility] Stop: 10/16/21 08:59 Last Admin: 09/21/21 08:35 Dose: 50 mg Documented by: Miscellaneous (Carbohydrates For Hypoglycemia ) 15 - 30 gm PO UD PRN PRN Reason: Hypoglycemia Treatment Stop: 10/18/21 07:29 Miscellaneous Information (Pharmacy Glycemic Mgmt Consult) 1 ea N/A UD PRN PRN Reason: Consult Stop: 10/16/21 18:11 Multivitamins/Minerals (Cerovite Adv Formula Tab) 1 tab PO DAILY [facility] Stop: 10/16/21 08:59 Last Admin: 09/21/21 08:34 Dose: 1 tab Documented by: Multivitamins/Minerals (Calcium 600mg + Vit D 400 Iu Tab) 1 tab PO QDL [facility] Stop: 10/16/21 11:29 Last Admin: 09/21/21 12:38 Dose: 1 tab Documented by: Nitroglycerin (Nitroglycerin Sl 0.4 Mg/Tab Tab) 0.4 mg SL UD PRN PRN Reason: Chest Pain Stop: 10/16/21 04:33 Ondansetron HCl (Ondansetron Inj 2 Mg/Ml 2 Ml Vial) 4 mg IV Q6H PRN PRN Reason: Nausea Stop: 10/16/21 04:33 Pantoprazole Sodium (Pantoprazole 40 Mg Tab) 40 mg PO QAM [facility] Stop: 10/16/21 08:59 Last Admin: 09/21/21 08:36 Dose: 40 mg Documented by: Polyethylene Glycol (Polyethylene (Miralax) 17 Gm Pack) 17 gm PO DAILY PRN PRN Reason: Constipation Stop: 10/16/21 04:33 Torsemide (Torsemide 10 Mg Tab) 20 mg PO BID [facility] Stop: 10/19/21 20:59 Last Admin: 09/20/21 08:31 Dose: 20 mg Documented by: Vitamin B Complex (Vitamin B Complex Tab) 1 tab PO DAILY [facility] Stop: 10/16/21 08:59 Last Admin: 09/21/21 08:36 Dose: 1 tab Documented by: Vitamin D (Cholecalciferol 1,000 Units 25 Mcg Tab) 1,000 units PO QAM [facility] Stop: 10/16/21 08:59 Last Admin: 09/21/21 08:36 Dose: 1,000 units Documented by:
--- NOTE | 2021-09-21 14:33 | Pharmacy Report ---
Pharmacy Glycemic Short Note 2 - Date of Service September 21, 2021 - Glycemic Short BSG Results (Last 24 hours): 09/20/21 09/20/21 09/21/21 16:06 20:21 05:28 Glucose 174 H POC Glucose 148 H 126 H 09/21/21 09/21/21 07:03 11:22 Glucose POC Glucose 161 H 111 H OUTPATIENT ANTIDIABETIC REGIMEN: * Basaglar 15 units SQ qHS * A1c 11.2% (09/16/21) ASSESSMENT: 09/21: * Patient received total of 47 units of insulin yesterday, of which 18 units were Lantus * Fasting BSG 161 mg/dL - continue same basal (of note, missed dose of Lantus 09/19 PM) * Due to worsening kidney function, loosened CR slightly today 09/18: * Patient received 59 units of insulin yesterday (20 units Lantus + 49 units Novolog) * BSGs were well controlled: [phone] mg/dL * Fasting BSG well controlled at 107 mg/dL this AM * Will decrease Lantus just slightly this evening given trend down in fasting * Continue current Novolog parameters. 09/17: * Jannet received 37 units of SQ insulin yesterday with poor glycemic control * BSGs 169, 203, 255, 215 mg/dL * Her Lantus dose was increased yesterday. Fasting BSG of 138 mg/dL this morning is much improved. I anticipate this will continue to trend down. * Post prandial BSGs also improved. Continue current novolog parameters. PLAN FOR INPATIENT GLYCEMIC CONTROL: * Basal insulin - decreased * Lantus 18 units SC HS * Bolus insulin * NovoLog per scale ACHS or Q6hrs while NPO * Goal Range: Low 110 mg/dL - High 140 mg/dL * Correction Factor: 15 mg/dL/unit * Nutritional / Prandial insulin per carb ratio of 1 unit per 6 grams CHO consumed PLAN FOR DISCHARGE: * A1c 11.2% is well above the goal of less than 7.5% for this patient. * Will likely require an increase in home Basaglar dose upon discharge. * Recommend initiation of Novolog with meals and at bedtime upon discharge as well. Dosing tbd.
--- NOTE | 2021-09-21 16:39 | Hospitalist Progress Note ---
Date of Service September 21, 2021 Assessment & Plan (1) UTI (urinary tract infection): Plan: Patient is a 61 yr female with H/O diastolic congestive heart failure, who was sent from Cardiology office because complicated urinary tract infection and also ongoing diastolic congestive heart failure. Acute on chronic diastolic congestive heart failure -CXR:Cardiomegaly with no acute cardiopulmonary abnormality. -ECHO: Normal LV chamber size, mild concentric LVH, EF 55 to 60%, no segmental left ventricular wall motion abnormality, grade 2 diastolic dysfunction -Received IV Lasix Monitor I's and O's, daily weight, volume status Appreciate cardiology input Renal function stable Volume status improved IV diuretics transition to p.o. torsemide 20 mg twice daily--currently held due to MONTRELL Lisinopril transition to losartan 25 mg daily as recommended by nephrology Pressure variable Multidrug resistant UTI Outpatient Urine Cx growing Klebsiella pneumonia Urine Cx: Klebsiella pneumonia, group B beta strep Continue Invanz Appreciate ID Input: May continue ertapenem 1 gm iv qd to complete total 7 days from 09/16/21. Will complete antibiotic course tomorrow Acute to Subacute L1 compression fracture --Lumbar CT:Acute to subacute compression fracture involving the L1 vertebral body with loss of 50% of the height of the vertebral body. No retropulsion of fracture fragment is seen. Moderate disc space narrowing at L1-2. Appreciate orthopedics input Conservative management for now as per Ortho Avoid lifting any heavier objects greater than 5 to 7 pounds Likely would not tolerate brace May need kyphoplasty if no improvement with conservative management DM II HbA1C: 11.2 Continue insulin therapy Monitor BGs Paroxysmal atrial fibrillation Continue Amiodarone, metoprolol Not on anticoagulation due to H/O hemorrhagic retinopathy Acute kidney injury on CKD III Baseline creatinine 1.4 Cr: 1.9>>1.6>1.4>1.8>2.37 Monitor renal function Avoid nephrotoxic agents as able Appreciate nephrology input Needs follow-up with nephrology in 2 weeks with repeat BMP Hypothyroidism on Levothyroxine Nocturnal hypoxia on 2 liters at bedtime DVT Px: Heparin SQ Admission and Anticipated Discharge Date Admission Date: September 16, 2021 Subjective Patient is seen and examined bedside Dizziness better today Blood pressure variable Creatinine rising up Discussed with nephrology today Continue to hold torsemide Denies any chest pain, shortness of breath, dizziness Review of Systems Review of Systems: All systems reviewed & are unremarkable except as noted in Subjective Physical Exam Physical Exam: Physical Exam: Vitals signs as noted above General Appearance:Morbidly Obese, no apparent distress Head: normocephalic, Atraumatic Eyes: normal inspection, EOMI Neck: supple, Trachea midline Respiratory/Chest: Normal breath sounds, CTA Cardiovascular: S1, S2, No murmur Abdomen/GI:Soft, non tender, Bowel sounds present Extremities/Musculoskeletal:normal inspection, 2+ B/L LE edema Neurologic/Psych:AAOX3, grossly no focal neurological deficits Skin: normal color, warm Results & Data Results & Data ([facility]) Vital Signs (Past 12 Hours) Vital Signs Temp Pulse Pulse Resp BP BP Pulse Ox 09/21/21 16:02 36.7 C 68 18 89/55 L 96 09/21/21 11:23 36.6 C 70 18 95/59 L 96 09/21/21 08:30 74 102/67 09/21/21 08:00 68 09/21/21 07:01 36.8 C 70 19 104/55 L 94 09/21/21 04:57 67 Laboratory Results [facility] 09/21/21 05:28 Sodium 138 Potassium 5.5 H Chloride 105 Carbon Dioxide 27 BUN 66 H Creatinine 2.37 H D Glucose 174 H Calcium 9.1
[2021-09-21] MEDS: ASPIRIN 81 MG ECTAB PO SCH (20:47)
[2021-09-21] MEDS: INSULIN GLARGINE SOLOSTAR 100 UNITS/ML 3 ML PEN SQ SCH (20:47)
[2021-09-21] MEDS: GABAPENTIN 300 MG CAP PO SCH (20:48)
[2021-09-22] MEDS: LEVOTHYROXINE SODIUM 25 MCG TABLET PO SCH (05:27)
[2021-09-22] MEDS: HEPARIN SOD 5,000 UNIT/0.5 ML VIAL SQ SCH ×3 (05:27→21:21)
[2021-09-22] MEDS: ERTAPENEM SODIUM 1,000 MG in SODIUM CHLORIDE 0.9% 50 ML IV SCH (05:28)
[2021-09-22 07:08] LABS: Hematocrit (blood only) 33.4 % (37-47); Hemoglobin 10.7 g/dL (12.0-16.0); Mean Corpuscular Hemoglobin 30.1 pg (25-34); Mean Corpuscular Volume 94.1 fL (80-100); Mean Platelet Volume 8.6 fL (7.4-10.4); Platelet Count 131 K/uL (130-400); RDW Coefficient of Variation 14.5 % (11.5-14.5); RDW Standard Deviation 49.8 fL (36.4-46.3); Red Blood Count 3.55 M/uL (4.2-5.4); White Blood Count 5.22 K/uL (4.8-10.8)
[2021-09-22 07:30] LABS: BUN Creatinine Ratio 27.1 (10-20); Calcium 9.1 mg/dl (8.5-10.1); Creatinine Clr Calc Pharmacy 28.1 ml/min; Est GFR (African American) 21.3 ml/min; Est GFR (Non-African American) 18.4 ml/min; Potassium 5.4 mmol/L (3.5-5.1)
[2021-09-22] MEDS: INSULIN ASPART PER UNIT SC SCH ×4 (07:34→20:37)
[2021-09-22] MEDS: PANTOprazole 40 MG TAB PO SCH (07:37)
[2021-09-22] MEDS: LACTOBACILLUS ACIDOPHILUS 1 GM PACK PO SCH ×3 (07:37→18:05)
[2021-09-22] MEDS: GABAPENTIN 100 MG CAP PO SCH ×2 (07:37→19:46)
[2021-09-22] MEDS: CEROVITE ADV FORMULA TAB PO SCH (07:37)
[2021-09-22] MEDS: FOLIC ACID 1 MG TAB PO SCH (07:38)
[2021-09-22] MEDS: CHOLECALCIFEROL 1,000 UNITS 25 MCG TAB PO SCH (07:38)
[2021-09-22] MEDS: VITAMIN B COMPLEX TAB PO SCH (07:38)
[2021-09-22] MEDS: METOPROLOL SUCC 50MG EXT REL TAB PO SCH (07:38)
[2021-09-22] MEDS: FERROUS SULFATE 325 MG TAB PO SCH ×2 (07:38→18:05)
[2021-09-22] MEDS: LOSARTAN POTASSIUM 25 MG TAB PO SCH (07:38)
[2021-09-22] MEDS: FEXOFENADINE HCL 180 MG TAB PO SCH (07:39)
[2021-09-22] MEDS: MENTHOL-ZINC OXIDE 360 APPLN/120 GM TUBE EXT SCH ×2 (07:39→19:46)
[2021-09-22] MEDS: AMIODARONE 200 MG TAB PO SCH (07:39)
[2021-09-22] MEDS: DOCUSATE SODIUM 100 MG CAP PO SCH ×2 (07:41→19:41)
--- NOTE | 2021-09-22 08:52 | XRay Report ---
XR chest 1V portable HISTORY: Hypoxia COMPARISON: Chest 09/15/2021. FINDINGS: There are low lung volumes. The cardiac silhouette remains mildly enlarged. No pleural effu sions. No pneumothorax. No new focal lung consolidations to suggest pneumonia. No evidence for pulmon cayden edema. Old, healed right humeral neck fracture. IMPRESSION: No significant change compared to the prior study. No acute process. ACT 112: Negative or not required by law. Electronically signed by: Vladislav Monet M.D. 09/22/2021 8:51 AM
--- NOTE | 2021-09-22 09:10 | Nephrology Progress Note ---
Date of Service September 22, 2021 Assessment & Plan (1) Acute kidney injury superimposed on CKD: Plan: 61-year-old female with long-standing diabetes and associated chronic kidney disease stage III with a baseline creatinine mid ones (last checked May); presented 09/16 with creatinine 1.9. Now admitted with c/o significant fluid retention and a 30-pound weight gain associated with stage 1 acute renal failure and complicated urinary tract infection versus simple cystitis. Admission creatinine is slightly higher than baseline with uptrend since 09/21 to peak today at 2.7. She presented with reports of 30-pound weight gain: however review of her OP charts shows her 09/15/21 wt (257#) to be within 5 lb of wt at OP f/u one week after [facility] April d/ (252#) and within 1 lb of March 2022 clinic wt (256#).CXR clear; BNP wnl. She had been started on bid torsemide 20 mg (only had 2 doses, last one 09/20; takes 40 mg bid as OP) and started losartan on 09/21 > had 2 x 25 mg doses daily 09/21, 09/22. also had had 5 mg lisinopril on 09/19, 09/20; had 40 mg IV lasix bid 09/16-09/19 AM. Her renal function did not tolerate these measures. nonoliguric stage 1 MONTRELL on CKD 3 today w/ hyperkalemia and worsening renal function, so torsemide on hold -started 1.5L FR and low K diet -started patiromer daily lower dose -recheck K 1600 ordered -losartan stopped (did have am dose today ) -needs daily STANDING weight; bed weights not helpful; so ordered -repeat uacm ordered; no indication yet to repeat renal imaging -awaiting f/u w/ pharmacy regarding OP refills of torsemide > she gets pills in bubble pack from pharmacy and is adherent about refills She will need follow-up with nephrology, in 2 weeks time with a repeat BMP post discharge. (2) UTI (urinary tract infection): Plan: Completed course of Ertapenem per ID - Managed by primary; urine cx on admission was contaminated by external eliud/cells; pt w/ repeated inflamed/contaminated cxs as OP and uniformly + cxs as OP; for upcoming urology eval as OP; has had ID ask-a-doc as well >>recommend ID f/u as OP to comment on urine specimens > concern these may not be complicated UTI but possibly bacteriuria or other; she is now having multiple complications from abtx Admission and Anticipated Discharge Date Admission Date: September 16, 2021 Subjective creatinine cont to worsen. c/o some mild orthopnea; not sure if she has edema or not; no current voiding concerns. states has had 4 bm by midday Review of Systems Review of Systems: All systems reviewed & are unremarkable except as noted in Subjective Physical Exam Constitutional: well developed, well nourished, + morbidly obese and + physical limitations; no acute distress Eyes: EOM intact bilaterally ENMT: Ears: no external ear abnormality Nose: no external nose abnormality Mouth: + dry oral mucous membranes Neck: no nuchal rigidity Respiratory: normal respiratory effort Auscultation: + diminished lung sounds lying near flat on RA Cardiovascular: RRR, no murmur, no edema Gastrointestinal (Abdomen): Inspection/Auscultation: normal bowel sounds Percussion/Palpation: abdomen soft; abdomen nontender Musculoskeletal: generalized weakness w/ maneuvering in bed Skin: no rashes, warm and dry Neurologic: beaver, fluent speech, axial tremor Genitourinary: no maloney Results & Data ([facility]) Vital Signs (Past 12 Hours) Vital Signs Temp Pulse Pulse Resp BP Pulse Ox 09/22/21 08:48 64 09/22/21 07:06 36.7 C 66 15 100/64 88 L 09/22/21 04:41 36.7 C 67 20 103/66 95 09/21/21 23:37 36.9 C 65 18 102/69 97 09/21/21 23:02 70 Laboratory Results 09/22/21 05:54 09/22/21 05:54
--- NOTE | 2021-09-22 10:07 | Cardiology Progress Note ---
Date of Service September 22, 2021 Assessment & Plan (1) UTI (urinary tract infection): (2) Acute kidney injury superimposed on CKD: (3) Paroxysmal atrial fibrillation: (4) Diabetes mellitus, type II: (5) Acute on chronic diastolic heart failure: Plan: Unfortunately patient's creatinine trending higher despite holding diuretics. Appears euvolemic and currently at baseline. Potassium elevated, sodium low. Losartan now on hold as well. Discussed with nephrology. Fluid restriction 1500 ml initiated. Daily weight with standing scale Repeat labs in AM. Antibiotics per hospitalist team. BP controlled and continue home meds Maintaining NSR. Continue amiodarone. Case discussed with Dr. Belle Will follow. Admission and Anticipated Discharge Date Admission Date: September 16, 2021 Supervising Physician Co-Signing Physician Notes I have discussed the case with Amparo Ward. I have reviewed the medical record and examined the patient. Unfortunately she has had worsening renal failure. Her diuretics have been stopped as well as the ARB. Nephrology is following the case. Hopefully her renal function will recover off the diuretics and ARB. Subjective Patient resting in bed comfortably. Denies SOB, orthopnea, cough, chest pain. Notes ongoing back pain and weakness. Denies dizziness or lightheadedness. Edema improving from admission. Review of Systems Review of Systems: Review of Systems: See HPI for pertinent positives. All other 10 point review of systems are negative. Physical Exam Constitutional: WD/WN, vitals as above + morbidly obese; no acute distress Eyes: PERRL, conjunctivae normal, anicteric sclerae Neck: trachea midline, no thyromegaly Respiratory: normal respiratory effort Auscultation: lungs clear to auscultation bilaterally Cardiovascular: Rate/Rhythm: regular rate and regular rhythm Heart Sounds: no murmur Extremities: + edema (1+ pedal and pretibial edema) Gastrointestinal (Abdomen): normal bowel sounds, soft, nontender, no hepatosplenomegaly Skin: no rashes, warm and dry Neurologic: PERRL, EOMI, accommodation nl, no face palsy, no dysarthria Psychiatric: A+Ox3, euthymic affect Results & Data ([facility]) Vital Signs (Past 12 Hours) Vital Signs Temp Pulse Pulse Resp BP Pulse Ox 09/22/21 08:48 64 09/22/21 07:06 36.7 C 66 15 100/64 88 L 09/22/21 04:41 36.7 C 67 20 103/66 95 09/21/21 23:37 36.9 C 65 18 102/69 97 09/21/21 23:02 70 Laboratory Results 09/22/21 09/22/21 09/22/21 Range/Units 06:58 05:54 05:54 WBC 5.22 (4.8-10.8) K/uL RBC 3.55 L (4.2-5.4) M/uL Hgb 10.7 L (12.0-16.0) g/dL Hct 33.4 L (37-47) % MCV 94.1 (80-100) fL MCH 30.1 (25-34) pg MCHC 32.0 (32-36) g/dL RDW Std Deviation 49.8 H (36.4-46.3) fL RDW Coeff of Miol 14.5 (11.5-14.5) % Plt Count 131 (130-400) K/uL MPV 8.6 (7.4-10.4) fL Sodium 135 L (136-145) mmol/L Potassium 5.4 H (3.5-5.1) mmol/L Chloride 103 (98-107) mmol/L Carbon Dioxide 26 (21-32) mmol/L Anion Gap 6.0 (3-11) BUN 73 H (7-18) mg/dl Creatinine 2.70 H D (0.6-1.2) mg/dl Est Cr Clr Drug Dosing 28.1 ml/min Est GFR ( Amer) 21.3 ml/min Est GFR (Non-Af Amer) 18.4 ml/min BUN/Creatinine Ratio 27.1 H (10-20) Glucose 128 H (70-99) mg/dl POC Glucose 139 H (70-99) mg/dl Calcium 9.1 (8.5-10.1) mg/dl 09/21/21 09/21/21 09/21/21 Range/Units 20:11 16:12 11:22 WBC (4.8-10.8) K/uL RBC (4.2-5.4) M/uL Hgb (12.0-16.0) g/dL Hct (37-47) % MCV (80-100) fL MCH (25-34) pg MCHC (32-36) g/dL RDW Std Deviation (36.4-46.3) fL RDW Coeff of Milo (11.5-14.5) % Plt Count (130-400) K/uL MPV (7.4-10.4) fL Sodium (136-145) mmol/L Potassium (3.5-5.1) mmol/L Chloride (98-107) mmol/L Carbon Dioxide (21-32) mmol/L Anion Gap (3-11) BUN (7-18) mg/dl Creatinine (0.6-1.2) mg/dl Est Cr Clr Drug Dosing ml/min Est GFR ( Amer) ml/min Est GFR (Non-Af Amer) ml/min BUN/Creatinine Ratio (10-20) Glucose (70-99) mg/dl POC Glucose 140 H 161 H 111 H (70-99) mg/dl Calcium (8.5-10.1) mg/dl Diagnostic Findings telemetry reviewed - NSR, rare ectopy. HR's 60-70's Medications Administered Current Inpatient Medications Amiodarone HCl (Amiodarone 200 Mg Tab) 200 mg PO DAILY [facility] Stop: 10/16/21 08:59 Last Admin: 09/22/21 07:39 Dose: 200 mg Documented by: Aspirin (Aspirin 81 Mg Ectab) 81 mg PO HS [facility] Stop: 10/16/21 20:59 Last Admin: 09/21/21 20:47 Dose: 81 mg Documented by: Butalbital/Aspirin/Caffeine (Butalbital/Aspirin/Caffeine 1 Tab Tab) 1 tab PO Q4H PRN PRN Reason: Migraine Headache Stop: 10/16/21 04:33 Calamine/Phenol (Menthol-Zinc Oxide 360 Appln/120 Gm Tube) 1 appln EXT BID [facility] Stop: 10/20/21 12:44 Last Admin: 09/22/21 07:39 Dose: 1 appln Documented by: Dextrose (Dextrose 50% 50 Ml Syringe) 25 - 50 ml IV UD PRN; Protocol PRN Reason: Hypoglycemia Protocol Stop: 10/18/21 07:29 Diphenoxylate HCl/Atropine (Diphenoxylate/Atropine 2.5/0.025mg Tab) 1 tab PO DAILY PRN PRN Reason: Diarrhea Stop: 10/16/21 04:33 Docusate Sodium (Docusate Sodium 100 Mg Cap) 100 mg PO BID [facility] Stop: 10/16/21 08:59 Last Admin: 09/22/21 07:41 Dose: Not Given Documented by: Ferrous Sulfate (Ferrous Sulfate 325 Mg Tab) 325 mg PO BIDM [facility] Stop: 10/16/21 07:59 Last Admin: 09/22/21 07:38 Dose: 325 mg Documented by: Fexofenadine HCl (Fexofenadine Hcl 180 Mg Tab) [facility] Stop: 10/16/21 08:59 Last Admin: 09/22/21 07:39 Dose: 180 mg Documented by: Folic Acid (Folic Acid 1 Mg Tab) [facility] [place] Stop: 10/16/21 08:59 Last Admin: 09/22/21 07:38 Dose: 1 mg Documented by: Gabapentin (Gabapentin 300 Mg Cap) 300 mg PO [facility] Stop: 10/16/21 20:59 Last Admin: 09/21/21 20:48 Dose: 300 mg Documented by: Gabapentin (Gabapentin 100 Mg Cap) [address] [facility] Stop: 10/16/21 08:59 Last Admin: 09/22/21 07:37 Dose: 200 mg Documented by: Glucagon (Glucagon For Inj 1 Mg Vial) 1 mg IM UD PRN; Protocol PRN Reason: Hypoglycemia Protocol Stop: 10/18/21 07:29 Glucose (Glucose 40% Gel 15 Gm Tube) 15 - 30 gm PO UD PRN; Protocol PRN Reason: Hypoglycemia Protocol Stop: 10/18/21 07:29 Glucose (Glucose 10 Tabs/Tube) 4 - 8 tabs PO UD PRN; Protocol PRN Reason: Hypoglycemia Protocol Stop: 10/18/21 07:29 Heparin Sodium (Porcine) (Heparin Sod 5,000 Unit/0.5 Ml Vial) 7,500 units SQ Q8 [facility] Stop: 10/16/21 05:59 Last Admin: 09/22/21 05:27 Dose: Not Given Documented by: Insulin Aspart (Insulin Aspart Per Unit) 0 units SC [facility]; Protocol Stop: 10/16/21 07:29 Last Admin: 09/22/21 07:34 Dose: 6 units Documented by: Insulin Glargine (Insulin Glargine Solostar 100 Units/Ml 3 Ml Pen) 18 units SQ [facility] Stop: 10/17/21 20:59 Last Admin: 09/21/21 20:47 Dose: 18 units Documented by: Lactobacillus Acidophilus (Lactobacillus Acidophilus 1 Gm Pack) 1 gm PO TIDM [facility] Stop: 10/16/21 11:59 Last Admin: 09/22/21 07:37 Dose: 1 gm Documented by: Levothyroxine Sodium (Levothyroxine Sodium 25 Mcg Tablet) 25 mcg PO DAILYBB [facility] Stop: 10/16/21 06:29 Last Admin: 09/22/21 05:27 Dose: 25 mcg Documented by: Metoprolol Succinate (Metoprolol Succ 50mg Ext Rel Tab) 50 mg PO QAM [facility] Stop: 10/16/21 08:59 Last Admin: 09/22/21 07:38 Dose: 50 mg Documented by: Miscellaneous (Carbohydrates For Hypoglycemia ) 15 - 30 gm PO UD PRN PRN Reason: Hypoglycemia Treatment Stop: 10/18/21 07:29 Miscellaneous Information (Pharmacy Glycemic Mgmt Consult) 1 ea N/A UD PRN PRN Reason: Consult Stop: 10/16/21 18:11 Multivitamins/Minerals (Cerovite Adv Formula Tab) 1 tab PO DAILY [facility] Stop: 10/16/21 08:59 Last Admin: 09/22/21 07:37 Dose: Not Given Documented by: Multivitamins/Minerals (Calcium 600mg + Vit D 400 Iu Tab) 1 tab PO QDL [facility] Stop: 10/16/21 11:29 Last Admin: 09/21/21 12:38 Dose: 1 tab Documented by: Nitroglycerin (Nitroglycerin Sl 0.4 Mg/Tab Tab) 0.4 mg SL UD PRN PRN Reason: Chest Pain Stop: 10/16/21 04:33 Ondansetron HCl (Ondansetron Inj 2 Mg/Ml 2 Ml Vial) 4 mg IV Q6H PRN PRN Reason: Nausea Stop: 10/16/21 04:33 Pantoprazole Sodium (Pantoprazole 40 Mg Tab) 40 mg PO QAM [facility] Stop: 10/16/21 08:59 Last Admin: 09/22/21 07:37 Dose: 40 mg Documented by: Patiromer (Patiromer Calcium Sorbitex 8.4 Gm Pack) 8.4 gm PO DAILY@1200 [facility] Stop: 10/22/21 11:59 Polyethylene Glycol (Polyethylene (Miralax) 17 Gm Pack) 17 gm PO DAILY PRN PRN Reason: Constipation Stop: 10/16/21 04:33 Torsemide (Torsemide 10 Mg Tab) 20 mg PO BID [facility] Stop: 10/19/21 20:59 Last Admin: 09/20/21 08:31 Dose: 20 mg Documented by: Vitamin B Complex (Vitamin B Complex Tab) 1 tab PO DAILY [facility] Stop: 10/16/21 08:59 Last Admin: 09/22/21 07:38 Dose: 1 tab Documented by: Vitamin D (Cholecalciferol 1,000 Units 25 Mcg Tab) 1,000 units PO QAM [facility] Stop: 10/16/21 08:59 Last Admin: 09/22/21 07:38 Dose: 1,000 units Documented by:
[2021-09-22] MEDS: PATIROMER CALCIUM SORBITEX 8.4 GM PACK PO SCH (11:39)
[2021-09-22] MEDS: CALCIUM 600MG + VIT D 400 IU TAB PO SCH (11:39)
--- NOTE | 2021-09-22 14:47 | Hospitalist Progress Note ---
Date of Service September 22, 2021 Assessment & Plan (1) UTI (urinary tract infection): Plan: Patient is a 61 yr female with H/O diastolic congestive heart failure, who was sent from Cardiology office because complicated urinary tract infection and also ongoing diastolic congestive heart failure. Acute on chronic diastolic congestive heart failure -CXR:Cardiomegaly with no acute cardiopulmonary abnormality. -ECHO: Normal LV chamber size, mild concentric LVH, EF 55 to 60%, no segmental left ventricular wall motion abnormality, grade 2 diastolic dysfunction -Received IV Lasix Monitor I's and O's, daily weight, volume status Appreciate cardiology input IV diuretics transition to p.o. torsemide 20 mg twice daily--currently held due to MONTRELL Intolerance to lisinopril, losartan Volume status stable Needs follow-up with cardiology upon discharge Multidrug resistant UTI Outpatient Urine Cx growing Klebsiella pneumonia Urine Cx: Klebsiella pneumonia, group B beta strep Appreciate ID Input: May continue ertapenem 1 gm iv qd to complete total 7 days from 09/16/21. Completed Invanz 7-day course Acute to Subacute L1 compression fracture --Lumbar CT:Acute to subacute compression fracture involving the L1 vertebral body with loss of 50% of the height of the vertebral body. No retropulsion of fracture fragment is seen. Moderate disc space narrowing at L1-2. Appreciate orthopedics input Conservative management for now as per Ortho Avoid lifting any heavier objects greater than 5 to 7 pounds Likely would not tolerate brace May need kyphoplasty if no improvement with conservative management DM II HbA1C: 11.2 Continue insulin therapy Monitor BGs Paroxysmal atrial fibrillation Continue Amiodarone, metoprolol Not on anticoagulation due to H/O hemorrhagic retinopathy Acute kidney injury on CKD III Baseline creatinine 1.4 Cr: 1.9>>1.6>1.4>1.8>2.37>2.7 Monitor renal function Avoid nephrotoxic agents as able Appreciate nephrology input Needs follow-up with nephrology in 2 weeks with repeat BMP Decrease gabapentin to help with renal function Hold Fioricet for now Lisinopril, losartan discontinued Diuretics currently held Hypothyroidism on Levothyroxine Nocturnal hypoxia on 2 liters at bedtime DVT Px: Heparin SQ Admission and Anticipated Discharge Date Admission Date: September 16, 2021 Subjective Patient is seen and examined bedside Dizziness better States having minimal abdominal soreness Discussed with nephrology today Creatinine levels continues to rise Denies any chest pain, shortness of breath, dizziness Review of Systems Review of Systems: All systems reviewed & are unremarkable except as noted in Subjective Physical Exam Physical Exam: Physical Exam: Vitals signs as noted above General Appearance:Morbidly Obese, no apparent distress Head: normocephalic, Atraumatic Eyes: normal inspection, EOMI Neck: supple, Trachea midline Respiratory/Chest: Normal breath sounds, CTA Cardiovascular: S1, S2, No murmur Abdomen/GI:Soft, non tender, Bowel sounds present Extremities/Musculoskeletal:normal inspection, 2+ B/L LE edema Neurologic/Psych:AAOX3, grossly no focal neurological deficits Skin: normal color, warm Results & Data Results & Data ([facility]) Vital Signs (Past 12 Hours) Vital Signs Temp Pulse Pulse Resp BP Pulse Ox 09/22/21 11:36 36.5 C 67 15 131/77 96 09/22/21 08:48 64 09/22/21 07:06 36.7 C 66 15 100/64 88 L 09/22/21 04:41 36.7 C 67 20 103/66 95 Laboratory Results Short CBC 09/22/21 Range/Units 05:54 WBC 5.22 (4.8-10.8) K/uL Hgb 10.7 L (12.0-16.0) g/dL Hct 33.4 L (37-47) % Plt Count 131 (130-400) K/uL BMP 09/22/21 05:54 Sodium 135 L Potassium 5.4 H Chloride 103 Carbon Dioxide 26 BUN 73 H Creatinine 2.70 H D Glucose 128 H Calcium 9.1
[2021-09-22 16:21] LABS: BUN Creatinine Ratio 30.4 (10-20); Calcium 8.7 mg/dl (8.5-10.1); Creatinine Clr Calc Pharmacy 29.1 ml/min; Est GFR (African American) 22.2 ml/min; Est GFR (Non-African American) 19.2 ml/min; Potassium 5.1 mmol/L (3.5-5.1)
[2021-09-22] MEDS: ASPIRIN 81 MG ECTAB PO SCH (19:45)
[2021-09-22] MEDS: INSULIN GLARGINE SOLOSTAR 100 UNITS/ML 3 ML PEN SQ SCH (20:37)
[2021-09-23] MEDS: HEPARIN SOD 5,000 UNIT/0.5 ML VIAL SQ SCH ×3 (05:08→22:08)
[2021-09-23] MEDS: LEVOTHYROXINE SODIUM 25 MCG TABLET PO SCH (05:23)
[2021-09-23 07:17] LABS: Hematocrit (blood only) 32.9 % (37-47); Hemoglobin 10.7 g/dL (12.0-16.0); Mean Corpuscular Hemoglobin 30.2 pg (25-34); Mean Corpuscular Hgb Conc 32.5 g/dL (32-36); Mean Corpuscular Volume 92.9 fL (80-100); Mean Platelet Volume 8.3 fL (7.4-10.4); Platelet Count 120 K/uL (130-400); RDW Coefficient of Variation 14.4 % (11.5-14.5); RDW Standard Deviation 49.2 fL (36.4-46.3); Red Blood Count 3.54 M/uL (4.2-5.4)
[2021-09-23] MEDS: LACTOBACILLUS ACIDOPHILUS 1 GM PACK PO SCH ×3 (07:37→16:40)
[2021-09-23] MEDS: INSULIN ASPART PER UNIT SC SCH ×4 (07:37→22:10)
[2021-09-23] MEDS: CEROVITE ADV FORMULA TAB PO SCH (07:38)
[2021-09-23] MEDS: AMIODARONE 200 MG TAB PO SCH (07:38)
[2021-09-23] MEDS: DOCUSATE SODIUM 100 MG CAP PO SCH ×2 (07:38→22:10)
[2021-09-23] MEDS: METOPROLOL SUCC 50MG EXT REL TAB PO SCH (07:39)
[2021-09-23] MEDS: FERROUS SULFATE 325 MG TAB PO SCH ×2 (07:39→16:41)
[2021-09-23] MEDS: CHOLECALCIFEROL 1,000 UNITS 25 MCG TAB PO SCH (07:39)
[2021-09-23] MEDS: FOLIC ACID 1 MG TAB PO SCH (07:39)
[2021-09-23] MEDS: VITAMIN B COMPLEX TAB PO SCH (07:39)
[2021-09-23] MEDS: FEXOFENADINE HCL 180 MG TAB PO SCH (07:40)
[2021-09-23] MEDS: GABAPENTIN 100 MG CAP PO SCH ×2 (07:40→22:08)
[2021-09-23] MEDS: PANTOprazole 40 MG TAB PO SCH (07:40)
[2021-09-23] MEDS: MENTHOL-ZINC OXIDE 360 APPLN/120 GM TUBE EXT SCH ×2 (07:40→22:09)
[2021-09-23 07:54] LABS: Calcium 9.2 mg/dl (8.5-10.1); Est GFR (Non-African American) 20.7 ml/min; Potassium 5.3 mmol/L (3.5-5.1)
--- NOTE | 2021-09-23 08:17 | Nephrology Progress Note ---
Date of Service September 23, 2021 Assessment & Plan (1) Acute kidney injury superimposed on CKD: Plan: 61-year-old female with long-standing diabetes and associated chronic kidney disease stage III with a baseline creatinine mid ones (last checked May 2021); presented 09/16 with creatinine 1.9. Now admitted with c/o significant fluid retention and c/o 30-pound weight gain associated with stage 1 acute renal failure and complicated urinary tract infection versus simple cystitis. She presented with reports of 30-pound weight gain: however review of her OP charts shows her 09/15/21 wt (257#) to be within 5 lb of wt at OP f/u one week after [facility] April d/c (252#) and within 1 lb of March 2022 clinic wt (256#).CXR clear; BNP wnl. Adherent as OP w/ refilling meds. Admission creatinine is slightly higher than baseline with uptrend since 09/21 to peak 09/22 at 2.7, improved today to 2.5. She had been started on bid torsemide 20 mg (only had 2 doses, last one 09/20; takes 40 mg bid as OP) and started losartan on 09/21 > had 2 x 25 mg doses daily 09/21, 09/22. also had had 5 mg lisinopril on 09/19, 09/20; had 40 mg IV lasix bid 09/16-09/19 AM. Her renal function did not tolerate these measures. slowly improving nonoliguric stage 1 MONTRELL on CKD 3 today w/ mild but improving hyperkalemia and still MONTRELL, so torsemide on hold; multiple BM possibly slowing renal recovery -ordered 500 mL NS w/ 75 mEq/L sodium bic -stopped 1.5L FR -cont low K diet -cont patiromer daily lower dose -losartan stopped (last dose 09/22) -needs daily STANDING weight; bed weights not helpful; so ordered and nursing help appreciated -repeat uacm ordered and not yet collected; str cath if needed ordered -no indication yet to repeat renal imaging -continue PT evals /reassessment/ ?placement if she is too unsteady for standing wt She will need follow-up with nephrology, in 2 weeks time with a repeat BMP post discharge. Care coordinated w/ Dr Doll (2) UTI (urinary tract infection): Plan: Completed course of Ertapenem per ID - Managed by primary; urine cx on admission was contaminated by external eliud/cells; pt w/ repeated inflamed/contaminated cxs as OP and uniformly + cxs as OP; for upcoming urology eval as OP; has had ID ask-a-doc as well >urine specimen from today collected in a hat >>recommend ID f/u as OP to comment on urine specimens > concern these may not be complicated UTI but possibly bacteriuria or other; she is now having multiple complications from abtx Admission and Anticipated Discharge Date Admission Date: September 16, 2021 Subjective able w/encouragement to void on bedside commode once and to stand on scale; 4 BM ON. no pleuritic pain or orthopnea does state "it's tough to get a deep breath;" no worsening edema; no new/worrisoem voiding sx Review of Systems Review of Systems: All systems reviewed & are unremarkable except as noted in Subjective Physical Exam Constitutional: well developed, well nourished, + morbidly obese and + physical limitations; no acute distress Eyes: EOM intact bilaterally ENMT: Ears: no external ear abnormality Nose: no external nose abnormality Mouth: + dry oral mucous membranes Neck: no nuchal rigidity Respiratory: normal respiratory effort Auscultation: + diminished lung sounds Cardiovascular: RRR, no murmur, no edema Gastrointestinal (Abdomen): Inspection/Auscultation: normal bowel sounds Percussion/Palpation: abdomen soft; abdomen nontender Skin: no rashes, warm and dry Results & Data ([facility]) Vital Signs (Past 12 Hours) Vital Signs Temp Pulse Pulse Resp BP Pulse Ox 09/23/21 08:01 79 09/23/21 06:51 36.7 C 80 19 118/76 95 09/23/21 03:33 36.7 C 68 19 105/69 95 09/22/21 23:37 36.6 C 68 18 119/74 96 09/22/21 23:21 65 Laboratory Results 09/23/21 07:04 09/23/21 07:04
[2021-09-23] MEDS ORDERED: SODIUM BICARBONATE 8.4% 75 MEQ in SODIUM CHLORIDE 0.45 % 1,000 ML IV SCH (08:30)
[2021-09-23 09:11] LABS: Appearance Urine Turbid (Clear); Bilirubin Urine Negative (Negative); Blood Urine 1+ (Negative); Color Urine Yellow; Glucose Urine UA Negative (Negative); Ketones Urine Negative (Negative); Leukocyte Esterase Urine 3+ (Negative); Nitrite Urine Negative (Negative); Protein Urine Negative (Negative); RBC Urine Automated 0-4 /hpf (0-4); Specific Gravity Urine 1.012 (1.000-1.030); Urobilinogen Urine Negative (Negative); WBC Urine Automated >30 /hpf (0-5)
[2021-09-23 09:50] LABS: Bacteria Urine Automated 1+ (Negative)
--- NOTE | 2021-09-23 10:05 | Cardiology Progress Note ---
Date of Service September 23, 2021 Assessment & Plan (1) UTI (urinary tract infection): (2) Acute kidney injury superimposed on CKD: (3) Paroxysmal atrial fibrillation: (4) Diabetes mellitus, type II: (5) Acute on chronic diastolic heart failure: Plan: Creatinine slowly trending down. Not at baseline Discussed with nephrology. Continue to hold diuretics and ARB. Fluid restriction 1500 ml initiated. Daily weight with standing scale Repeat labs in AM. BP controlled and continue home meds Maintaining NSR. Continue amiodarone. Case discussed with Dr. Belle Will follow. Admission and Anticipated Discharge Date Admission Date: September 16, 2021 Supervising Physician Co-Signing Physician Notes I have seen and evaluated the patient. I reviewed the medical record and discussed the case with Ms. Ward. I agree with the plan as outlined. Subjective Patient resting comfortably out of bed. Was able to be weighed this morning on standing scale with assistance. She reports stable mild dyspnea. No orthopnea. Edema improved from admission. No dizziness or lightheadedness. No sense of palpitations. No chest pain. Chronic back pain noted. Review of Systems Review of Systems: Review of Systems: See HPI for pertinent positives. All other 10 point review of systems are negative. Physical Exam Constitutional: WD/WN, vitals as above + morbidly obese; no acute distress Eyes: PERRL, conjunctivae normal, anicteric sclerae Neck: trachea midline, no thyromegaly Respiratory: normal respiratory effort Auscultation: lungs clear to auscultation bilaterally Cardiovascular: Rate/Rhythm: regular rate and regular rhythm Heart Sounds: no murmur Extremities: + edema (1+ pedal and pretibial edema; non pitting; lympehdematous changes) Gastrointestinal (Abdomen): normal bowel sounds, soft, nontender, no hepatosplenomegaly Skin: no rashes, warm and dry Neurologic: PERRL, EOMI, accommodation nl, no face palsy, no dysarthria Psychiatric: A+Ox3, euthymic affect Results & Data ([facility]) Vital Signs (Past 12 Hours) Vital Signs Temp Pulse Pulse Resp BP Pulse Ox 09/23/21 08:01 79 09/23/21 06:51 36.7 C 80 19 118/76 95 09/23/21 03:33 36.7 C 68 19 105/69 95 09/22/21 23:37 36.6 C 68 18 119/74 96 09/22/21 23:21 65 Laboratory Results 09/23/21 09/23/21 09/23/21 Range/Units 08:55 07:20 07:04 WBC 5.00 (4.8-10.8) K/uL RBC 3.54 L (4.2-5.4) M/uL Hgb 10.7 L (12.0-16.0) g/dL Hct 32.9 L (37-47) % MCV 92.9 (80-100) fL MCH 30.2 (25-34) pg MCHC 32.5 (32-36) g/dL RDW Std Deviation 49.2 H (36.4-46.3) fL RDW Coeff of Milo 14.4 (11.5-14.5) % Plt Count 120 L (130-400) K/uL MPV 8.3 (7.4-10.4) fL Sodium (136-145) mmol/L Potassium (3.5-5.1) mmol/L Chloride (98-107) mmol/L Carbon Dioxide (21-32) mmol/L Anion Gap (3-11) BUN (7-18) mg/dl Creatinine (0.6-1.2) mg/dl Est Cr Clr Drug Dosing ml/min Est GFR ( Amer) ml/min Est GFR (Non-Af Amer) ml/min BUN/Creatinine Ratio (10-20) Glucose (70-99) mg/dl POC Glucose 195 H (70-99) mg/dl Calcium (8.5-10.1) mg/dl Urine Color Yellow Urine Appearance Turbid A (Clear) Urine pH 5.0 (4.5-7.5) Ur Specific [place] 1.012 (1.000-1.030) Urine Protein Negative (Negative) Urine Glucose (UA) Negative (Negative) Urine Ketones Negative (Negative) Urine Blood 1+ H (Negative) Urine Nitrite Negative (Negative) Urine Bilirubin Negative (Negative) Urine Urobilinogen Negative (Negative) Ur Leukocyte Esterase 3+ H (Negative) Urine WBC (Auto) >30 H (0-5) /hpf Urine RBC (Auto) 0-4 (0-4) /hpf U Hyaline Cast (Auto) 1-5 (0-5) /lpf U Epithel Cells (Auto) 10-20 H (0-5) /lpf Urine Bacteria (Auto) 1+ H (Negative) Urine Yeast Not Reportable 09/23/21 09/22/21 09/22/21 Range/Units 07:04 20:32 15:56 WBC (4.8-10.8) K/uL RBC (4.2-5.4) M/uL Hgb (12.0-16.0) g/dL Hct (37-47) % MCV (80-100) fL MCH (25-34) pg MCHC (32-36) g/dL RDW Std Deviation (36.4-46.3) fL RDW Coeff of Milo (11.5-14.5) % Plt Count (130-400) K/uL MPV (7.4-10.4) fL Sodium 138 (136-145) mmol/L Potassium 5.3 H (3.5-5.1) mmol/L Chloride 106 (98-107) mmol/L Carbon Dioxide 28 (21-32) mmol/L Anion Gap 4.0 (3-11) BUN 81 H (7-18) mg/dl Creatinine 2.45 H (0.6-1.2) mg/dl Est Cr Clr Drug Dosing 31.0 ml/min Est GFR ( Amer) 24.0 ml/min Est GFR (Non-Af Amer) 20.7 ml/min BUN/Creatinine Ratio 33.0 H (10-20) Glucose 169 H (70-99) mg/dl POC Glucose 135 H 121 H (70-99) mg/dl Calcium 9.2 (8.5-10.1) mg/dl Urine Color Urine Appearance (Clear) Urine pH (4.5-7.5) Ur Specific [place] (1.000-1.030) Urine Protein (Negative) Urine Glucose (UA) (Negative) Urine Ketones (Negative) Urine Blood (Negative) Urine Nitrite (Negative) Urine Bilirubin (Negative) Urine Urobilinogen (Negative) Ur Leukocyte Esterase (Negative) Urine WBC (Auto) (0-5) /hpf Urine RBC (Auto) (0-4) /hpf U Hyaline Cast (Auto) (0-5) /lpf U Epithel Cells (Auto) (0-5) /lpf Urine Bacteria (Auto) (Negative) Urine Yeast 09/22/21 09/22/21 Range/Units 15:46 11:05 WBC (4.8-10.8) K/uL RBC (4.2-5.4) M/uL Hgb (12.0-16.0) g/dL Hct (37-47) % MCV (80-100) fL MCH (25-34) pg MCHC (32-36) g/dL RDW Std Deviation (36.4-46.3) fL RDW Coeff of Milo (11.5-14.5) % Plt Count (130-400) K/uL MPV (7.4-10.4) fL Sodium 136 (136-145) mmol/L Potassium 5.1 (3.5-5.1) mmol/L Chloride 105 (98-107) mmol/L Carbon Dioxide 25 (21-32) mmol/L Anion Gap 6.0 (3-11) BUN 79 H (7-18) mg/dl Creatinine 2.61 H (0.6-1.2) mg/dl Est Cr Clr Drug Dosing 29.1 ml/min Est GFR ( Amer) 22.2 ml/min Est GFR (Non-Af Amer) 19.2 ml/min BUN/Creatinine Ratio 30.4 H (10-20) Glucose 139 H (70-99) mg/dl POC Glucose 158 H (70-99) mg/dl Calcium 8.7 (8.5-10.1) mg/dl Urine Color Urine Appearance (Clear) Urine pH (4.5-7.5) Ur Specific [place] (1.000-1.030) Urine Protein (Negative) Urine Glucose (UA) (Negative) Urine Ketones (Negative) Urine Blood (Negative) Urine Nitrite (Negative) Urine Bilirubin (Negative) Urine Urobilinogen (Negative) Ur Leukocyte Esterase (Negative) Urine WBC (Auto) (0-5) /hpf Urine RBC (Auto) (0-4) /hpf U Hyaline Cast (Auto) (0-5) /lpf U Epithel Cells (Auto) (0-5) /lpf Urine Bacteria (Auto) (Negative) Urine Yeast Diagnostic Findings Telemetry reviewed: NSR with rare ectopy, HR's 70-80's Medications Administered Medications aspirin 81 mg tablet,delayed release 81 mg PO HS 02/26/21 [History Confirmed 09/15/21] tpapdigwpf-okifxjm-kmlrhfvs 50 mg-325 mg-40 mg capsule 1 cap PO Q4H PRN 02/26/21 [History Confirmed 09/15/21] calcium carbonate 600 mg-vitamin D3 10 mcg (400 unit) tablet (Calcium 600 + D(3)) 1 tab PO QDL 02/26/21 [History Confirmed 09/15/21] cholecalciferol (vitamin D3) 25 mcg (1,000 unit) tablet (Vitamin D3) 25 mcg PO QAM 02/26/21 [History Confirmed 09/15/21] docusate sodium 100 mg tablet 100 mg PO BID 02/26/21 [History Confirmed 09/15/21] ferrous sulfate 325 mg (65 mg iron) tablet (FeroSul) 325 mg PO BID 02/26/21 [History Confirmed 09/15/21] fexofenadine 180 mg tablet 180 mg PO QAM 02/26/21 [History Confirmed 09/15/21] folic acid 1 mg tablet 1 mg PO QAM 02/26/21 [History Confirmed 09/15/21] insulin glargine 100 unit/mL (3 mL) subcutaneous pen (Basaglar KwikPen U-100 In [facility] [place]) 15 unit SUBCUT HS 02/26/21 [History Confirmed 09/15/21] levothyroxine 25 mcg capsule (Tirosint) 25 mcg PO DAILYBB 02/26/21 [History Confirmed 09/15/21] metoprolol succinate 50 mg tablet,extended release 24 hr 50 mg PO QAM 02/26/21 [History Confirmed 09/15/21] omeprazole 40 mg capsule,delayed release 40 mg PO QAM 02/26/21 [History Confirmed 09/15/21] spironolactone 25 mg tablet 25 mg PO QAM #30 tab 03/06/21 [Rx Confirmed 09/15/21] torsemide 20 mg tablet 40 mg PO BID #60 tab 03/14/21 [Rx Confirmed 09/15/21] acidophilus 100 million cell-pectin, citrus 10 mg capsule 1 cap PO DAILY 09/15/21 [History Confirmed 09/15/21] amiodarone 200 mg tablet 200 mg PO DAILY 09/15/21 [History Confirmed 09/15/21] bevacizumab 25 mg/mL intravenous solution (Avastin) 1.25 mg IV DIRECTED 09/15/21 [History Confirmed 09/15/21] diphenoxylate-atropine 2.5 mg-0.025 mg tablet (Lomotil) 1 tab PO DIRECTED PRN 09/15/21 [History Confirmed 09/15/21] fosfomycin tromethamine 3 gram oral packet 1 packet PO Q3D 09/15/21 [History Confirmed 09/15/21] gabapentin 100 mg capsule 200 mg PO QAM 09/15/21 [History Confirmed 09/15/21] gabapentin 300 mg capsule 300 mg PO HS 09/15/21 [History Confirmed 09/15/21] lyiyemreabci-mdwceayg-kmffpg tablet (Multivitamin 50 Plus) 1 tab PO DAILY 09/15/21 [History Confirmed 09/15/21] vitamin B complex 1 cap PO DAILY 09/15/21 [History Confirmed 09/15/21] Home Medications Amiodarone HCl (Amiodarone 200 Mg Tab) 200 mg PO DAILY [facility] Stop: 10/16/21 08:59 Last Admin: 09/23/21 07:38 Dose: 200 mg Documented by: Aspirin (Aspirin 81 Mg Ectab) 81 mg PO HS [facility] Stop: 10/16/21 20:59 Last Admin: 09/22/21 19:45 Dose: 81 mg Documented by: Butalbital/Aspirin/Caffeine (Butalbital/Aspirin/Caffeine 1 Tab Tab) 1 tab PO Q4H PRN PRN Reason: Migraine Headache Stop: 10/16/21 04:33 Calamine/Phenol (Menthol-Zinc Oxide 360 Appln/120 Gm Tube) 1 appln EXT BID [facility] Stop: 10/20/21 12:44 Last Admin: 09/23/21 07:40 Dose: 1 appln Documented by: Dextrose (Dextrose 50% 50 Ml Syringe) 25 - 50 ml IV UD PRN; Protocol PRN Reason: Hypoglycemia Protocol Stop: 10/18/21 07:29 Diphenoxylate HCl/Atropine (Diphenoxylate/Atropine 2.5/0.025mg Tab) 1 tab PO DAILY PRN PRN Reason: Diarrhea Stop: 10/16/21 04:33 Docusate Sodium (Docusate Sodium 100 Mg Cap) 100 mg PO BID [facility] Stop: 10/16/21 08:59 Last Admin: 09/23/21 07:38 Dose: Not Given Documented by: Ferrous Sulfate (Ferrous Sulfate 325 Mg Tab) 325 mg PO BIDM [facility] Stop: 10/16/21 07:59 Last Admin: 09/23/21 07:39 Dose: 325 mg Documented by: Fexofenadine HCl (Fexofenadine Hcl 180 Mg Tab) 180 mg PO QAM [facility] Stop: 10/16/21 08:59 Last Admin: 09/23/21 07:40 Dose: 180 mg Documented by: Folic Acid (Folic Acid 1 Mg Tab) 1 mg PO QAM [facility] Stop: 10/16/21 08:59 Last Admin: 09/23/21 07:39 Dose: 1 mg Documented by: Gabapentin (Gabapentin 100 Mg Cap) 200 mg PO [facility] Stop: 10/22/21 20:59 Last Admin: 09/22/21 19:46 Dose: 200 mg Documented by: Gabapentin (Gabapentin 100 Mg Cap) 100 mg PO QAM [facility] Stop: 10/23/21 08:59 Last Admin: 09/23/21 07:40 Dose: 100 mg Documented by: Glucagon (Glucagon For Inj 1 Mg Vial) 1 mg IM UD PRN; Protocol PRN Reason: Hypoglycemia Protocol Stop: 10/18/21 07:29 Glucose (Glucose 40% Gel 15 Gm Tube) 15 - 30 gm PO UD PRN; Protocol PRN Reason: Hypoglycemia Protocol Stop: 10/18/21 07:29 Glucose (Glucose 10 Tabs/Tube) 4 - 8 tabs PO UD PRN; Protocol PRN Reason: Hypoglycemia Protocol Stop: 10/18/21 07:29 Heparin Sodium (Porcine) (Heparin Sod 5,000 Unit/0.5 Ml Vial) 7,500 units SQ Q8 [facility] Stop: 10/16/21 05:59 Last Admin: 09/23/21 05:08 Dose: Not Given Documented by: Sodium Bicarbonate 75 meq/ (Sodium Chloride) 1,075 mls @ 80 mls/hr IV .[id number] [facility] Stop: 09/23/21 14:45 Last Admin: 09/23/21 09:01 Dose: 80 mls/hr Documented by: Insulin Aspart (Insulin Aspart Per Unit) 0 units SC ACHS [facility]; Protocol Stop: 10/16/21 07:29 Last Admin: 09/23/21 07:37 Dose: 10 units Documented by: Insulin Glargine (Insulin Glargine Solostar 100 Units/Ml 3 Ml Pen) 18 units SQ HS [facility] Stop: 10/17/21 20:59 Last Admin: 09/22/21 20:37 Dose: 18 units Documented by: Lactobacillus Acidophilus (Lactobacillus Acidophilus 1 Gm Pack) 1 gm PO TIDM [facility] Stop: 10/16/21 11:59 Last Admin: 09/23/21 07:37 Dose: 1 gm Documented by: Levothyroxine Sodium (Levothyroxine Sodium 25 Mcg Tablet) 25 mcg PO DAILYBB [facility] Stop: 10/16/21 06:29 Last Admin: 09/23/21 05:23 Dose: 25 mcg Documented by: Metoprolol Succinate (Metoprolol Succ 50mg Ext Rel Tab) 50 mg PO QAM [facility] Stop: 10/16/21 08:59 Last Admin: 09/23/21 07:39 Dose: 50 mg Documented by: Miscellaneous (Carbohydrates For Hypoglycemia ) 15 - 30 gm PO UD PRN PRN Reason: Hypoglycemia Treatment Stop: 10/18/21 07:29 Miscellaneous Information (Pharmacy Glycemic Mgmt Consult) 1 ea N/A UD PRN PRN Reason: Consult Stop: 10/16/21 18:11 Multivitamins/Minerals (Cerovite Adv Formula Tab) 1 tab PO DAILY [facility] Stop: 10/16/21 08:59 Last Admin: 09/23/21 07:38 Dose: Not Given Documented by: Multivitamins/Minerals (Calcium 600mg + Vit D 400 Iu Tab) 1 tab PO QDL [facility] Stop: 10/16/21 11:29 Last Admin: 09/22/21 11:39 Dose: 1 tab Documented by: Nitroglycerin (Nitroglycerin Sl 0.4 Mg/Tab Tab) 0.4 mg SL UD PRN PRN Reason: Chest Pain Stop: 10/16/21 04:33 Ondansetron HCl (Ondansetron Inj 2 Mg/Ml 2 Ml Vial) 4 mg IV Q6H PRN PRN Reason: Nausea Stop: 10/16/21 04:33 Pantoprazole Sodium (Pantoprazole 40 Mg Tab) 40 mg PO QAM [facility] Stop: 10/16/21 08:59 Last Admin: 09/23/21 07:40 Dose: 40 mg Documented by: Patiromer (Patiromer Calcium Sorbitex 8.4 Gm Pack) 8.4 gm PO DAILY@1200 [facility] Stop: 10/22/21 11:59 Last Admin: 09/22/21 11:39 Dose: 8.4 gm Documented by: Polyethylene Glycol (Polyethylene (Miralax) 17 Gm Pack) 17 gm PO DAILY PRN PRN Reason: Constipation Stop: 10/16/21 04:33 Torsemide (Torsemide 10 Mg Tab) 20 mg PO BID [facility] Stop: 10/19/21 20:59 Last Admin: 09/20/21 08:31 Dose: 20 mg Documented by: Vitamin B Complex (Vitamin B Complex Tab) 1 tab PO DAILY [facility] Stop: 10/16/21 08:59 Last Admin: 09/23/21 07:39 Dose: 1 tab Documented by: Vitamin D (Cholecalciferol 1,000 Units 25 Mcg Tab) 1,000 units PO QAM [facility] Stop: 10/16/21 08:59 Last Admin: 09/23/21 07:39 Dose: 1,000 units Documented by:
--- NOTE | 2021-09-23 10:42 | Hospitalist Progress Note ---
Date of Service September 23, 2021 Assessment & Plan (1) UTI (urinary tract infection): Plan: 61 yr female with H/O diastolic congestive heart failure, who was sent from Cardiology office because complicated urinary tract infection and also ongoing diastolic congestive heart failure. Acute on chronic diastolic congestive heart failure -CXR:Cardiomegaly with no acute cardiopulmonary abnormality. -ECHO: Normal LV chamber size, mild concentric LVH, EF 55 to 60%, no segmental left ventricular wall motion abnormality, grade 2 diastolic dysfunction -Received IV Lasix Monitor I's and O's, daily weight, volume status Appreciate cardiology input IV diuretics transition to p.o. torsemide 20 mg twice daily--currently held due to MONTRELL Intolerance to lisinopril, losartan Needs follow-up with cardiology upon discharge Currently on 500cc saline w/bicarb by nephro today Multidrug resistant UTI Outpatient Urine Cx growing Klebsiella pneumonia Urine Cx: Klebsiella pneumonia, group B beta strep Appreciate ID Input: May continue ertapenem 1 gm iv qd to complete total 7 days from 09/16/21. Completed Invanz 7-day course Repeat UA/Ucx today was not clean catch. Hence likely contaminated. Will disregard results and follow clinically Acute to Subacute L1 compression fracture --Lumbar CT:Acute to subacute compression fracture involving the L1 vertebral body with loss of 50% of the height of the vertebral body. No retropulsion of fracture fragment is seen. Moderate disc space narrowing at L1-2. Appreciate orthopedics input Conservative management for now as per Ortho Avoid lifting any heavier objects greater than 5 to 7 pounds Likely would not tolerate brace May need kyphoplasty if no improvement with conservative management DM II HbA1C: 11.2 Continue insulin therapy Monitor BGs Paroxysmal atrial fibrillation Continue Amiodarone, metoprolol Not on anticoagulation due to H/O hemorrhagic retinopathy Acute kidney injury on CKD III Baseline creatinine 1.4 Cr: 1.9>>1.6>1.4>1.8>2.37>2.7 >2.45 Monitor renal function Avoid nephrotoxic agents as able Appreciate nephrology input Needs follow-up with nephrology in 2 weeks with repeat BMP Gabapentin dose had been reduced Lisinopril, losartan discontinued Diuretics currently held K is 5.4. Continue patiromer and monitor Hypothyroidism on Levothyroxine Nocturnal hypoxia on 2 liters at bedtime DVT Px: Heparin SQ Patient declined rehab and would want home with home health stable. We will discharge once medically stable Admission and Anticipated Discharge Date Admission Date: September 16, 2021 Subjective 61-year-old woman with multiple medical problems including hypothyroidism, A. fib, diastolic heart failure, hypertension UTI, fibromyalgia, CKD 3, DM type II with impaired mobility and osteoarthritis who presented complaining about pain. Managed for UTI, acute on chronic diastolic heart failure. Developed MONTRELL with diuretics and intolerance to lisinopril and losartan. Also found to have acute to subacute L1 compression fracture. Patient seen and examined today. She reports chronic intermittent abdominal pain and chronic generalized body pains especially in the knees shoulders and muscles which she deferred to her osteoarthritis and fibromyalgia. Denies any nausea, vomiting Denies any fevers Denies any cough, chest pain, shortness of breath Reports bowel movements are loose skin above 4 times today. [Reports that normal bowel movements at home usually about 3 times] Denies dysuria today, hematuria or frequency Physical Exam Constitutional: + well hydrated and + obese; no acute distress Eyes: PERRL, conjunctivae normal, anicteric sclerae ENMT: external ear and nose normal, oropharynx normal Respiratory: normal respiratory effort, lungs clear to auscultation Cardiovascular: Rate/Rhythm: regular rate and regular rhythm S1-S2 Gastrointestinal (Abdomen): normal bowel sounds, soft, nontender, no hepatosplenomegaly Musculoskeletal: Sitting in chair, left leg in brace Some trace nonpitting edema Neurologic: PERRL, EOMI, accommodation nl, no face palsy, no dysarthria Psychiatric: A+Ox3, euthymic affect Results & Data Results & Data ([facility]) Vital Signs (Past 12 Hours) Vital Signs Temp Pulse Pulse Resp BP Pulse Ox 09/23/21 08:01 79 09/23/21 06:51 36.7 C 80 19 118/76 95 09/23/21 03:33 36.7 C 68 19 105/69 95 09/22/21 23:37 36.6 C 68 18 119/74 96 09/22/21 23:21 65 Laboratory Results Abnormal lab results 09/22/21 09/22/21 09/22/21 Range/Units 11:05 15:46 15:56 RBC (4.2-5.4) M/uL Hgb (12.0-16.0) g/dL Hct (37-47) % RDW Std Deviation (36.4-46.3) fL Plt Count (130-400) K/uL Potassium (3.5-5.1) mmol/L BUN 79 H (7-18) mg/dl Creatinine 2.61 H (0.6-1.2) mg/dl BUN/Creatinine Ratio 30.4 H (10-20) Glucose 139 H (70-99) mg/dl POC Glucose 158 H 121 H (70-99) mg/dl Urine Appearance (Clear) Urine Blood (Negative) Ur Leukocyte Esterase (Negative) Urine WBC (Auto) (0-5) /hpf U Epithel Cells (Auto) (0-5) /lpf Urine Bacteria (Auto) (Negative) 09/22/21 09/23/21 09/23/21 Range/Units 20:32 07:04 07:04 RBC 3.54 L (4.2-5.4) M/uL Hgb 10.7 L (12.0-16.0) g/dL Hct 32.9 L (37-47) % RDW Std Deviation 49.2 H (36.4-46.3) fL Plt Count 120 L (130-400) K/uL Potassium 5.3 H (3.5-5.1) mmol/L BUN 81 H (7-18) mg/dl Creatinine 2.45 H (0.6-1.2) mg/dl BUN/Creatinine Ratio 33.0 H (10-20) Glucose 169 H (70-99) mg/dl POC Glucose 135 H (70-99) mg/dl Urine Appearance (Clear) Urine Blood (Negative) Ur Leukocyte Esterase (Negative) Urine WBC (Auto) (0-5) /hpf U Epithel Cells (Auto) (0-5) /lpf Urine Bacteria (Auto) (Negative) 09/23/21 09/23/21 Range/Units 07:20 08:55 RBC (4.2-5.4) M/uL Hgb (12.0-16.0) g/dL Hct (37-47) % RDW Std Deviation (36.4-46.3) fL Plt Count (130-400) K/uL Potassium (3.5-5.1) mmol/L BUN (7-18) mg/dl Creatinine (0.6-1.2) mg/dl BUN/Creatinine Ratio (10-20) Glucose (70-99) mg/dl POC Glucose 195 H (70-99) mg/dl Urine Appearance Turbid A (Clear) Urine Blood 1+ H (Negative) Ur Leukocyte Esterase 3+ H (Negative) Urine WBC (Auto) >30 H (0-5) /hpf U Epithel Cells (Auto) 10-20 H (0-5) /lpf Urine Bacteria (Auto) 1+ H (Negative)
[2021-09-23] MEDS: CALCIUM 600MG + VIT D 400 IU TAB PO SCH (11:46)
[2021-09-23] MEDS: PATIROMER CALCIUM SORBITEX 8.4 GM PACK PO SCH (13:28)
[2021-09-23] MEDS: ASPIRIN 81 MG ECTAB PO SCH (22:08)
[2021-09-23] MEDS: INSULIN GLARGINE SOLOSTAR 100 UNITS/ML 3 ML PEN SQ SCH (22:09)
[2021-09-24] MEDS: HEPARIN SOD 5,000 UNIT/0.5 ML VIAL SQ SCH ×4 (06:23→21:23)
[2021-09-24] MEDS: LEVOTHYROXINE SODIUM 25 MCG TABLET PO SCH (06:27)
[2021-09-24] MEDS: FERROUS SULFATE 325 MG TAB PO SCH ×2 (08:15→16:47)
[2021-09-24] MEDS: DOCUSATE SODIUM 100 MG CAP PO SCH ×2 (08:16→20:43)
[2021-09-24] MEDS: CHOLECALCIFEROL 1,000 UNITS 25 MCG TAB PO SCH (08:16)
[2021-09-24] MEDS: LACTOBACILLUS ACIDOPHILUS 1 GM PACK PO SCH ×3 (08:16→16:48)
[2021-09-24] MEDS: FEXOFENADINE HCL 180 MG TAB PO SCH (08:16)
[2021-09-24] MEDS: AMIODARONE 200 MG TAB PO SCH (08:16)
[2021-09-24] MEDS: FOLIC ACID 1 MG TAB PO SCH (08:17)
[2021-09-24] MEDS: METOPROLOL SUCC 50MG EXT REL TAB PO SCH (08:17)
[2021-09-24] MEDS: MENTHOL-ZINC OXIDE 360 APPLN/120 GM TUBE EXT SCH ×2 (08:17→20:41)
[2021-09-24] MEDS: GABAPENTIN 100 MG CAP PO SCH ×2 (08:17→20:43)
[2021-09-24] MEDS: PANTOprazole 40 MG TAB PO SCH (08:18)
[2021-09-24] MEDS: VITAMIN B COMPLEX TAB PO SCH (08:18)
[2021-09-24] MEDS: CEROVITE ADV FORMULA TAB PO SCH (08:18)
[2021-09-24] MEDS: INSULIN ASPART PER UNIT SC SCH ×4 (08:23→20:46)
[2021-09-24 08:58] LABS: BUN Creatinine Ratio 40.8 (10-20); Calcium 9.1 mg/dl (8.5-10.1); Creatinine Clr Calc Pharmacy 38.5 ml/min; Est GFR (African American) 31.1 ml/min; Est GFR (Non-African American) 26.8 ml/min; Potassium 4.8 mmol/L (3.5-5.1)
[2021-09-24] MEDS: ERTAPENEM SODIUM 1,000 MG in SODIUM CHLORIDE 0.9% 50 ML IV SCH (09:50)
--- NOTE | 2021-09-24 10:21 | Hospitalist Progress Note ---
Date of Service September 24, 2021 Assessment & Plan (1) UTI (urinary tract infection): Plan: 61 yr female with H/O diastolic congestive heart failure, who was sent from Cardiology office because complicated urinary tract infection and also ongoing diastolic congestive heart failure. Acute on chronic diastolic congestive heart failure -CXR:Cardiomegaly with no acute cardiopulmonary abnormality. -ECHO: Normal LV chamber size, mild concentric LVH, EF 55 to 60%, no segmental left ventricular wall motion abnormality, grade 2 diastolic dysfunction Monitor I's and O's, daily weight, volume status Was initially on IV diuretics which was then transitioned to p.o. torsemide 20 mg twice daily--currently held due to MONTRELL Intolerance to lisinopril, losartan [employer] on board Needs follow-up with cardiology upon discharge Multidrug resistant UTI Outpatient Urine Cx growing Klebsiella pneumonia Urine Cx: Klebsiella pneumonia, group B beta strep Repeat cultures still positive. Possible colonization. ?contamination as wells as sample was not clean catch Dysuria has resolved so far Continue ertapenem to complete 10 days Acute to Subacute L1 compression fracture --Lumbar CT:Acute to subacute compression fracture involving the L1 vertebral body with loss of 50% of the height of the vertebral body. No retropulsion of fracture fragment is seen. Moderate disc space narrowing at L1-2. Appreciate orthopedics input Conservative management for now as per Ortho Avoid lifting any heavier objects greater than 5 to 7 pounds Likely would not tolerate brace May need kyphoplasty if no improvement with conservative management DM II HbA1C: 11.2 Continue insulin therapy Monitor BGs Will need basal insulin increased on discharge Paroxysmal atrial fibrillation Continue Amiodarone, metoprolol Not on anticoagulation due to H/O hemorrhagic retinopathy Acute kidney injury on CKD III Baseline creatinine 1.4 Cr: 1.9>>1.6>1.4>1.8>2.37>2.7 >2.45 >1.98 Monitor renal function Avoid nephrotoxic agents as able Gabapentin dose had been reduced Lisinopril, losartan discontinued Diuretics currently held Will need diuretics resumed at some point Awaiting Nephro recs for today Needs follow-up with nephrology in 2 weeks with repeat BMP Hypothyroidism on Levothyroxine Nocturnal hypoxia on 2 liters at bedtime DVT Px: Heparin SQ Patient declined rehab and would want home with home health stable. We will discharge once medically stable Admission and Anticipated Discharge Date Admission Date: September 16, 2021 Subjective 61-year-old woman with multiple medical problems including hypothyroidism, A. fib, diastolic heart failure, hypertension UTI, fibromyalgia, CKD 3, DM type II with impaired mobility and osteoarthritis who presented complaining about pain. Managed for UTI, acute on chronic diastolic heart failure. Developed MONTRELL with diuretics and intolerance to lisinopril and losartan. Also found to have acute to subacute L1 compression fracture. Patient seen and examined today. She reports chronic pain in knees and shoulders Denies any nausea, vomiting Denies any fevers Denies any cough, chest pain, shortness of breath Reports loose stool. Per RN, this was overnight. None so far this morning Denies dysuria today, hematuria or frequency Physical Exam Constitutional: + well hydrated and + obese; no acute distress Eyes: PERRL, conjunctivae normal, anicteric sclerae ENMT: external ear and nose normal, oropharynx normal Respiratory: normal respiratory effort, lungs clear to auscultation Cardiovascular: Rate/Rhythm: regular rate and regular rhythm S1 S2 Gastrointestinal (Abdomen): normal bowel sounds, soft, nontender, no hepatosplenomegaly Musculoskeletal: Pedal edema Neurologic: PERRL, EOMI, accommodation nl, no face palsy, no dysarthria Psychiatric: A+Ox3, euthymic affect Results & Data Results & Data ([facility] [place]) Vital Signs (Past 12 Hours) Vital Signs Temp Pulse Pulse Resp BP Pulse Ox 09/24/21 08:00 37.1 C 71 72 20 121/74 94 09/24/21 03:36 36.7 C 79 19 116/74 91 09/23/21 23:49 36.7 C 69 19 112/73 94 Laboratory Results Abnormal lab results 09/23/21 09/24/21 09/24/21 Range/Units 16:24 07:14 08:01 Chloride 110 H (98-107) mmol/L BUN 81 H (7-18) mg/dl Creatinine 1.98 H D (0.6-1.2) mg/dl BUN/Creatinine Ratio 40.8 H (10-20) Glucose 127 H (70-99) mg/dl POC Glucose 203 H 111 H (70-99) mg/dl 09/24/21 Range/Units 11:31 Chloride (98-107) mmol/L BUN (7-18) mg/dl Creatinine (0.6-1.2) mg/dl BUN/Creatinine Ratio (10-20) Glucose (70-99) mg/dl POC Glucose 168 H (70-99) mg/dl
--- NOTE | 2021-09-24 11:55 | Cardiology Progress Note ---
Date of Service September 24, 2021 Assessment & Plan (1) UTI (urinary tract infection): (2) Acute kidney injury superimposed on CKD: (3) Paroxysmal atrial fibrillation: (4) Diabetes mellitus, type II: (5) Acute on chronic diastolic heart failure: Plan: Creatinine slowly trending downward, close to baseline. While patient reports she is retaining fluid, her status appears at her baseline. Likely transition to oral diuretics in the next 1-2 days. Home dose of torsemide was previously 40 mg BID along with spironolactone 25 mg. Appreciate nephrology's guidance as well. Fluid restriction 1500 ml Daily weight with standing scale BP controlled and continue home meds Maintaining NSR. Continue amiodarone. Finish antibiotics for UTI per hospitalist. Case discussed with Dr. Belle Admission and Anticipated Discharge Date Admission Date: September 16, 2021 Supervising Physician Co-Signing Physician Notes I have reviewed the medical record and discussed the case with Ms. Ward. I have seen and evaluated the patient. I agree with the plan as outlined above. Subjective Patient resting in chair comfortably. Reports she is "full of fluid" today. No weight this morning recorded. She denies symptoms of SOB, cough. Chronic orthopnea reported, unchanged. No chest pain. Urinary symptoms improved. Review of Systems Review of Systems: Review of Systems: See HPI for pertinent positives. All other 10 point review of systems are negative. Physical Exam Constitutional: WD/WN, vitals as above + morbidly obese; no acute distress Eyes: PERRL, conjunctivae normal, anicteric sclerae Neck: trachea midline, no thyromegaly Respiratory: normal respiratory effort Auscultation: lungs clear to auscultation bilaterally Cardiovascular: Rate/Rhythm: regular rate and regular rhythm Heart Sounds: no murmur Extremities: + edema (1+ pedal and pretibial edema; non pitting; lympehdematous changes) Gastrointestinal (Abdomen): normal bowel sounds, soft, nontender, no hepatosplenomegaly Skin: no rashes, warm and dry Neurologic: PERRL, EOMI, accommodation nl, no face palsy, no dysarthria Psychiatric: A+Ox3, euthymic affect Results & Data ([facility]) Vital Signs (Past 12 Hours) Vital Signs Temp Pulse Pulse Resp BP Pulse Ox 09/24/21 08:00 37.1 C 71 72 20 121/74 94 09/24/21 03:36 36.7 C 79 19 116/74 91 Laboratory Results 09/24/21 09/24/21 09/24/21 Range/Units 11:31 08:01 07:14 Sodium 141 (136-145) mmol/L Potassium 4.8 (3.5-5.1) mmol/L Chloride 110 H (98-107) mmol/L Carbon Dioxide 27 (21-32) mmol/L Anion Gap 5.0 (3-11) BUN 81 H (7-18) mg/dl Creatinine 1.98 H D (0.6-1.2) mg/dl Est Cr Clr Drug Dosing 38.5 ml/min Est GFR ( Amer) 31.1 ml/min Est GFR (Non-Af Amer) 26.8 ml/min BUN/Creatinine Ratio 40.8 H (10-20) Glucose 127 H (70-99) mg/dl POC Glucose 168 H 111 H (70-99) mg/dl Calcium 9.1 (8.5-10.1) mg/dl 09/23/21 09/23/21 Range/Units 21:02 16:24 Sodium (136-145) mmol/L Potassium (3.5-5.1) mmol/L Chloride (98-107) mmol/L Carbon Dioxide (21-32) mmol/L Anion Gap (3-11) BUN (7-18) mg/dl Creatinine (0.6-1.2) mg/dl Est Cr Clr Drug Dosing ml/min Est GFR ( Amer) ml/min Est GFR (Non-Af Amer) ml/min BUN/Creatinine Ratio (10-20) Glucose (70-99) mg/dl POC Glucose 96 203 H (70-99) mg/dl Calcium (8.5-10.1) mg/dl Diagnostic Findings Telemetry reviewed: NSR, heart rates in the 60's. No arrhythmias Medications Administered Current Inpatient Medications Amiodarone HCl (Amiodarone 200 Mg Tab) 200 mg PO DAILY [facility] Stop: 10/16/21 08:59 Last Admin: 09/24/21 08:16 Dose: 200 mg Documented by: Aspirin (Aspirin 81 Mg Ectab) 81 mg PO HS [facility] Stop: 10/16/21 20:59 Last Admin: 09/23/21 22:08 Dose: 81 mg Documented by: Butalbital/Aspirin/Caffeine (Butalbital/Aspirin/Caffeine 1 Tab Tab) 1 tab PO Q4H PRN PRN Reason: Migraine Headache Stop: 10/16/21 04:33 Calamine/Phenol (Menthol-Zinc Oxide 360 Appln/120 Gm Tube) 1 appln EXT BID [facility] Stop: 10/20/21 12:44 Last Admin: 09/24/21 08:17 Dose: 1 appln Documented by: Dextrose (Dextrose 50% 50 Ml Syringe) 25 - 50 ml IV UD PRN; Protocol PRN Reason: Hypoglycemia Protocol Stop: 10/18/21 07:29 Diphenoxylate HCl/Atropine (Diphenoxylate/Atropine 2.5/0.025mg Tab) 1 tab PO DAILY PRN PRN Reason: Diarrhea Stop: 10/16/21 04:33 Docusate Sodium (Docusate Sodium 100 Mg Cap) 100 mg PO BID [facility] Stop: 10/16/21 08:59 Last Admin: 09/24/21 08:16 Dose: Not Given Documented by: Ferrous Sulfate (Ferrous Sulfate 325 Mg Tab) 325 mg PO BIDM [facility] Stop: 10/16/21 07:59 Last Admin: 09/24/21 08:15 Dose: 325 mg Documented by: Fexofenadine HCl (Fexofenadine Hcl 180 Mg Tab) 180 mg PO QAM [facility] Stop: 10/16/21 08:59 Last Admin: 09/24/21 08:16 Dose: 180 mg Documented by: Folic Acid (Folic Acid 1 Mg Tab) 1 mg PO QAM [facility] Stop: 10/16/21 08:59 Last Admin: 09/24/21 08:17 Dose: 1 mg Documented by: Gabapentin (Gabapentin 100 Mg Cap) 200 mg PO [facility] Stop: 10/22/21 20:59 Last Admin: 09/23/21 22:08 Dose: 200 mg Documented by: Gabapentin (Gabapentin 100 Mg Cap) [facility] [place] Stop: 10/23/21 08:59 Last Admin: 09/24/21 08:17 Dose: 100 mg Documented by: Glucagon (Glucagon For Inj 1 Mg Vial) 1 mg IM UD PRN; Protocol PRN Reason: Hypoglycemia Protocol Stop: 10/18/21 07:29 Glucose (Glucose 40% Gel 15 Gm Tube) 15 - 30 gm PO UD PRN; Protocol PRN Reason: Hypoglycemia Protocol Stop: 10/18/21 07:29 Glucose (Glucose 10 Tabs/Tube) 4 - 8 tabs PO UD PRN; Protocol PRN Reason: Hypoglycemia Protocol Stop: 10/18/21 07:29 Heparin Sodium (Porcine) (Heparin Sod 5,000 Unit/0.5 Ml Vial) 7,500 units SQ Q8 [facility] Stop: 10/16/21 05:59 Last Admin: 09/24/21 06:23 Dose: Not Given Documented by: Ertapenem 1,000 mg/ Sodium (Chloride) 60 mls @ 100 mls/hr IV Q24H [facility] Stop: 09/26/21 09:35 Last Infusion: 09/24/21 10:46 Dose: Infused Documented by: Insulin Aspart (Insulin Aspart Per Unit) 0 units SC ACHS [facility]; Protocol Stop: 10/16/21 07:29 Last Admin: 09/24/21 08:23 Dose: 10 units Documented by: Insulin Glargine (Insulin Glargine Solostar 100 Units/Ml 3 Ml Pen) 20 units SQ HS [facility] Stop: 10/23/21 20:59 Last Admin: 09/23/21 22:09 Dose: 20 units Documented by: Lactobacillus Acidophilus (Lactobacillus Acidophilus 1 Gm Pack) 1 gm PO TIDM [facility] Stop: 10/16/21 11:59 Last Admin: 09/24/21 08:16 Dose: 1 gm Documented by: Levothyroxine Sodium (Levothyroxine Sodium 25 Mcg Tablet) 25 mcg PO DAILYBB [facility] Stop: 10/16/21 06:29 Last Admin: 09/24/21 06:27 Dose: 25 mcg Documented by: Metoprolol Succinate (Metoprolol Succ 50mg Ext Rel Tab) 50 mg PO QAM [facility] Stop: 10/16/21 08:59 Last Admin: 09/24/21 08:17 Dose: 50 mg Documented by: Miscellaneous (Carbohydrates For Hypoglycemia ) 15 - 30 gm PO UD PRN PRN Reason: Hypoglycemia Treatment Stop: 10/18/21 07:29 Miscellaneous Information (Pharmacy Glycemic Mgmt Consult) 1 ea N/A UD PRN PRN Reason: Consult Stop: 10/16/21 18:11 Multivitamins/Minerals (Cerovite Adv Formula Tab) 1 tab PO DAILY [facility] Stop: 10/16/21 08:59 Last Admin: 09/24/21 08:18 Dose: Not Given Documented by: Multivitamins/Minerals (Calcium 600mg + Vit D 400 Iu Tab) 1 tab PO QDL [facility] Stop: 10/16/21 11:29 Last Admin: 09/23/21 11:46 Dose: 1 tab Documented by: Nitroglycerin (Nitroglycerin Sl 0.4 Mg/Tab Tab) 0.4 mg SL UD PRN PRN Reason: Chest Pain Stop: 10/16/21 04:33 Ondansetron HCl (Ondansetron Inj 2 Mg/Ml 2 Ml Vial) 4 mg IV Q6H PRN PRN Reason: Nausea Stop: 10/16/21 04:33 Pantoprazole Sodium (Pantoprazole 40 Mg Tab) 40 mg PO QAM [facility] Stop: 10/16/21 08:59 Last Admin: 09/24/21 08:18 Dose: 40 mg Documented by: Patiromer (Patiromer Calcium Sorbitex 8.4 Gm Pack) 8.4 gm PO DAILY@1200 [facility] Stop: 10/22/21 11:59 Last Admin: 09/23/21 13:28 Dose: 8.4 gm Documented by: Polyethylene Glycol (Polyethylene (Miralax) 17 Gm Pack) 17 gm PO DAILY PRN PRN Reason: Constipation Stop: 10/16/21 04:33 Torsemide (Torsemide 10 Mg Tab) 20 mg PO BID [facility] Stop: 10/19/21 20:59 Last Admin: 09/20/21 08:31 Dose: 20 mg Documented by: Vitamin B Complex (Vitamin B Complex Tab) 1 tab PO DAILY [facility] Stop: 10/16/21 08:59 Last Admin: 09/24/21 08:18 Dose: 1 tab Documented by: Vitamin D (Cholecalciferol 1,000 Units 25 Mcg Tab) 1,000 units PO QAM [facility] Stop: 10/16/21 08:59 Last Admin: 09/24/21 08:16 Dose: 1,000 units Documented by:
[2021-09-24] MEDS: CALCIUM 600MG + VIT D 400 IU TAB PO SCH (12:14)
[2021-09-24] MEDS: PATIROMER CALCIUM SORBITEX 8.4 GM PACK PO SCH (12:33)
--- NOTE | 2021-09-24 18:39 | Nephrology Progress Note ---
Date of Service September 24, 2021 Assessment & Plan (1) Acute kidney injury superimposed on CKD: Plan: 61-year-old female with long-standing diabetes and associated chronic kidney disease stage III with a baseline creatinine mid ones (last checked May 2021); presented 09/16 with creatinine 1.9. Now admitted with c/o significant fluid retention and c/o 30-pound weight gain associated with stage 1 acute renal failure and complicated urinary tract infection versus simple cystitis. She presented with reports of 30-pound weight gain: however review of her OP charts shows her 09/15/21 wt (257#) to be within 5 lb of wt at OP f/u one week after [facility] April d/c (252#) and within 1 lb of March 2022 clinic wt (256#).CXR clear; BNP wnl. Adherent as OP w/ refilling meds. Admission creatinine is slightly higher than baseline with uptrend since 09/21 to peak 09/22 at 2.7, improved today to 2.5. She had been started on bid torsemide 20 mg (only had 2 doses, last one 09/20; takes 40 mg bid as OP) and started losartan on 09/21 > had 2 x 25 mg doses daily 09/21, 09/22. also had had 5 mg lisinopril on 09/19, 09/20; had 40 mg IV lasix bid 09/16-09/19 AM. Her renal function did not tolerate these measures. slowly improving nonoliguric stage 1 MONTRELL on CKD 3; hyperkalemia resolved -still MONTRELL, so torsemide on hold; multiple BM possibly slowing renal recovery -cont to hold 1.5L FR -cont low K diet -cont patiromer daily lower dose -losartan stopped (last dose 09/22) -needs daily STANDING weight; bed weights not helpful; so ordered and nursing help appreciated; not done 09/24 -no indication yet to repeat renal imaging -continue PT evals /reassessment/ ?placement if she is too unsteady for standing wt She will need follow-up with nephrology, in 2 weeks time with a repeat BMP post discharge. (2) UTI (urinary tract infection): Plan: Completed course of Ertapenem per ID - Managed by primary; urine cx on admission was contaminated by external eliud/cells; pt w/ repeated inflamed/contaminated cxs as OP and uniformly + cxs as OP; for upcoming urology eval as OP; has had ID ask-a-doc as well ; for 10 days ertapenem and with diarrhea >urine specimen from09/23 collected in a hat and positive; >>recommend ID f/u as OP to comment on urine specimens > concern these may not be complicated UTI but possibly bacteriuria or other; she is now having multiple complications from abtx (diarrhea, montrell) Admission and Anticipated Discharge Date Admission Date: September 16, 2021 Subjective 8 BM today and no standing wt; feels her edema is orse; breathing unchanged. Review of Systems Review of Systems: All systems reviewed & are unremarkable except as noted in Subjective Physical Exam Constitutional: well developed, well nourished, + morbidly obese and + physical limitations; no acute distress Eyes: EOM intact bilaterally ENMT: Ears: no external ear abnormality Nose: no external nose abnormality Mouth: + dry oral mucous membranes Neck: no nuchal rigidity Respiratory: normal respiratory effort Auscultation: + diminished lung sounds Cardiovascular: RRR, no murmur, no edema (no edema on exam) Gastrointestinal (Abdomen): Inspection/Auscultation: normal bowel sounds Percussion/Palpation: abdomen soft; abdomen nontender Skin: no rashes, warm and dry Neurologic: axial tremor; generalized weakness Psychiatric: A+Ox3, euthymic affect Results & Data ([facility]) Vital Signs (Past 12 Hours) Vital Signs Temp Pulse Pulse Resp BP Pulse Ox 09/24/21 15:00 65 09/24/21 12:22 36.7 C 70 18 128/72 95 09/24/21 08:00 37.1 C 71 72 20 121/74 94 Laboratory Results 09/23/21 07:04 09/24/21 08:01
[2021-09-24] MEDS: ASPIRIN 81 MG ECTAB PO SCH (20:43)
[2021-09-24] MEDS: INSULIN GLARGINE SOLOSTAR 100 UNITS/ML 3 ML PEN SQ SCH (21:23)
[2021-09-25] MEDS: LEVOTHYROXINE SODIUM 25 MCG TABLET PO SCH (06:11)
[2021-09-25] MEDS: HEPARIN SOD 5,000 UNIT/0.5 ML VIAL SQ SCH ×3 (06:11→21:29)
[2021-09-25 06:27] LABS: Hematocrit (blood only) 32.5 % (37-47); Hemoglobin 10.3 g/dL (12.0-16.0); Mean Corpuscular Hemoglobin 30.2 pg (25-34); Mean Corpuscular Hgb Conc 31.7 g/dL (32-36); Mean Corpuscular Volume 95.3 fL (80-100); Mean Platelet Volume 8.3 fL (7.4-10.4); Platelet Count 135 K/uL (130-400); RDW Coefficient of Variation 14.4 % (11.5-14.5); RDW Standard Deviation 49.5 fL (36.4-46.3); Red Blood Count 3.41 M/uL (4.2-5.4); White Blood Count 4.31 K/uL (4.8-10.8)
[2021-09-25 07:00] LABS: BUN Creatinine Ratio 46.6 (10-20); Calcium 9.2 mg/dl (8.5-10.1); Creatinine Clr Calc Pharmacy 48.5 ml/min; Est GFR (African American) 40.5 ml/min; Est GFR (Non-African American) 34.9 ml/min; Potassium 4.9 mmol/L (3.5-5.1)
[2021-09-25] MEDS: DOCUSATE SODIUM 100 MG CAP PO SCH ×2 (07:58→21:26)
[2021-09-25] MEDS: CEROVITE ADV FORMULA TAB PO SCH (07:58)
[2021-09-25] MEDS: VITAMIN B COMPLEX TAB PO SCH (08:08)
[2021-09-25] MEDS: AMIODARONE 200 MG TAB PO SCH (08:09)
[2021-09-25] MEDS: PANTOprazole 40 MG TAB PO SCH (08:09)
[2021-09-25] MEDS: FOLIC ACID 1 MG TAB PO SCH (08:09)
[2021-09-25] MEDS: CHOLECALCIFEROL 1,000 UNITS 25 MCG TAB PO SCH (08:09)
[2021-09-25] MEDS: FERROUS SULFATE 325 MG TAB PO SCH ×2 (08:09→17:06)
[2021-09-25] MEDS: METOPROLOL SUCC 50MG EXT REL TAB PO SCH (08:10)
[2021-09-25] MEDS: FEXOFENADINE HCL 180 MG TAB PO SCH (08:10)
[2021-09-25] MEDS: GABAPENTIN 100 MG CAP PO SCH ×2 (08:10→21:27)
[2021-09-25] MEDS: MENTHOL-ZINC OXIDE 360 APPLN/120 GM TUBE EXT SCH ×2 (08:10→21:29)
[2021-09-25] MEDS: LACTOBACILLUS ACIDOPHILUS 1 GM PACK PO SCH (08:10)
[2021-09-25] MEDS: ERTAPENEM SODIUM 1,000 MG in SODIUM CHLORIDE 0.9% 50 ML IV SCH (08:14)
[2021-09-25] MEDS: INSULIN ASPART PER UNIT SC SCH ×4 (08:21→21:22)
[2021-09-25] MEDS: TORSEMIDE 20 MG TAB PO SCH ×2 (11:14→17:06)
--- NOTE | 2021-09-25 11:19 | Hospitalist Progress Note ---
Date of Service September 25, 2021 Assessment & Plan (1) UTI (urinary tract infection): Plan: 61 yr female with H/O diastolic congestive heart failure, who was sent from Cardiology office because complicated urinary tract infection and also ongoing diastolic congestive heart failure. Acute on chronic diastolic congestive heart failure -CXR:Cardiomegaly with no acute cardiopulmonary abnormality. -ECHO: Normal LV chamber size, mild concentric LVH, EF 55 to 60%, no segmental left ventricular wall motion abnormality, grade 2 diastolic dysfunction Monitor I's and O's, daily weight, volume status Was initially on IV diuretics which was then transitioned to p.o. torsemide 20 mg twice daily--currently held due to MONTRELL Intolerance to lisinopril, losartan [employer] on board Needs follow-up with cardiology upon discharge Multidrug resistant UTI Outpatient Urine Cx growing Klebsiella pneumonia Urine Cx: Klebsiella pneumonia, group B beta strep Repeat blood cultures; Pseudo aeruginosa, Enterococcus faecium. I do not believe the repeat cultures due to collection method. Contaminated in urine had. Patient could not get clean catch and declined straight cath sample Dysuria resolved. Antibiotics discontinued. Has already got over 7 days of ertapenem Acute to Subacute L1 compression fracture --Lumbar CT:Acute to subacute compression fracture involving the L1 vertebral body with loss of 50% of the height of the vertebral body. No retropulsion of fracture fragment is seen. Moderate disc space narrowing at L1-2. Appreciate orthopedics input Conservative management for now as per Ortho Avoid lifting any heavier objects greater than 5 to 7 pounds Likely would not tolerate brace May need kyphoplasty if no improvement with conservative management DM II HbA1C: 11.2 Continue insulin therapy Monitor BGs Will need basal insulin increased on discharge Paroxysmal atrial fibrillation Continue Amiodarone, metoprolol Not on anticoagulation due to H/O hemorrhagic retinopathy Acute kidney injury on CKD III Baseline creatinine 1.4 Cr: 1.9>>1.6>1.4>1.8>2.37>2.7 >2.45 >1.98> 1.59 Monitor renal function Avoid nephrotoxic agents as able Gabapentin dose had been reduced Lisinopril, losartan discontinued Diuretics initially held due to MONTRELL on CKD WIth improvement in renal function, diuretics resumed [employer] In[employer] recs appreciated Needs follow-up with nephrology in 2 weeks with repeat BMP Will monitor renal function over the weekend prior to discharge Hypothyroidism on Levothyroxine Nocturnal hypoxia on 2 liters at bedtime DVT Px: Heparin SQ Patient declined rehab and would want home with home health stable. Admission and Anticipated Discharge Date Admission Date: September 16, 2021 Subjective 61-year-old woman with multiple medical problems including hypothyroidism, A. fib, diastolic heart failure, hypertension UTI, fibromyalgia, CKD 3, DM type II with impaired mobility and osteoarthritis who presented complaining about pain. Managed for UTI, acute on chronic diastolic heart failure. Developed MONTRELL with diuretics and intolerance to lisinopril and losartan. Also found to have acute to subacute L1 compression fracture. Patient seen and examined today. Has chronic knee pain Denies any nausea, vomiting Denies any fevers Denies any cough, chest pain, shortness of breath Denied diarrhea today Denies dysuria, hematuria or frequency Physical Exam Constitutional: + well hydrated and + obese; no acute distress Eyes: PERRL, conjunctivae normal, anicteric sclerae ENMT: external ear and nose normal, oropharynx normal Respiratory: normal respiratory effort, lungs clear to auscultation Cardiovascular: Rate/Rhythm: regular rate and regular rhythm S1 S2 Gastrointestinal (Abdomen): normal bowel sounds, soft, nontender, no hepatosplenomegaly Neurologic: PERRL, EOMI, accommodation nl, no face palsy, no dysarthria Psychiatric: A+Ox3, euthymic affect Results & Data Results & Data ([facility]) Vital Signs (Past 12 Hours) Vital Signs Temp Pulse Pulse Resp BP Pulse Ox 09/25/21 09:10 72 09/25/21 07:18 36.6 C 76 20 151/82 H 93 09/25/21 04:01 36.7 C 71 19 133/83 98 09/24/21 23:44 36.6 C 68 18 108/70 97 09/24/21 23:42 71 Laboratory Results Abnormal lab results 09/24/21 09/24/21 09/25/21 Range/Units 16:12 20:29 06:03 WBC (4.8-10.8) K/uL RBC (4.2-5.4) M/uL Hgb (12.0-16.0) g/dL Hct (37-47) % MCHC (32-36) g/dL RDW Std Deviation (36.4-46.3) fL Chloride 109 H (98-107) mmol/L BUN 74 H (7-18) mg/dl Creatinine 1.59 H D (0.6-1.2) mg/dl BUN/Creatinine Ratio 46.6 H (10-20) Glucose 129 H (70-99) mg/dl POC Glucose 114 H 67 L* (70-99) mg/dl 09/25/21 09/25/21 09/25/21 Range/Units 06:03 07:44 11:27 WBC 4.31 L (4.8-10.8) K/uL RBC 3.41 L (4.2-5.4) M/uL Hgb 10.3 L (12.0-16.0) g/dL Hct 32.5 L (37-47) % MCHC 31.7 L (32-36) g/dL RDW Std Deviation 49.5 H (36.4-46.3) fL Chloride (98-107) mmol/L BUN (7-18) mg/dl Creatinine (0.6-1.2) mg/dl BUN/Creatinine Ratio (10-20) Glucose (70-99) mg/dl POC Glucose 164 H 181 H (70-99) mg/dl
[2021-09-25] MEDS: ADVANCED PROBIOTIC 1250 MG CAPSULE PO SCH ×2 (11:53→17:06)
[2021-09-25] MEDS: CALCIUM 600MG + VIT D 400 IU TAB PO SCH (11:53)
[2021-09-25] MEDS: PATIROMER CALCIUM SORBITEX 8.4 GM PACK PO SCH (11:53)
--- NOTE | 2021-09-25 12:18 | Pharmacy Report ---
Pharmacy Glycemic Short Note 2 - Date of Service September 25, 2021 - Glycemic Short BSG Results (Last 24 hours): 09/24/21 09/24/21 09/24/21 16:12 20:29 20:31 Glucose POC Glucose 114 H 67 L* 72 09/24/21 09/25/21 09/25/21 21:18 06:03 07:44 Glucose 129 H POC Glucose 77 164 H 09/25/21 11:27 Glucose POC Glucose 181 H OUTPATIENT ANTIDIABETIC REGIMEN: * Basaglar 15 units SQ qHS * A1c 11.2% (09/16/21) ASSESSMENT: 09/25/21 * Patient's BSGs yesterday were [phone]. * Patient received 52 units of insulin yesterday (20 units of Lantus plus 32 units of bolus). * Patient had slight hypoglycemic event last evening probably due to tightened CR. * Loosened CR this morning. Will continue. * Kidney function continues to improve. 09/21: * Patient received total of 47 units of insulin yesterday, of which 18 units were Lantus * Fasting BSG 161 mg/dL - continue same basal (of note, missed dose of Lantus 09/19 PM) * Due to worsening kidney function, loosened CR slightly today 09/18: * Patient received 59 units of insulin yesterday (20 units Lantus + 49 units Novolog) * BSGs were well controlled: [phone] mg/dL * Fasting BSG well controlled at 107 mg/dL this AM * Will decrease Lantus just slightly this evening given trend down in fasting * Continue current Novolog parameters. 09/17: * Jannet received 37 units of SQ insulin yesterday with poor glycemic control * BSGs 169, 203, 255, 215 mg/dL * Her Lantus dose was increased yesterday. Fasting BSG of 138 mg/dL this morning is much improved. I anticipate this will continue to trend down. * Post prandial BSGs also improved. Continue current novolog parameters. PLAN FOR INPATIENT GLYCEMIC CONTROL: * Basal insulin * Lantus 20 units SC HS * Bolus insulin * NovoLog per scale ACHS or Q6hrs while NPO * Goal Range: Low 110 mg/dL - High 140 mg/dL * Correction Factor: 25 mg/dL/unit * Nutritional / Prandial insulin per carb ratio of 1 unit per 8 grams CHO consumed PLAN FOR DISCHARGE: * A1c 11.2% is well above the goal of less than 7.5% for this patient. * Will likely require an increase in home Basaglar dose upon discharge. * Recommend close follow-up with PCP regarding insulin titration. Can check BSGs two -three times per day at different times in order to gauge how BSGs fluctuate throughout the day. Recommend altering insulin based upon these.
--- NOTE | 2021-09-25 17:07 | Nephrology Progress Note ---
Date of Service September 25, 2021 Assessment & Plan (1) Acute kidney injury superimposed on CKD: Plan: 61-year-old female with long-standing diabetes and associated chronic kidney disease stage III with a baseline creatinine mid ones (last checked May 2021); presented 09/16 with creatinine 1.9. Now admitted with c/o significant fluid retention and c/o 30-pound weight gain associated with stage 1 acute renal failure and complicated urinary tract infection versus simple cystitis. She presented with reports of 30-pound weight gain: however review of her OP charts shows her 09/15/21 wt (257#) to be within 5 lb of wt at OP f/u one week after [facility] April d/c (252#) and within 1 lb of March 2022 clinic wt (256#).CXR clear; BNP wnl. Adherent as OP w/ refilling meds. Admission creatinine is slightly higher than baseline with uptrend since 09/21 to peak 09/22 at 2.7, improved today to 2.5. She had been started on bid torsemide 20 mg (only had 2 doses, last one 09/20; takes 40 mg bid as OP) and started losartan on 09/21 > had 2 x 25 mg doses daily 09/21, 09/22. also had had 5 mg lisinopril on 09/19, 09/20; had 40 mg IV lasix bid 09/16-09/19 AM. Her renal function did not tolerate these measures. slowly improving nonoliguric stage 1 MONTRELL on CKD 3; hyperkalemia resolved >>resumed torsemide today 20 mg bid, lower than OP dose -CXR for today -still MONTRELL, so torsemide on hold; multiple BM possibly slowing renal recovery -cont to hold 1.5L FR -cont low K diet -cont patiromer daily lower dose -losartan stopped (last dose 09/22) -needs daily STANDING weight; bed weights not helpful; so ordered and nursing help appreciated; not done 09/24; up 2.4 kg past 48hr despite multiple bm -no indication yet to repeat renal imaging -continue PT evals /reassessment/ ?placement if she is too unsteady for standing wt She will need follow-up with nephrology, in 2 weeks time with a repeat BMP post discharge. (2) UTI (urinary tract infection): Plan: Completed course of Ertapenem per ID - Managed by primary; urine cx on admission was contaminated by external eliud/cells; pt w/ repeated inflamed/contaminated cxs as OP and uniformly + cxs as OP; for upcoming urology eval as OP; has had ID ask-a-doc as well ; for 10 days ertapenem and with diarrhea >>given resolved dysiria abtx stopped >urine specimen from09/23 collected in a hat and positive; >>recommend ID f/u as OP to comment on urine specimens > concern these may not be complicated UTI but possibly bacteriuria or other; she is now having multiple complications from abtx (diarrhea, montrell) Admission and Anticipated Discharge Date Admission Date: September 16, 2021 Subjective no acute interval events. worried she lost no weight (standing wts both after AM doses and w/ leg brace); no dysuria. sob w/ sitting down /sliding down into bed crevasses Review of Systems Review of Systems: All systems reviewed & are unremarkable except as noted in Subjective Physical Exam Constitutional: well developed, well nourished, + morbidly obese and + physical limitations; no acute distress Eyes: EOM intact bilaterally ENMT: Ears: no external ear abnormality Nose: no external nose abnormality Mouth: + dry oral mucous membranes Neck: no nuchal rigidity Respiratory: normal respiratory effort Auscultation: + diminished lung sounds Cardiovascular: RRR, no murmur, no edema (no edema on exam) Gastrointestinal (Abdomen): Inspection/Auscultation: normal bowel sounds P ercussion/Palpation: abdomen soft; abdomen nontender Skin: no rashes, warm and dry Psychiatric: A+Ox3, euthymic affect Results & Data ([facility]) Vital Signs (Past 12 Hours) Vital Signs Temp Pulse Pulse Resp BP Pulse Ox 09/25/21 15:35 69 09/25/21 15:32 36.7 C 70 18 143/95 H 97 09/25/21 12:10 36.5 C 73 20 151/85 H 98 09/25/21 09:10 72 09/25/21 07:18 36.6 C 76 20 151/82 H 93 Laboratory Results 09/25/21 06:03 09/25/21 06:03
--- NOTE | 2021-09-25 20:09 | XRay Report ---
XR chest 1V portable HISTORY: hx HFpEF; shortness of breath COMPARISON: Chest 09/22/2021. FINDINGS: No pneumothorax. No pleural effusions. There are low lung volumes. The heart remains mildly enlarged. There is mild central pulmonary vascular congestion without overt edema. No new focal lung consolidations to suggest pneumonia. Slightly rotated study. No acute rib fractures identified. IMPRESSION: Cardiomegaly with mild central pulmonary vascular congestion without overt edema. ACT 112: Negative or not required by law. Electronically signed by: Vladislav Monet M.D. 09/25/2021 8:08 PM
[2021-09-25] MEDS: INSULIN GLARGINE SOLOSTAR 100 UNITS/ML 3 ML PEN SQ SCH (21:22)
[2021-09-25] MEDS: ASPIRIN 81 MG ECTAB PO SCH (21:27)
[2021-09-26] MEDS: HEPARIN SOD 5,000 UNIT/0.5 ML VIAL SQ SCH ×3 (05:34→21:08)
[2021-09-26] MEDS: LEVOTHYROXINE SODIUM 25 MCG TABLET PO SCH (05:34)
[2021-09-26 07:44] LABS: Calcium 9.1 mg/dl (8.5-10.1); Creatinine Clr Calc Pharmacy 53.6 ml/min; Est GFR (African American) 46.4 ml/min; Potassium 4.7 mmol/L (3.5-5.1)
[2021-09-26] MEDS: INSULIN ASPART PER UNIT SC SCH ×4 (08:57→20:56)
[2021-09-26] MEDS: VITAMIN B COMPLEX TAB PO SCH (08:58)
[2021-09-26] MEDS: TORSEMIDE 20 MG TAB PO SCH ×2 (08:58→17:00)
[2021-09-26] MEDS: GABAPENTIN 100 MG CAP PO SCH ×2 (08:58→21:08)
[2021-09-26] MEDS: ADVANCED PROBIOTIC 1250 MG CAPSULE PO SCH ×3 (08:59→17:00)
[2021-09-26] MEDS: PANTOprazole 40 MG TAB PO SCH (08:59)
[2021-09-26] MEDS: FERROUS SULFATE 325 MG TAB PO SCH ×2 (08:59→16:59)
[2021-09-26] MEDS: FEXOFENADINE HCL 180 MG TAB PO SCH (08:59)
[2021-09-26] MEDS: METOPROLOL SUCC 50MG EXT REL TAB PO SCH (08:59)
[2021-09-26] MEDS: DOCUSATE SODIUM 100 MG CAP PO SCH ×2 (09:00→21:08)
[2021-09-26] MEDS: AMIODARONE 200 MG TAB PO SCH (09:00)
[2021-09-26] MEDS: CHOLECALCIFEROL 1,000 UNITS 25 MCG TAB PO SCH (09:00)
[2021-09-26] MEDS: FOLIC ACID 1 MG TAB PO SCH (09:00)
[2021-09-26] MEDS: CEROVITE ADV FORMULA TAB PO SCH (09:00)
[2021-09-26] MEDS: MENTHOL-ZINC OXIDE 360 APPLN/120 GM TUBE EXT SCH ×2 (09:01→21:08)
--- NOTE | 2021-09-26 11:06 | Hospitalist Progress Note ---
Date of Service September 26, 2021 Assessment & Plan (1) UTI (urinary tract infection): Plan: 61 yr female with H/O diastolic congestive heart failure, who was sent from Cardiology office because complicated urinary tract infection and also ongoing diastolic congestive heart failure. Acute on chronic diastolic congestive heart failure -CXR:Cardiomegaly with no acute cardiopulmonary abnormality. -ECHO: Normal LV chamber size, mild concentric LVH, EF 55 to 60%, no segmental left ventricular wall motion abnormality, grade 2 diastolic dysfunction Monitor I's and O's, daily weight, volume status Was initially on IV diuretics which was then transitioned to p.o. 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 I do not believe the repeat cultures due to collection method. Contaminated in urine hat/bowl. Patient could not get clean catch and declined straight cath sample Dysuria resolved. Antibiotics had been discontinued. Has already got over 7 days of ertapenem Acute to Subacute L1 compression fracture --Lumbar CT:Acute to subacute compression fracture involving the L1 vertebral body with loss of 50% of the height of the vertebral body. No retropulsion of fracture fragment is seen. Moderate disc space narrowing at L1-2. Appreciate orthopedics input Conservative management for now as per Ortho Avoid lifting any heavier objects greater than 5 to 7 pounds Likely would not tolerate brace May need kyphoplasty if no improvement with conservative management DM II HbA1C: 11.2 Continue insulin therapy Monitor BGs Will need basal insulin increased on discharge Paroxysmal atrial fibrillation Continue Amiodarone, metoprolol Not on anticoagulation due to H/O hemorrhagic retinopathy Acute kidney injury on CKD III Baseline creatinine 1.4 Cr: 1.9>>1.6>1.4>1.8>2.37>2.7 >2.45 >1.98> 1.59>1.42 Monitor renal function Avoid nephrotoxic agents as able Gabapentin dose had been reduced Lisinopril, losartan discontinued Diuretics initially held due to MONTRELL on CKD With improvement in renal function, diuretics was resumed at lower than home dose Renal function continue to improve Truss Builder recs appreciated Needs follow-up with nephrology in 2 weeks with repeat BMP Will monitor renal function over the weekend prior to discharge Hypothyroidism on Levothyroxine Nocturnal hypoxia on 2 liters at bedtime DVT Px: Heparin SQ Patient declined rehab and would want home with home health stable. Plan for possible dc on Tuesday Admission and Anticipated Discharge Date Admission Date: September 16, 2021 Subjective 61-year-old woman with multiple medical problems including hypothyroidism, A. fib, diastolic heart failure, hypertension UTI, fibromyalgia, CKD 3, DM type II with impaired mobility and osteoarthritis who presented complaining about pain. Managed for UTI, acute on chronic diastolic heart failure. Developed MONTRELL with diuretics and intolerance to lisinopril and losartan. Also found to have acute to subacute L1 compression fracture. Patient seen and examined today. No new complaints except for chronic joint pains Denies any nausea, vomiting Denies any fevers Denies any cough, chest pain, shortness of breath Denied diarrhea today Denies dysuria, hematuria or frequency Physical Exam Constitutional: + well hydrated and + obese; no acute distress Eyes: PERRL, conjunctivae normal, anicteric sclerae ENMT: external ear and nose normal, oropharynx normal Respiratory: normal respiratory effort, lungs clear to auscultation Cardiovascular: Rate/Rhythm: regular rate and regular rhythm S1 S2 Gastrointestinal (Abdomen): normal bowel sounds, soft, nontender, no hepatosplenomegaly Neurologic: PERRL, EOMI, accommodation nl, no face palsy, no dysarthria Psychiatric: A+Ox3, euthymic affect Results & Data Results & Data ([facility]) Vital Signs (Past 12 Hours) Vital Signs Temp Pulse Pulse Resp BP Pulse Ox 09/26/21 07:48 72 09/26/21 07:14 36.6 C 72 20 155/82 H 97 09/26/21 03:53 36.6 C 69 18 134/84 97 09/26/21 00:36 70 09/25/21 23:26 36.6 C 68 18 123/77 96 Laboratory Results Abnormal lab results 09/25/21 09/25/21 09/26/21 Range/Units 16:21 21:13 05:42 Chloride 112 H (98-107) mmol/L BUN 68 H (7-18) mg/dl Creatinine 1.42 H (0.6-1.2) mg/dl BUN/Creatinine Ratio 48.0 H (10-20) Glucose 104 H (70-99) mg/dl POC Glucose 190 H 112 H (70-99) mg/dl 09/26/21 09/26/21 Range/Units 07:40 11:35 Chloride (98-107) mmol/L BUN (7-18) mg/dl Creatinine (0.6-1.2) mg/dl BUN/Creatinine Ratio (10-20) Glucose (70-99) mg/dl POC Glucose 116 H 127 H (70-99) mg/dl
[2021-09-26] MEDS: CALCIUM 600MG + VIT D 400 IU TAB PO SCH (11:49)
[2021-09-26] MEDS: PATIROMER CALCIUM SORBITEX 8.4 GM PACK PO SCH (11:59)
--- NOTE | 2021-09-26 18:19 | Nephrology Progress Note ---
Date of Service September 26, 2021 Assessment & Plan (1) Acute kidney injury superimposed on CKD: Plan: 61-year-old female with long-standing diabetes and associated chronic kidney disease stage III with a baseline creatinine mid ones (last checked May 2021); presented 09/16 with creatinine 1.9. Now admitted with c/o significant fluid retention and c/o 30-pound weight gain associated with stage 1 acute renal failure and complicated urinary tract infection versus simple cystitis. She presented with reports of 30-pound weight gain: however review of her OP charts shows her 09/15/21 wt (257#) to be within 5 lb of wt at OP f/u one week after [facility] April d/c (252#) and within 1 lb of March 2022 clinic wt (256#).CXR clear; BNP wnl. Adherent as OP w/ refilling meds. Admission creatinine is slightly higher than baseline with uptrend since 09/21 to peak 09/22 at 2.7, improved today to 1.4. She had been started on bid torsemide 20 mg (only had 2 doses, last one 09/20; takes 40 mg bid as OP) and started losartan on 09/21 > had 2 x 25 mg doses daily 09/21, 09/22. also had had 5 mg lisinopril on 09/19, 09/20; had 40 mg IV lasix bid 09/16-09/19 AM. Her renal function did not tolerate these measures. slowly improving nonoliguric stage 1 NUNO on CKD 3; hyperkalemia resolved but K still borderline >>resumed torsemide 09/25 20 mg bid, lower than OP dose >>>resume routine torsemide 40 mg bid on 10/07 if labs stable -cont 1.5L FR -cont low K diet -cont patiromer daily lower dose -losartan stopped (last dose 09/22) -needs daily STANDING weight; bed weights not helpful; so ordered and nursing help appreciated; not done 09/24; up 2.4 kg past 48hr despite multiple bm -no indication yet to repeat renal imaging -continue PT evals /reassessment/ ?placement if she is too unsteady for standing wt Care coordinated w/ Dr Doll Will sign off D/C RECOMMENDATIONS -inf dzs OP eval as below -resume regular torsemide dose at d/c if not already on it -stop patiromer at d/c d/t cost -no suzanne/arb d/t hyperkalemia tendency -d/c on low K, low Na, 1.5L FR daily -bmp w/in a week of hospital d/c -f/u appt w/ nephro at d/c team/PCP discretion > would be w/ Dr Cash who covers CKD clinic in [place] (2) UTI (urinary tract infection): Plan: Completed course of Ertapenem per ID - Managed by primary; urine cx on admission was contaminated by external eliud/cells; pt w/ repeated inflamed/contaminated cxs as OP and uniformly + cxs as OP; for upcoming urology eval as OP; has had ID ask-a-doc as well ; for 10 days ertapenem and with diarrhea >>given resolved dysiria abtx stopped >urine specimen from09/23 collected in a hat and positive; >>recommend ID f/u as OP to comment on urine specimens > concern these may not be complicated UTI but possibly bacteriuria or other; she is now having multiple complications from abtx (diarrhea, nuno) Admission and Anticipated Discharge Date Admission Date: September 16, 2021 Subjective no interval events. feels L knee very swollen Review of Systems Review of Systems: All systems reviewed & are unremarkable except as noted in Subjective Physical Exam Constitutional: well developed, well nourished, + morbidly obese and + physical limitations; no acute distress Eyes: EOM intact bilaterally ENMT: Ears: no external ear abnormality Nose: no external nose abnormality Mouth: + dry oral mucous membranes Neck: no nuchal rigidity Respiratory: normal respiratory effort Auscultation: + diminished lung sounds Cardiovascular: RRR, no murmur, no edema (no edema on exam) Gastrointestinal (Abdomen): Inspection/Auscultation: normal bowel sounds Percussion/Palpation: abdomen soft; abdomen nontender Musculoskeletal: L knee w/ greater circumference than R but not edematous, no effusion noted Skin: no rashes, warm and dry Neurologic: axial tremor Psychiatric: A+Ox3, euthymic affect Results & Data ([facility]) Vital Signs (Past 12 Hours) Vital Signs Temp Pulse Pulse Resp BP Pulse Ox 09/26/21 16:08 65 09/26/21 15:49 36.5 C 63 16 123/76 96 09/26/21 11:15 36.8 C 67 16 114/79 97 09/26/21 07:48 72 09/26/21 07:14 36.6 C 72 20 155/82 H 97 Laboratory Results 09/25/21 06:03 09/26/21 05:42 Diagnostic Findings cxr Cardiomegaly with mild central pulmonary vascular congestion without overt edema.
[2021-09-26] MEDS: INSULIN GLARGINE SOLOSTAR 100 UNITS/ML 3 ML PEN SQ SCH ×2 (20:56→21:06)
[2021-09-26] MEDS: ASPIRIN 81 MG ECTAB PO SCH (21:08)
[2021-09-27] MEDS: LEVOTHYROXINE SODIUM 25 MCG TABLET PO SCH (05:14)
[2021-09-27] MEDS: HEPARIN SOD 5,000 UNIT/0.5 ML VIAL SQ SCH ×3 (05:14→22:22)
[2021-09-27 06:41] LABS: BUN Creatinine Ratio 43.4 (10-20); Calcium 9.2 mg/dl (8.5-10.1); Est GFR (African American) 40.8 ml/min; Est GFR (Non-African American) 35.2 ml/min
[2021-09-27] MEDS: INSULIN ASPART PER UNIT SC SCH ×4 (08:55→20:52)
[2021-09-27] MEDS: FERROUS SULFATE 325 MG TAB PO SCH ×2 (08:59→17:01)
[2021-09-27] MEDS: FOLIC ACID 1 MG TAB PO SCH (08:59)
[2021-09-27] MEDS: METOPROLOL SUCC 50MG EXT REL TAB PO SCH (08:59)
[2021-09-27] MEDS: GABAPENTIN 100 MG CAP PO SCH ×2 (08:59→20:49)
[2021-09-27] MEDS: CHOLECALCIFEROL 1,000 UNITS 25 MCG TAB PO SCH (08:59)
[2021-09-27] MEDS: PANTOprazole 40 MG TAB PO SCH (08:59)
[2021-09-27] MEDS: AMIODARONE 200 MG TAB PO SCH (08:59)
[2021-09-27] MEDS: TORSEMIDE 20 MG TAB PO SCH ×2 (08:59→17:01)
[2021-09-27] MEDS: FEXOFENADINE HCL 180 MG TAB PO SCH (08:59)
[2021-09-27] MEDS: ADVANCED PROBIOTIC 1250 MG CAPSULE PO SCH ×3 (08:59→17:01)
[2021-09-27] MEDS: MENTHOL-ZINC OXIDE 360 APPLN/120 GM TUBE EXT SCH ×2 (09:00→20:50)
[2021-09-27] MEDS: CEROVITE ADV FORMULA TAB PO SCH (09:00)
[2021-09-27] MEDS: DOCUSATE SODIUM 100 MG CAP PO SCH ×2 (09:01→20:49)
[2021-09-27] MEDS: VITAMIN B COMPLEX TAB PO SCH (09:01)
--- NOTE | 2021-09-27 10:10 | Hospitalist Progress Note ---
Date of Service September 27, 2021 Assessment & Plan (1) UTI (urinary tract infection): Plan: 61 yr female with H/O diastolic congestive heart failure, who was sent from Cardiology office because complicated urinary tract infection and also ongoing diastolic congestive heart failure. Acute on chronic diastolic congestive heart failure -CXR:Cardiomegaly with no acute cardiopulmonary abnormality. -ECHO: Normal LV chamber size, mild concentric LVH, EF 55 to 60%, no segmental left ventricular wall motion abnormality, grade 2 diastolic dysfunction Monitor I's and O's, daily weight, volume status Was initially on IV diuretics which was then transitioned to p.o. torsemide 20 mg twice daily--currently held due to MONTRELL Intolerance to both lisinopril and losartan Needs follow-up with cardiology upon discharge Multidrug resistant UTI Outpatient Urine Cx growing Klebsiella pneumonia Urine Cx: Klebsiella pneumonia, group B beta strep Repeat blood cultures; Pseudo aeruginosa, Enterococcus faecium. I do not believe the repeat cultures due to collection method. Contaminated in urine hat/bowl. Patient could not get clean catch and declined straight cath sample Dysuria resolved. Antibiotics had been discontinued. Has already got over 7 days of ertapenem PCP can consider ID eval outpt Acute to Subacute L1 compression fracture --Lumbar CT:Acute to subacute compression fracture involving the L1 vertebral body with loss of 50% of the height of the vertebral body. No retropulsion of fracture fragment is seen. Moderate disc space narrowing at L1-2. Appreciate orthopedics input Conservative management for now as per Ortho Avoid lifting any heavier objects greater than 5 to 7 pounds Likely would not tolerate brace May need kyphoplasty if no improvement with conservative management DM II HbA1C: 11.2 Continue insulin therapy Monitor BGs Will need basal insulin increased on discharge Paroxysmal atrial fibrillation Continue Amiodarone, metoprolol Not on anticoagulation due to H/O hemorrhagic retinopathy Acute kidney injury on CKD III Baseline creatinine 1.4 Cr: 1.9>>1.6>1.4>1.8>2.37>2.7 >2.45 >1.98> 1.59>1.42>1.58 Monitor renal function Avoid nephrotoxic agents as able Gabapentin dose had been reduced Lisinopril, losartan discontinued Diuretics initially held due to MONTRELL on CKD With improvement in renal function, diuretics was resumed Project Leader mehran appreciated Needs follow-up with nephrology in 2 weeks with repeat BMP Hypothyroidism on Levothyroxine Nocturnal hypoxia on 2 liters at bedtime DVT Px: Heparin SQ Patient declined rehab and would want home with home health stable. Plan for possible dc tomorrow Admission and Anticipated Discharge Date Admission Date: September 16, 2021 Subjective 61-year-old woman with multiple medical problems including hypothyroidism, A. fib, diastolic heart failure, hypertension UTI, fibromyalgia, CKD 3, DM type II with impaired mobility and osteoarthritis who presented complaining about pain. Managed for UTI, acute on chronic diastolic heart failure. Developed MONTRELL with diuretics and intolerance to lisinopril and losartan. Also found to have acute to subacute L1 compression fracture. Patient seen and examined today. Reports some abd discomfort today associated with loose stools today Reports chronic intermittent abd pain that improves with peptobismol Denies any nausea, vomiting Denies any fevers Denies any cough, chest pain, shortness of breath Denies dysuria, hematuria or frequency Physical Exam Constitutional: + well hydrated and + obese; no acute distress Eyes: PERRL, conjunctivae normal, anicteric sclerae ENMT: external ear and nose normal, oropharynx normal Respiratory: normal respiratory effort, lungs clear to auscultation Cardiovascular: Rate/Rhythm: regular rate and regular rhythm S1 S2 Gastrointestinal (Abdomen): normal bowel sounds, soft, nontender, no hepatosplenomegaly Musculoskeletal: No pedal edema Neurologic: PERRL, EOMI, accommodation nl, no face palsy, no dysarthria Psychiatric: A+Ox3, euthymic affect Results & Data Results & Data ([facility]) Vital Signs (Past 12 Hours) Vital Signs Temp Pulse Pulse Resp BP Pulse Ox 09/27/21 07:59 36.7 C 70 18 147/87 H 95 09/27/21 07:13 69 09/27/21 03:26 36.5 C 71 16 120/77 96 09/26/21 23:38 36.7 C 74 16 102/64 96 09/26/21 22:58 71 Laboratory Results Abnormal lab results 09/26/21 09/27/21 09/27/21 Range/Units 16:30 05:58 07:36 BUN 69 H (7-18) mg/dl Creatinine 1.58 H (0.6-1.2) mg/dl BUN/Creatinine Ratio 43.4 H (10-20) Glucose 160 H (70-99) mg/dl POC Glucose 137 H 159 H (70-99) mg/dl 09/27/21 Range/Units 11:42 BUN (7-18) mg/dl Creatinine (0.6-1.2) mg/dl BUN/Creatinine Ratio (10-20) Glucose (70-99) mg/dl POC Glucose 178 H (70-99) mg/dl
[2021-09-27] MEDS: CALCIUM 600MG + VIT D 400 IU TAB PO SCH (11:50)
[2021-09-27] MEDS: PATIROMER CALCIUM SORBITEX 8.4 GM PACK PO SCH (11:50)
[2021-09-27] MEDS: BISMUTH SUBSALICYLATE SUSP PO PRN ×2 (12:31→20:48)
--- NOTE | 2021-09-27 13:49 | Pharmacy Report ---
Pharmacy Glycemic Short Note 2 - Date of Service September 27, 2021 - Glycemic Short BSG Results (Last 24 hours): 09/26/21 09/26/21 09/27/21 16:30 20:41 05:58 Glucose 160 H POC Glucose 137 H 83 09/27/21 09/27/21 07:36 11:42 Glucose POC Glucose 159 H 178 H OUTPATIENT ANTIDIABETIC REGIMEN: * Basaglar 15 units SQ qHS * A1c 11.2% (09/16/21) ASSESSMENT: 09/27: * Pt received total of 27 units of insulin yesterday all of which was bolus. * She was ordered 20 units of Lantus at HS but she refused this dose. BSG had trended down 83 mg/dl at HS. * Fasting BSG was slightly elevated at 159 mg/dl. Reduced Lantus dose at HS today to 15 units if patient does not refuse. * Continued Novolog parameters the same. Pre-lunch BSG only slightly elevated to 178 mg/dl. This would improve if patient gets the basal dose tonight. 09/25/21 * Patient's BSGs yesterday were [phone]. * Patient received 52 units of insulin yesterday (20 units of Lantus plus 32 units of bolus). * Patient had slight hypoglycemic event last evening probably due to tightened CR. * Loosened CR this morning. Will continue. * Kidney function continues to improve. 09/21: * Patient received total of 47 units of insulin yesterday, of which 18 units were Lantus * Fasting BSG 161 mg/dL - continue same basal (of note, missed dose of Lantus 09/19 PM) * Due to worsening kidney function, loosened CR slightly today 09/18: * Patient received 59 units of insulin yesterday (20 units Lantus + 49 units Novolog) * BSGs were well controlled: [phone] mg/dL * Fasting BSG well controlled at 107 mg/dL this AM * Will decrease Lantus just slightly this evening given trend down in fasting * Continue current Novolog parameters. 09/17: * Jannet received 37 units of SQ insulin yesterday with poor glycemic control * BSGs 169, 203, 255, 215 mg/dL * Her Lantus dose was increased yesterday. Fasting BSG of 138 mg/dL this morning is much improved. I anticipate this will continue to trend down. * Post prandial BSGs also improved. Continue current novolog parameters. PLAN FOR INPATIENT GLYCEMIC CONTROL: * Basal insulin: decreased dose * Lantus 15 units SC HS * Bolus insulin: no change * NovoLog per scale ACHS or Q6hrs while NPO * Goal Range: Low 110 mg/dL - High 140 mg/dL * Correction Factor: 25 mg/dL/unit * Nutritional / Prandial insulin per carb ratio of 1 unit per 8 grams CHO consumed PLAN FOR DISCHARGE: * A1c 11.2% is well above the goal of less than 7.5% for this patient. * Will likely require an increase in home Basaglar dose upon discharge. * Recommend close follow-up with PCP regarding insulin titration. Can check BSGs two -three times per day at different times in order to gauge how BSGs fluctuate throughout the day. Recommend altering insulin based upon these.
[2021-09-27] MEDS: ASPIRIN 81 MG ECTAB PO SCH (20:48)
[2021-09-27] MEDS ORDERED: INSULIN GLARGINE SOLOSTAR 100 UNITS/ML 3 ML PEN SQ SCH (21:00)
[2021-09-28] MEDS: HEPARIN SOD 5,000 UNIT/0.5 ML VIAL SQ SCH (05:05)
[2021-09-28] MEDS: LEVOTHYROXINE SODIUM 25 MCG TABLET PO SCH (05:33)
[2021-09-28 07:20] LABS: BUN Creatinine Ratio 44.8 (10-20); Calcium 9.1 mg/dl (8.5-10.1); Creatinine Clr Calc Pharmacy 49.4 ml/min; Est GFR (African American) 42.4 ml/min; Est GFR (Non-African American) 36.6 ml/min; Potassium 3.5 mmol/L (3.5-5.1)
[2021-09-28] MEDS: FOLIC ACID 1 MG TAB PO SCH (08:27)
[2021-09-28] MEDS: ADVANCED PROBIOTIC 1250 MG CAPSULE PO SCH ×2 (08:27→12:08)
[2021-09-28] MEDS: FERROUS SULFATE 325 MG TAB PO SCH (08:27)
[2021-09-28] MEDS: FEXOFENADINE HCL 180 MG TAB PO SCH (08:28)
[2021-09-28] MEDS: TORSEMIDE 20 MG TAB PO SCH (08:28)
[2021-09-28] MEDS: METOPROLOL SUCC 50MG EXT REL TAB PO SCH (08:28)
[2021-09-28] MEDS: AMIODARONE 200 MG TAB PO SCH (08:29)
[2021-09-28] MEDS: CHOLECALCIFEROL 1,000 UNITS 25 MCG TAB PO SCH (08:29)
[2021-09-28] MEDS: PANTOprazole 40 MG TAB PO SCH (08:29)
[2021-09-28] MEDS: VITAMIN B COMPLEX TAB PO SCH (08:30)
[2021-09-28] MEDS: DOCUSATE SODIUM 100 MG CAP PO SCH (08:30)
[2021-09-28] MEDS: MENTHOL-ZINC OXIDE 360 APPLN/120 GM TUBE EXT SCH (08:30)
[2021-09-28] MEDS: GABAPENTIN 100 MG CAP PO SCH (08:30)
[2021-09-28] MEDS: BISMUTH SUBSALICYLATE SUSP PO PRN (08:32)
[2021-09-28] MEDS: CEROVITE ADV FORMULA TAB PO SCH (08:34)
[2021-09-28] MEDS: INSULIN ASPART PER UNIT SC SCH (08:40)
[2021-09-28] MEDS ORDERED: INSULIN GLARGINE SOLOSTAR 100 UNITS/ML 3 ML PEN SQ SCH (09:00)
--- NOTE | 2021-09-28 09:07 | Pharmacy Report ---
Pharmacy Glycemic Short Note 2 - Date of Service September 28, 2021 - Glycemic Short BSG Results (Last 24 hours): 09/27/21 09/27/21 09/27/21 11:42 16:16 19:37 Glucose POC Glucose 178 H 165 H 104 H 09/27/21 09/28/21 09/28/21 20:15 06:31 07:28 Glucose 150 H POC Glucose 128 H 156 H OUTPATIENT ANTIDIABETIC REGIMEN: * Basaglar 15 units SQ qHS * A1c 11.2% (09/16/21) ASSESSMENT: 09/28: * BSGs yesterday of 159, 178, 165, and 128 mg/dL * Received 19 units of bolus insulin only, refusing basal insulin * Fasting BSG of 156 mg/dL this morning, since patient has been refusing HS Lantus, will schedule dose in AM today * Downward trend noted in evening, will loosen evening Novolog parameters 09/27: * Pt received total of 27 units of insulin yesterday all of which was bolus. * She was ordered 20 units of Lantus at HS but she refused this dose. BSG had trended down 83 mg/dl at HS. * Fasting BSG was slightly elevated at 159 mg/dl. Reduced Lantus dose at HS today to 15 units if patient does not refuse. * Continued Novolog parameters the same. Pre-lunch BSG only slightly elevated to 178 mg/dl. This would improve if patient gets the basal dose tonight. 09/25/21 * Patient's BSGs yesterday were [phone]. * Patient received 52 units of insulin yesterday (20 units of Lantus plus 32 units of bolus). * Patient had slight hypoglycemic event last evening probably due to tightened CR. * Loosened CR this morning. Will continue. * Kidney function continues to improve. PLAN FOR INPATIENT GLYCEMIC CONTROL: * Basal insulin: move to AM, decrease * Lantus 10 units SC daily * Bolus insulin: no change * NovoLog per scale ACHS or Q6hrs while NPO * Goal Range: Low 110 mg/dL - High 140 mg/dL * Correction Factor: 25 mg/dL/unit with breakfast and lunch, 30 mg/dL/unit with dinner, HS * Nutritional / Prandial insulin per carb ratio of 1 unit per 8 grams CHO consumed with breakfast and lunch, 1 unit per 10 grams CHO with dinner, HS PLAN FOR DISCHARGE: * A1c 11.2% is well above the goal of less than 7.5% for this patient. * Will likely require an increase in home Basaglar dose upon discharge. * Recommend close follow-up with PCP regarding insulin titration. Can check BSGs two -three times per day at different times in order to gauge how BSGs fluctuate throughout the day. Recommend altering insulin based upon these.
--- NOTE | 2021-09-28 09:56 | Discharge Summary ---
Date of Service September 28, 2021 Admission HPI Per Admitting Provider This is a 61-year-old female with past medical history significant for type 2 diabetes, hypothyroidism, atrial fibrillation, chronic diastolic CHF, hypertension, history of TIA, complicated UTI, chronic kidney disease stage III, fibromyalgia, osteoarthritis, impaired mobility, lymphedema, who lives alone at home, ambulates with a walker and went to Cardiology office complaining of weight gain of 30 pounds since last discharge in April. She also has dry cough, feeling dizzy, mild headaches and burning micturition. She is having multidrug resistant UTI diagnosed since about a month ago, was given Levaquin, but stopped because it was messing up with her cardiac medications. She was sent here to treat for UTI and also for CHF from the Cardiology office. Resting comfortably, hemodynamically stable. The patient does not want to do IV Lasix at this time because of her kidney function and want to wait until Cardiology comes in the morning. Denies any fever or chills. Vision is okay. No earache, no runny nose. No sore throat. Appetite is okay. Able to swallow okay. No nausea, no vomiting, alternating diarrhea and constipation. Denies any blood in stools or black stools, lower extremity edema. Admission Exam Per Admitting Provider GENERAL: The patient is morbidly obese, not in acute distress. VITAL SIGNS: Temperature 36.7, pulse 62, respiratory rate 20, blood pressure 126/79, oxygen 94% on room air. HEENT: Pupils equal, round and reactive to light. Oral mucosa moist. NECK: No JVD. No neck masses. CARDIOVASCULAR: S1 and S2 heard. Regular rate and rhythm. No murmur, no gallop. RESPIRATORY SYSTEM: Normal AP diameter. No accessory muscle use. No wheezing, no crackles. ABDOMEN: Soft, bowel sounds present. Some tenderness in right upper quadrant region. No guarding, no rigidity, no distention. CENTRAL NERVOUS SYSTEM: Cranial nerves II-XII grossly intact, nonfocal. EXTREMITIES: No lower extremity edema. +2 edema present. No erythema seen. Principal Diagnosis Urinary tract infection Acute on chronic diastolic heart failure Acute kidney injury superimposed on chronic kidney disease Acute to subacute compression fracture involving L1 Discharge Exam Constitutional + well hydrated and + obese; no acute distress Eyes PERRL, conjunctivae normal, anicteric sclerae ENMT external ear and nose normal, oropharynx normal Respiratory normal respiratory effort, lungs clear to auscultation Cardiovascular Rate/Rhythm: regular rate and regular rhythm S1 S2 Gastrointestinal (Abdomen) normal bowel sounds, soft, nontender, no hepatosplenomegaly Musculoskeletal No pedal edema Neurologic PERRL, EOMI, accommodation nl, no face palsy, no dysarthria Psychiatric A+Ox3, euthymic affect Discharge Data Allergies Allergy/AdvReac Type Severity Reaction Status Date / Time acetaminophen Allergy Severe SHORT OF Verified 09/16/21 04:55 BREATH kiwi Allergy Intermediate Hives Verified 09/15/21 22:05 nylon Allergy Intermediate BLISTER Verified 09/15/21 22:05 SKIN walnut Allergy Intermediate MOUTH AND Verified 09/15/21 22:05 TONGUE SORE aluminum Allergy Mild Rash Verified 09/15/21 22:05 latex Allergy Mild Rash Verified 09/15/21 22:05 frovatriptan Allergy Unknown Unknown Verified 09/15/21 22:05 glipizide Allergy Unknown CAN'T Verified 09/15/21 22:05 REMEMBER turkey AdvReac Severe VOMITING--END Verified 09/15/21 22:05 UP IN HOSPITAL aspartame AdvReac Intermediate GI UPSET-- Verified 09/15/21 22:05 WITH ALL ARTIFICAL SWEETNERS hydrocodone [From Vicodin] AdvReac Intermediate Gastrointestinal Verified 09/15/21 22:05 Upset morphine AdvReac Intermediate Confusion Verified 09/15/21 22:05 pioglitazone [From Actos] AdvReac Intermediate Gastrointestinal Verified 09/15/21 22:05 Upset sumatriptan [From Imitrex] AdvReac Intermediate DOSEN'T Verified 09/15/21 22:05 WORK tramadol AdvReac Intermediate DOSEN'T Verified 09/15/21 22:05 WORK ascorbic acid AdvReac Unknown Unknown Verified 09/15/21 22:05 benzoic acid AdvReac Unknown Unknown Verified 09/15/21 22:05 doxylamine AdvReac Unknown Unknown Verified 09/15/21 22:05 Sulfa (Sulfonamide AdvReac Unknown CAN'T TAKE Verified 09/15/21 22:05 Antibiotics) IT Consultations 09/15/21 21:32 ED Decision to Admit Stat 09/16/21 08:00 Consult Cardiology Routine Consult Infectious Diseases Routine 09/16/21 09:47 Consult Nephrology Routine 09/16/21 18:08 Consult Orthopedic Surgery Routine Ordered Studies 09/16/21 11:27 CT abd pelvis wo con Urgent 09/17/21 14:05 CT lumbar spine wo con Routine Diabetes Follow up Diabetes Follow-up Needed for HgbA1c >9% Hospital Course (1) UTI (urinary tract infection): 61 yr female with H/O diastolic congestive heart failure, who was sent from Cardiology office because complicated urinary tract infection and also ongoing diastolic congestive heart failure. Acute on chronic diastolic congestive heart failure -CXR:Cardiomegaly with no acute cardiopulmonary abnormality. -ECHO: Normal LV chamber size, mild concentric LVH, EF 55 to 60%, no segmental left ventricular wall motion abnormality, grade 2 diastolic dysfunction Was initially on IV diuretics which was then transitioned to p.o. torsemide. Diuretics were held briefly due to MONTRELL Intolerance to both lisinopril and losartan Patient discharged on home torsemide Needs follow-up with cardiology upon discharge Multidrug resistant UTI Outpatient Urine Cx growing Klebsiella pneumonia Urine Cx: Klebsiella pneumonia, group B beta strep Repeat urinecultures; Pseudo aeruginosa, Enterococcus faecium. I do not believe the repeat cultures due to collection method. Contaminated in urine hat/bowl. Patient could not get clean catch and declined straight cath sample Dysuria resolved. Antibiotics had been discontinued. Has already got over 7 days of ertapenem Patient can follow up with ID outpatient for eval for recurrent UTI Acute to Subacute L1 compression fracture --Lumbar CT:Acute to subacute compression fracture involving the L1 vertebral body with loss of 50% of the height of the vertebral body. No retropulsion of fracture fragment is seen. Moderate disc space narrowing at L1-2. Appreciate orthopedics input Conservative management for now as per Ortho Avoid lifting any heavier objects greater than 5 to 7 pounds May need kyphoplasty if no improvement with conservative management DM II HbA1C: 11.2 Educated patient on diabetes management at home including dietary management Advised to keep a home blood glucose log to aid adjustment Continue insulin Follow up [facility] clinic Paroxysmal atrial fibrillation Continue Amiodarone, metoprolol Not on anticoagulation due to H/O hemorrhagic retinopathy Acute kidney injury on CKD III Baseline creatinine 1.4 Cr: 1.9>>1.6>1.4>1.8>2.37>2.7 >2.45 >1.98> 1.59>1.42>1.58>1.53 Monitor renal function Intolerant to Diuretics initially held due to MONTRELL on CKD With improvement in renal function, diuretics was resumed Stop spironolactone for now until follow up with Director Of National Sales Patient to continue home torsemide To get BMP within the week and follow up result with PCP and Director Of National Sales Hypothyroidism on Levothyroxine Nocturnal hypoxia on 2 liters at bedtime Total Time Total Time Spent Total Time Spent (In Minutes): 40 Total Time Includes: Examination of the Patient, Discharge Planning, Medication Reconciliation and Communication With Other Providers Discharge Plan Discharge Items Patient Disposition: Home - Home Health Services Reason For Visit: CARDIAC ASSESSMENT Discharge Diagnosis: Urinary tract infection Acute on chronic diastolic heart failure Acute kidney injury superimposed on chronic kidney disease Acute to subacute compression fracture involving L1 Condition on Discharge: Fair Activity: As commented below Activity Comment: As recommended by PT Non-emergency contact: Primary Care Provider and Director Of National Sales Call non-emergency contact if: you have any medication questions Follow-up/Referrals: Marcial Blanc MD [Primary Care Provider] - 10/02/21 11:00 am (Date & Time 10/02/2021 11:00 AM Provider Charley Schuler MD Department [facility] ) Leoncio Jalloh DO [Physician] - 10/02/21 9:20 am (Date & Time 10/02/2021 9:20 AM Provider [facility] Diet: Carb Consistent or DM2, Heart Healthy, Low Potassium (2gm) and Low Sodium (2gm) Fluids: 1500ml (6 cups) Ambulatory Orders: Basic Metabolic Panel (Routine) Timeframe: 1 Week Location: Determined by Patient Ordered By: Rosemary Bosch Attending Provider Instructions: Ms Rossi You came to the hospital for increased weight gain You were evaluated and managed for the above listed diagnoses. You completed antibiotics treatment. However, it is important to follow up with Infectious disease for better evaluation of recurrent urinary infection. You were treated with diuretics while inpatient. You did not tolerate losartan and lisinopril. Your diuretics were held briefly while inpatient due to acute kidney injury. Please continue to take meds as discussed and as detailed in medication list. You were comanaged with the Director Of National Sales and Etiquette Coach. Please ensure follow up with them outpatient for continued management. You declined placement and you are being discharged with home health services. Please ensure follow up with your Primary Doctor. Please continue low sodium, low potassium diet with 1.5L per day fluid restriction as we discussed. You need to get blood test (Basic metabolic Panel) in 1 week and follow up the result with your Primary Doctor and Director Of National Sales. It was a pleasure taking care of you. Pending Studies at Discharge: No Stand-Alone Forms: [facility] [employer], Smoking Cessation Medications and DC Order Prescriptions: Continued metoprolol succinate 50 mg Tablet Extended Release 24 Hr 50 mg PO QAM RF: 0 fexofenadine 180 mg Tablet 180 mg PO QAM RF: 0 omeprazole 40 mg Capsule,Delayed Release(Dr/Ec) 40 mg PO QAM RF: 0 aspirin 81 mg Tablet,Delayed Release (Dr/Ec) 81 mg PO HS RF: 0 ferrous sulfate [FeroSul] 325 mg (65 mg iron) tablet 325 mg PO BID RF: 0 yplngiaoka-nnyvply-cmfrashs 50-325-40 mg Capsule 1 cap PO Q4H PRN (Reason: Migraine Headache) RF: 0 folic acid 1 mg Tablet 1 mg PO QAM RF: 0 docusate sodium 100 mg Tablet 100 mg PO BID RF: 0 cholecalciferol (vitamin D3) [Vitamin D3] 25 mcg (1,000 unit) Tablet 25 mcg PO QAM RF: 0 calcium carbonate-vitamin D3 [Calcium 600 + D(3)] 600 mg(1,500mg) -400 unit Tablet 1 tab PO QDL RF: 0 Basaglar KwikPen U-100 Insulin 100 unit/mL (3 mL) Insulin Pen 15 unit SUBCUT HS RF: 0 levothyroxine [Tirosint] 25 mcg Capsule 25 mcg PO DAILYBB RF: 0 torsemide 20 mg tablet 40 mg PO BID Qty: 60 RF: 0 amiodarone 200 mg Tablet 200 mg PO DAILY RF: 0 diphenoxylate-atropine [Lomotil] 2.5-0.025 mg Tablet 1 tab PO DIRECTED PRN (Reason: Diarrhea) RF: 0 gabapentin 300 mg Capsule 300 mg PO HS RF: 0 gabapentin 100 mg Capsule 200 mg PO QAM RF: 0 vitamin B complex Capsule 1 cap PO DAILY RF: 0 Multivitamin 50 Plus Tablet 1 tab PO DAILY RF: 0 Avastin 25 mg/mL Solution 1.25 mg IV DIRECTED RF: 0 acidophilus-pectin, citrus 100 million cell-10 mg Capsule 1 cap PO DAILY RF: 0 Discontinued spironolactone 25 mg Tablet 25 mg PO QAM Qty: 30 RF: 0 fosfomycin tromethamine 3 gram Packet 1 packet PO Q3D RF: 0 Discharge Orders: Discharge Order (Routine); Ordered 09/28/21 Ordered By: Rosemary Sanabria/Other Patient Handouts: Heart Failure Meds, What Is Heart Failure, Coping with Heart Failure Admission Data Admit Date/Time: 09/16/21 02:33 Attending Provider: Rosemary Doll I. Admit Provider: Car Nesbitt Primary Care Provider: Marcial Blanc Other Providers: Mookie Lay ; [facility] ; Car Nesbitt ; Donaldo Bojorquez ; Richy Sheppard ; Jimi Almaraz ; Bruno Peña ; Huseyin Belle ; Lul Bird ; Amparo Ward ; Bridget Torres ; Sierra Macdonald ; Matthew Manuel Carlos M. ; Clement Moe ; Kingston Peters I. ; Rick Enciso II ; Theresa Barrera ; Lul Joel ; Leoncio Jalloh ; Vaughn Cash ; Brian Castillo Other Interventions: Discharge Summary Assessment (RN) Last Done: 09/28/21 10:29
[2021-09-28] MEDS ORDERED: INSULIN ASPART PER UNIT SC SCH ×2 (11:30→16:30)
[2021-09-28] MEDS: CALCIUM 600MG + VIT D 400 IU TAB PO SCH (12:07)
[2021-09-28] MEDS: PATIROMER CALCIUM SORBITEX 8.4 GM PACK PO SCH (12:10)
== END 2021-09-28 13:48 | disposition home health service (06) | DRG 291 ==
LOC: ED 14:49 → EDINP 09-16 02:33 → SUATTDRO 09-16 02:33 → 2S 09-16 04:20